=== PATIENT | female | born 1945 | race Caucasian/White ===

== ENCOUNTER 2022-10-03 23:40 | Inpatient (IN) ==
[2022-10-04 00:19] LABS: iSTAT Creatinine 0.8 mg/dl (0.6-1.3); iSTAT Hemoglobin 15.6 g/dl (12.0-16.0); iSTAT Ionized Calcium 1.17 mmol/l (1.12-1.32); iSTAT Potassium 2.8 mmol/L (3.3-5.0)
[2022-10-04 00:22] LABS: iSTAT Arterial Blood Gas HCO3 26 meg/L (19-24); iSTAT Arterial Blood Gas pCO2 37 mmHg (35-46); iSTAT Arterial Blood Gas pH 7.46 (7.35-7.45); iSTAT Arterial Blood Gas pO2 52 mmHg (80-95); iSTAT Carbon Dioxide 28 mmol/L (24-31)
[2022-10-04 00:25] LABS: Basophils # (auto) 0.04 K/uL (0-0.2); Basophils % (auto) 0.3 %; Eosinophils # (auto) 0.01 K/uL (0-0.50); Eosinophils % (auto) 0.1 %; Hematocrit (blood only) 44.7 % (37.0-47.0); Hemoglobin 15.2 g/dl (12.0-16.0); Immature Granulocytes # (auto) 0.05 K/uL (0.01-0.20); Immature Granulocytes % (auto) 0.4 %; Lymphocytes % (auto) 9.2 %; Mean Corpuscular Hemoglobin 30.1 pg (25.0-34.0); Mean Corpuscular Volume 88.5 fL (80.0-100.0); Mean Platelet Volume 10.7 fL (9.4-12.4); Monocytes # (auto) 0.99 K/uL (0.11-0.59); Monocytes % (auto) 8.3 %; Neutrophils % (auto) 81.7 %; Platelet Count 222 K/uL (130-400); RDW Coefficient of Variation 13.6 % (11.5-14.5); RDW Standard Deviation 43.8 fL (36.4-46.3); Red Blood Count 5.05 M/uL (4.20-5.40); White Blood Count 11.99 K/ul (4.8-10.8)
[2022-10-04 00:40] LABS: Albumin Globulin Ratio 1.3 (0.9-2); Albumin Level 3.9 gm/dl (3.4-5.0); BUN Creatinine Ratio 18.9 (10-20); Bilirubin,Total 1.4 mg/dl (0.2-1.0); Calcium 9.2 mg/dl (8.5-10.1); Creatinine Clr Calc Pharmacy 73.1 ml/min; Est GFR (African American) 89.9 ml/min; Est GFR (Non-African American) 77.6 ml/min; Total Protein 6.9 gm/dl (6.0-8.3)
[2022-10-04 00:55] LABS: Influenza A virus by PCR Negative (Neg); Influenza B virus by PCR Negative (Neg); RSV by PCR Negative (Neg)
[2022-10-04 00:59] LABS: SARS CoV2 RNA(COVID-19) Ceph POSITIVE (Negative)
[2022-10-04] MEDS ORDERED: SODIUM CHLORIDE 0.9% 500 ML IV ONE (01:07)
[2022-10-04] MEDS ORDERED: POTASSIUM CHLORIDE PWD 20 MEQ PACK PO STA (01:28)
[2022-10-04 01:43] LABS: Partial Thromboplastin Ratio 0.9; Partial Thromboplastin Time 25.2 Seconds (21.0-31.0)
[2022-10-04 01:47] LABS: Magnesium 1.9 mg/dl (1.7-2.4)
[2022-10-04] MEDS ORDERED: MAGNESIUM SULFATE / D5W 1 GM/100 ML BAG IV STA (01:49)
--- NOTE | 2022-10-04 02:15 | Emergency Department Note ---
Impression & Plan Syncope, COVID-19, Hypoxia Admit to the [facility] ED Provider Note NAME: RADHA GALICIA AGE: 77 SEX: F ARRIVES VIA: Ambulance INFORMANT: Patient and EMS ED PROVIDER(S): Glenis Gloria DO CHIEF COMPLAINT: Near syncope and shortness of breath PLAN: Disposition: Admit to the [facility] Condition: Guarded MEDICAL DECISION MAKING: This is a 77-year-old female patient who called EMS for dizziness and syncope. Patient admits that she has been feeling extremely weak and believes that is because she cannot eat or drink very much. She has had very little oral intake. Upon EMS arrival, they found her with an O2 saturation of 60% on room air. They administered a DuoNeb treatment and IV Solu-Medrol. Patient was noted to have significant ST segment depression on prehospital EKG. BSG was greater than 200. Patient was seen approximately 20 days ago at [place] emergency department for URI symptoms. She states that she was treated with antinausea medications at that time. She had a COVID test at that time which was negative. Laboratory studies here reveal a positive COVID test. She has a normal white blood cell count and stable H&H. Glucose was 143. Troponin was elevated at 503. Twelve-lead EKG shows evidence of ST segment depression inferiorly and l aterally. The patient is hypoxic without supplemental O2. She requires high flow nasal cannula to maintain O2 saturations in the 90s. Chest x-ray shows peribronchial opacities most likely infectious in etiology secondary to COVID. Patient's COVID test today is positive and chest x-ray shows multifocal opacities. EKG shows diffuse ST segment depression and she has an elevated troponin. Triage Nursing notes reviewed and agree with them. Vital Signs: reviewed and remarkable for hypoxia and tachycardia Differential diagnosis: Pneumonia, CHF, COVID-19, dehydration, bronchitis, renal failure ER treatment provided: Cardiac monitoring Twelve-lead EKG High flow nasal cannula to maintain O2 saturations at 90% IV normal saline bolus Diagnostics independently interpreted by me: ECG: Sinus tachycardia at [address] segment depression in the inferior and lateral leads. This is concerning for ischemia. There is no ectopy. This was compared to an EKG from April 2018. Cardiac Monitoring: Sinus tachycardia at 113 ABG: pH of 7.46 PCO2 of 37.1 PO2 of 52 bicarb of 26.4 O2 saturation at 88% Laboratory studies: See below Imaging studies: As independently interpreted by me Portable chest x-ray: peribronchial opacities consistent with COVID HPI: 77/F arrives for evaluation of syncope and shortness of breath. Patient describes having persistent shortness of breath, dizziness and decreased oral intake over the past 20 days. She was seen at [place] emergency department 20 days ago for URI symptoms. At that time she was complaining of nausea and was treated with antiemetics. The patient has had increasing shortness of breath. She had an episode of dizziness today and syncope. EMS found the patient to be hypoxic and wheezing. They placed her on supplemental oxygen and administered DuoNeb treatment and IV Solu-Medrol. PAST MEDICAL HISTORY:See Below PAST SURGICAL HISTORY:See Below FAMILY HISTORY:See Below SOCIAL HISTORY:See Below HOME MEDICATIONS:See list ALLERGIES:See list VITALS:See Below PHYSICAL EXAMINATION: HEENT: Head - normocephalic and atraumatic. Pupils are equal, round, and reactive to light. Extraocular eye muscles are intact, and sclera are anicteric. Nose -dry nasal mucosa without discharge. Mouth -extremely dry buccal mucosa. Oropharynx is nonerythematous and there is no tonsillar exudate or edema noted. Neck: Supple; no cervical lymphadenopathy Heart: Tachycardic rate and regular rhythm. There is a normal S1 and S2 with no murmurs, clicks, or gallops appreciated. Lungs: Diminished breath sounds in all lung heath with rhonchi at the bases Abdomen: Soft, completely nontender, nondistended, with good bowel sounds. There are no palpable pulsatile masses or hepatosplenomegaly. There is no guarding, rigidity, or rebound noted. Extremities: No evidence of cyanosis, clubbing, or edema. There are easily palpable peripheral pulses. Skin: Extremely dry with poor turgor and no rashes. ED COURSE: Times/Reassessments: 2350: Patient was evaluated in room A-9 Patient remained hypoxic and was immediately placed on high flow nasal cannula. An IV lock was initiated. An order was placed for continuous cardiac monitoring. The patient was in a sinus tachycardia at 113. A twelve-lead EKG was obtained as described above. A portable chest x-ray was performed. A septic protocol was performed. An ABG was obtained. The patient remained hemodynamically stable. I reviewed the results of the x- rays and labs with the patient and her daughter who arrived at the bedside. I discussed the case with the [facility] and they will evaluate for further management. I have personally spent greater than 50 minutes of critical care time in the direct management of this patient. This includes bedside care, interpretation of diagnostic studies, and testing, discussion with consultants, patient, and family members, and other required patient management activities. This 50 minutes is in excess of all separately billable procedures. Glenis Gloria DO Past Med/Surg History Medical History (Updated 10/05/22 @ 04:40 by Glenis Gloria DO) Arthritis of shoulder region, right Asthma Degenerative arthritis of right shoulder region Female urinary stress incontinence (Unknown) Hypertension Pulmonary embolism associated with COVID-19 Received intravenous tissue plasminogen activator (t-PA) within last 24 hours Right shoulder pain Right shoulder pain Family History (Updated 05/07/18 @ 01:14 by Deshawn Molina) Other No significant family history Social History (Updated 05/07/18 @ 01:14 by Deshawn Molina) Smoking Status: Never smoker Second Hand Exposure: No; Do You Dip or Chew Tobacco: No; Tobacco Cessation Education Requested by Patient: No Hx Alcohol Use: No Hx Substance Use: No Preferred Language: Turkmen Communication Ability: Effective Wedding Consultant Required: No Beliefs That Will Affect Care: None marital status: Current Living Situation: Spouse How many Children do You have: 2 Other Information That Helps Us Care for You: No Feels Safe at Home: Yes Safety Concerns: Feels Safe At This Time Assistive Devices: Walker Allergies Allergies Allergy/AdvReac Type Severity Reaction Status Date / Time buspirone Allergy Unknown suical Verified 05/07/18 03:52 thoughts fluoxetine Allergy Unknown unk Verified 05/07/18 03:52 prednisone Allergy Unknown agitation Verified 05/07/18 03:52 Sulfa (Sulfonamide Allergy Unknown unk Verified 05/07/18 03:52 Antibiotics) Home Meds Home Medications Medication Instructions Recorded Confirmed citalopram 40 mg tablet 40 mg PO HS 05/07/18 05/07/18 imipramine HCl 50 mg tablet 25 mg PO BID 05/07/18 05/07/18 omeprazole 20 mg tablet,delayed 20 mg PO QAM 10/12/18 10/12/18 release metoprolol tartrate 25 mg tablet 25 mg PO BID 10/04/22 10/04/22 Results & Data (ED) Vital Signs Vital Signs - 24 hr 10/03/22 23:47 10/04/22 00:05 10/04/22 00:32 Temperature 36.7 C Temperature Source Oral Pulse Rate 115 H 112 H Pulse Rate [Finger] 114 H Pulse Rate from SpO2 Sensor Pulse Rhythm Regular Pulse Strength Normal Respiratory Rate 24 18 Respiratory Effort / Characteristics Non-Labored Spontaneous Non-Labored Spontaneous Respiratory Depth Normal Respiratory Pattern Tachypnea Blood Pressure 114/59 L Blood Pressure Mean 77 Blood Pressure Position Sitting Pulse Oximetry 87 L 92 Oxygen Delivery Method Non-rebreather High Flow Nasal Cannula Oxygen Flow Rate 15 40 Fraction of Inspired Oxygen 100 Sepsis Recent Fever Within 48 Hours No Sepsis New/Unexplained Change in Mental Status N/A Sepsis Action Taken by Nursing Physician Notified 10/03/22 23:59 10/04/22 00:00 10/04/22 00:30 Temperature Temperature Source Pulse Rate 113 H 113 H 116 H Pulse Rate [Finger] Pulse Rate from SpO2 Sensor 114 H 114 H 116 H Pulse Rhythm Pulse Strength Respiratory Rate 20 20 22 Respiratory Effort / Characteristics Respiratory Depth Respiratory Pattern Blood Pressure 114/59 L 136/59 L 132/67 Blood Pressure Mean 77 84 88 Blood Pressure Position Pulse Oximetry 92 89 L 90 Oxygen Delivery Method High Flow Nasal Cannula High Flow Nasal Cannula High Flow Nasal Cannula Oxygen Flow Rate 40 40 40 Fraction of Inspired Oxygen 100 100 100 Sepsis Recent Fever Within 48 Hours Sepsis New/Unexplained Change in Mental Status Sepsis Action Taken by Nursing 10/04/22 01:00 10/04/22 01:30 Temperature Temperature Source Pulse Rate 110 H 113 H Pulse Rate [Finger] Pulse Rate from SpO2 Sensor 111 H 114 H Pulse Rhythm Pulse Strength Respiratory Rate 18 17 Respiratory Effort / Characteristics Respiratory Depth Respiratory Pattern Blood Pressure 141/77 H 135/75 Blood Pressure Mean 98 95 Blood Pressure Position Pulse Oximetry 90 90 Oxygen Delivery Method High Flow Nasal Cannula High Flow Nasal Cannula Oxygen Flow Rate 40 40 Fraction of Inspired Oxygen 100 100 Sepsis Recent Fever Within 48 Hours Sepsis New/Unexplained Change in Mental Status Sepsis Action Taken by Nursing Laboratory Data 10/04/22 00:00 10/04/22 00:00 Lab Results 10/04/22 10/04/22 10/04/22 Range/Units 00:00 00:00 00:00 WBC 11.99 H (4.8-10.8) K/ul RBC 5.05 (4.20-5.40) M/uL Hgb 15.2 (12.0-16.0) g/dl POC Hgb (12.0-16.0) g/dl Hct 44.7 (37.0-47.0) % POC Hct (37-47) % MCV 88.5 (80.0-100.0) fL MCH 30.1 (25.0-34.0) pg MCHC 34.0 (32.0-36.0) g/dL RDW Std Deviation 43.8 (36.4-46.3) fL RDW Coeff of Jose Enrique 13.6 (11.5-14.5) % Plt Count 222 (130-400) K/uL MPV 10.7 (9.4-12.4) fL Immature Gran % (Auto) 0.4 % Neut % (Auto) 81.7 % Lymph % (Auto) 9.2 % Blair % (Auto) 8.3 % Eos % (Auto) 0.1 % Baso % (Auto) 0.3 % Neut # (Auto) 9.80 H (1.40-6.50) K/uL Lymph # (Auto) 1.10 L (1.2-3.4) K/uL Blair # (Auto) 0.99 H (0.11-0.59) K/uL Eos # (Auto) 0.01 (0-0.50) K/uL Baso # (Auto) 0.04 (0-0.2) K/uL Immature Gran # (Auto) 0.05 (0.01-0.20) K/uL APTT (21.0-31.0) Seconds PTT Ratio POC pH (7.35-7.45) POC pCO2 (35-46) mmHg POC pO2 (80-95) mmHg POC HCO3 (19-24) paula/L POC Base Excess (-9-1.8) paula/L POC ABG O2 Sat (90-95) % POC Sodium (135-144) mmol/L Sodium 138 (136-145) mmol/L POC Potassium (3.3-5.0) mmol/L Potassium 3.0 L (3.5-5.1) mmol/L POC Chloride (101-112) mmol/L Chloride 98 (98-107) mmol/L Carbon Dioxide 30 (21-32) mmol/L POC Total CO2 (24-31) mmol/L Anion Gap 10 (3-11) POC Anion Gap (16-25) mmol/L POC BUN (7-18) mg/dl BUN 14 (6-23) mg/dl Creatinine 0.74 (0.6-1.2) mg/dl POC Creatinine (0.6-1.3) mg/dl Est Cr Clr Drug Dosing 73.1 ml/min Est GFR ( Amer) 89.9 ml/min Est GFR (Non-Af Amer) 77.6 ml/min BUN/Creatinine Ratio 18.9 (10-20) Glucose 133 H (70-99(Fasting)) mg/dl POC Glucose (other) (70-99) mg/dl Estimat Average Glucose mg/dl Hemoglobin A1c (4.5-5.6) % Lactate (0.4-2.0) mmol/L Calcium 9.2 (8.5-10.1) mg/dl POC Ioniz Calcium Jacque (1.12-1.32) mmol/l Magnesium 1.9 (1.7-2.4) mg/dl Total Bilirubin 1.4 H (0.2-1.0) mg/dl AST 21 (13-39) U/L ALT 21 (7-52) U/L Alkaline Phosphatase 65 (34-104) U/L Troponin I High Sens 224.0 H* (0-14) pg/ml B-Natriuretic Peptide (0-100) pg/ml Total Protein 6.9 (6.0-8.3) gm/dl Albumin 3.9 (3.4-5.0) gm/dl Globulin 3.0 (2.5-4.0) gm/dl Albumin/Globulin Ratio 1.3 (0.9-2) Procalcitonin < 0.05 (0-0.5) ng/ml SARS-CoV-2 (PCR) (Negative) Influenza Type A (PCR) (Neg) Influenza Type B (PCR) (Neg) RSV (RT-PCR) (Neg) 10/04/22 10/04/22 10/04/22 Range/Units 00:00 00:06 00:08 WBC (4.8-10.8) K/ul RBC (4.20-5.40) M/uL Hgb (12.0-16.0) g/dl POC Hgb 15.6 (12.0-16.0) g/dl Hct (37.0-47.0) % POC Hct 46 (37-47) % MCV (80.0-100.0) fL MCH (25.0-34.0) pg MCHC (32.0-36.0) g/dL RDW Std Deviation (36.4-46.3) fL RDW Coeff of Jose Enrique (11.5-14.5) % Plt Count (130-400) K/uL MPV (9.4-12.4) fL Immature Gran % (Auto) % Neut % (Auto) % Lymph % (Auto) % Blair % (Auto) % Eos % (Auto) % Baso % (Auto) % Neut # (Auto) (1.40-6.50) K/uL Lymph # (Auto) (1.2-3.4) K/uL Blair # (Auto) (0.11-0.59) K/uL Eos # (Auto) (0-0.50) K/uL Baso # (Auto) (0-0.2) K/uL Immature Gran # (Auto) (0.01-0.20) K/uL APTT 25.2 (21.0-31.0) Seconds PTT Ratio 0.9 POC pH 7.46 H (7.35-7.45) POC pCO2 37 (35-46) mmHg POC pO2 52 L (80-95) mmHg POC HCO3 26 H (19-24) paula/L POC Base Excess 3.0 H (-9-1.8) paula/L POC ABG O2 Sat 88.0 L (90-95) % POC Sodium 138 (135-144) mmol/L Sodium (136-145) mmol/L POC Potassium 2.8 L (3.3-5.0) mmol/L Potassium (3.5-5.1) mmol/L POC Chloride 95 L (101-112) mmol/L Chloride (98-107) mmol/L Carbon Dioxide (21-32) mmol/L POC Total CO2 27 28 (24-31) mmol/L Anion Gap (3-11) POC Anion Gap 19.0 (16-25) mmol/L POC BUN 13 (7-18) mg/dl BUN (6-23) mg/dl Creatinine (0.6-1.2) mg/dl POC Creatinine 0.8 (0.6-1.3) mg/dl Est Cr Clr Drug Dosing ml/min Est GFR ( Amer) ml/min Est GFR (Non-Af Amer) ml/min BUN/Creatinine Ratio (10-20) Glucose (70-99(Fasting)) mg/dl POC Glucose (other) 131 H (70-99) mg/dl Estimat Average Glucose mg/dl Hemoglobin A1c (4.5-5.6) % Lactate (0.4-2.0) mmol/L Calcium (8.5-10.1) mg/dl POC Ioniz Calcium Jacque 1.17 (1.12-1.32) mmol/l Magnesium (1.7-2.4) mg/dl Total Bilirubin (0.2-1.0) mg/dl AST (13-39) U/L ALT (7-52) U/L Alkaline Phosphatase (34-104) U/L Troponin I High Sens (0-14) pg/ml B-Natriuretic Peptide (0-100) pg/ml Total Protein (6.0-8.3) gm/dl Albumin (3.4-5.0) gm/dl Globulin (2.5-4.0) gm/dl Albumin/Globulin Ratio (0.9-2) Procalcitonin (0-0.5) ng/ml SARS-CoV-2 (PCR) (Negative) Influenza Type A (PCR) (Neg) Influenza Type B (PCR) (Neg) RSV (RT-PCR) (Neg) 10/04/22 10/04/22 10/04/22 Range/Units 00:12 00:27 02:08 WBC (4.8-10.8) K/ul RBC (4.20-5.40) M/uL Hgb (12.0-16.0) g/dl POC Hgb (12.0-16.0) g/dl Hct (37.0-47.0) % POC Hct (37-47) % MCV (80.0-100.0) fL MCH (25.0-34.0) pg MCHC (32.0-36.0) g/dL RDW Std Deviation (36.4-46.3) fL RDW Coeff of Jose Enrique (11.5-14.5) % Plt Count (130-400) K/uL MPV (9.4-12.4) fL Immature Gran % (Auto) % Neut % (Auto) % Lymph % (Auto) % Blair % (Auto) % Eos % (Auto) % Baso % (Auto) % Neut # (Auto) (1.40-6.50) K/uL Lymph # (Auto) (1.2-3.4) K/uL Blair # (Auto) (0.11-0.59) K/uL Eos # (Auto) (0-0.50) K/uL Baso # (Auto) (0-0.2) K/uL Immature Gran # (Auto) (0.01-0.20) K/uL APTT (21.0-31.0) Seconds PTT Ratio POC pH (7.35-7.45) POC pCO2 (35-46) mmHg POC pO2 (80-95) mmHg POC HCO3 (19-24) paula/L POC Base Excess (-9-1.8) paula/L POC ABG O2 Sat (90-95) % POC Sodium (135-144) mmol/L Sodium (136-145) mmol/L POC Potassium (3.3-5.0) mmol/L Potassium (3.5-5.1) mmol/L POC Chloride (101-112) mmol/L Chloride (98-107) mmol/L Carbon Dioxide (21-32) mmol/L POC Total CO2 (24-31) mmol/L Anion Gap (3-11) POC Anion Gap (16-25) mmol/L POC BUN (7-18) mg/dl BUN (6-23) mg/dl Creatinine (0.6-1.2) mg/dl POC Creatinine (0.6-1.3) mg/dl Est Cr Clr Drug Dosing ml/min Est GFR ( Amer) ml/min Est GFR (Non-Af Amer) ml/min BUN/Creatinine Ratio (10-20) Glucose (70-99(Fasting)) mg/dl POC Glucose (other) (70-99) mg/dl Estimat Average Glucose mg/dl Hemoglobin A1c (4.5-5.6) % Lactate 2.5 H* (0.4-2.0) mmol/L Calcium (8.5-10.1) mg/dl POC Ioniz Calcium Jacque (1.12-1.32) mmol/l Magnesium (1.7-2.4) mg/dl Total Bilirubin (0.2-1.0) mg/dl AST (13-39) U/L ALT (7-52) U/L Alkaline Phosphatase (34-104) U/L Troponin I High Sens (0-14) pg/ml B-Natriuretic Peptide 274 H (0-100) pg/ml Total Protein (6.0-8.3) gm/dl Albumin (3.4-5.0) gm/dl Globulin (2.5-4.0) gm/dl Albumin/Globulin Ratio (0.9-2) Procalcitonin (0-0.5) ng/ml SARS-CoV-2 (PCR) POSITIVE A* (Negative) Influenza Type A (PCR) Negative (Neg) Influenza Type B (PCR) Negative (Neg) RSV (RT-PCR) Negative (Neg) 10/04/22 10/04/22 10/04/22 Range/Units 02:08 02:08 02:08 WBC (4.8-10.8) K/ul RBC (4.20-5.40) M/uL Hgb (12.0-16.0) g/dl POC Hgb (12.0-16.0) g/dl Hct (37.0-47.0) % POC Hct (37-47) % MCV (80.0-100.0) fL MCH (25.0-34.0) pg MCHC (32.0-36.0) g/dL RDW Std Deviation (36.4-46.3) fL RDW Coeff of Jose Enrique (11.5-14.5) % Plt Count (130-400) K/uL MPV (9.4-12.4) fL Immature Gran % (Auto) % Neut % (Auto) % Lymph % (Auto) % Blair % (Auto) % Eos % (Auto) % Baso % (Auto) % Neut # (Auto) (1.40-6.50) K/uL Lymph # (Auto) (1.2-3.4) K/uL Blair # (Auto) (0.11-0.59) K/uL Eos # (Auto) (0-0.50) K/uL Baso # (Auto) (0-0.2) K/uL Immature Gran # (Auto) (0.01-0.20) K/uL APTT (21.0-31.0) Seconds PTT Ratio POC pH (7.35-7.45) POC pCO2 (35-46) mmHg POC pO2 (80-95) mmHg POC HCO3 (19-24) paula/L POC Base Excess (-9-1.8) paula/L POC ABG O2 Sat (90-95) % POC Sodium (135-144) mmol/L Sodium (136-145) mmol/L POC Potassium (3.3-5.0) mmol/L Potassium (3.5-5.1) mmol/L POC Chloride (101-112) mmol/L Chloride (98-107) mmol/L Carbon Dioxide (21-32) mmol/L POC Total CO2 (24-31) mmol/L Anion Gap (3-11) POC Anion Gap (16-25) mmol/L POC BUN (7-18) mg/dl BUN (6-23) mg/dl Creatinine (0.6-1.2) mg/dl POC Creatinine (0.6-1.3) mg/dl Est Cr Clr Drug Dosing ml/min Est GFR ( Amer) ml/min Est GFR (Non-Af Amer) ml/min BUN/Creatinine Ratio (10-20) Glucose (70-99(Fasting)) mg/dl POC Glucose (other) (70-99) mg/dl Estimat Average Glucose 105 mg/dl Hemoglobin A1c 5.3 (4.5-5.6) % Lactate 1.9 (0.4-2.0) mmol/L Calcium (8.5-10.1) mg/dl POC Ioniz Calcium Jacque (1.12-1.32) mmol/l Magnesium (1.7-2.4) mg/dl Total Bilirubin (0.2-1.0) mg/dl AST (13-39) U/L ALT (7-52) U/L Alkaline Phosphatase (34-104) U/L Troponin I High Sens 347.0 H* D (0-14) pg/ml B-Natriuretic Peptide (0-100) pg/ml Total Protein (6.0-8.3) gm/dl Albumin (3.4-5.0) gm/dl Globulin (2.5-4.0) gm/dl Albumin/Globulin Ratio (0.9-2) Procalcitonin (0-0.5) ng/ml SARS-CoV-2 (PCR) (Negative) Influenza Type A (PCR) (Neg) Influenza Type B (PCR) (Neg) RSV (RT-PCR) (Neg) Administered Medications Heparin Sodium/Dextrose (Heparin Sodium/Dextrose) 25,000 units in 500 mls @ 26 mls/hr IV .[id number] [facility]; Protocol Stop: 11/03/22 13:14 Last Admin: 10/04/22 16:13 Dose: 1,300 units/hr, 26 mls/hr Documented By: ULISES Co-signed By: JORGITO Imipramine HCl (Imipramine Hcl 25 Mg Tab) 25 mg PO BID [facility] Stop: 11/03/22 08:59 Last Admin: 10/04/22 21:05 Dose: 25 mg Documented By: Admin: 10/04/22 11:20 Dose: 25 mg Documented By: ULISES Miscellaneous (Icu Protocol For Hyperglycemia) 1 each N/A ACHS [facility] Stop: 10/06/22 07:29 Last Admin: 10/04/22 21:01 Dose: Not Given Documented By: Admin: 10/04/22 18:13 Dose: 1 each Documented By: Admin: 10/04/22 13:26 Dose: Not Given Documented By: Admin: 10/04/22 08:02 Dose: Not Given Documented By: ULISES Pantoprazole Sodium (Pantoprazole 40 Mg Tab) 40 mg PO QAM [facility] Stop: 11/03/22 08:59 Last Admin: 10/04/22 10:12 Dose: 40 mg Documented By: ULISES Discontinued Medications Citalopram Hydrobromide (Citalopram 40 Mg Tab) 40 mg PO NOW STA Stop: 10/04/22 02:25 Last Admin: 10/04/22 03:04 Dose: 40 mg Documented By: BERT Heparin Sodium/Dextrose (Heparin Iv Adult Wt-Based Standard *No* Bolus Protocol) 1 each IV ONE ONE; Protocol Stop: 10/04/22 12:49 Last Admin: 10/04/22 13:25 Dose: 1 each Documented By: ULISES Heparin Sodium/Dextrose (Heparin 45886 Unit/500 Ml D5w) Confirm Administered Dose 25,000 units IV .STK-MED ONE Stop: 10/04/22 13:34 Last Admin: 10/04/22 16:13 Dose: Not Given Documented By: ULISES Sodium Chloride (Nss) 500 mls @ 999 mls/hr IV .Q31M ONE Stop: 10/04/22 01:37 Last Infusion: 10/04/22 10:07 Dose: 0 mls/hr Documented By: Admin: 10/04/22 01:54 Dose: 999 mls/hr Documented By: BERT Magnesium Sulfate/Dextrose (Magnesium Sulfate / D5w) 1 gm in 100 mls @ 50 mls/hr IV ONE STA Stop: 10/04/22 03:48 Last Infusion: 10/04/22 05:06 Dose: 0 mls/hr Documented By: Admin: 10/04/22 01:55 Dose: 50 mls/hr Documented By: BERT Dexamethasone 6 mg/ Syringe 1.5 mls @ 1 mls/min IV DAILY JOSE Stop: 11/03/22 05:49 Last Admin: 10/04/22 07:21 Dose: 1 mls/min Documented By: ULISES Potassium Chloride/Sodium Chloride (Normal Saline W/20 Meq Kcl) 20 meq in 1,000 mls @ 50 mls/hr IV .Q20H ONE; Protocol Stop: 10/05/22 03:44 Last Infusion: 10/04/22 13:29 Dose: 0 mls/hr Documented By: Infusion: 10/04/22 08:00 Dose: 0 mls/hr Documented By: Admin: 10/04/22 07:16 Dose: 50 mls/hr Documented By: ULISES Alteplase, Recombinant 10 mg/ (Syringe) 10 mls @ 5 mls/min IV NOW ONE Stop: 10/04/22 07:31 Last Admin: 10/04/22 07:33 Dose: 5 mls/min Documented By: ULISES Alteplase, Recombinant 40 mg/ (EMPTY BAG) 40 mls @ 20 mls/hr IV NOW ONE; Protocol Stop: 10/04/22 09:29 Last Infusion: 10/04/22 09:40 Dose: 0 mls/hr Documented By: Admin: 10/04/22 07:33 Dose: 20 mls/hr Documented By: ULISES N/A (Primary [place], Pe Lined Tubing ([id number])) 0 mls @ 0.0033 mls/hr IV ONE ONE Stop: 10/04/22 07:31 Last Infusion: 10/04/22 18:14 Dose: 0 mls/hr Documented By: Admin: 10/04/22 07:34 Dose: 20 mls/hr Documented By: ULISES Sodium Chloride (Nss) 50 mls @ 50 mls/hr IV TODAY@0730 ONE; Protocol Stop: 10/04/22 08:29 Last Infusion: 10/04/22 10:08 Dose: 0 mls/hr Documented By: Admin: 10/04/22 07:35 Dose: 50 mls/hr Documented By: ULISES Imipramine HCl (Imipramine Hcl 25 Mg Tab) 25 mg PO ONE STA Stop: 10/04/22 02:35 Last Admin: 10/04/22 03:05 Dose: 25 mg Documented By: BERT Ioversol (Optiray 320 500ml) 112 ml IV ONCE ONE Stop: 10/04/22 03:31 Last Admin: 10/04/22 03:30 Dose: 112 ml Documented By: JACOB Levalbuterol HCl (Levalbuterol Tartrate 15 Gm Hfa.Aer.Ad) 2 puffs INH QIDR JOSE Stop: 11/03/22 06:59 Last Admin: 10/04/22 05:35 Dose: 2 puffs Documented By: RAMON Metoprolol Tartrate (Metoprolol Tartrate 25 Mg Tab) 25 mg PO NOW STA Stop: 10/04/22 02:25 Last Admin: 10/04/22 05:05 Dose: 25 mg Documented By: BRANDAN Miscellaneous Information (Dc All Anticoagulants ) 1 each N/A NOW STA Stop: 10/04/22 07:09 Last Admin: 10/04/22 07:34 Dose: 1 each Documented By: ULISES Morphine Sulfate (Morphine Sulfate 2 Mg/Ml Carp) Confirm Administered Dose 2 mg .ROUTE .STK-MED ONE Stop: 10/04/22 07:16 Last Admin: 10/04/22 07:23 Dose: 2 mg Documented By: ULISES Morphine Sulfate (Morphine Sulfate 2 Mg/Ml Carp) 2 mg IV NOW STA Stop: 10/04/22 07:25 Last Admin: 10/04/22 08:02 Dose: Not Given Documented By: ULISES Potassium Chloride (Potassium Chloride Pwd 20 Meq Pack) 40 meq PO NOW STA Stop: 10/04/22 01:29 Last Admin: 10/04/22 01:53 Dose: 40 meq Documented By: BERT Potassium Chloride (Potassium Chloride Pwd 20 Meq Pack) 40 meq PO ONE ONE Stop: 10/04/22 04:01 Last Admin: 10/04/22 05:04 Dose: 40 meq Documented By: BRANDAN Potassium Chloride (Potassium Chloride Pwd 20 Meq Pack) 40 meq PO ONE ONE Stop: 10/04/22 06:01 Last Admin: 10/04/22 05:11 Dose: 40 meq Documented By: BRANDAN Sodium Chloride (Sodium Chloride 0.9% 50 Ml Bag) 50 ml IV NOW STA Stop: 10/04/22 07:09 Last Admin: 10/04/22 09:27 Dose: 50 ml Documented By: ULISES Discharge Plan Visit Data Chief Complaint: Syncope Stated Complaint: Hypoxia, Dizziness, Fall ED Provider: Glenis Gloria Discharge Problem: Syncope, COVID-19, Hypoxia Patient Disposition: Admitted As Inpatient Discharge Instructions Interventions: ED Discharge Assessment Last Done: 10/04/22 03:47
--- NOTE | 2022-10-04 02:23 | History & Physical Report ---
Date of Service October 04, 2022 Assessment & Plan (1) Acute hypoxemic respiratory failure: Plan: Secondary to severe COVID-19 pneumonia Rule out pulmonary embolism Syncope secondary to illness Rule out orthostasis, PE, cardiac dysfunction HTN, BP stable hyperlipidemia not on statin Rx hx PVD as per records endometrial cancer status post surgery history chronic stress/urge incontinence Steroid-induced hyperglycemia rule out DM anxiety/mood disorder, patient notably anxious on exam Hypokalemia secondary to poor p.o. intake from viral illness PCU Supplemental O2 Decadron for severe COVID-19 pneumonia No benefit in Remdesivir at this point given likely second week of illness. Pulmonary consult if without improvement Orthostatic vitals, TTE, CT chest PE study for syncope work-up Replace potassium Check hemoglobin A1c DVT prophylaxis. Lovenox subcu Full code Patient's daughter requesting for updates from providers. Ms. Anastasia Plunkett, contact #[phone]. Text document was generated using [employer] voice recognition software. It may contain grammatical or spelling errors. Kindly contact undersigned for clarification of any documentation item in question. ADDENDUM : Made aware by RN of CT chest result : Large volume central PE bilaterally with RV dilatation consistent with right heart strain. Case discussed with Dr. Fernández (ruling machine feeder on-call) ICU transfer recommended for thrombolytic therapy for submassive PE Patient and daughter updated of developments and recommended plan of care. Agreeable to tPA with attendant benefit for medical condition and potential life-threatening bleeding complications from receiving therapy. History of Present Illness Chief Complaint: Syncope, shortness of breath Primary Care Provider: Kem Phillips MD History obtained from patient, family, and records. Medical history significant for HTN, hyperlipidemia, PVD as per records, endometrial cancer status post surgery, history chronic stress/urge incontinence, anxiety/mood disorder. Last confinement 2018 encephalopathy secondary to UTI. 2 weeks ago, patient noted cough symptoms productive of clear sputum associated with nausea, dry heaving symptoms. No chest pain, no SOB. Patient has not received COVID-19 vaccination. 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 Patient admitted overnight at [facility] for nausea symptoms. COVID-19 test was negative. Poor appetite at home. Increasing weakness with shortness of breath mostly on exertion. Patient still with cough symptoms productive of clear sputum. No chest pain, no headache symptoms. Patient admits to lightheadedness. Witnessed syncopal event at home today. No witnessed seizures or incontinence. Patient noted to be cyanotic with O2 sat 60s on room air upon EMS arrival. Solu-Medrol and neb treatment administered en route to ER. 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 Allergies Allergy/AdvReac Type Severity Reaction Status Date / Time buspirone Allergy Unknown suical Verified 05/07/18 03:52 thoughts fluoxetine Allergy Unknown unk Verified 05/07/18 03:52 prednisone Allergy Unknown agitation Verified 05/07/18 03:52 Sulfa (Sulfonamide Allergy Unknown unk Verified 05/07/18 03:52 Antibiotics) Home Medications Medication Instructions Recorded Confirmed Type citalopram 40 mg tablet 40 mg PO HS 05/07/18 05/07/18 History imipramine HCl 50 mg tablet 25 mg PO BID 05/07/18 05/07/18 History omeprazole 20 mg tablet,delayed 20 mg PO QAM 05/07/18 05/07/18 History release metoprolol tartrate 25 mg tablet 25 mg PO BID 10/04/22 10/04/22 History Past Med/Surg History Medical History (Updated 10/04/22 @ 08:29 by Jair Fernández MD) Arthritis of shoulder region, right Asthma Degenerative arthritis of right shoulder region Female urinary stress incontinence (Unknown) Hypertension Pulmonary embolism associated with COVID-19 Received intravenous tissue plasminogen activator (t-PA) within last 24 hours Right shoulder pain Right shoulder pain Family History (Updated 05/07/18 @ 01:14 by Deshawn Molina) Other No significant family history Social History (Updated 05/07/18 @ 01:14 by Deshawn Molina) Smoking Status: Never smoker Second Hand Exposure: No; Do You Dip or Chew Tobacco: No; Tobacco Cessation Education Requested by Patient: No Hx Alcohol Use: No Hx Substance Use: No Preferred Language: Welsh Communication Ability: Effective [employer] Required: No Beliefs That Will Affect Care: None marital status: Current Living Situation: Spouse How many Children do You have: 2 Other Information That Helps Us Care for You: No Feels Safe at Home: Yes Safety Concerns: Feels Safe At This Time Assistive Devices: Walker Review of Systems Review of Systems: As per HPI, all other systems reviewed and negative Physical Exam Physical Exam: GENERAL: Obese, slightly anxious, pleasant, no respiratory distress SKIN: Normal color, warm HEENT: pink palpebral conjunctivae, no ptosis, dry buccal mucosa, nasal cannula in place NECK : Supple, short, no tenderness CHEST : Decreased breath sounds, no tenderness HEART : Tachycardic, no obvious murmurs ABDOMEN: distention, nontender EXTREMITIES : Minimal LE swelling, no LE tenderness , no other conspicuous deformities noted NEUROLOGIC : Coherent, no facial asymmetry, slightly hard of hearing, no other gross focality Results & Data Results & Data ([facility]) Vital Signs (Past 12 Hours) Vital Signs Temp Pulse Pulse Resp BP Pulse Ox O2 Del Method 10/04/22 01:30 113 H 17 135/75 90 High Flow Nasal Cannula 10/04/22 01:00 110 H 18 141/77 H 90 High Flow Nasal Cannula 10/04/22 00:30 116 H 22 132/67 90 High Flow Nasal Cannula 10/04/22 00:00 113 H 20 136/59 L 89 L High Flow Nasal Cannula 10/03/22 23:59 113 H 20 114/59 L 92 High Flow Nasal Cannula 10/04/22 00:32 114 H 18 92 High Flow Nasal Cannula 10/04/22 00:05 112 H 10/03/22 23:47 36.7 C 115 H 24 114/59 L 87 L Non-rebreather O2 Flow Rate FiO2 10/04/22 01:30 40 100 10/04/22 01:00 40 100 10/04/22 00:30 40 100 10/04/22 00:00 40 100 10/03/22 23:59 40 100 10/04/22 00:32 40 100 10/04/22 00:05 10/03/22 23:47 15 Laboratory Results Laboratory Results WBC 11.99 K/ul (4.8-10.8) H 10/04/22 00:00 RBC 5.05 M/uL (4.20-5.40) 10/04/22 00:00 Hgb 15.2 g/dl (12.0-16.0) 10/04/22 00:00 POC Hgb 15.6 g/dl (12.0-16.0) 10/04/22 00:06 Hct 44.7 % (37.0-47.0) 10/04/22 00:00 POC Hct 46 % (37-47) 10/04/22 00:06 MCV 88.5 fL (80.0-100.0) 10/04/22 00:00 MCH 30.1 pg (25.0-34.0) 10/04/22 00:00 MCHC 34.0 g/dL (32.0-36.0) 10/04/22 00:00 RDW Std Deviation 43.8 fL (36.4-46.3) 10/04/22 00:00 RDW Coeff of Jose Enrique 13.6 % (11.5-14.5) 10/04/22 00:00 Plt Count 222 K/uL (130-400) 10/04/22 00:00 MPV 10.7 fL (9.4-12.4) 10/04/22 00:00 Immature Gran % (Auto) 0.4 % 10/04/22 00:00 Neut % (Auto) 81.7 % 10/04/22 00:00 Lymph % (Auto) 9.2 % 10/04/22 00:00 Rooks % (Auto) 8.3 % 10/04/22 00:00 Eos % (Auto) 0.1 % 10/04/22 00:00 Baso % (Auto) 0.3 % 10/04/22 00:00 Neut # (Auto) 9.80 K/uL (1.40-6.50) H 10/04/22 00:00 Lymph # (Auto) 1.10 K/uL (1.2-3.4) L 10/04/22 00:00 Rooks # (Auto) 0.99 K/uL (0.11-0.59) H 10/04/22 00:00 Eos # (Auto) 0.01 K/uL (0-0.50) 10/04/22 00:00 Baso # (Auto) 0.04 K/uL (0-0.2) 10/04/22 00:00 Immature Gran # (Auto) 0.05 K/uL (0.01-0.20) 10/04/22 00:00 APTT 25.2 Seconds (21.0-31.0) 10/04/22 00:00 PTT Ratio 0.9 10/04/22 00:00 POC pH 7.46 (7.35-7.45) H 10/04/22 00:08 POC pCO2 37 mmHg (35-46) 10/04/22 00:08 POC pO2 52 mmHg (80-95) L 10/04/22 00:08 POC HCO3 26 paula/L (19-24) H 10/04/22 00:08 POC Total CO2 28 mmol/L (24-31) 10/04/22 00:08 POC Base Excess 3.0 paula/L (-9-1.8) H 10/04/22 00:08 POC ABG O2 Sat 88.0 % (90-95) L 10/04/22 00:08 POC Sodium 138 mmol/L (135-144) 10/04/22 00:06 Sodium 138 mmol/L (136-145) 10/04/22 00:00 POC Potassium 2.8 mmol/L (3.3-5.0) L 10/04/22 00:06 Potassium 3.0 mmol/L (3.5-5.1) L 10/04/22 00:00 POC Chloride 95 mmol/L (101-112) L 10/04/22 00:06 Chloride 98 mmol/L (98-107) 10/04/22 00:00 Carbon Dioxide 30 mmol/L (21-32) 10/04/22 00:00 POC Total CO2 27 mmol/L (24-31) 10/04/22 00:06 Anion Gap 10 (3-11) 10/04/22 00:00 POC Anion Gap 19.0 mmol/L (16-25) 10/04/22 00:06 POC BUN 13 mg/dl (7-18) 10/04/22 00:06 BUN 14 mg/dl (6-23) 10/04/22 00:00 Creatinine 0.74 mg/dl (0.6-1.2) 10/04/22 00:00 POC Creatinine 0.8 mg/dl (0.6-1.3) 10/04/22 00:06 Est Cr Clr Drug Dosing 73.1 ml/min 10/04/22 00:00 Est GFR ( Amer) 89.9 ml/min 10/04/22 00:00 Est GFR (Non-Af Amer) 77.6 ml/min 10/04/22 00:00 BUN/Creatinine Ratio 18.9 (10-20) 10/04/22 00:00 Glucose 133 mg/dl (70-99(Fasting)) H 10/04/22 00:00 POC Glucose (other) 131 mg/dl (70-99) H 10/04/22 00:06 Lactate 1.9 mmol/L (0.4-2.0) 10/04/22 02:08 Calcium 9.2 mg/dl (8.5-10.1) 10/04/22 00:00 POC Ioniz Calcium Jacque 1.17 mmol/l (1.12-1.32) 10/04/22 00:06 Magnesium 1.9 mg/dl (1.7-2.4) 10/04/22 00:00 Total Bilirubin 1.4 mg/dl (0.2-1.0) H 10/04/22 00:00 AST 21 U/L (13-39) 10/04/22 00:00 ALT 21 U/L (7-52) 10/04/22 00:00 Alkaline Phosphatase 65 U/L (34-104) 10/04/22 00:00 Troponin I High Sens 224.0 pg/ml (0-14) H* 10/04/22 00:00 Total Protein 6.9 gm/dl (6.0-8.3) 10/04/22 00:00 Albumin 3.9 gm/dl (3.4-5.0) 10/04/22 00:00 Globulin 3.0 gm/dl (2.5-4.0) 10/04/22 00:00 Albumin/Globulin Ratio 1.3 (0.9-2) 10/04/22 00:00 Procalcitonin < 0.05 ng/ml (0-0.5) 10/04/22 00:00 SARS-CoV-2 (PCR) POSITIVE (Negative) A* 10/04/22 00:12 Influenza Type A (PCR) Negative (Neg) 10/04/22 00:12 Influenza Type B (PCR) Negative (Neg) 10/04/22 00:12 RSV (RT-PCR) Negative (Neg) 10/04/22 00:12 Diagnostic Findings Chest x-ray as per my interpretation: Cardiomegaly, interstitial infiltrates EKG as per my interpretation : Rate 110, normal axis, ST depression lateral leads
[2022-10-04] MEDS ORDERED: CITALOPRAM 40 MG TAB PO STA (02:24)
[2022-10-04] MEDS ORDERED: IMIPRAMINE HCL 25 MG TAB PO STA (02:34)
[2022-10-04] MEDS: METOPROLOL TARTRATE 25 MG TAB PO STA ×2 (03:04→05:05)
[2022-10-04] MEDS ORDERED: OPTIRAY 320 500ml IV ONE (03:30)
[2022-10-04] MEDS ORDERED: POTASSIUM CHLORIDE PWD 20 MEQ PACK PO ONE ×2 (04:00→06:00)
--- NOTE | 2022-10-04 05:33 | CT Scan Report ---
Exam(s): CTA CHEST IV Amt: 112 ML EXAM: CT Angiography Chest With Intravenous Contrast CLINICAL HISTORY: Reason for exam: sob. TECHNIQUE: Axial computed tomographic angiography images of the chest with intravenous contrast. Automated exposure control was utilized for the study. A dose lowering technique was utilized adhering to the principles of ALARA. MIP reconstructed images were created and reviewed. COMPARISON: No relevant prior studies available. FINDINGS: Pulmonary arteries: Large volume central PE bilaterally with RV dilatation consistent with right heart strain. Aorta: No acute findings.. Normal caliber. No dissection. Lungs: Unremarkable. Pleural space: Unremarkable. Heart: Unremarkable. Bones/joints: No acute fracture. Soft tissues: Unremarkable. Lymph nodes: Unremarkable. IMPRESSION: Large volume central PE bilaterally with RV dilatation consistent with right heart strain. Communications: Call Doctor Pulmonary Embolism Electronically signed by: Zia Henao MD 10/04/22 05:32 AM
[2022-10-04] MEDS ORDERED: Heparin IV Adult Wt-Based Standard WITH Bolus Protocol IV STA (05:43)
[2022-10-04] MEDS ORDERED: dexAMETHasone 6 MG in SYRINGE 0 ML IV SCH ×2 (05:50→09:00)
[2022-10-04] MEDS ORDERED: HEPARIN SOD (PORCINE) 1000 UNIT/ML IV ONE (05:58)
[2022-10-04] MEDS ORDERED: HEPARIN SODIUM/DEXTROSE 25,000 UNITS/500 ML BAG IV SCH (06:00)
[2022-10-04] MEDS ORDERED: NSS + 20MEQ KCL 20 MEQ/1,000 ML BAG IV ONE (06:45)
[2022-10-04 06:49] LABS: Hematocrit (blood only) 46.2 % (37.0-47.0); Hemoglobin 15.8 g/dl (12.0-16.0); Mean Corpuscular Hemoglobin 29.8 pg (25.0-34.0); Mean Corpuscular Hgb Conc 34.2 g/dL (32.0-36.0); Mean Platelet Volume 10.6 fL (9.4-12.4); Platelet Count 236 K/uL (130-400); RDW Coefficient of Variation 13.5 % (11.5-14.5); RDW Standard Deviation 42.1 fL (36.4-46.3); Red Blood Count 5.31 M/uL (4.20-5.40); White Blood Count 10.53 K/ul (4.8-10.8)
[2022-10-04] MEDS ORDERED: IPRATROPIUM BROMIDE NEB SOLN 0.02% 2.5 ML VIAL INH SCH (07:00)
[2022-10-04] MEDS ORDERED: LEVALBUTEROL TARTRATE 15 GM HFA.AER.AD INH SCH (07:00)
[2022-10-04] MEDS ORDERED: LEVALBUTEROL 1.25MG/0.5ML NEB INH SCH (07:00)
[2022-10-04 07:07] LABS: BUN Creatinine Ratio 17.5 (10-20); Calcium 9.3 mg/dl (8.5-10.1); Creatinine Clr Calc Pharmacy 85.3 ml/min; Est GFR (African American) 99.6 ml/min; Est GFR (Non-African American) 85.9 ml/min; Potassium 4.3 mmol/L (3.5-5.1)
[2022-10-04] MEDS ORDERED: DC ALL ANTICOAGULANTS STA (07:08)
[2022-10-04] MEDS ORDERED: SODIUM CHLORIDE 0.9% 50 ML BAG IV STA (07:08)
[2022-10-04] MEDS ORDERED: PRIMARY PLUMSET, PE LINED TUBING, 113 IN, NON-DEHP (2260-0500) IV ONE (07:15)
[2022-10-04] MEDS ORDERED: MoRPHine SULFATE 2 MG/ML CARP ONE (07:15)
[2022-10-04] MEDS ORDERED: MoRPHine SULFATE 2 MG/ML CARP IV STA (07:24)
[2022-10-04 07:25] LABS: Basophils # (auto) 0.01 K/uL (0-0.2); Basophils % (auto) 0.1 %; Immature Granulocytes # (auto) 0.05 K/uL (0.01-0.20); Immature Granulocytes % (auto) 0.5 %; Lymphocytes # (auto) 0.78 K/uL (1.2-3.4); Lymphocytes % (auto) 7.4 %; Monocytes # (auto) 0.15 K/uL (0.11-0.59); Monocytes % (auto) 1.4 %; Neutrophils # (auto) 9.54 K/uL (1.40-6.50); Neutrophils % (auto) 90.6 %
[2022-10-04] MEDS ORDERED: NSS 50 ML--Send if TPA given as SVP IV ONE (07:30)
[2022-10-04] MEDS ORDERED: PRIMARY PLUMSET--Send if TPA given as SVP IV ONE (07:30)
[2022-10-04] MEDS ORDERED: ALTEPLASE, RECOMBINANT 50 MG in EMPTY BAG 0 ML IV SCH (07:30)
[2022-10-04] MEDS ORDERED: ALTEPLASE RECOMBINANT IV ONE ×2 (07:30)
[2022-10-04 07:34] LABS: Troponin I High Sensitivity 503.5 pg/ml (0-14)
[2022-10-04 07:51] LABS: Estimated Average Glucose 105 mg/dl; Hemoglobin A1C 5.3 % (4.5-5.6)
[2022-10-04] MEDS: ICU Protocol for HYPERglycemia SCH ×4 (08:02→21:01)
--- NOTE | 2022-10-04 08:26 | Critical Care Consultation ---
Date of Consultation October 04, 2022 Assessment & Plan (1) Acute hypoxemic respiratory failure: (2) Pulmonary embolism associated with COVID-19: (3) Received intravenous tissue plasminogen activator (t-PA) within last 24 hours: Plan 77-year-old female who presented to the hospital with a syncopal event and found to be profoundly hypoxemic. CT scan revealed large bilateral pulmonary emboli with RV strain. Troponin and BNP elevated. Patient required escalating oxygen and is currently on BiPAP. She is receiving 50 mg of IV tPA and her oxygen saturations are currently improving. Neurologic: No issues. Given the syncopal event. We will send for an urgent CT of her head without contrast. Hold antidepressants. Pulmonary: Avoid positive pressure ventilation in the setting of acute pulmonary embolism and RV failure. Status post tPA therapy. We will transition to heparin IV. Obtain lower extremity compression Doppler. Cardiovascular: Obtain echocardiogram to further elaborate on RV failure. Trend troponins. Hold beta blocking agents. Gastrointestinal: Protonix 40 p.o. No issues otherwise. Renal: Monitor urine output. Replace electrolytes as indicated. Infectious disease: COVID-positive on admission. No signs of COVID viral pneumonia. Discontinue dexamethasone. Hematologic: Check for hyper fibrinolysis status post tPA. If no indications of hyper fibrinolysis, transition to heparin. Endocrine: Maintain glucose under 180 Lines and tubes: Peripheral IVs in place. VTE prophylaxis: tPA and heparin CODE STATUS: Full code Family at bedside: Not at bedside Disposition: Remain in ICU today. Discussed plan of care with patient and RT/bedside nurse. All in agreement. I have personally spent 48 minutes of critical care time in the direct management of this patient. This is a life/limb threatening event. This includes time spent evaluating patient, direct bedside care, chart review, placing orders, interpretation of diagnostic studies, discussion with consultants, patient, and family members, as well as other required patient management activities. This time is exclusive of all separately billable procedures, and teaching time and separate from and in addition to any other critical care service time. Thank you for allowing us to participate in the care of this patient. History of Present Illness Reason for Consultation: High risk submassive PE Attending Physician: Shanika rBaga MD History of Present Illness Medical history obtained from review of chart, discussion with bedside nurse, discussion with overnight NICHOL and discussion with patient. 2 weeks ago the patient noted cough and nausea. He had a witnessed syncopal event yesterday evening. She also noticed increased shortness of breath. She was noted to be cyanotic and had O2 sats in the 60s on room air. She was given IV Solu-Medrol and brought to the ER. She was found to have a submassive pulmonary embolism with elevated troponin and BNP in the ER. The hospitalist service called me and requested ICU transfer. The patient had no obvious contraindications to thrombolytics and I recommended the initiation of half dose tPA given the significant clot burden seen and are worsening oxygenation. Upon my evaluation the patient was on BiPAP and anxious. Her oxygen saturations are rapidly improving. She denies any chest pain or fevers at this time. Denies dizziness. She tested positive for COVID-19 on admission. She was initiated on dexamethasone. Allergies Allergy/AdvReac Type Severity Reaction Status Date / Time buspirone Allergy Unknown suical Verified 05/07/18 03:52 thoughts fluoxetine Allergy Unknown unk Verified 05/07/18 03:52 prednisone Allergy Unknown agitation Verified 05/07/18 03:52 Sulfa (Sulfonamide Allergy Unknown unk Verified 05/07/18 03:52 Antibiotics) Home Medications Medication Instructions Recorded Confirmed Type citalopram 40 mg tablet 40 mg PO HS 05/07/18 05/07/18 History imipramine HCl 50 mg tablet 25 mg PO BID 05/07/18 05/07/18 History omeprazole 20 mg tablet,delayed 20 mg PO QAM 05/07/18 05/07/18 History release metoprolol tartrate 25 mg tablet 25 mg PO BID 10/04/22 10/04/22 History Patient History Medical History (Updated 10/04/22 @ 08:29 by Jair Fernández MD) Arthritis of shoulder region, right Asthma Degenerative arthritis of right shoulder region Female urinary stress incontinence (Unknown) Hypertension Pulmonary embolism associated with COVID-19 Received intravenous tissue plasminogen activator (t-PA) within last 24 hours Right shoulder pain Right shoulder pain Family History (Updated 05/07/18 @ 01:14 by Deshawn Molina) Other No significant family history Social History (Updated 05/07/18 @ 01:14 by Deshawn Molina) Smoking Status: Never smoker Second Hand Exposure: No; Do You Dip or Chew Tobacco: No; Tobacco Cessation Education Requested by Patient: No Hx Alcohol Use: No Hx Substance Use: No Preferred Language: Scottish Communication Ability: Effective Chairman & Ceo Required: No Beliefs That Will Affect Care: None marital status: Current Living Situation: Spouse How many Children do You have: 2 Other Information That Helps Us Care for You: No Feels Safe at Home: Yes Safety Concerns: Feels Safe At This Time Assistive Devices: Walker Review of Systems Review of Systems: All systems reviewed & are unremarkable except as noted in HPI & below Physical Exam Physical Exam: Constitutional: Elderly and obese appearing female in mild distress. Eyes: Pupils are equal round and reactive to light. Conjunctivae are normal. Anicteric sclera. Ears nose, mouth and throat: BiPAP mask in place. Neck: Trachea is midline. Visual inspection is normal. Respiratory: Clear to auscultation bilaterally. No use of accessory muscles. No significant clubbing noted. Cardiovascular: Regular rate and rhythm. Circumferential chronic venous stasis noted in the right lower extremity. Gastrointestinal: Normal bowel sounds, soft, nontender and nondistended. No hepatosplenomegaly noted. Musculoskeletal: No cyanosis. Patient is able to move all extremities. Strength is 5 out of 5 in the upper and lower extremities. Skin: No rashes, warm dry and intact. Neurologic: No obvious focal neurological deficits seen. Psychiatric: Alert and oriented x3 with a euthymic affect. Results & Data Results & Data ([facility]) Vital Signs (Past 12 Hours) Vital Signs Temp Pulse Pulse Resp BP BP Pulse Ox 10/04/22 08:10 89 17 92 10/04/22 08:10 141/93 H 10/04/22 08:00 90 14 92 10/04/22 07:55 91 H 13 90 10/04/22 07:55 140/79 10/04/22 07:45 90 17 89 L 10/04/22 07:38 90 13 86 L 10/04/22 07:05 94 H 10/04/22 07:10 88 15 88 L 10/04/22 05:54 95 H 20 89 L 10/04/22 05:17 20 81 L 10/04/22 04:40 112 H 20 90 10/04/22 04:10 10/04/22 04:09 36.8 C 107 H 20 137/92 91 10/04/22 02:30 108 H 18 139/84 92 10/04/22 02:00 113 H 19 138/75 91 10/04/22 01:30 113 H 17 135/75 90 10/04/22 01:00 110 H 18 141/77 H 90 10/04/22 00:30 116 H 22 132/67 90 10/04/22 00:00 113 H 20 136/59 L 89 L 10/03/22 23:59 113 H 20 114/59 L 92 10/04/22 00:32 114 H 18 92 10/04/22 00:05 112 H 10/03/22 23:47 36.7 C 115 H 24 114/59 L 87 L O2 Del Method O2 Flow Rate FiO2 10/04/22 08:10 BiPAP 10/04/22 08:10 10/04/22 08:00 BiPAP 10/04/22 07:55 BiPAP 10/04/22 07:55 10/04/22 07:45 BiPAP 10/04/22 07:38 BiPAP 10/04/22 07:05 10/04/22 07:10 100 10/04/22 05:54 High Flow Nasal Cannula 40 100 10/04/22 05:17 High Flow Nasal Cannula 40 100 10/04/22 04:40 High Flow Nasal Cannula 40 100 10/04/22 04:10 High Flow Nasal Cannula 40 100 10/04/22 04:09 High Flow Nasal Cannula 40 100 10/04/22 02:30 High Flow Nasal Cannula 40 100 10/04/22 02:00 High Flow Nasal Cannula 40 100 10/04/22 01:30 High Flow Nasal Cannula 40 100 10/04/22 01:00 High Flow Nasal Cannula 40 100 10/04/22 00:30 High Flow Nasal Cannula 40 100 10/04/22 00:00 High Flow Nasal Cannula 40 100 10/03/22 23:59 High Flow Nasal Cannula 40 100 10/04/22 00:32 High Flow Nasal Cannula 40 100 10/04/22 00:05 10/03/22 23:47 Non-rebreather 15 Coding Level of Care Code 47997 Prolonged Care (int'l) Diagnoses Acute hypoxemic respiratory failure J96.01 Pulmonary embolism associated with COVID-19 U07.1; I26.99 Received intravenous tissue plasminogen activator (t-PA) within last 24 hours Time Spent (min) 48
[2022-10-04] MEDS ORDERED: METOPROLOL TARTRATE 25 MG TAB PO SCH (09:00)
[2022-10-04] MEDS ORDERED: ENOXAPARIN INJ 40 MG/0.4 ML SYR SQ SCH (09:00)
[2022-10-04] MEDS ORDERED: XOPENEX/ATROVENT 1.25mg/0.5MG NEB COMBO NEB SCH (09:00)
--- NOTE | 2022-10-04 10:05 | XRay Report ---
XR chest 1V portable CLINICAL HISTORY: Dyspnea TECHNIQUE: Single frontal radiograph of the chest was obtained. Comparison: Comparison is made to chest radiograph 05/07/2018 FINDINGS: Exam is limited by underpenetration. Cardiomegaly is noted. Peribronchial thickening is seen. No evid ence of pleural effusion or pneumothorax. IMPRESSION: Peribronchial thickening is seen compatible with infectious/inflammatory airways disease or viral pne umonia. No orestes consolidation is seen. ACT 112: Negative or not required by law. Electronically signed by: Derrick Fuentes M.D. 10/04/2022 10:03 AM
[2022-10-04] MEDS: PANTOprazole 40 MG TAB PO SCH (10:12)
--- NOTE | 2022-10-04 10:49 | Ultrasound Report ---
US venous doppler LE BI CLINICAL HISTORY: r/t DVT TECHNIQUE: Bilateral lower extremity real-time compression venous ultrasound with Color Doppler imagi ng. Utilizing real-time ultrasonic imaging multiple real time high-resolution ultrasonic images with compression and noncompression maneuvers of the deep venous system in addition to color doppler imagi ng were performed from the common femoral vein through the proximal calf veins. COMPARISON: None available at the time of this dictation. FINDINGS/IMPRESSION: A deep venous thrombosis seen in the left lower extremity extending from the mid to distal popliteal vein and likely extending to the posterior tibial and peroneal veins. No superficial venous thrombosi s is identified. ACT 112: Negative or not required by law. Electronically signed by: Derrick Fuentes M.D. 10/04/2022 10:46 AM
[2022-10-04] MEDS: IMIPRAMINE HCL 25 MG TAB PO SCH ×2 (11:20→21:05)
--- NOTE | 2022-10-04 12:29 | CT Scan Report ---
CT head/brain wo con CLINICAL HISTORY: s/p tpa and fall Technique: Contiguous axial CT images of the head were acquired from the base of the skull to the cristina theo without intravenous contrast administration. Images were viewed in brain, [facility]. Automated dose lowering techniques and/or adjustment according to patient size were utilized for this exam. Comparison: Comparison is made to CT head 05/07/2018 Findings: Areas of decreased attenuation are present in the periventricular and subcortical white matter bilate rally consistent with small vessel ischemic disease. Generalized cerebral atrophy with commensurate e nlargement of the ventricles, sulci, and cisterns is also present. There is no acute intracranial hem orrhage or evidence of acute territorial infarction. No shift of the midline structures, mass effect, or extra-axial abnormalities are shown. Atherosclerotic calcifications are present in the intracran ial segments of the internal carotid arteries. Opacification of left frontal sinuses. The orbits appear normal. There are no acute fractures of the calvaria or scalp swelling. Impression: Age-related changes without hematoma. ACT 112: Negative or not required by law. Electronically signed by: Derrick Fuentes M.D. 10/04/2022 12:26 PM
[2022-10-04] MEDS ORDERED: Heparin IV Adult Wt-Based Standard *NO* Bolus Protocol IV ONE (12:48)
[2022-10-04 13:20] LABS: INR 1.4 (0.9-1.1); Partial Thromboplastin Ratio 1.2; Partial Thromboplastin Time 32.5 Seconds (21.0-31.0); Prothrombin Time 14.7 Seconds (9.0-12.0)
[2022-10-04] MEDS ORDERED: HEPARIN 25000 UNIT/500 ML D5W IV ONE (13:33)
--- NOTE | 2022-10-04 14:00 | Hospitalist Progress Note ---
Date of Service October 04, 2022 Assessment & Plan (1) Pulmonary embolism associated with COVID-19: (2) Acute hypoxemic respiratory failure: Plan 77-year-old lady with PMH of HTN, HLD, PVD, endometrial cancer status post surgery, chronic stress/urge incontinence, anxiety/mood disorder presented to the ED 10/04 with complaint of poor appetite/increasing weakness with shortness of breath on exertion and witnessed syncopal event at home on the day of arrival [no witnessed seizures or incontinence]. Of note, patient had cough symptoms productive of clear sputum associated with nausea and dry heaving for about 2 weeks [employer] but no associated chest pain or headache symptoms. She is being managed for the following: Acute hypoxemic respiratory failure: On high flow oxygen up to 40 L/min at presentation. Pulmonary embolism likely due to COVID-19 infection: Patient is not vaccinated against COVID. COVID-19 infection Right ventricular failure: per echo, elevated trops and BNP. Syncope likely secondary to PE/acute illness Patient presents with increasing weakness and CRESPO. Had respiratory symptoms since 2 weeks [employer]. At admission: WBC WNL, PaO2 52, troponin 224, BNP 274, Pro-Donavon negative, MRSA negative, COVID-positive. 10/03 CXR: Peribronchial thickening suggestive of viral pneumonia, no orestes consolidation. 10/04 CTA chest: Large volume central PE bilaterally with RV dilatation consistent with right heart strain. Lung parenchyma unremarkable. 10/04 BLE Doppler: DVT positive in the LLE. 10/04 CT head: No acute findings. 10/04 echo: RV systolic function is severely reduced, RV is moderately dilated. Diffuse right ventricular akinesis with sparing of apex. Mild tricuspid regurgitation. EF 60 to 65%. LV systolic function normal. Moderate concentric LVH. 10/04 blood culture: Pending, follow-up. Patient is a status post tPA on 10/04. Patient reports no chest pain, has significant decreasing oxygen requirement, currently on 2 L oxygen. Patient being managed per ICU. No signs of covid pneumonia, dexa discontinued per intesivist. Other chronic medical conditions: HTN, HLD, PVD, endometrial cancer status post surgery, chronic distress/hours incontinence, anxiety/mood disorder ----resume home meds as able. DVT prophylaxis: s/p tpa, plan to transition to heparin drip Full code Patient's daughter Ms. Anastasia Plunkett, contact #[phone] Admission and Anticipated Discharge Date Admission Date: October 04, 2022 Subjective Patient seen and examined at bedside as a follow-up of acute hypoxemic respiratory failure secondary to pulmonary embolism associated with COVID-19 infection. Patient was lying in bed, on 2 L nasal cannula oxygen, NAD, reports no chest pain or headache or dizziness. Per RN patient has significantly improved overnight. Patient is a status post tPA and is being managed in the ICU. Physical Exam Physical Exam: GENERAL: Alert and oriented x3. NAD, on 2L NC O2. HEENT: No pallor, no icterus. Pupils equal, round and reactive to light. Oral mucosa moist. NECK: No JVD, no neck masses. HEART: S1 and S2 heard. Regular rate and rhythm. No murmur, no gallop. RESPIRATORY SYSTEM: Normal AP diameter. No accessory muscle use. No wheezing, no crackles. ABDOMEN: Soft, bowel sounds present, nontender, no distention. CENTRAL NERVOUS SYSTEM: No facial droop. Speech is clear. Obeys simple commands. Moves extremities. EXTREMITIES: No edema, dry BLE/poor hygiene/chronic skin changes. RLE w/ minimal erythema. Results & Data Results & Data ([facility]) Vital Signs (Past 12 Hours) Vital Signs Temp Pulse Pulse Resp BP BP Pulse Ox 10/04/22 12:02 86 22 95 10/04/22 12:02 131/102 H 10/04/22 12:00 87 23 94 10/04/22 11:30 85 20 94 10/04/22 11:00 86 21 95 10/04/22 10:30 87 19 94 10/04/22 10:10 142/104 H 10/04/22 10:00 87 17 94 10/04/22 09:40 84 17 95 10/04/22 09:40 149/89 H 10/04/22 09:30 86 20 94 10/04/22 09:00 87 19 93 10/04/22 08:55 88 18 93 10/04/22 08:55 145/91 H 10/04/22 08:40 123/73 10/04/22 08:40 89 17 91 10/04/22 08:30 92 H 21 90 10/04/22 08:25 147/89 H 10/04/22 08:25 89 16 95 10/04/22 08:30 10/04/22 08:10 89 17 92 10/04/22 08:10 141/93 H 10/04/22 08:00 90 14 92 10/04/22 07:55 91 H 13 90 10/04/22 07:55 140/79 10/04/22 07:45 90 17 89 L 10/04/22 07:38 90 13 86 L 10/04/22 07:05 94 H 10/04/22 07:10 88 15 88 L 10/04/22 05:54 95 H 20 89 L 10/04/22 05:17 20 81 L 10/04/22 04:40 112 H 20 90 10/04/22 04:10 10/04/22 04:09 36.8 C 107 H 20 137/92 91 10/04/22 02:30 108 H 18 139/84 92 10/04/22 02:00 113 H 19 138/75 91 O2 Del Method O2 Flow Rate FiO2 10/04/22 12:02 Room Air 10/04/22 12:02 10/04/22 12:00 Room Air 10/04/22 11:30 Nasal Cannula 10/04/22 11:00 Nasal Cannula 10/04/22 10:30 Nasal Cannula 2 10/04/22 10:10 10/04/22 10:00 Oxymask 4 10/04/22 09:40 Oxymask 4 10/04/22 09:40 10/04/22 09:30 Oxymask 4 10/04/22 09:00 Oxymask 7 10/04/22 08:55 Oxymask 10/04/22 08:55 10/04/22 08:40 10/04/22 08:40 Oxymask 10/04/22 08:30 Oxymask 10/04/22 08:25 10/04/22 08:25 Oxymask 10/04/22 08:30 Oxymask 10/04/22 08:10 BiPAP 10/04/22 08:10 10/04/22 08:00 BiPAP 10/04/22 07:55 BiPAP 10/04/22 07:55 10/04/22 07:45 BiPAP 10/04/22 07:38 BiPAP 10/04/22 07:05 10/04/22 07:10 100 10/04/22 05:54 High Flow Nasal Cannula 40 100 10/04/22 05:17 High Flow Nasal Cannula 40 100 10/04/22 04:40 High Flow Nasal Cannula 40 100 10/04/22 04:10 High Flow Nasal Cannula 40 100 10/04/22 04:09 High Flow Nasal Cannula 40 100 10/04/22 02:30 High Flow Nasal Cannula 40 100 10/04/22 02:00 High Flow Nasal Cannula 40 100
[2022-10-04 14:16] LABS: Fibrinogen 84 mg/dl (184-400)
--- NOTE | 2022-10-04 14:26 | Electrocardiogram Report ---
Test Reason : Blood Pressure : / mmHG Vent. Rate : 112 BPM Atrial Rate : 112 BPM P-R Int : 134 ms QRS Dur : 098 ms QT Int : 394 ms P-R-T Axes : - 058 degrees QTc Int : 537 ms Poor data quality, interpretation may be adversely affected Sinus tachycardia Voltage criteria for left ventricular hypertrophy Abnormal ECG When compared with ECG of 07-MAY-2018 01:24, ST now depressed in Lateral leads T wave inversion now evident in Anterolateral leads Confirmed by Korey Mederos ([id number]) on 10/04/2022 2:26:10 PM Referred By: REFERRED SELF Confirmed By:Korey Mederos
[2022-10-04] MEDS: HEPARIN SODIUM/DEXTROSE 25,000 UNITS/500 ML BAG IV SCH (16:13)
[2022-10-04] MEDS ORDERED: CITALOPRAM 40 MG TAB PO SCH (21:00)
[2022-10-04 23:52] LABS: Partial Thromboplastin Ratio 2.1
[2022-10-05 00:20] LABS: Partial Thromboplastin Time 57.1 Seconds (21.0-31.0)
[2022-10-05 05:43] LABS: Basophils # (auto) 0.01 K/uL (0-0.2); Basophils % (auto) 0.1 %; Hemoglobin 13.5 g/dl (12.0-16.0); Immature Granulocytes % (auto) 0.6 %; Lymphocytes # (auto) 1.89 K/uL (1.2-3.4); Lymphocytes % (auto) 11.8 %; Mean Corpuscular Hemoglobin 30.8 pg (25.0-34.0); Mean Corpuscular Hgb Conc 34.6 g/dL (32.0-36.0); Mean Platelet Volume 10.6 fL (9.4-12.4); Monocytes # (auto) 1.52 K/uL (0.11-0.59); Monocytes % (auto) 9.5 %; Neutrophils # (auto) 12.48 K/uL (1.40-6.50); Platelet Count 208 K/uL (130-400); Red Blood Count 4.38 M/uL (4.20-5.40)
[2022-10-05 05:56] LABS: BUN Creatinine Ratio 22.9 (10-20); Calcium 8.7 mg/dl (8.5-10.1); Creatinine Clr Calc Pharmacy 76.7 ml/min; Est GFR (African American) 96.2 ml/min; Magnesium 2.3 mg/dl (1.7-2.4); Phosphorus 2.9 mg/dl (2.5-4.9); Potassium 3.1 mmol/L (3.5-5.1)
[2022-10-05 06:21] LABS: Partial Thromboplastin Ratio 2.6
[2022-10-05 06:39] LABS: Partial Thromboplastin Time 71.2 Seconds (21.0-31.0)
[2022-10-05] MEDS ORDERED: POTASSIUM CHLORIDE 20 MEQ/15 ML UDC PO STA (06:43)
[2022-10-05] MEDS: POTASSIUM CHLORIDE / WTR 10 MEQ/100 ML PLCT IV SCH ×4 (07:26→12:13)
[2022-10-05] MEDS: PANTOprazole 40 MG TAB PO SCH (07:28)
[2022-10-05] MEDS: IMIPRAMINE HCL 25 MG TAB PO SCH ×2 (07:28→21:07)
[2022-10-05] MEDS: ICU Protocol for HYPERglycemia SCH ×4 (07:30→22:08)
[2022-10-05] MEDS ORDERED: POTASSIUM CHLORIDE CRTAB 20 MEQ TABCR PO STA (08:19)
[2022-10-05] MEDS ORDERED: METOPROLOL TARTRATE 25 MG TAB PO ONE (11:53)
--- NOTE | 2022-10-05 12:00 | Critical Care Progress Note ---
Date of Service October 05, 2022 Assessment & Plan (1) Acute hypoxemic respiratory failure: (2) Pulmonary embolism associated with COVID-19: (3) Received intravenous tissue plasminogen activator (t-PA) within last 24 hours: (4) Depression: Plan 77-year-old female who presented to the hospital with a syncopal event and found to be profoundly hypoxemic. CT scan revealed large bilateral pulmonary emboli with RV strain. Neurologic: Patient with labile mood. She has a history of depression and anxiety. Restart citalopram. CT head 10/04/2022 with age-related changes. No acute findings. Pulmonary: Patient with large high risk pulmonary embolism status post 50 mg IV tPA given 10/04/2022. Continue heparin. Lower extremity Doppler also with evidence of DVT in the left lower extremity extending from the mid to distal popliteal vein and likely extending to the posterior tibial and peroneal veins. Cardiovascular: Echo with evidence of RV strain. Will need follow-up echo in 2 to 3 months. Restart metoprolol. Give 12.5 mg dose now. Gastrointestinal: Protonix 40 p.o. advance to heart healthy diet. Renal: Monitor urine output. Replace electrolytes as indicated. Infectious disease: COVID-positive on admission. No signs of COVID viral pneumonia. Discontinue dexamethasone. Hematologic: Received a dose of cryoprecipitate 10/04/2022 due to low fibrinogen after tPA. Currently on heparin drip without signs of bleeding. Will likely need lifelong anticoagulation. Can likely transition to DOAC tomorrow. Will need hypercoagulable work-up as an outpatient. Endocrine: Maintain glucose under 180 Lines and tubes: Peripheral IVs in place. VTE prophylaxis: tPA and heparin CODE STATUS: Full code Family at bedside: Not at bedside Disposition: PCU. Discussed with bedside nursing and hospitalist service. Admission and Anticipated Discharge Date Admission Date: October 04, 2022 Subjective Patient tearful today and notes that she is anxious about going home as she does not feel that she will be taking care of because her has advanced age and possible dementia. She denies any chest pain. She does endorse some lower extremity swelling. No fevers, chills or night sweats. Review of Systems Review of Systems: All systems reviewed & are unremarkable except as noted in HPI & below Physical Exam Physical Exam: Constitutional: Elderly and obese appearing female in mild distress. Eyes: Pupils are equal round and reactive to light. Conjunctivae are normal. Anicteric sclera. Ears nose, mouth and throat: BiPAP mask in place. Neck: Trachea is midline. Visual inspection is normal. Respiratory: Clear to auscultation bilaterally. No use of accessory muscles. No significant clubbing noted. Cardiovascular: Regular rate and rhythm. Circumferential chronic venous stasis noted in the right lower extremity. Gastrointestinal: Normal bowel sounds, soft, nontender and nondistended. No hepatosplenomegaly noted. Musculoskeletal: No cyanosis. Patient is able to move all extremities. Strength is 5 out of 5 in the upper and lower extremities. Skin: No rashes, warm dry and intact. Neurologic: No obvious focal neurological deficits seen. Psychiatric: Labile mood. Results & Data Results & Data ([facility]) Vital Signs (Past 12 Hours) Vital Signs Pulse Resp BP Pulse Ox O2 Del Method 10/05/22 09:36 Room Air 10/05/22 09:12 102 H 17 95 Room Air 10/05/22 09:12 160/86 H 10/05/22 09:10 107 H 18 10/05/22 08:14 100 H 16 10/05/22 08:14 136/88 10/05/22 08:00 99 H 17 97 Room Air 10/05/22 07:31 152/81 H 10/05/22 07:30 87 20 90 Room Air 10/05/22 07:00 87 17 90 Room Air 10/05/22 07:07 87 10/05/22 06:00 89 25 H 91 10/05/22 05:31 166/74 H 10/05/22 05:30 88 26 H 90 10/05/22 05:03 87 23 91 10/05/22 04:31 156/77 H 10/05/22 04:30 91 H 25 H 90 10/05/22 04:02 86 23 88 L 10/05/22 01:31 89 27 H 87 L 10/05/22 01:31 150/77 H 10/05/22 00:31 87 21 90 10/05/22 00:31 141/78 H 10/04/22 23:31 149/65 H 10/04/22 23:31 90 19 90 10/04/22 23:00 87 Coding Level of Care Code 60985 SUB INP/OBS CARE 2/35MIN Diagnoses Acute hypoxemic respiratory failure J96.01 Pulmonary embolism associated with COVID-19 U07.1; I26.99 Received intravenous tissue plasminogen activator (t-PA) within last 24 hours Depression F32.A
[2022-10-05] MEDS: HEPARIN SODIUM/DEXTROSE 25,000 UNITS/500 ML BAG IV SCH (12:11)
[2022-10-05 13:48] LABS: Partial Thromboplastin Ratio 2.3
[2022-10-05 13:50] LABS: Partial Thromboplastin Time 63.8 Seconds (21.0-31.0)
--- NOTE | 2022-10-05 15:32 | Hospitalist Progress Note ---
Date of Service October 05, 2022 Assessment & Plan (1) Pulmonary embolism associated with COVID-19: (2) Acute hypoxemic respiratory failure: Plan 77-year-old lady with PMH of HTN, HLD, PVD, endometrial cancer status post surgery, chronic stress/urge incontinence, anxiety/mood disorder presented to the ED 10/04 with complaint of poor appetite/increasing weakness with shortness of breath on exertion and witnessed syncopal event at home on the day of arrival [no witnessed seizures or incontinence]. Of note, patient had cough symptoms productive of clear sputum associated with nausea and dry heaving for about 2 weeks [employer] but no associated chest pain or headache symptoms. She is being managed for the following: Acute hypoxemic respiratory failure: On high flow oxygen up to 40 L/min at presentation. Pulmonary embolism likely due to COVID-19 infection: Patient is not vaccinated against COVID. COVID-19 infection Right ventricular failure: per echo, elevated trops and BNP. Syncope likely secondary to PE/acute illness Patient presents with increasing weakness and CRESPO. Had respiratory symptoms since 2 weeks [employer]. At admission: WBC WNL, PaO2 52, troponin 224, BNP 274, Pro-Donavon negative, MRSA negative, COVID-positive. 10/03 CXR: Peribronchial thickening suggestive of viral pneumonia, no orestes consolidation. 10/04 CTA chest: Large volume central PE bilaterally with RV dilatation consistent with right heart strain. Lung parenchyma unremarkable. 10/04 BLE Doppler: DVT positive in the LLE. 10/04 CT head: No acute findings. 10/04 echo: RV systolic function is severely reduced, RV is moderately dilated. Diffuse right ventricular akinesis with sparing of apex. Mild tricuspid regurgitation. EF 60 to 65%. LV systolic function normal. Moderate concentric LVH. 10/04 blood culture: Pending, follow-up. Patient is a status post tPA and a dose of cryoprecipitate on 10/04. Patient reports no chest pain, on RA. d/w music supervisor - No signs of covid pneumonia, dexa discontinued. Hematology f/u as OP for hypercoagulability work up. Repeat ECHO in 4-6 weeks upon DC. Lifelong anticoagulation, pt interested in eliquis, will figure out cost prior to starting her on one. Other chronic medical conditions: HTN, HLD, PVD, endometrial cancer status post surgery, chronic distress/hours incontinence, anxiety/mood disorder ----resume home meds as able. DVT prophylaxis: heparin drip Full code Patient's daughter Ms. Anastasia Plunkett, contact #[phone] Admission and Anticipated Discharge Date Admission Date: October 04, 2022 Subjective Patient seen and examined at bedside as a follow-up of acute hypoxemic respiratory failure secondary to pulmonary embolism associated with COVID-19 infection. Patient was sitting up in chair, on RA, NAD, reports no chest pain or headache or dizziness. Pt reports eating ok, had BM today - no blood or black.Denies fever, chills, sore throat or other ROS. Physical Exam Physical Exam: GENERAL: Alert and oriented x3. NAD, on RA. HEENT: No pallor, no icterus. Pupils equal, round and reactive to light. Oral mucosa moist. NECK: No JVD, no neck masses. HEART: S1 and S2 heard. Regular rate and rhythm. No murmur, no gallop. RESPIRATORY SYSTEM: Normal AP diameter. No accessory muscle use. No wheezing, no crackles. ABDOMEN: Soft, bowel sounds present, nontender, no distention. CENTRAL NERVOUS SYSTEM: No facial droop. Speech is clear. Obeys simple commands. Moves extremities. EXTREMITIES: No edema, dry BLE/poor hygiene/chronic skin changes. RLE w/ minimal erythema. Results & Data Results & Data ([facility]) Vital Signs (Past 12 Hours) Vital Signs Pulse Resp BP Pulse Ox O2 Del Method 10/05/22 14:02 86 23 92 Room Air 10/05/22 13:02 91 H 23 95 Room Air 10/05/22 12:31 142/69 H 10/05/22 12:29 102 H 24 95 Room Air 10/05/22 12:02 103 H 27 H 97 Room Air 10/05/22 11:32 96 H 24 10/05/22 11:32 172/89 H 10/05/22 11:02 95 H 23 100 Room Air 10/05/22 10:31 159/116 H 10/05/22 10:31 100 H 14 10/05/22 10:01 94 H 21 92 Room Air 10/05/22 09:31 133/70 10/05/22 09:31 101 H 20 91 Room Air 10/05/22 09:36 Room Air 10/05/22 09:12 102 H 17 95 Room Air 10/05/22 09:12 160/86 H 10/05/22 09:10 107 H 18 10/05/22 08:14 100 H 16 10/05/22 08:14 136/88 10/05/22 08:00 99 H 17 97 Room Air 10/05/22 07:31 152/81 H 10/05/22 07:30 87 20 90 Room Air 10/05/22 07:00 87 17 90 Room Air 10/05/22 07:07 87 10/05/22 06:00 89 25 H 91 10/05/22 05:31 166/74 H 10/05/22 05:30 88 26 H 90 10/05/22 05:03 87 23 91 10/05/22 04:31 156/77 H 10/05/22 04:30 91 H 25 H 90 10/05/22 04:02 86 23 88 L
[2022-10-05] MEDS: CITALOPRAM 40 MG TAB PO SCH (21:07)
[2022-10-05] MEDS: METOPROLOL TARTRATE 25 MG TAB PO SCH (21:07)
[2022-10-06 06:58] LABS: Appearance Urine Turbid (Clear); Bacteria Urine Automated 4+ (Negative); Bilirubin Urine Negative (Negative); Blood Urine Negative (Negative); Color Urine Dark Yellow; Epithelial Cell Urine Auto >30 /lpf (0-5); Glucose Urine UA Negative (Negative); Ketones Urine Trace (Negative); Leukocyte Esterase Urine 2+ (Negative); Nitrite Urine Positive (Negative); Protein Urine 1+ (Negative); Specific Gravity Urine 1.022 (1.000-1.030); Urobilinogen Urine Negative (Negative); WBC Urine Automated >30 /hpf (0-5)
[2022-10-06 07:19] LABS: RBC Urine Automated 0-4 /hpf (0-4)
[2022-10-06] MEDS: PANTOprazole 40 MG TAB PO SCH (08:15)
[2022-10-06] MEDS: METOPROLOL TARTRATE 25 MG TAB PO SCH ×2 (08:15→21:30)
[2022-10-06] MEDS: IMIPRAMINE HCL 25 MG TAB PO SCH ×2 (08:16→21:29)
[2022-10-06 08:30] LABS: Basophils # (auto) 0.03 K/uL (0-0.2); Basophils % (auto) 0.3 %; Eosinophils # (auto) 0.04 K/uL (0-0.50); Eosinophils % (auto) 0.4 %; Hematocrit (blood only) 37.4 % (37.0-47.0); Hemoglobin 12.5 g/dl (12.0-16.0); Immature Granulocytes # (auto) 0.06 K/uL (0.01-0.20); Immature Granulocytes % (auto) 0.7 %; Lymphocytes # (auto) 1.93 K/uL (1.2-3.4); Lymphocytes % (auto) 21.6 %; Mean Corpuscular Hemoglobin 29.9 pg (25.0-34.0); Mean Corpuscular Hgb Conc 33.4 g/dL (32.0-36.0); Mean Corpuscular Volume 89.5 fL (80.0-100.0); Mean Platelet Volume 11.2 fL (9.4-12.4); Monocytes # (auto) 0.98 K/uL (0.11-0.59); Neutrophils # (auto) 5.88 K/uL (1.40-6.50); Platelet Count 219 K/uL (130-400); RDW Coefficient of Variation 14.6 % (11.5-14.5); RDW Standard Deviation 46.1 fL (36.4-46.3); Red Blood Count 4.18 M/uL (4.20-5.40); White Blood Count 8.92 K/ul (4.8-10.8)
[2022-10-06 08:39] LABS: BUN Creatinine Ratio 21.9 (10-20); Calcium 8.1 mg/dl (8.5-10.1); Creatinine Clr Calc Pharmacy 74.2 ml/min; Est GFR (African American) 91.4 ml/min; Est GFR (Non-African American) 78.9 ml/min; Magnesium 2.1 mg/dl (1.7-2.4); Phosphorus 2.4 mg/dl (2.5-4.9); Potassium 3.9 mmol/L (3.5-5.1)
[2022-10-06 09:02] LABS: Partial Thromboplastin Ratio 2.2
[2022-10-06 09:03] LABS: Partial Thromboplastin Time 61.8 Seconds (21.0-31.0)
[2022-10-06] MEDS: HEPARIN SODIUM/DEXTROSE 25,000 UNITS/500 ML BAG IV SCH (09:36)
[2022-10-06] MEDS: cefTRIAXone SODIUM 2,000 MG in DEXTROSE 5% 50 ML IV SCH (09:59)
--- NOTE | 2022-10-06 15:58 | Hospitalist Progress Note ---
Date of Service October 06, 2022 Assessment & Plan (1) Pulmonary embolism associated with COVID-19: (2) Acute hypoxemic respiratory failure: Plan 77-year-old lady with PMH of HTN, HLD, PVD, endometrial cancer status post surgery, chronic stress/urge incontinence, anxiety/mood disorder presented to the ED 10/04 with complaint of poor appetite/increasing weakness with shortness of breath on exertion and witnessed syncopal event at home on the day of arrival [no witnessed seizures or incontinence]. Of note, patient had cough symptoms productive of clear sputum associated with nausea and dry heaving for about 2 weeks [employer] but no associated chest pain or headache symptoms. She is being managed for the following: Acute hypoxemic respiratory failure: On high flow oxygen up to 40 L/min at presentation. Pulmonary embolism likely due to COVID-19 infection: Patient is not vaccinated against COVID. COVID-19 infection Right ventricular failure: per echo, elevated trops and BNP. Syncope likely secondary to PE/acute illness Patient presents with increasing weakness and CRESPO. Had respiratory symptoms since 2 weeks [employer]. At admission: WBC WNL, PaO2 52, troponin 224, BNP 274, Pro-Donavon negative, MRSA negative, COVID-positive. 10/03 CXR: Peribronchial thickening suggestive of viral pneumonia, no orestes consolidation. 10/04 CTA chest: Large volume central PE bilaterally with RV dilatation consistent with right heart strain. Lung parenchyma unremarkable. 10/04 BLE Doppler: DVT positive in the LLE. 10/04 CT head: No acute findings. 10/04 echo: RV systolic function is severely reduced, RV is moderately dilated. Diffuse right ventricular akinesis with sparing of apex. Mild tricuspid regurgitation. EF 60 to 65%. LV systolic function normal. Moderate concentric LVH. 10/04 blood culture: Pending, follow-up. Patient is a status post tPA and a dose of cryoprecipitate on 10/04. Patient reports no chest pain, on RA. 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 Hematology f/u as OP for hypercoagulability work up. Repeat ECHO in 4-6 weeks upon DC. Lifelong anticoagulation, pt interested in eliquis - made aware its 30 dollars/month, pt agreeable. Heparin to stop today, eliquis to start today evening. Acute UTI: rocehpin 10/06, f/u culture. Other chronic medical conditions: HTN, HLD, PVD, endometrial cancer status post surgery, chronic distress/hours incontinence, anxiety/mood disorder ----resume home meds as able. DVT prophylaxis: heparin drip Full code Patient's daughter Ms. Anastasia Plunkett, contact #[phone] Admission and Anticipated Discharge Date Admission Date: October 04, 2022 Subjective Patient seen and examined at bedside as a follow-up of acute hypoxemic respiratory failure secondary to pulmonary embolism associated with COVID-19 infection. Patient was sitting up in chair, on RA, NAD, reports no chest pain or headache or dizziness. Pt reports not sleeping much overnight but wouldn't like to try melatonin; ate li'l today.Denies fever, chills, sore throat or other ROS. Physical Exam Physical Exam: GENERAL: Alert and oriented x3. NAD, on RA. HEENT: No pallor, no icterus. Pupils equal, round and reactive to light. Oral mucosa moist. NECK: No JVD, no neck masses. HEART: S1 and S2 heard. Regular rate and rhythm. No murmur, no gallop. RESPIRATORY SYSTEM: Normal AP diameter. No accessory muscle use. No wheezing, no crackles. ABDOMEN: Soft, bowel sounds present, nontender, no distention. CENTRAL NERVOUS SYSTEM: No facial droop. Speech is clear. Obeys simple commands. Moves extremities. EXTREMITIES: No edema, dry BLE/poor hygiene/chronic skin changes. RLE w/ minimal erythema (pt reports it is chronic). Results & Data Results & Data ([facility]) Vital Signs (Past 12 Hours) Vital Signs Temp Pulse Pulse Resp BP Pulse Ox O2 Del Method 10/06/22 15:22 36.7 C 85 16 149/65 H 94 Room Air 10/06/22 15:00 93 H 10/06/22 11:06 36.8 C 84 16 123/74 95 Room Air 10/06/22 08:55 Room Air 10/06/22 07:49 36.8 C 96 H 19 142/77 H 95 Room Air 10/06/22 07:15 93 H
[2022-10-06] MEDS: APIXABAN 5 MG TABLET PO SCH (21:14)
[2022-10-06] MEDS: CITALOPRAM 40 MG TAB PO SCH (21:29)
[2022-10-07] MEDS: PANTOprazole 40 MG TAB PO SCH (08:17)
[2022-10-07] MEDS: METOPROLOL TARTRATE 25 MG TAB PO SCH ×2 (08:17→21:15)
[2022-10-07] MEDS: APIXABAN 5 MG TABLET PO SCH ×2 (08:18→21:14)
[2022-10-07] MEDS: cefTRIAXone SODIUM 2,000 MG in DEXTROSE 5% 50 ML IV SCH (08:19)
[2022-10-07] MEDS: IMIPRAMINE HCL 25 MG TAB PO SCH ×2 (08:19→21:14)
[2022-10-07 08:40] LABS: Basophils # (auto) 0.03 K/uL (0-0.2); Basophils % (auto) 0.4 %; Eosinophils % (auto) 1.3 %; Hemoglobin 11.9 g/dl (12.0-16.0); Immature Granulocytes # (auto) 0.05 K/uL (0.01-0.20); Immature Granulocytes % (auto) 0.7 %; Lymphocytes # (auto) 1.36 K/uL (1.2-3.4); Lymphocytes % (auto) 18.4 %; Mean Corpuscular Hemoglobin 30.1 pg (25.0-34.0); Mean Corpuscular Hgb Conc 33.1 g/dL (32.0-36.0); Mean Corpuscular Volume 90.9 fL (80.0-100.0); Mean Platelet Volume 10.6 fL (9.4-12.4); Monocytes # (auto) 0.96 K/uL (0.11-0.59); Neutrophils # (auto) 4.91 K/uL (1.40-6.50); Neutrophils % (auto) 66.2 %; Platelet Count 187 K/uL (130-400); RDW Coefficient of Variation 14.4 % (11.5-14.5); RDW Standard Deviation 47.2 fL (36.4-46.3); Red Blood Count 3.96 M/uL (4.20-5.40); White Blood Count 7.41 K/ul (4.8-10.8)
[2022-10-07 09:06] LABS: BUN Creatinine Ratio 18.4 (10-20); Calcium 8.1 mg/dl (8.5-10.1); Creatinine Clr Calc Pharmacy 71.2 ml/min; Est GFR (African American) 87.1 ml/min; Est GFR (Non-African American) 75.1 ml/min; Magnesium 2.1 mg/dl (1.7-2.4); Phosphorus 3.4 mg/dl (2.5-4.9); Potassium 3.8 mmol/L (3.5-5.1)
[2022-10-07] MEDS ORDERED: ONDANSETRON INJ 2 MG/ML 2 ML VIAL ONE (09:45)
--- NOTE | 2022-10-07 17:09 | Hospitalist Progress Note ---
Date of Service October 07, 2022 Assessment & Plan (1) Pulmonary embolism associated with COVID-19: (2) Acute hypoxemic respiratory failure: Plan 77-year-old lady with PMH of HTN, HLD, PVD, endometrial cancer status post surgery, chronic stress/urge incontinence, anxiety/mood disorder presented to the ED 10/04 with complaint of poor appetite/increasing weakness with shortness of breath on exertion and witnessed syncopal event at home on the day of arrival [no witnessed seizures or incontinence]. Of note, patient had cough symptoms productive of clear sputum associated with nausea and dry heaving for about 2 weeks [employer] but no associated chest pain or headache symptoms. She is being managed for the following: Acute hypoxemic respiratory failure: On high flow oxygen up to 40 L/min at presentation. Pulmonary embolism likely due to COVID-19 infection: Patient is not vaccinated against COVID. COVID-19 infection Right ventricular failure: per echo, elevated trops and BNP. Syncope likely secondary to PE/acute illness Patient presents with increasing weakness and CRESPO. Had respiratory symptoms since 2 weeks [employer]. At admission: WBC WNL, PaO2 52, troponin 224, BNP 274, Pro-Donavon negative, MRSA negative, COVID-positive. 10/03 CXR: Peribronchial thickening suggestive of viral pneumonia, no orestes consolidation. 10/04 CTA chest: Large volume central PE bilaterally with RV dilatation consistent with right heart strain. Lung parenchyma unremarkable. 10/04 BLE Doppler: DVT positive in the LLE. 10/04 CT head: No acute findings. 10/04 echo: RV systolic function is severely reduced, RV is moderately dilated. Diffuse right ventricular akinesis with sparing of apex. Mild tricuspid regurgitation. EF 60 to 65%. LV systolic function normal. Moderate concentric LVH. 10/04 blood culture: Pending, follow-up. Patient is a status post tPA and a dose of cryoprecipitate on 10/04. Patient reports no chest pain, on RA. Hematology f/u as OP for hypercoagulability work up. Repeat ECHO in 4-6 weeks upon DC. Lifelong anticoagulation, pt interested in eliquis - made aware its 30 dollars/month, pt agreeable. Continue with Eliquis 10 mg twice a day for 7 days followed by 5 mg twice a day. Acute UTI: rocehpin 10/06, f/u culture. Other chronic medical conditions: HTN, HLD, PVD, endometrial cancer status post surgery, chronic distress/hours incontinence, anxiety/mood disorder ----resume home meds as able. DVT prophylaxis: Sujit Full code Patient's daughter Ms. Anastasia Plunkett, contact #[phone] Admission and Anticipated Discharge Date Admission Date: October 04, 2022 Subjective Patient seen and examined at bedside as a follow-up of acute hypoxemic respiratory failure secondary to pulmonary embolism associated with COVID-19 infection. Patient was sitting up in bed, on RA, NAD, reports no chest pain or headache or dizziness. Pt reports sleeping ok overnight, had good appetite yesterday evening but had some nausea in am hence didn't eat much.Denies fever, chills, sore throat or other ROS. Physical Exam Physical Exam: GENERAL: Alert and oriented x3. NAD, on RA. HEENT: No pallor, no icterus. Pupils equal, round and reactive to light. Oral mucosa moist. NECK: No JVD, no neck masses. HEART: S1 and S2 heard. Regular rate and rhythm. No murmur, no gallop. RESPIRATORY SYSTEM: Normal AP diameter. No accessory muscle use. No wheezing, no crackles. ABDOMEN: Soft, bowel sounds present, nontender, no distention. CENTRAL NERVOUS SYSTEM: No facial droop. Speech is clear. Obeys simple commands. Moves extremities. EXTREMITIES: No edema, dry BLE/poor hygiene/chronic skin changes. RLE w/ minimal erythema (pt reports it is chronic). Results & Data Results & Data ([facility]) Vital Signs (Past 12 Hours) Vital Signs Temp Pulse Resp BP Pulse Ox O2 Del Method 10/07/22 16:52 36.7 C 88 18 128/73 94 Room Air 10/07/22 11:44 36.9 C 83 18 116/73 93 Room Air 10/07/22 08:00 Room Air 10/07/22 07:40 37.3 C 94 H 18 124/75 94 Room Air
[2022-10-07] MEDS: CITALOPRAM 40 MG TAB PO SCH (21:14)
[2022-10-08] MEDS: cefTRIAXone SODIUM 2,000 MG in DEXTROSE 5% 50 ML IV SCH (08:02)
[2022-10-08] MEDS: ACETAMINOPHEN 325 MG TAB PO PRN (08:02)
[2022-10-08] MEDS: IMIPRAMINE HCL 25 MG TAB PO SCH ×2 (08:03→20:13)
[2022-10-08] MEDS: APIXABAN 5 MG TABLET PO SCH ×2 (08:03→20:14)
[2022-10-08] MEDS: PANTOprazole 40 MG TAB PO SCH (08:03)
[2022-10-08] MEDS: METOPROLOL TARTRATE 25 MG TAB PO SCH ×2 (08:03→20:14)
[2022-10-08 08:31] LABS: Basophils # (auto) 0.05 K/uL (0-0.2); Basophils % (auto) 0.7 %; Eosinophils # (auto) 0.17 K/uL (0-0.50); Eosinophils % (auto) 2.3 %; Hematocrit (blood only) 37.7 % (37.0-47.0); Hemoglobin 12.1 g/dl (12.0-16.0); Immature Granulocytes # (auto) 0.07 K/uL (0.01-0.20); Lymphocytes # (auto) 1.36 K/uL (1.2-3.4); Lymphocytes % (auto) 18.5 %; Mean Corpuscular Hemoglobin 30.2 pg (25.0-34.0); Mean Corpuscular Hgb Conc 32.1 g/dL (32.0-36.0); Mean Platelet Volume 10.8 fL (9.4-12.4); Monocytes # (auto) 0.84 K/uL (0.11-0.59); Monocytes % (auto) 11.4 %; Neutrophils # (auto) 4.85 K/uL (1.40-6.50); Neutrophils % (auto) 66.1 %; Platelet Count 205 K/uL (130-400); RDW Coefficient of Variation 14.7 % (11.5-14.5); RDW Standard Deviation 50.1 fL (36.4-46.3); Red Blood Count 4.01 M/uL (4.20-5.40); White Blood Count 7.34 K/ul (4.8-10.8)
[2022-10-08 08:48] LABS: Calcium 8.4 mg/dl (8.5-10.1); Creatinine Clr Calc Pharmacy 83.2 ml/min; Est GFR (African American) 98.6 ml/min; Magnesium 2.2 mg/dl (1.7-2.4); Phosphorus 3.4 mg/dl (2.5-4.9); Potassium 4.7 mmol/L (3.5-5.1)
--- NOTE | 2022-10-08 11:43 | Hospitalist Progress Note ---
Date of Service October 08, 2022 Assessment & Plan (1) Pulmonary embolism associated with COVID-19: (2) Acute hypoxemic respiratory failure: Plan 77 yo F with HTN, HLD, PVD, endometrial cancer s/p surgery, chronic stress/urge incontinence, anxiety/mood disorder presented to the ED 10/04 with complaint of poor appetite/increasing weakness with shortness of breath on exertion and witnessed syncopal event at home on the day of arrival [no witnessed seizures or incontinence]. 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 She is being managed for the following: Acute hypoxemic respiratory failure: On high flow oxygen up to 40 L/min at presentation. Now on RA. Pulmonary embolism likely due to COVID-19 infection: Patient is not vaccinated against COVID. COVID-19 infection Right ventricular failure: per echo, elevated trops and BNP. Syncope likely secondary to PE/acute illness Patient presents with increasing weakness and CRESPO. 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 At admission: WBC WNL, PaO2 52, troponin 224, BNP 274, Pro-Donavon negative, MRSA negative, COVID-positive. 10/03 CXR: Peribronchial thickening suggestive of viral pneumonia, no orestes consolidation. 10/04 CTA chest: Large volume central PE bilaterally with RV dilatation consi stent with right heart strain. Lung parenchyma unremarkable. 10/04 BLE Doppler: DVT positive in the LLE. 10/04 CT head: No acute findings. 10/04 echo: RV systolic function is severely reduced, RV is moderately dilated. Diffuse right ventricular akinesis with sparing of apex. Mild tricuspid regurgitation. EF 60 to 65%. LV systolic function normal. Moderate concentric LVH. 10/04 blood culture: negat, in 48 hrs, final results Pending, follow-up. Patient is a status post tPA and a dose of cryoprecipitate on 10/04. Patient reports no chest pain, on RA. Hematology f/u as OP for hypercoagulability work up. Repeat ECHO in 4-6 weeks upon DC. Lifelong anticoagulation, pt interested in eliquis - made aware its 30 dollars/month, pt agreeable. Continue with Eliquis 10 mg twice a day for 7 days followed by 5 mg twice a day. Acute UTI: u cultx + for E. coli - pansensitive Rocehpin started 10/06, continue Other chronic medical conditions: HTN, HLD, PVD, endometrial cancer status post surgery, chronic distress/hours incontinence, anxiety/mood disorder ----resume home meds as able. DVT prophylaxis: Sujit Full code Patient's daughter Ms. Anastasia Plunkett, contact #[phone] Admission and Anticipated Discharge Date Admission Date: October 04, 2022 Subjective Patient seen in follow up of acute hypoxemic respiratory failure secondary to pulmonary embolism associated with COVID-19 infection. Patient is sitting up in bed, on RA, NAD, reports no chest pain or headache or dizziness.Worked w/ PT today, but says she is hesitant to do much. says she has not been feeling well prior to admission and not ready to go home after discharge. Discussed w/ daughter and CM, interested in snf. Denies fever, chills, shortness of breath. Review of Systems Review of Systems: All systems reviewed & are unremarkable except as noted in Subjective Physical Exam Physical Exam: GENERAL: Alert and oriented x3. NAD, on RA. HEENT: NC/AT. EOMI. Pupils equal, round and reactive to light. Oral mucosa moist. NECK: No JVD, no neck masses. HEART: S1 and S2 heard. Regular rate and rhythm. No murmur, no gallop. RESPIRATORY: Normal AP diameter. No accessory muscle use. No wheezing, no crackles. ABDOMEN: Soft, bowel sounds present, nontender, no distention. NEURO: awake, alert, oriented. answering appropriately. No facial droop. Speech is clear. Obeys simple commands. Moves extremities. EXTREMITIES: No edema, dry skin. RLE w/ minimal erythema (pt reports it is chronic). Results & Data Results & Data Vital Signs (Past 12 Hours) Vital Signs Temp Pulse Resp BP Pulse Ox O2 Del Method 10/08/22 08:00 Room Air 10/08/22 07:40 36.6 C 96 H 22 117/67 95 Room Air 10/08/22 02:45 36.9 C 87 18 101/60 93 Room Air Laboratory Results 10/08/22 10/08/22 Range/Units 07:08 07:08 WBC 7.34 (4.8-10.8) K/ul RBC 4.01 L (4.20-5.40) M/uL Hgb 12.1 (12.0-16.0) g/dl Hct 37.7 (37.0-47.0) % MCV 94.0 (80.0-100.0) fL MCH 30.2 (25.0-34.0) pg MCHC 32.1 (32.0-36.0) g/dL RDW Std Deviation 50.1 H (36.4-46.3) fL RDW Coeff of Jose Enrique 14.7 H (11.5-14.5) % Plt Count 205 (130-400) K/uL MPV 10.8 (9.4-12.4) fL Immature Gran % (Auto) 1.0 % Neut % (Auto) 66.1 % Lymph % (Auto) 18.5 % Tripp % (Auto) 11.4 % Eos % (Auto) 2.3 % Baso % (Auto) 0.7 % Neut # (Auto) 4.85 (1.40-6.50) K/uL Lymph # (Auto) 1.36 (1.2-3.4) K/uL Tripp # (Auto) 0.84 H (0.11-0.59) K/uL Eos # (Auto) 0.17 (0-0.50) K/uL Baso # (Auto) 0.05 (0-0.2) K/uL Immature Gran # (Auto) 0.07 (0.01-0.20) K/uL Sodium 141 (136-145) mmol/L Potassium 4.7 D (3.5-5.1) mmol/L Chloride 105 (98-107) mmol/L Carbon Dioxide 32 (21-32) mmol/L Anion Gap 4 (3-11) BUN 13 (6-23) mg/dl Creatinine 0.65 (0.6-1.2) mg/dl Est Cr Clr Drug Dosing 83.2 ml/min Est GFR ( Amer) 98.6 ml/min Est GFR (Non-Af Amer) 85.0 ml/min BUN/Creatinine Ratio 20.0 (10-20) Glucose 104 H (70-99(Fasting)) mg/dl Calcium 8.4 L (8.5-10.1) mg/dl Phosphorus 3.4 (2.5-4.9) mg/dl Magnesium 2.2 (1.7-2.4) mg/dl Medications Administered Current Inpatient Medications Acetaminophen (Acetaminophen 325 Mg Tab) 650 mg PO Q4H PRN PRN Reason: Pain or Fever Stop: 11/03/22 04:09 Last Admin: 10/08/22 08:02 Dose: 650 mg Apixaban (Apixaban 5 Mg Tablet) 10 mg PO BID [facility] Stop: 10/13/22 09:01 Last Admin: 10/08/22 08:03 Dose: 10 mg Citalopram Hydrobromide (Citalopram 40 Mg Tab) 40 mg PO QPM [facility] Stop: 11/04/22 20:59 Last Admin: 10/07/22 21:14 Dose: 40 mg Ceftriaxone Sodium 2,000 mg/ (Dextrose) 70 mls @ 100 mls/hr IV Q24H [facility]; Protocol Stop: 10/16/22 08:44 Last Infusion: 10/08/22 09:33 Dose: Infused Imipramine HCl (Imipramine Hcl 25 Mg Tab) 25 mg PO BID [facility] Stop: 11/03/22 08:59 Last Admin: 10/08/22 08:03 Dose: 25 mg Metoprolol Tartrate (Metoprolol Tartrate 25 Mg Tab) 25 mg PO BID [facility] Stop: 11/04/22 20:59 Last Admin: 10/08/22 08:03 Dose: 25 mg Pantoprazole Sodium (Pantoprazole 40 Mg Tab) 40 mg PO QAM [facility] Stop: 11/03/22 08:59 Last Admin: 10/08/22 08:03 Dose: 40 mg
[2022-10-08] MEDS: CITALOPRAM 40 MG TAB PO SCH (20:14)
[2022-10-09 08:13] LABS: Hematocrit (blood only) 36.3 % (37.0-47.0); Hemoglobin 11.7 g/dl (12.0-16.0); Mean Corpuscular Hemoglobin 30.2 pg (25.0-34.0); Mean Corpuscular Hgb Conc 32.2 g/dL (32.0-36.0); Mean Corpuscular Volume 93.8 fL (80.0-100.0); Mean Platelet Volume 10.7 fL (9.4-12.4); Platelet Count 211 K/uL (130-400); RDW Coefficient of Variation 14.7 % (11.5-14.5); RDW Standard Deviation 48.8 fL (36.4-46.3); Red Blood Count 3.87 M/uL (4.20-5.40); White Blood Count 7.26 K/ul (4.8-10.8)
[2022-10-09] MEDS: cefTRIAXone SODIUM 2,000 MG in DEXTROSE 5% 50 ML IV SCH (08:28)
[2022-10-09] MEDS: PANTOprazole 40 MG TAB PO SCH (08:29)
[2022-10-09] MEDS: ACETAMINOPHEN 325 MG TAB PO PRN (08:29)
[2022-10-09] MEDS: APIXABAN 5 MG TABLET PO SCH ×2 (08:29→20:39)
[2022-10-09] MEDS: METOPROLOL TARTRATE 25 MG TAB PO SCH ×2 (08:29→20:40)
[2022-10-09] MEDS: IMIPRAMINE HCL 25 MG TAB PO SCH ×2 (08:29→21:26)
[2022-10-09 08:33] LABS: BUN Creatinine Ratio 24.2 (10-20); Calcium 8.4 mg/dl (8.5-10.1); Creatinine Clr Calc Pharmacy 87.2 ml/min; Est GFR (African American) 100.1 ml/min; Est GFR (Non-African American) 86.4 ml/min; Magnesium 2.1 mg/dl (1.7-2.4); Phosphorus 3.2 mg/dl (2.5-4.9); Potassium 4.3 mmol/L (3.5-5.1)
[2022-10-09] MEDS: DOCUSATE SODIUM 100 MG CAP PO SCH ×2 (08:54→20:40)
--- NOTE | 2022-10-09 16:03 | Hospitalist Progress Note ---
Date of Service October 09, 2022 Assessment & Plan (1) Pulmonary embolism associated with COVID-19: (2) Acute hypoxemic respiratory failure: Plan 77 yo F with HTN, HLD, PVD, endometrial cancer s/p surgery, chronic stress/urge incontinence, anxiety/mood disorder presented to the ED 10/04 with complaint of poor appetite/increasing weakness with shortness of breath on exertion and witnessed syncopal event at home on the day of arrival [no witnessed seizures or incontinence]. 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 She is being managed for the following: Acute hypoxemic respiratory failure: On high flow oxygen up to 40 L/min at presentation. Now on RA. Pulmonary embolism likely due to COVID-19 infection: Patient is not vaccinated against COVID. COVID-19 infection Right ventricular failure: per echo, elevated trops and BNP. Syncope likely secondary to PE/acute illness Patient presents with increasing weakness and CRESPO. 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 At admission: WBC WNL, PaO2 52, troponin 224, BNP 274, Pro-Donavon negative, MRSA negative, COVID-positive. 10/03 CXR: Peribronchial thickening suggestive of viral pneumonia, no orestes consolidation. 10/04 CTA chest: Large volume central PE bilaterally with RV dilatation consi stent with right heart strain. Lung parenchyma unremarkable. 10/04 BLE Doppler: DVT positive in the LLE. 10/04 CT head: No acute findings. 10/04 echo: RV systolic function is severely reduced, RV is moderately dilated. Diffuse right ventricular akinesis with sparing of apex. Mild tricuspid regurgitation. EF 60 to 65%. LV systolic function normal. Moderate concentric LVH. 10/04 blood culture: NEGATIVE Patient is a status post tPA and a dose of cryoprecipitate on 10/04. Patient reports no chest pain, on RA. Hematology f/u as OP for hypercoagulability work up. Repeat ECHO in 4-6 weeks upon DC. Lifelong anticoagulation, pt interested in eliquis - made aware its 30 dollars/month, pt agreeable. Continue with Eliquis 10 mg twice a day for 7 days followed by 5 mg twice a day. Acute UTI: u cultx + for E. coli - pansensitive Rocehpin started 10/06, continue Other chronic medical conditions: HTN, HLD, PVD, endometrial cancer status post surgery, chronic distress/hours incontinence, anxiety/mood disorder ----resume home meds as able. DVT prophylaxis: Sujit Full code Patient's daughter Ms. Anastasia Plunkett, contact #[phone] Admission and Anticipated Discharge Date Admission Date: October 04, 2022 Subjective Patient seen in follow up of acute hypoxemic respiratory failure secondary to pulmonary embolism associated with COVID-19 infection. Patient is sitting up in bed, on RA, NAD, reports no chest pain or headache or dizziness. says she has not been feeling well prior to admission and not ready to go home after discharge. Feels too weak to ambulate. Discussed w/ daughter and CM, interested in snf. Denies fever, chills, shortness of breath. Review of Systems Review of Systems: All systems reviewed & are unremarkable except as noted in Subjective Physical Exam Physical Exam: GENERAL: Alert and oriented x3. NAD, on RA. HEENT: NC/AT. EOMI. Pupils equal, round and reactive to light. Oral mucosa moist. NECK: No JVD, no neck masses. HEART: S1 and S2 heard. Regular rate and rhythm. No murmur, no gallop. RESPIRATORY: Normal AP diameter. No accessory muscle use. No wheezing, no crackles. ABDOMEN: Soft, bowel sounds present, nontender, no distention. NEURO: awake, alert, oriented. answering appropriately. No facial droop. Speech is clear. Obeys simple commands. Moves extremities. EXTREMITIES: No edema, dry skin. RLE w/ minimal erythema (pt reports it is chronic). Results & Data Results & Data Vital Signs (Past 12 Hours) Vital Signs Temp Pulse Pulse Resp BP Pulse Ox O2 Del Method 10/09/22 15:50 36.6 C 82 20 134/76 97 Room Air 10/09/22 15:47 Room Air 10/09/22 15:29 79 10/09/22 12:05 36.6 C 79 18 152/80 H 95 Room Air 10/09/22 07:49 36.8 C 87 19 151/69 H 97 Room Air 10/09/22 04:30 36.5 C 90 16 127/58 L 95 Room Air Laboratory Results 10/09/22 10/09/22 Range/Units 07:21 07:21 WBC 7.26 (4.8-10.8) K/ul RBC 3.87 L (4.20-5.40) M/uL Hgb 11.7 L (12.0-16.0) g/dl Hct 36.3 L (37.0-47.0) % MCV 93.8 (80.0-100.0) fL MCH 30.2 (25.0-34.0) pg MCHC 32.2 (32.0-36.0) g/dL RDW Std Deviation 48.8 H (36.4-46.3) fL RDW Coeff of Jose Enrique 14.7 H (11.5-14.5) % Plt Count 211 (130-400) K/uL MPV 10.7 (9.4-12.4) fL Sodium 140 (136-145) mmol/L Potassium 4.3 (3.5-5.1) mmol/L Chloride 105 (98-107) mmol/L Carbon Dioxide 31 (21-32) mmol/L Anion Gap 4 (3-11) BUN 15 (6-23) mg/dl Creatinine 0.62 (0.6-1.2) mg/dl Est Cr Clr Drug Dosing 87.2 ml/min Est GFR ( Amer) 100.1 ml/min Est GFR (Non-Af Amer) 86.4 ml/min BUN/Creatinine Ratio 24.2 H (10-20) Glucose 102 H (70-99(Fasting)) mg/dl Calcium 8.4 L (8.5-10.1) mg/dl Phosphorus 3.2 (2.5-4.9) mg/dl Magnesium 2.1 (1.7-2.4) mg/dl Medications Administered Current Inpatient Medications Acetaminophen (Acetaminophen 325 Mg Tab) 650 mg PO Q4H PRN PRN Reason: Pain or Fever Stop: 11/03/22 04:09 Last Admin: 10/09/22 08:29 Dose: 650 mg Apixaban (Apixaban 5 Mg Tablet) 10 mg PO BID [facility] Stop: 10/13/22 09:01 Last Admin: 10/09/22 08:29 Dose: 10 mg Citalopram Hydrobromide (Citalopram 40 Mg Tab) 40 mg PO QPM [facility] Stop: 11/04/22 20:59 Last Admin: 10/08/22 20:14 Dose: 40 mg Docusate Sodium (Docusate Sodium 100 Mg Cap) 100 mg PO BID [facility] Stop: 11/08/22 08:59 Last Admin: 10/09/22 08:54 Dose: Not Given Ceftriaxone Sodium 2,000 mg/ (Dextrose) 70 mls @ 100 mls/hr IV Q24H [facility]; Protocol Stop: 10/16/22 08:44 Last Infusion: 10/09/22 09:28 Dose: Infused Imipramine HCl (Imipramine Hcl 25 Mg Tab) 25 mg PO BID [facility] Stop: 11/03/22 08:59 Last Admin: 10/09/22 08:29 Dose: 25 mg Metoprolol Tartrate (Metoprolol Tartrate 25 Mg Tab) 25 mg PO BID [facility] Stop: 11/04/22 20:59 Last Admin: 10/09/22 08:29 Dose: 25 mg Pantoprazole Sodium (Pantoprazole 40 Mg Tab) 40 mg PO QAM [facility] Stop: 11/03/22 08:59 Last Admin: 10/09/22 08:29 Dose: 40 mg
[2022-10-09] MEDS: CITALOPRAM 40 MG TAB PO SCH (20:40)
[2022-10-10 07:29] LABS: Basophils # (auto) 0.03 K/uL (0-0.2); Basophils % (auto) 0.4 %; Eosinophils # (auto) 0.21 K/uL (0-0.50); Eosinophils % (auto) 2.5 %; Hematocrit (blood only) 36.4 % (37.0-47.0); Hemoglobin 11.9 g/dl (12.0-16.0); Immature Granulocytes % (auto) 1.2 %; Lymphocytes # (auto) 1.13 K/uL (1.2-3.4); Lymphocytes % (auto) 13.7 %; Mean Corpuscular Hemoglobin 30.4 pg (25.0-34.0); Mean Corpuscular Hgb Conc 32.7 g/dL (32.0-36.0); Mean Corpuscular Volume 92.9 fL (80.0-100.0); Mean Platelet Volume 10.3 fL (9.4-12.4); Monocytes # (auto) 0.97 K/uL (0.11-0.59); Monocytes % (auto) 11.8 %; Neutrophils # (auto) 5.81 K/uL (1.40-6.50); Neutrophils % (auto) 70.4 %; Platelet Count 216 K/uL (130-400); RDW Coefficient of Variation 15.1 % (11.5-14.5); RDW Standard Deviation 49.2 fL (36.4-46.3); Red Blood Count 3.92 M/uL (4.20-5.40); White Blood Count 8.25 K/ul (4.8-10.8)
[2022-10-10 07:31] LABS: BUN Creatinine Ratio 22.5 (10-20); Calcium 8.3 mg/dl (8.5-10.1); Creatinine Clr Calc Pharmacy 76.1 ml/min; Est GFR (African American) 94.6 ml/min; Est GFR (Non-African American) 81.6 ml/min; Phosphorus 3.2 mg/dl (2.5-4.9); Potassium 4.1 mmol/L (3.5-5.1)
[2022-10-10] MEDS: cefTRIAXone SODIUM 2,000 MG in DEXTROSE 5% 50 ML IV SCH (08:40)
[2022-10-10] MEDS: ACETAMINOPHEN 325 MG TAB PO PRN ×2 (08:43→20:12)
[2022-10-10] MEDS: APIXABAN 5 MG TABLET PO SCH ×2 (08:44→20:12)
[2022-10-10] MEDS: IMIPRAMINE HCL 25 MG TAB PO SCH ×2 (08:45→20:11)
[2022-10-10] MEDS: DOCUSATE SODIUM 100 MG CAP PO SCH ×2 (08:45→20:14)
[2022-10-10] MEDS: METOPROLOL TARTRATE 25 MG TAB PO SCH ×2 (08:45→20:00)
[2022-10-10] MEDS: PANTOprazole 40 MG TAB PO SCH (08:46)
--- NOTE | 2022-10-10 15:06 | Hospitalist Progress Note ---
Date of Service October 10, 2022 Assessment & Plan (1) Pulmonary embolism associated with COVID-19: (2) Acute hypoxemic respiratory failure: Plan 77 yo F with HTN, HLD, PVD, endometrial cancer s/p surgery, chronic stress/urge incontinence, anxiety/mood disorder presented to the ED 10/04 with complaint of poor appetite/increasing weakness with shortness of breath on exertion and witnessed syncopal event at home on the day of arrival [no witnessed seizures or incontinence]. 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 She is being managed for the following: Acute hypoxemic respiratory failure: On high flow oxygen up to 40 L/min at presentation. Now on RA. Pulmonary embolism likely due to COVID-19 infection: Patient is not vaccinated against COVID. COVID-19 infection Right ventricular failure: per echo, elevated trops and BNP. Syncope likely secondary to PE/acute illness Patient presents with increasing weakness and CRESPO. 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 At admission: WBC WNL, PaO2 52, troponin 224, BNP 274, Pro-Donavon negative, MRSA negative, COVID-positive. 10/03 CXR: Peribronchial thickening suggestive of viral pneumonia, no orestes consolidation. 10/04 CTA chest: Large volume central PE bilaterally with RV dilatation consi stent with right heart strain. Lung parenchyma unremarkable. 10/04 BLE Doppler: DVT positive in the LLE. 10/04 CT head: No acute findings. 10/04 echo: RV systolic function is severely reduced, RV is moderately dilated. Diffuse right ventricular akinesis with sparing of apex. Mild tricuspid regurgitation. EF 60 to 65%. LV systolic function normal. Moderate concentric LVH. 10/04 blood culture: NEGATIVE Patient is a status post tPA and a dose of cryoprecipitate on 10/04. Patient reports no chest pain, on RA. Hematology f/u as OP for hypercoagulability work up. Repeat ECHO in 4-6 weeks upon DC. Lifelong anticoagulation, pt interested in eliquis - made aware its 30 dollars/month, pt agreeable. Continue with Eliquis 10 mg twice a day for 7 days followed by 5 mg twice a day. Acute UTI: u cultx + for E. coli - pansensitive Rocehpin started 10/06, continue Other chronic medical conditions: HTN, HLD, PVD, endometrial cancer status post surgery, chronic distress/hours incontinence, anxiety/mood disorder ----resume home meds as able. DVT prophylaxis: Sujit Full code Patient's daughter Ms. Anastasia Plunkett, contact #[phone] Admission and Anticipated Discharge Date Admission Date: October 04, 2022 Subjective Patient seen in follow up of acute hypoxemic respiratory failure secondary to pulmonary embolism associated with COVID-19 infection. Patient is sitting up in bed, on RA, NAD, reports no chest pain or headache or dizziness. says she has not been feeling well prior to admission and not ready to go home after discharge. Feels too weak to ambulate. Discussed w/ daughter and CM, interested in snf. Plan for [facility]. Denies fever, chills, shortness of breath. Review of Systems Review of Systems: All systems reviewed & are unremarkable except as noted in Subjective Physical Exam Physical Exam: GENERAL: Alert and oriented x3. NAD, on RA. HEENT: NC/AT. EOMI. Pupils equal, round and reactive to light. Oral mucosa moist. NECK: No JVD, no neck masses. HEART: S1 and S2 heard. Regular rate and rhythm. No murmur, no gallop. RESPIRATORY: Normal AP diameter. No accessory muscle use. No wheezing, no crackles. ABDOMEN: Soft, bowel sounds present, nontender, no distention. NEURO: awake, alert, oriented. answering appropriately. No facial droop. Speech is clear. Obeys simple commands. Moves extremities. EXTREMITIES: No edema, dry skin. RLE w/ minimal erythema (pt reports it is chronic). Results & Data Results & Data Vital Signs (Past 12 Hours) Vital Signs Temp Pulse Resp BP Pulse Ox O2 Del Method 10/10/22 11:41 36.5 C 78 18 107/63 95 Room Air 10/10/22 07:55 36.6 C 95 H 18 142/65 H 97 Room Air Laboratory Results 10/10/22 10/10/22 Range/Units 06:39 06:39 WBC 8.25 (4.8-10.8) K/ul RBC 3.92 L (4.20-5.40) M/uL Hgb 11.9 L (12.0-16.0) g/dl Hct 36.4 L (37.0-47.0) % MCV 92.9 (80.0-100.0) fL MCH 30.4 (25.0-34.0) pg MCHC 32.7 (32.0-36.0) g/dL RDW Std Deviation 49.2 H (36.4-46.3) fL RDW Coeff of Jose Enrique 15.1 H (11.5-14.5) % Plt Count 216 (130-400) K/uL MPV 10.3 (9.4-12.4) fL Immature Gran % (Auto) 1.2 % Neut % (Auto) 70.4 % Lymph % (Auto) 13.7 % Ward % (Auto) 11.8 % Eos % (Auto) 2.5 % Baso % (Auto) 0.4 % Neut # (Auto) 5.81 (1.40-6.50) K/uL Lymph # (Auto) 1.13 L (1.2-3.4) K/uL Ward # (Auto) 0.97 H (0.11-0.59) K/uL Eos # (Auto) 0.21 (0-0.50) K/uL Baso # (Auto) 0.03 (0-0.2) K/uL Immature Gran # (Auto) 0.10 (0.01-0.20) K/uL Sodium 139 (136-145) mmol/L Potassium 4.1 (3.5-5.1) mmol/L Chloride 106 (98-107) mmol/L Carbon Dioxide 29 (21-32) mmol/L Anion Gap 4 (3-11) BUN 16 (6-23) mg/dl Creatinine 0.71 (0.6-1.2) mg/dl Est Cr Clr Drug Dosing 76.1 ml/min Est GFR ( Amer) 94.6 ml/min Est GFR (Non-Af Amer) 81.6 ml/min BUN/Creatinine Ratio 22.5 H (10-20) Glucose 106 H (70-99(Fasting)) mg/dl Calcium 8.3 L (8.5-10.1) mg/dl Phosphorus 3.2 (2.5-4.9) mg/dl Magnesium 2.0 (1.7-2.4) mg/dl Medications Administered Current Inpatient Medications Acetaminophen (Acetaminophen 325 Mg Tab) 650 mg PO Q4H PRN PRN Reason: Pain or Fever Stop: 11/03/22 04:09 Last Admin: 10/10/22 08:43 Dose: 650 mg Apixaban (Apixaban 5 Mg Tablet) 10 mg PO BID [facility] Stop: 10/13/22 09:01 Last Admin: 10/10/22 08:44 Dose: 10 mg Citalopram Hydrobromide (Citalopram 40 Mg Tab) 40 mg PO QPM [facility] Stop: 11/04/22 20:59 Last Admin: 10/09/22 20:40 Dose: 40 mg Docusate Sodium (Docusate Sodium 100 Mg Cap) 100 mg PO BID [facility] Stop: 11/08/22 08:59 Last Admin: 10/10/22 08:45 Dose: 100 mg Ceftriaxone Sodium 2,000 mg/ (Dextrose) 70 mls @ 100 mls/hr IV Q24H [facility]; Protocol Stop: 10/16/22 08:44 Last Infusion: 10/10/22 09:27 Dose: Infused Imipramine HCl (Imipramine Hcl 25 Mg Tab) 25 mg PO BID [facility] Stop: 11/03/22 08:59 Last Admin: 10/10/22 08:45 Dose: 25 mg Metoprolol Tartrate (Metoprolol Tartrate 25 Mg Tab) 25 mg PO BID [facility] Stop: 11/04/22 20:59 Last Admin: 10/10/22 08:45 Dose: 25 mg Pantoprazole Sodium (Pantoprazole 40 Mg Tab) 40 mg PO QAM [facility] Stop: 11/03/22 08:59 Last Admin: 10/10/22 08:46 Dose: 40 mg
[2022-10-10] MEDS: ADVANCED PROBIOTIC 1250 MG CAPSULE PO SCH (18:17)
[2022-10-10] MEDS: CITALOPRAM 40 MG TAB PO SCH (20:12)
--- NOTE | 2022-10-11 07:38 | Hospitalist Progress Note ---
Date of Service October 11, 2022 Assessment & Plan (1) Pulmonary embolism associated with COVID-19: (2) Acute hypoxemic respiratory failure: Plan 77 yo F with HTN, HLD, PVD, endometrial cancer s/p surgery, chronic stress/urge incontinence, anxiety/mood disorder presented to the ED 10/04 with complaint of poor appetite/increasing weakness with shortness of breath on exertion and witnessed syncopal event at home on the day of arrival [no witnessed seizures or incontinence]. Of note, patient had cough symptoms productive of clear sputum associated with nausea and dry heaving for about 2 weeks [employer] but no associated chest pain or headache symptoms. She is being managed for the following: Acute hypoxemic respiratory failure: On high flow oxygen up to 40 L/min at presentation. Now on RA. Pulmonary embolism likely due to COVID-19 infection: Patient is not vaccinated against COVID. COVID-19 infection Right ventricular failure: per echo, elevated trops and BNP. Syncope likely secondary to PE/acute illness Patient presents with increasing weakness and CRESPO. Had respiratory symptoms since 2 weeks [employer]. At admission: WBC WNL, PaO2 52, troponin 224, BNP 274, Pro-Donavon negative, MRSA negative, COVID-positive. 10/03 CXR: Peribronchial thickening suggestive of viral pneumonia, no orestes consolidation. 10/04 CTA chest: Large volume central PE bilaterally with RV dilatation consi stent with right heart strain. Lung parenchyma unremarkable. 10/04 BLE Doppler: DVT positive in the LLE. 10/04 CT head: No acute findings. 10/04 echo: RV systolic function is severely reduced, RV is moderately dilated. Diffuse right ventricular akinesis with sparing of apex. Mild tricuspid regurgitation. EF 60 to 65%. LV systolic function normal. Moderate concentric LVH. 10/04 blood culture: NEGATIVE Patient is a status post tPA and a dose of cryoprecipitate on 10/04. Patient reports no chest pain, on RA. Hematology f/u as OP for hypercoagulability work up. Repeat ECHO in 4-6 weeks upon DC. Lifelong anticoagulation, pt interested in eliquis - made aware its 30 dollars/month, pt agreeable. Continue with Eliquis 10 mg twice a day for 7 days followed by 5 mg twice a day. Acute UTI: u cultx + for E. coli - pansensitive Rocehpin started 10/06, continue Other chronic medical conditions: HTN, HLD, PVD, endometrial cancer status post surgery, chronic distress/hours incontinence, anxiety/mood disorder ----resume home meds as able. DVT prophylaxis: Sujit Full code Patient's daughter Ms. Anastasia Plunkett, contact #[phone] Admission and Anticipated Discharge Date Admission Date: October 04, 2022 Subjective Patient seen in follow up of acute hypoxemic respiratory failure secondary to pulmonary embolism associated with COVID-19 infection. Patient is sitting up in bed, on RA, NAD, reports no chest pain or headache or dizziness. Denies fever, chills, shortness of breath. has been feeling weak. Plan for [employer]. Review of Systems Review of Systems: All systems reviewed & are unremarkable except as noted in Subjective Physical Exam Physical Exam: GENERAL: Alert and oriented x3. NAD, on RA. HEENT: NC/AT. EOMI. Pupils equal, round and reactive to light. Oral mucosa moist. NECK: No JVD, no neck masses. HEART: S1 and S2 heard. Regular rate and rhythm. No murmur, no gallop. RESPIRATORY: Normal AP diameter. No accessory muscle use. No wheezing, no crackles. ABDOMEN: Soft, bowel sounds present, nontender, no distention. NEURO: awake, alert, oriented. answering appropriately. No facial droop. Speech is clear. Obeys simple commands. Moves extremities. EXTREMITIES: No edema, dry skin. RLE w/ minimal erythema (pt reports it is chronic). Results & Data Results & Data Vital Signs (Past 12 Hours) Vital Signs Temp Pulse Pulse Resp BP Pulse Ox O2 Del Method 10/11/22 04:21 36.6 C 83 18 127/66 94 Room Air 10/10/22 22:01 90 10/10/22 22:52 36.8 C 87 19 149/72 H 97 Room Air Laboratory Results 10/12/22 10/12/22 Range/Units 05:45 05:45 WBC 6.11 (4.8-10.8) K/ul RBC 3.95 L (4.20-5.40) M/uL Hgb 11.9 L (12.0-16.0) g/dl Hct 36.8 L (37.0-47.0) % MCV 93.2 (80.0-100.0) fL MCH 30.1 (25.0-34.0) pg MCHC 32.3 (32.0-36.0) g/dL RDW Std Deviation 50.7 H (36.4-46.3) fL RDW Coeff of Jose Enrique 15.2 H (11.5-14.5) % Plt Count 238 (130-400) K/uL MPV 10.3 (9.4-12.4) fL Sodium 140 (136-145) mmol/L Potassium 4.2 (3.5-5.1) mmol/L Chloride 107 (98-107) mmol/L Carbon Dioxide 29 (21-32) mmol/L Anion Gap 4 (3-11) BUN 13 (6-23) mg/dl Creatinine 0.51 L (0.6-1.2) mg/dl Est Cr Clr Drug Dosing 108.6 ml/min Est GFR ( Amer) 106.7 ml/min Est GFR (Non-Af Amer) 92.1 ml/min BUN/Creatinine Ratio 25.5 H (10-20) Glucose 86 (70-99(Fasting)) mg/dl Calcium 8.7 (8.5-10.1) mg/dl Phosphorus 4.0 (2.5-4.9) mg/dl Magnesium 2.1 (1.7-2.4) mg/dl Medications Administered Current Inpatient Medications Acetaminophen (Acetaminophen 325 Mg Tab) 650 mg PO Q4H PRN PRN Reason: Pain or Fever Stop: 11/03/22 04:09 Last Admin: 10/10/22 20:12 Dose: 650 mg Apixaban (Apixaban 5 Mg Tablet) 10 mg PO BID [facility] Stop: 10/13/22 09:01 Last Admin: 10/10/22 20:12 Dose: 10 mg Citalopram Hydrobromide (Citalopram 40 Mg Tab) 40 mg PO QPM [facility] Stop: 11/04/22 20:59 Last Admin: 10/10/22 20:12 Dose: 40 mg Docusate Sodium (Docusate Sodium 100 Mg Cap) 100 mg PO BID [facility] Stop: 11/08/22 08:59 Last Admin: 10/10/22 20:14 Dose: Not Given Ceftriaxone Sodium 2,000 mg/ (Dextrose) 70 mls @ 100 mls/hr IV Q24H [facility]; Protocol Stop: 10/16/22 08:44 Last Infusion: 10/10/22 09:27 Dose: Infused Imipramine HCl (Imipramine Hcl 25 Mg Tab) 25 mg PO BID [facility] Stop: 11/03/22 08:59 Last Admin: 10/10/22 20:11 Dose: 25 mg Lactobacillus Acidophilus (Advanced Probiotic 1250 Mg Capsule) 2 cap PO DAILY [facility] Stop: 11/09/22 17:09 Last Admin: 10/10/22 18:17 Dose: 2 cap Metoprolol Tartrate (Metoprolol Tartrate 25 Mg Tab) 25 mg PO BID [facility] Stop: 11/04/22 20:59 Last Admin: 10/10/22 20:00 Dose: 25 mg Pantoprazole Sodium (Pantoprazole 40 Mg Tab) 40 mg PO QAM [facility] Stop: 11/03/22 08:59 Last Admin: 10/10/22 08:46 Dose: 40 mg
[2022-10-11 07:54] LABS: Hematocrit (blood only) 37.5 % (37.0-47.0); Hemoglobin 12.2 g/dl (12.0-16.0); Mean Corpuscular Hemoglobin 30.5 pg (25.0-34.0); Mean Corpuscular Hgb Conc 32.5 g/dL (32.0-36.0); Mean Corpuscular Volume 93.8 fL (80.0-100.0); Mean Platelet Volume 10.2 fL (9.4-12.4); Platelet Count 224 K/uL (130-400); RDW Coefficient of Variation 15.2 % (11.5-14.5); RDW Standard Deviation 50.4 fL (36.4-46.3); White Blood Count 6.66 K/ul (4.8-10.8)
[2022-10-11] MEDS: cefTRIAXone SODIUM 2,000 MG in DEXTROSE 5% 50 ML IV SCH (08:18)
[2022-10-11 08:19] LABS: BUN Creatinine Ratio 26.5 (10-20); Calcium 8.6 mg/dl (8.5-10.1); Creatinine Clr Calc Pharmacy 80.7 ml/min; Est GFR (African American) 97.1 ml/min; Est GFR (Non-African American) 83.8 ml/min; Magnesium 2.1 mg/dl (1.7-2.4); Phosphorus 3.8 mg/dl (2.5-4.9); Potassium 4.4 mmol/L (3.5-5.1)
[2022-10-11] MEDS: ADVANCED PROBIOTIC 1250 MG CAPSULE PO SCH (08:22)
[2022-10-11] MEDS: APIXABAN 5 MG TABLET PO SCH ×2 (08:22→20:22)
[2022-10-11] MEDS: DOCUSATE SODIUM 100 MG CAP PO SCH ×3 (08:22→20:33)
[2022-10-11] MEDS: IMIPRAMINE HCL 25 MG TAB PO SCH ×2 (08:22→20:23)
[2022-10-11] MEDS: METOPROLOL TARTRATE 25 MG TAB PO SCH ×2 (08:23→20:23)
[2022-10-11] MEDS: PANTOprazole 40 MG TAB PO SCH (08:23)
[2022-10-11] MEDS: CITALOPRAM 40 MG TAB PO SCH (20:22)
[2022-10-12 06:51] LABS: Hematocrit (blood only) 36.8 % (37.0-47.0); Hemoglobin 11.9 g/dl (12.0-16.0); Mean Corpuscular Hemoglobin 30.1 pg (25.0-34.0); Mean Corpuscular Hgb Conc 32.3 g/dL (32.0-36.0); Mean Corpuscular Volume 93.2 fL (80.0-100.0); Mean Platelet Volume 10.3 fL (9.4-12.4); Platelet Count 238 K/uL (130-400); RDW Coefficient of Variation 15.2 % (11.5-14.5); RDW Standard Deviation 50.7 fL (36.4-46.3); Red Blood Count 3.95 M/uL (4.20-5.40); White Blood Count 6.11 K/ul (4.8-10.8)
[2022-10-12 07:12] LABS: BUN Creatinine Ratio 25.5 (10-20); Calcium 8.7 mg/dl (8.5-10.1); Creatinine Clr Calc Pharmacy 108.6 ml/min; Est GFR (African American) 106.7 ml/min; Est GFR (Non-African American) 92.1 ml/min; Magnesium 2.1 mg/dl (1.7-2.4); Potassium 4.2 mmol/L (3.5-5.1)
[2022-10-12] MEDS: cefTRIAXone SODIUM 2,000 MG in DEXTROSE 5% 50 ML IV SCH (08:33)
[2022-10-12] MEDS: ADVANCED PROBIOTIC 1250 MG CAPSULE PO SCH (08:33)
[2022-10-12] MEDS: PANTOprazole 40 MG TAB PO SCH (08:34)
[2022-10-12] MEDS: APIXABAN 5 MG TABLET PO SCH ×2 (08:34→21:05)
[2022-10-12] MEDS: IMIPRAMINE HCL 25 MG TAB PO SCH ×2 (08:34→21:05)
[2022-10-12] MEDS: METOPROLOL TARTRATE 25 MG TAB PO SCH ×2 (08:34→21:04)
[2022-10-12] MEDS: ACETAMINOPHEN 325 MG TAB PO PRN ×2 (08:37→21:03)
[2022-10-12] MEDS: DOCUSATE SODIUM 100 MG CAP PO SCH ×3 (08:37→21:07)
[2022-10-12] MEDS: CITALOPRAM 40 MG TAB PO SCH (21:04)
[2022-10-13 07:06] LABS: Hematocrit (blood only) 36.6 % (37.0-47.0); Hemoglobin 11.7 g/dl (12.0-16.0); Mean Corpuscular Hemoglobin 30.4 pg (25.0-34.0); Mean Corpuscular Volume 95.1 fL (80.0-100.0); Mean Platelet Volume 10.1 fL (9.4-12.4); Platelet Count 230 K/uL (130-400); RDW Coefficient of Variation 15.6 % (11.5-14.5); RDW Standard Deviation 52.4 fL (36.4-46.3); Red Blood Count 3.85 M/uL (4.20-5.40); White Blood Count 5.38 K/ul (4.8-10.8)
[2022-10-13 07:32] LABS: Calcium 8.8 mg/dl (8.5-10.1); Est GFR (African American) 101.2 ml/min; Est GFR (Non-African American) 87.3 ml/min; Magnesium 2.2 mg/dl (1.7-2.4); Phosphorus 4.1 mg/dl (2.5-4.9); Potassium 4.7 mmol/L (3.5-5.1)
[2022-10-13] MEDS: PANTOprazole 40 MG TAB PO SCH (07:44)
[2022-10-13] MEDS: DOCUSATE SODIUM 100 MG CAP PO SCH ×2 (07:44→20:22)
[2022-10-13] MEDS: IMIPRAMINE HCL 25 MG TAB PO SCH ×2 (07:44→20:08)
[2022-10-13] MEDS: METOPROLOL TARTRATE 25 MG TAB PO SCH ×2 (07:44→20:07)
[2022-10-13] MEDS: APIXABAN 5 MG TABLET PO SCH ×2 (07:44→20:08)
[2022-10-13] MEDS: ADVANCED PROBIOTIC 1250 MG CAPSULE PO SCH (07:45)
[2022-10-13] MEDS: cefTRIAXone SODIUM 2,000 MG in DEXTROSE 5% 50 ML IV SCH (08:50)
--- NOTE | 2022-10-13 09:24 | Hospitalist Progress Note ---
Date of Service October 13, 2022 Assessment & Plan (1) Pulmonary embolism associated with COVID-19: (2) Acute hypoxemic respiratory failure: Plan 77 yo F with HTN, HLD, PVD, endometrial cancer s/p surgery, chronic stress/urge incontinence, anxiety/mood disorder presented to the ED 10/04 with complaint of poor appetite/increasing weakness with shortness of breath on exertion and witnessed syncopal event at home on the day of arrival [no witnessed seizures or incontinence]. Of note, patient had cough symptoms productive of clear sputum associated with nausea and dry heaving for about 2 weeks [employer] but no associated chest pain or headache symptoms. She is being managed for the following: Acute hypoxemic respiratory failure: On high flow oxygen up to 40 L/min at presentation. Now on RA. Pulmonary embolism likely due to COVID-19 infection: Patient is not vaccinated against COVID. COVID-19 infection Right ventricular failure: per echo, elevated trops and BNP. Syncope likely secondary to PE/acute illness Patient presents with increasing weakness and CRESPO. Had respiratory symptoms since 2 weeks [employer]. At admission: WBC WNL, PaO2 52, troponin 224, BNP 274, Pro-Donavon negative, MRSA negative, COVID-positive. 10/03 CXR: Peribronchial thickening suggestive of viral pneumonia, no orestes consolidation. 10/04 CTA chest: Large volume central PE bilaterally with RV dilatation consi stent with right heart strain. Lung parenchyma unremarkable. 10/04 BLE Doppler: DVT positive in the LLE. 10/04 CT head: No acute findings. 10/04 echo: RV systolic function is severely reduced, RV is moderately dilated. Diffuse right ventricular akinesis with sparing of apex. Mild tricuspid regurgitation. EF 60 to 65%. LV systolic function normal. Moderate concentric LVH. 10/04 blood culture: NEGATIVE Patient is a status post tPA and a dose of cryoprecipitate on 10/04. Patient reports no chest pain, on RA. Hematology f/u as OP for hypercoagulability work up. Repeat ECHO in 4-6 weeks upon DC. Lifelong anticoagulation, pt interested in eliquis - made aware its 30 dollars/month, pt agreeable. Continue with Eliquis 10 mg twice a day for 7 days followed by 5 mg twice a day. Finished a week of 10 mg bid. Will start 5 mg bid this evening (10/13/2022) Acute UTI: U cultx + for E. coli - pansensitive Treated w/ Rocehpin - finished treatment Other chronic medical conditions: HTN, HLD, PVD, endometrial cancer status post surgery, chronic distress/hours incontinence, anxiety/mood disorder ----resume home meds as able. DVT prophylaxis: Sujit Full code Patient's daughter Ms. Anastasia Plunkett, contact #[phone] Admission and Anticipated Discharge Date Admission Date: October 04, 2022 Subjective Patient seen in follow up of acute hypoxemic respiratory failure secondary to pulmonary embolism associated with COVID-19 infection. Patient is sitting up in chair on RA, NAD, reports no chest pain or headache or dizziness. Denies fever, chills, shortness of breath. has been feeling weak. Seen to transfer from bathroom to chair w/ walker - few feet distance by herself. Plan for [employer]. Review of Systems Review of Systems: All systems reviewed & are unremarkable except as noted in Subjective Physical Exam Physical Exam: GENERAL: Alert and oriented x3. NAD, on RA. HEENT: NC/AT. EOMI. Pupils equal, round and reactive to light. Oral mucosa moist. NECK: No JVD, no neck masses. HEART: S1 and S2 heard. Regular rate and rhythm. No murmur, no gallop. RESPIRATORY: Normal AP diameter. No accessory muscle use. No wheezing, no crackles. ABDOMEN: Soft, bowel sounds present, nontender, no distention. NEURO: awake, alert, oriented. answering appropriately. No facial droop. Speech is clear. Obeys simple commands. Moves extremities. EXTREMITIES: No edema, dry skin. RLE w/ minimal erythema (pt reports it is chronic). Results & Data Results & Data Vital Signs (Past 12 Hours) Vital Signs Temp Pulse Pulse Resp BP Pulse Ox O2 Del Method 10/13/22 03:00 36.5 C 77 24 145/62 H 94 Room Air 10/12/22 23:34 36.8 C 75 23 136/91 96 Room Air 10/12/22 22:02 86 Laboratory Results 10/13/22 10/13/22 Range/Units 06:03 06:03 WBC 5.38 (4.8-10.8) K/ul RBC 3.85 L (4.20-5.40) M/uL Hgb 11.7 L (12.0-16.0) g/dl Hct 36.6 L (37.0-47.0) % MCV 95.1 (80.0-100.0) fL MCH 30.4 (25.0-34.0) pg MCHC 32.0 (32.0-36.0) g/dL RDW Std Deviation 52.4 H (36.4-46.3) fL RDW Coeff of Jose Enrique 15.6 H (11.5-14.5) % Plt Count 230 (130-400) K/uL MPV 10.1 (9.4-12.4) fL Sodium 141 (136-145) mmol/L Potassium 4.7 (3.5-5.1) mmol/L Chloride 108 H (98-107) mmol/L Carbon Dioxide 29 (21-32) mmol/L Anion Gap 4 (3-11) BUN 15 (6-23) mg/dl Creatinine 0.60 (0.6-1.2) mg/dl Est Cr Clr Drug Dosing 93.0 ml/min Est GFR ( Amer) 101.2 ml/min Est GFR (Non-Af Amer) 87.3 ml/min BUN/Creatinine Ratio 25.0 H (10-20) Glucose 95 (70-99(Fasting)) mg/dl Calcium 8.8 (8.5-10.1) mg/dl Phosphorus 4.1 (2.5-4.9) mg/dl Magnesium 2.2 (1.7-2.4) mg/dl Medications Administered Current Inpatient Medications Acetaminophen (Acetaminophen 325 Mg Tab) 650 mg PO Q4H PRN PRN Reason: Pain or Fever Stop: 11/03/22 04:09 Last Admin: 10/12/22 21:03 Dose: 650 mg Citalopram Hydrobromide (Citalopram 40 Mg Tab) 40 mg PO QPM [facility] Stop: 11/04/22 20:59 Last Admin: 10/12/22 21:04 Dose: 40 mg Docusate Sodium (Docusate Sodium 100 Mg Cap) 100 mg PO BID [facility] Stop: 11/08/22 08:59 Last Admin: 10/13/22 07:44 Dose: 100 mg Ceftriaxone Sodium 2,000 mg/ (Dextrose) 70 mls @ 100 mls/hr IV Q24H [facility]; Protocol Stop: 10/16/22 08:44 Last Admin: 10/13/22 08:50 Dose: 100 mls/hr Imipramine HCl (Imipramine Hcl 25 Mg Tab) 25 mg PO BID [facility] Stop: 11/03/22 08:59 Last Admin: 10/13/22 07:44 Dose: 25 mg Lactobacillus Acidophilus (Advanced Probiotic 1250 Mg Capsule) 2 cap PO DAILY [facility] Stop: 11/09/22 17:09 Last Admin: 10/13/22 07:45 Dose: 2 cap Metoprolol Tartrate (Metoprolol Tartrate 25 Mg Tab) 25 mg PO BID [facility] Stop: 11/04/22 20:59 Last Admin: 10/13/22 07:44 Dose: 25 mg Pantoprazole Sodium (Pantoprazole 40 Mg Tab) [facility]: 11/03/22 08:59 Last Admin: 10/13/22 07:44 Dose: 40 mg
[2022-10-13] MEDS: ACETAMINOPHEN 325 MG TAB PO PRN (20:07)
[2022-10-13] MEDS: CITALOPRAM 40 MG TAB PO SCH (20:08)
[2022-10-14] MEDS: ADVANCED PROBIOTIC 1250 MG CAPSULE PO SCH (09:00)
[2022-10-14] MEDS: APIXABAN 5 MG TABLET PO SCH (09:00)
[2022-10-14] MEDS: PANTOprazole 40 MG TAB PO SCH (09:01)
[2022-10-14] MEDS: DOCUSATE SODIUM 100 MG CAP PO SCH (09:01)
[2022-10-14] MEDS: METOPROLOL TARTRATE 25 MG TAB PO SCH (09:01)
[2022-10-14] MEDS: IMIPRAMINE HCL 25 MG TAB PO SCH (09:01)
--- NOTE | 2022-10-14 11:41 | Discharge Summary ---
Date of Service October 14, 2022 Admission HPI Per Admitting Provider History obtained from patient, family, and records. Medical history significant for HTN, hyperlipidemia, PVD as per records, endometrial cancer status post surgery, history chronic stress/urge incontinence, anxiety/mood disorder. Last confinement 2018 encephalopathy secondary to UTI. 2 weeks ago, patient noted cough symptoms productive of clear sputum associated with nausea, dry heaving symptoms. No chest pain, no SOB. Patient has not received COVID-19 vaccination. 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 Patient admitted overnight at [facility] for nausea symptoms. COVID-19 test was negative. Poor appetite at home. Increasing weakness with shortness of breath mostly on exertion. Patient still with cough symptoms productive of clear sputum. No chest pain, no headache symptoms. Patient admits to lightheadedness. Witnessed syncopal event at home today. No witnessed seizures or incontinence. Patient noted to be cyanotic with O2 sat 60s on room air upon EMS arrival. Solu-Medrol and neb treatment administered en route to ER. 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 Admission Exam Per Admitting Provider GENERAL: Obese, slightly anxious, pleasant, no respiratory distress SKIN: Normal color, warm HEENT: pink palpebral conjunctivae, no ptosis, dry buccal mucosa, nasal cannula in place NECK : Supple, short, no tenderness CHEST : Decreased breath sounds, no tenderness HEART : Tachycardic, no obvious murmurs ABDOMEN: distention, nontender EXTREMITIES : Minimal LE swelling, no LE tenderness , no other conspicuous deformities noted NEUROLOGIC : Coherent, no facial asymmetry, slightly hard of hearing, no other gross focality Principal Diagnosis Acute respiratory failure w/ hypoxia Syncope Acute pulmonary embolism, DVT + COVID 19 virus UTI Discharge Exam GENERAL: Alert and oriented x3. NAD, on RA. HEENT: NC/AT. EOMI. Pupils equal, round and reactive to light. Oral mucosa moist. NECK: No JVD, no neck masses. HEART: S1 and S2 heard. Regular rate and rhythm. No murmur, no gallop. RESPIRATORY: Normal AP diameter. No accessory muscle use. No wheezing, no crackles. ABDOMEN: Soft, bowel sounds present, nontender, no distention. NEURO: awake, alert, oriented. answering appropriately. No facial droop. Speech is clear. Obeys simple commands. Moves extremities. EXTREMITIES: No edema, dry skin. RLE w/ minimal erythema (pt reports it is chronic). Discharge Data Allergies Allergy/AdvReac Type Severity Reaction Status Date / Time buspirone Allergy Unknown suical Verified 05/07/18 03:52 thoughts fluoxetine Allergy Unknown unk Verified 05/07/18 03:52 prednisone Allergy Unknown agitation Verified 05/07/18 03:52 Sulfa (Sulfonamide Allergy Unknown unk Verified 05/07/18 03:52 Antibiotics) Consultations 10/04/22 01:08 ED Decision to Admit Stat 10/04/22 07:08 Consult Acid Regenerator Routine Ordered Studies 10/04/22 02:23 CT angio chest PE protocol Stat ADDENDUM ADDENDUM: 10/04/22 05:49 Call Doctor Regarding Pulmonary Embolism, called ER notifed DR Elena Michel PA-C on 10/04 05:49 (-05:00) Electronically signed by: Zia Henao MD Electronically signed by: Zia Henao MD 10/04/22 05:32 AM ADDENDUM END Exam(s): CTA CHEST IV Amt: 112 ML EXAM: CT Angiography Chest With Intravenous Contrast CLINICAL HISTORY: Reason for exam: sob. TECHNIQUE: Axial computed tomographic angiography images of the chest with intravenous contrast. Automated exposure control was utilized for the study. A dose lowering technique was utilized adhering to the principles of ALARA. MIP reconstructed images were created and reviewed. COMPARISON: No relevant prior studies available. FINDINGS: Pulmonary arteries: Large volume central PE bilaterally with RV dilatation consistent with right heart strain. Aorta: No acute findings.. Normal caliber. No dissection. Lungs: Unremarkable. Pleural space: Unremarkable. Heart: Unremarkable. Bones/joints: No acute fracture. Soft tissues: Unremarkable. Lymph nodes: Unremarkable. IMPRESSION: Large volume central PE bilaterally with RV dilatation consistent with right heart strain. 10/04/22 07:54 US venous doppler LE BI Stat FINDINGS/IMPRESSION: A deep venous thrombosis seen in the left lower extremity extending from the mid to distal popliteal vein and likely extending to the posterior tibial and peroneal veins. No superficial venous thrombosis is identified. 10/04/22 08:25 CT head/brain wo con Urgent Findings: Areas of decreased attenuation are present in the periventricular and subcortical white matter bilaterally consistent with small vessel ischemic disease. Generalized cerebral atrophy with commensurate enlargement of the ventricles, sulci, and cisterns is also present. There is no acute intracranial hemorrhage or evidence of acute territorial infarction. No shift of the midline structures, mass effect, or extra-axial abnormalities are shown. Atherosclerotic calcifications are present in the intracranial segments of the internal carotid arteries. Opacification of left frontal sinuses. The orbits appear normal. There are no acute fractures of the calvaria or scalp swelling. Impression: Age-related changes without hematoma. Hospital Course (1) Pulmonary embolism associated with COVID-19: (2) Acute hypoxemic respiratory failure: Plan 77 yo F with HTN, HLD, PVD, endometrial cancer s/p surgery, chronic stress/urge incontinence, anxiety/mood disorder presented to the ED 10/04 with complaint of poor appetite/increasing weakness with shortness of breath on exertion and witnessed syncopal event at home on the day of arrival [no witnessed seizures or incontinence]. Of note, patient had cough symptoms productive of clear sputum associated with nausea and dry heaving for about 2 weeks INTERN RETAIL but no associated chest pain or headache symptoms. She is being managed for the following: Acute hypoxemic respiratory failure: On high flow oxygen up to 40 L/min at presentation. Now on RA. Pulmonary embolism likely due to COVID-19 infection: Patient is not vaccinated against COVID. COVID-19 infection - diagnosed on 10/04, now on RA, considered recovered/ no need for isolation. Right ventricular failure: per echo, elevated trops and BNP. Syncope likely secondary to PE/acute illness Patient presents with increasing weakness and CRESPO. Had respiratory symptoms since 2 weeks INTERN RETAIL. At admission: WBC WNL, PaO2 52, troponin 224, BNP 274, Pro-Donavon negative, MRSA negative, COVID-positive. 10/03 CXR: Peribronchial thickening suggestive of viral pneumonia, no orestes consolidation. 10/04 CTA chest: Large volume central PE bilaterally with RV dilatation consistent with right heart strain. Lung parenchyma unremarkable. 10/04 BLE Doppler: DVT positive in the LLE. 10/04 CT head: No acute findings. 10/04 echo: RV systolic function is severely reduced, RV is moderately dilated. Diffuse right ventricular akinesis with sparing of apex. Mild tricuspid regurgitation. EF 60 to 65%. LV systolic function normal. Moderate concentric LVH. 10/04 blood culture: NEGATIVE Patient is a status post tPA and a dose of cryoprecipitate on 10/04. Patient reports no chest pain, on RA. Hematology f/u as OP for hypercoagulability work up. Repeat ECHO in 4-6 weeks upon DC. Lifelong anticoagulation, pt interested in eliquis - made aware its 30 dollars/month, pt agreeable. Continue with Eliquis 10 mg twice a day for 7 days followed by 5 mg twice a day. Finished a week of 10 mg bid. Started on 5 mg bid the evening of (10/13/2022) Acute UTI: U cultx + for E. coli - pansensitive Treated w/ Rocehpin - finished treatment Other chronic medical conditions: HTN, HLD, PVD, endometrial cancer status post surgery, chronic distress/hours incontinence, anxiety/mood disorder ----resume home meds as able. Total Time Total Time Spent Total Time Spent (In Minutes): 40 Discharge Plan Discharge Items Patient Disposition: Transfer Intermediate Fac Reason For Visit: RESP FAILURE, COVID Discharge Diagnosis: Acute respiratory failure w/ hypoxia Syncope Acute pulmonary embolism, DVT + COVID 19 virus UTI Activity: Per Instructions section Non-emergency contact: Primary Care Provider and Specialist Call non-emergency contact if: you have any medication questions and your symptoms worsen Follow-up/Referrals: Kem Phillips MD [Primary Care Provider] - Diet: Heart Healthy Addtl Attending Provider Instructions: Follow-up with primary care provider within 1 week. Continue taking Eliquis 5 mg twice a day. Recommend hematology follow up as outpatient for hypercoagulability work up. You will need to have a repeat Echocardiogram done in 4-6 weeks after discharge from the hospital. Addtl Labor Law Professor Provider Instructions: Coronavirus disease 2019 (COVID-19) is a virus that causes a respiratory illness. It is caused by a coronavirus called 2019 novel coronavirus (2019- nCoV). There are many types of coronavirus. Coronaviruses are a very common cause of bronchitis. They may sometimes cause lung infection(pneumonia). Symptoms can range from mild to severe respiratory illness. These viruses are also foundin some animals. COVID-19 was first found in people in [facility], in late 2019. In 2020, several cases of COVID-19 have been confirmed in the [place] Public health officials are working to find the source. How the virus spreads is not yet fully known. It may be spread through droplets of fluid that a person coughs or sneezes into the air. It may be spread if you touch a surface with virus on it, such as a handle or object, and then touch your mouth. What are the symptoms of COVID-19? Some people have no symptoms or mild symptoms. Symptoms may appear 2 to 14 days after contact with the virus. Symptoms can include: Fever Coughing Trouble breathing What are possible complications from COVID-19? In many cases, this virus can cause infection (pneumonia) in both lungs. In some cases, this can cause . How is COVID-19 diagnosed? Your healthcare provider will ask about your symptoms. He or she will also ask about your recent travel and contact with sick people. Testing for the virus is only done through the CDC. If yourhealthcare provider thinks you may have COVID- 19, he or she will work with your local health department and the CDC on testing. Follow all instructions from your healthcare provider. COVID-19 is diagnosed by: Nasal and throat swab. A cotton-tipped swab is wiped inside your nose or throat. This is done to check for viruses in your nasal mucus. Sputum culture. A small sample of mucus coughed from your lungs (sputum) is collected if you have a cough. It is checked for the virus. How is COVID-19 treated? There is currently no medicine to treat the virus. Treatment is done to help your body while it fights the virus. This is known as supportive care. Supportive care may include: Pain medicine. These include acetaminophen and ibuprofen. They are used to help ease pain and reduce fever. Bed rest. This helps your body fight the illness. For severe illness, you may need to stay in the hospital. Care during severe illness may include: IV (intravenous) fluids.These are given through a vein to help keep your body hydrated. Oxygen. Supplemental oxygen or ventilation with a breathing machine (ventilator) may be given. This is done to keep enough oxygen in your body. Are you at risk for COVID-19? If youve been to a place where people have been sick with this virus, you are at risk for infection. You are at risk if you: Recently traveled to an affected area Had contact with a sick person who recently traveled to this area Had contact with a person who was diagnosed with COVID-19 How can COVID-19 be prevented? There is no vaccine yet. The best prevention is to not have contact with the virus. The CDC advises that people should not travel to areas where there are COVID-19 outbreaks right now for any reason that is not urgent. To help prevent spreading the infection, wash your hands often, or use an alcohol-basedhand dye colorist formulator. If you are in an area with COVID-19: Wash your hands often. Or use an alcohol-based hand dye colorist formulator often. Only touch your eyes, nose, or mouth with clean hands. Dont have contact with people who are sick. Follow local instructions about being in public. For example, you may be told to not use public transport for a period of time. Stay away from markets that have live or animals. Wash your hands after touching any animals. Don't touch animals that may be sick. Dont share eating or drinking tools with sick people. Dont kiss someone who is sick. Clean surfaces often with disinfectant. If you were in an area with COVID-19 in the last 14 days: Call your healthcare provider. He or she can talk with local health staff to see what action may be needed. Follow all instructions from your provider. Take your temperature every morning and evening for at least 14 days. This is to check for fever. Keep a record of the readings. Keep watch for symptoms of the virus. Tell your provider right away if you have symptoms. If you were in an area with COVID-19 and have a fever or other symptoms: Dont panic. Keep in mind that other illnesses can cause similar symptoms. Stay away from work, school, and public places. Limit physical contact with family members. Don't kiss anyone or share eating or drinking utensils. Clean surfaces you touch with disinfectant. This is to help prevent the virus from spreading. Call your healthcare provider. Explain that you have been exposed to COVID-19 and have symptoms. Do this before going to any hospital. Wait for instructions. Keep in mind that healthcare staff may wear protective equipment such as masks, gowns, gloves, and eye protection. You may be put in a separate room. This is to prevent the possible virus from spreading. Tell the healthcare staff about recent travel. This includes local travel on public transport. Staff may need to find other people you have been in contact with. Follow all instructions the healthcare staff give you. If you have been diagnosed with COVID-19 Follow all instructions from your healthcare provider. Dont leave your home, except to get medical care. Call your healthcare providers office before going. They can prepare and give you instructions. This will help prevent the virus from spreading. Dont go to work, school, or public areas. Dont use public transport or taxis. Stay away from other people in your home. Have them wear face masks around you. Dont share household items or food. Wear a face mask if you can. This includes at home or in a medical facility. Cover your face with a tissue when you cough or sneeze. Throw the tissue away. Wash your hands. Wash your hands often. Caregivers should: Follow all instructions from healthcare staff. Wear a face mask and protective clothing as advised. Wash hands often. Keep track of the sick persons symptoms. Clean surfaces, fabrics, and laundry thoroughly. Keep other people away from the sick person. When to call your healthcare provider Call your healthcare provider: If youve recently traveled and have symptoms If you have been diagnosed with COVID-19 and your symptoms are worse To learn more To find out more about COVID-19, visit the CDC website at www.cdc.gov/coronavirus/2019-ncov/index.html. 2369-5244 [employer].. [address] [place] [address]. All rights reserved. This information is not intended as a substitute for professional medical care. Always follow your healthcare professional's instructions. This information has been adapted from [employer] Home Isolation COVID-19 Instructions The following information about Home Isolation is from the CDC Website: https://www.cdc.gov/coronavirus/2019-ncov/hcp/tjzzaghl-oisqvbq-pewgyw.html Stay home except to get medical care People who are mildly ill with COVID-19 are able to isolate at home during their illness. You should restrict activities outside your home, except for getting medical care. Do not go to work, school, or public areas. Avoid using public transportation, ride-sharing, or taxis. Separate yourself from other people and animals in your home People: As much as possible, you should stay in a specific room and away from other people in your home. Also, you should use a separate bathroom, if available. Animals: You should restrict contact with pets and other animals while you are sick with COVID-19, just like you would around other people. Although there have not been reports of pets or other animals becoming sick with COVID-19, it is still recommended that people sick with COVID-19 limit contact with animals until more information is known about the virus. When possible, have another member of your household care for your animals while you are sick. If you are sick with COVID-19, avoid contact with your pet, including petting, snuggling, being kissed or licked, and sharing food. If you must care for your pet or be around animals while you are sick, wash your hands before and after you interact with pets and wear a face mask. Call ahead before visiting your doctor If you have a medical appointment, call the healthcare provider and tell them that you have or may have COVID-19. This will help the healthcare providers office take steps to keep other people from getting infected or exposed. Wear a face mask You should wear a face mask when you are around other people (e.g., sharing a room or vehicle) or pets and before you enter a healthcare providers office. If you are not able to wear a face mask (for example, because it causes trouble breathing), then people who live with you should not stay in the same room with you, or they should wear a face mask if they enter your room. Cover your coughs and sneezes Cover your mouth and nose with a tissue when you cough or sneeze. Throw used tissues in a lined trash can. Immediately wash your hands with soap and water for at least 20 seconds or, if soap and water are not available, clean your hands with an alcohol-based hand dye colorist formulator that contains at least 60% alcohol. Clean your hands often Wash your hands often with soap and water for at least 20 seconds, especially after blowing your nose, coughing, or sneezing; going to the bathroom; and before eating or preparing food. If soap and water are not readily available, use an alcohol-based hand dye colorist formulator with at least 60% alcohol, covering all surfaces of your hands and rubbing them together until they feel dry. Soap and water are the best option if hands are visibly dirty. Avoid touching your eyes, nose, and mouth with unwashed hands. Avoid sharing personal household items You should not share dishes, drinking glasses, cups, eating utensils, towels, or bedding with other people or pets in your home. After using these items, they should be washed thoroughly with soap and water. Clean all high-touch surfaces everyday High touch surfaces include counters, tabletops, doorknobs, bathroom fixtures, toilets, phones, keyboards, tablets, and bedside tables. Also, clean any surfaces that may have blood, stool, or body fluids on them. Use a household cleaning spray or wipe, according to the label instructions. Labels contain instructions for safe and effective use of the cleaning product including precautions you should take when applying the product, such as wearing gloves and making sure you have good ventilation during use of the product. Monitor your symptoms Seek prompt medical attention if your illness is worsening (e.g., difficulty breathing).Beforeseeking care, call your healthcare provider and tell them that you have, or are being evaluated for, COVID-19. Put on a face mask before you enter the facility. These steps will help the healthcare providers office to keep other people in the office or waiting room from getting infected or exposed. Ask your healthcare provider to call the local or state health department. Persons who are placed under active monitoring or facilitated self- monitoring should follow instructions provided by their local health department or occupational health professionals, as appropriate. When working with your local health department check their available hours. If you have a medical emergency and need to call 911, notify the dispatch personnel that you have, or are being evaluated for COVID-19. If possible, put on a face mask before emergency medical services arrive. Discontinuing home isolation Patients with confirmed COVID-19 should remain under home isolation precautions until the risk of secondary transmission to others is thought to be low. The decision to discontinue home isolation precautions should be made on a [id number] basis, in consultation with healthcare providers and state and local health departments. Pending Studies at Discharge: No Stand-Alone Forms: [facility] Skilled Items Patient informed of condition?: Yes DNR: No Discharge Level of Care: Skilled Communicable Disease: No Discharge Prognosis: Stable Lines: None Urinary Catheter: No Medications and DC Order Prescriptions: New Eliquis 5 mg tablet 5 mg PO BID Qty: 74 0RF Rx Instructions: take 10 mg twice a day for 7 days and then 5 mg twice a day thereafter. Eliquis 5 mg Tablet 5 mg PO BID 30 Days Qty: 60 0RF Advanced Probiotic 625 mg (10 billion cell) Capsule 2 cap PO DAILY 5 Days Qty: 10 0RF Continued imipramine HCl 50 mg tablet 25 mg PO BID Rx Instructions: 2 tablet dose citalopram 40 mg Tablet 40 mg PO HS omeprazole 20 mg Tablet,Delayed Release (Dr/Ec) 20 mg PO QAM metoprolol tartrate 25 mg tablet 25 mg PO BID Discharge Orders: Discharge Order (Routine); Ordered 10/14/22 Ordered By: Daryl Galarza Admission Data Admit Date/Time: 10/04/22 02:26 Attending Provider: Daryl Galarza Admit Provider: Eleazar Nicholas Primary Care Provider: Kem Phillips Other Providers: Shanika Braga ; [facility] ; Eleazar Nicholas ; Jair Fernández
== END 2022-10-14 14:40 | DRG 177 ==
LOC: ED 23:40 → 2S 10-04 02:26 → SUATTDRO 10-04 02:26 → 2S 10-04 03:47 → 1E 10-04 06:57 → 2S 10-05 19:01 → 2W 10-11 09:10 → 2E 10-11 18:06

== ENCOUNTER 2023-09-06 11:10 | Inpatient (IN) ==
--- OUTSIDE RECORDS SUMMARY | 2023-09-06 11:17 | External Medical Summary | Summary of Care ---
Author Name Unknown Organization [facility] Address [address] [place] [address] Phone [phone] Care Team Providers Care Engraver Steel Plate Name Role Phone Kem Phillips MD Primary Care Provider [phone] Reason for Visit * Reason Onset Date Comments Health Maintenance 06/22/2023 Encounter Details Date Type Department Care Team (Late st Contact Info) Description 06/22/2023 Telephone Family Medicine [address] [phone] Kem Phillips MD [address] [place] [place] [address] [place] [address] Health Maintenance Allergies Active Allergy Reactions Criticality Noted Date Comments Sulfa Antibiotics 08/07/2010 documented as of this encounter (statuses as of 06/22/2023) Medications Medication Sig Dispensed Refills Start Date End Date Status Acetaminophen 325 MG Oral Tablet Take 2 Tablets by mouth every 4 hours as needed for Fever >38C(100.5F), Pain, Mild, Pain, Moderate or Pain, Severe. 100 Tablet 1 10/14/2022 Active Advanced Probiotic Oral Capsule Take 2 Capsules by mouth in the morning. 60 Capsule 0 10/17/2022 Active MEDICAL INSTRUCTIONS Use as directed. NURSING, PT/OT DX: PULMONARY EMBOLISM DUE TO COVID, RV FAILURE, HTN, DEPRESSION 1 Each 1 10/17/2022 Active Apixaban 5 MG Oral Tablet (Eliquis) Take 1 Tablet by mouth in the morning and 1 Tablet before bedtime. 180 Tablet 1 01/19/2023 Active Imipramine HCl 25 MG Oral Tablet (Tofranil)Indication s:Anxiety,Mild episode of recurrent major depressive disorder (HCC),Generalized anxiety disorder Take 1 Tablet by mouth in the morning and 1 Tablet before bedtime. 180 Tablet 1 06/09/2023 Active Citalopram Hydrobromide 40 MG Oral Tablet (CeleXA)Indications: Anxiety,Mild episode of recurrent major depressive disorder (HCC),Generalized anxiety disorder Take 1 Tablet by mouth in the morning. In the morning.. 90 Tablet 1 06/09/2023 Active Metoprolol Tartrate 25 MG Oral Tablet (Lopressor)Indicatio ns:Mitral valve disorder,Essential hypertension with goal blood pressure less than 140/90 Take 1 Tablet by mouth in the morning and 1 Tablet before bedtime. 180 Tablet 1 06/09/2023 Active Omeprazole 20 MG Oral Capsule Delayed Release (PriLOSEC)Indication s:Diaphragmatic hernia without obstruction and without gangrene Take 1 Capsule by mouth in the morning. 1 hour before the first meal of the day. 90 Capsule 1 06/09/2023 Active documented as of this encounter (statuses as of 06/22/2023) Active Problems Problem Noted Date Diagnosed Date History of 2019 novel coronavirus disease (COVID -19) 10/14/2022 Pulmonary embolism associated with COVID-19 09/25 Right ventricular dilation, secondary 10/14/2022 Leg DVT (deep venous thromboembolism), acute, le ft 10/14/2022 Acute right ventricular heart failure 10/14/2022 PVD (peripheral vascular disease) 10/14/2022 History of endometrial cancer 10/14/2022 Morbid obesity with BMI of 40.0-44.9, adult 09/2021 Primary hypertension 11/19/2015 Carotid stenosis, non-symptomatic 05/01/2011 ADVANCE DIRECTIVE INFORMATION 02/01/2007 Overview: No, Advance Directive brochure given to patient at prior appointment. Fibromyalgia Recurrent major depressive disorder, in partial remission GENERALIZED ANXIETY DIS Mitral valve disorder Gastroesophageal reflux dise ase with esophagitis without hemorrhage Diaphragmatic hernia Dyslipidemia, goal LDL below 130 documented as of this encounter (statuses as of 06/22/2023) Resolved Problems Problem Noted Date Diagnosed Date Resolved Date Morbid obesity with BMI of 40.0-44.9, adult 05/29/2022 05/29/2022 Obesity, Class II, BMI 35-39 .9, isolated (see actual BMI) 01/07/2010 05/09/2015 Overview: Per Obesity Protocol, #19 Dyslipidemia, goal to be determined 07/03/2009 05/09/2015 Overview: Per Lipid Taxonomy. Carotid Stenosis, non-symptomatic 04/24/2008 04/24/2008 Malignant neoplasm of corpus uteri 12/09/2006 11/28/2016 Sebaceous Hyperplasia 03/12/20022019 Mixed dyslipidemia 9 Overview: Per Lipid Taxonomy. Menopause 05/09/2015 Uterine leiomyoma 05/09/2015 BMI 40.0-44.9, adult 023 HTN, goal below 140/90 11/18 documented as of this encounter (statuses as of 06/22/2023) Immunizations Name Administration Dates Next Due Pneumococcal Polysaccharide PPV23 (Pneumovax) documented as of this encounter Social History Tobacco Use Types Packs/Day Years Used Date Smoking Tobacco: Never Smokeless Tobacco: Never Alcohol Use Standard Drinks/Week Comments No 0 (1 standard drink = 0.6 oz pur e alcohol) PHQ-2 Answer Date Recorded PHQ-2 Score -1 06/04/2020 Sex and Gender Information Value Date Recorded Sex Assigned at Not on file Gender Identity Not on file Sexual Orientation Not on file Job Start Date Occupation Industry Not on file Not on file Not on file documented as of this encounter Miscellaneous Notes * Telephone Encounter - Vicenta Schwartz LPN - 06/22/2023 10:37 AM EST Care Gaps Comprehensive Care Outreach Last Office/Telemedicine Visit: 06/09/2023 (in office), Visit date not found (telemedicine) Next Office Visit: 09/11/2023 Hemoglobin AIC Results: No results found for: "HEMOGLOBIN A1C" Reviewed Health Maintenance below: Health Maintenance Topic Date Due COVID-19 Vaccine (1) Never done Albumin/Creatinine Ratio Never done Zoster Vaccines (1 of 2) Never done DTaP,Tdap,and Td Vaccines (1 - Tdap) 09/28/1999 Pneumococcal Vaccine: 65+ Years (2 - PCV) 04/13/2013 DXA Scan 08/25/2013 COLONOSCOPY-EVERY 5 YRS AGES 18-100 11/21/2013 Depression Screening 06/04/2021 Influenza Vaccine (FLU shot) (1) Never done GFR 10/16/2023 Labs/urine Dexa colon Care Gap Outreach Action Taken: Left message documented in this encounter Plan of Treatment Upcoming Encounters Date Type Department Care Team (Late st Contact Info) Description 09/11/2023 2:00 PM EST Office Visit [address] [phone] Aletha Pacheco PA-C [address] [place] [address] [place] [phone] 05/27/2024 4:00 PM EDT Office Visit [address] [phone] Yandel Tovar MD [address] [place] [address] [place] [phone] Health Maintenance Due Date Last Done Comments COVID-19 Vaccine (#1) 03/02/1945 Albumin/Creatinine Ratio 1962 Zoster Vaccines (1 of 2) 1994 DTaP,Tdap,and Td Vaccines (1 - Tdap) 09/28/1999 09/27/1999 Pneumococcal Vaccine: 65+ Years (2 - PCV) 04/13/2013 04/13/2012 DXA Scan 08/25/2013 08/25/2006, 07/19/2003 COLONOSCOPY-EVERY 5 YRS AGES 18-100 11/21/2013 11/21/2008 (Done elsewhere) Depression Screening 06/04/2021 06/04/2020 Influenza Vaccine (FLU shot) (#1) 2023 GFR 10/16/2023 10/15/2022, 08/28, 05/29/2022, Additional history exists GARDASIL-HPV IMMUNIZATION SERIES Aged Out No longer eligible based on patient's age to complete this topic Hepatitis B Aged Out No longer eligi ble based on patient's age to complete this topic MENINGOCOCCAL (MENACTRA/MENVEO) Aged Out No longer eligible based on patient's age to complete this topic documented as of this encounter Medical Devices Not on filedocumented as of this encounter Care Teams Engraver Steel Plate Relationship Specialty Start Date End Date Kem Phillips MD [address] [place] [address] [place] [phone] PCP - General Family Medicine 08/23/15 documented as of this encounter
--- OUTSIDE RECORDS SUMMARY | 2023-09-06 11:17 | External Medical Summary | Summary of Care ---
Author Name Unknown Organization [facility] Address [address] [place] [address] Phone [phone] Care Team Providers Care Pea Viner Mechanic Name Role Phone Kem Phillips MD Primary Care Provider [phone] Reason for Visit * Reason Onset Date Comments Order Request 04/09/2023 Encounter Details Date Type Department Care Team Description 04/09/[address] [phone] Kem Phillips MD [address] [place], [place] [address] [id number] Order Request Allergies Active Allergy Reactions Severity Noted Date Comments Sulfa Antibiotics 08/07/2010 documented as of this encounter (statuses as of 04/14/2023) Medications Medication Sig Dispensed Refills Start Date [...] before bedtime. 180 Tablet 1 01/19/2023 Active Citalopram Hydrobromide 40 MG Oral Tablet (CeleXA)Indications: Anxiety,Mild episode of recurrent major depressive disorder (HCC) Take 1 Tablet by mouth in the morning. In the morning.. 90 Tablet 1 01/19/2023 Active Imipramine HCl 25 MG Oral Tablet (Tofranil) Take 1 Tablet by mouth in the morning and 1 Tablet before bedtime. 90 Tablet 1 01/19/2023 Active Metoprolol Tartrate 25 MG Oral Tablet (Lopressor)Indicatio ns:Mitral valve disorder,Essential hypertension with goal blood pressure less than 140/90 Take 1 Tablet by mouth in the morning and 1 Tablet before bedtime. 180 Tablet 1 01/19/2023 Active Omeprazole 20 MG Oral Capsule Delayed Release (PriLOSEC)Indication s:Diaphragmatic hernia without obstruction and without gangrene Take 1 Capsule by mouth in the morning. 1 hour before the first meal of the day. 90 Capsule 1 01/19/2023 Active documented as of this encounter (statuses as of 04/14/2023) Active Problems Problem Noted Date History of 2019 novel coronavirus diseas e (COVID-19) 10/14/2022 Pulmonary embolism associated with COVID -19 10/14/2022 Right ventricular dilation, secondary Leg DVT (deep venous thromboembolism), a cute, left 10/14/2022 Acute right ventricular heart failure PVD (peripheral vascular disease) 2022 History of endometrial cancer 10/14/2022 Morbid obesity with BMI of 40.0-44.9, ad ult 05/29/2022 Primary hypertension 11/19/2015 Carotid stenosis, non-symptomatic 2010 ADVANCE DIRECTIVE INFORMATION 02/01/2007 Overview: No, Advance Directive brochure given to patient at prior appointment. Fibromyalgia Recurrent major depressive disorder, in partial remission GENERALIZED ANXIETY DIS Mitral valve disorder Gastroesophageal reflux disease with eso phagitis without hemorrhage Diaphragmatic hernia Dyslipidemia, goal LDL below 130 documented as of this encounter (statuses as of 04/14/2023) Resolved Problems Problem Noted Date Resolved Date Morbid obesity with BMI of 40.0-44.9, adult 09/202105/29/2022 Obesity, Class II, BMI 35-39.9, isolated (see ac tual BMI) 01/07/2010 05/09/2015 Overview: Per Obesity Protocol, #19 Dyslipidemia, goal to be determined 07/03/2009 05/09/2015 Overview: Per Lipid Taxonomy. Carotid Stenosis, non-symptomatic 04/24/2008 04/24/2008 Malignant neoplasm of corpus uteri 12/09/2006 11/28/2016 Sebaceous Hyperplasia 03/12/2002 11/30/2019 Mixed dyslipidemia 07/03/2009 Overview: Per Lipid Taxonomy. Menopause 05/09/2015 Uterine leiomyoma 05/09/2015 BMI 40.0-44.9, adult 10/15/2022 HTN, goal below 140/90 6 documented as of this encounter (statuses as of 04/14/2023) Immunizations Name Administration Dates Next Due Pneumococcal Polysaccharide PPV23 (Pneumovax) documented as of this encounter Social History Tobacco Use Types Packs/Day Years Used Date Smoking Tobacco: Never Smokeless Tobacco: Never Alcohol Use Standard Drinks/Week Comments No 0 (1 standard drink = 0.6 oz pur e alcohol) Sex Assigned at Date Recorded Not on file Job Start Date Occupation Industry Not on file Not on file Not on file documented as of this encounter Miscellaneous Notes * Telephone Encounter - Cassidy German LPN - 04/14/2023 8:20 AM EDT Order and demographics sheet faxed to [facility]. * Telephone Encounter - Valentnia Winkler RN - 04/13/2023 3:47 PM EDT Provider to address: sign order Reason for Call: Advice Contact: Telephone Call Contact Type: Orders Outcome: Pt would like to have a walker( no seat) prefers a narrow one, order pended. The meds she is requesting still have refills, advised to call the pharmacy for them Send to [facility] Total Time including non face to face (minutes): 15 * Telephone Encounter - KATIE Kerr - 04/09/2023 11:44 AM EDT Pt. Would like provider or nurse to contact her that she has some questions and concerns she has and requesting medications listed below to be filled pt. Does have an appointment scheduled for 06/09/2023 at 4:[address] Phillips. Please notify p. When scripts are sent to pharmacy. Apixaban 5 MG Oral Tablet (Eliquis) 180 Tablet 1 01/19/2023 Sig - Route: Take 1 Tablet by mouth in the morning and 1 Tablet before bedtime. - Oral Sent to pharmacy as: Apixaban 5 MG Oral Tablet (Eliquis) Citalopram Hydrobromide 40 MG Oral Tablet (CeleXA) 90 Tablet 1 01/19/2023 Sig - Route: Take 1 Tablet by mouth in the morning. In the morning.. - Oral Sent to pharmacy as: Citalopram Hydrobromide 40 MG Oral Tablet (CeleXA ) Citalopram Hydrobromide 40 MG Oral Tablet (CeleXA) 90 Tablet 1 01/19/2023 Sig - Route: Take 1 Tablet by mouth in the morning. In the morning.. - Oral Sent to pharmacy as: Citalopram Hydrobromide 40 MG Oral Tablet (CeleXA Metoprolol Tartrate 25 MG Oral Tablet (Lopressor) 180 Tablet 1 01/19/2023 Sig - Route: Take 1 Tablet by mouth in the morning and 1 Tablet before bedtime. - Oral Sent to pharmacy as: Metoprolol Tartrate 25 MG Oral Tablet (Lopressor) Disp Refills Start End Omeprazole 20 MG Oral Capsule Delayed Release (PriLOSEC) 90 Capsule 1 01/19/2023 Sig - Route: Take 1 Capsule by mouth in the morning. 1 hour before the first meal of the day. - Oral Sent to pharmacy as: Omeprazole 20 MG Oral Capsule Delayed Release (PriLOSEC) documented in this encounter Plan of Treatment Upcoming Encounters Date Type Specialty Care Team Description 06/09/2023 Office Visit Family Medicine Kem Phillips MD [address] [place] [address] [place] [phone] Health Maintenance Due Date Last Done Comments [...] Not on filedocumented as of this encounter Visit Diagnoses Diagnosis Acute hypoxemic respiratory failure (HCC)- Primary Leg DVT (deep venous thromboembolism), acute, left (HCC) Unsteady gait Abnormality of gait documented in this encounter Care Teams Pea Viner Mechanic Relationship Specialty Start Date End Date Kem Phillips MD [address] [place] [address] [place] [phone] PCP - General Family Medicine 08/23/15 documented as of this encounter
--- OUTSIDE RECORDS SUMMARY | 2023-09-06 11:17 | External Medical Summary | Summary of Care ---
Author Name Unknown Organization [facility] Address [address] [place] [address] Phone [phone] Care Team Providers Care Clicker Operator Name Role Phone Kem Phillips MD Primary Care Provider [phone] Reason for Visit * Reason Comments Anxiety Encounter Details Date Type Department Care Team (Late st Contact Info) Description 06/09/2023 4:40 PM EST Office Visit Family [address] [phone] Kem Phillips MD [address] [place], [place] [address] [id number] Primary hypertension*; Anxiety; Mild episode of recurrent major depressive disorder (HCC); Mitral valve disorder; Essential hypertension with goal blood pressure less than 140/90; Diaphragmatic hernia without obstruction and without gangrene; Morbid obesity with BMI of 40.0-44.9, adult (HCC); Dyslipidemia, goal LDL below 130; History of 2019 novel coronavirus disease (COVID-19); GENERALIZED ANXIETY DIS Allergies Active Allergy Reactions Criticality Noted Date Comments Sulfa Antibiotics 08/07/2010 documented as of this encounter (statuses as of 06/09/2023) Medications Medication Sig Dispensed Refills Start Date [...] Active Imipramine HCl 25 MG Oral Tablet (Tofranil)Indicati ons:Anxiety,Mild episode of recurrent major depressive disorder (HCC),Generalized anxiety disorder Take 1 Tablet by mouth in the morning and 1 Tablet before bedtime. 180 Tablet 1 06/09/2023 Active Citalopram Hydrobromide 40 MG Oral Tablet (CeleXA)Indication s:Anxiety,Mild episode of recurrent major depressive disorder (HCC),Generalized anxiety disorder Take 1 Tablet by mouth in the morning. In the morning.. 90 Tablet 1 06/09/2023 Active Metoprolol Tartrate 25 MG Oral Tablet (Lopressor)Indicat ions:Mitral valve disorder,Essential hypertension with goal blood pressure less than 140/90 Take 1 Tablet by mouth in the morning and 1 Tablet before bedtime. 180 Tablet 1 06/09/2023 Active Omeprazole 20 MG Oral Capsule Delayed Release (PriLOSEC)Indicati ons:Diaphragmatic hernia without obstruction and without gangrene Take 1 Capsule by mouth in the morning. 1 hour before the first meal of the day. 90 Capsule 1 06/09/2023 Active Citalopram Hydrobromide 40 MG Oral Tablet (CeleXA)Indication s:Anxiety,Mild episode of recurrent major depressive disorder (HCC) Take 1 Tablet by mouth in the morning. In the morning.. 90 Tablet 1 01/19/2023 3 Discontinue d(Refill) Imipramine HCl 25 MG Oral Tablet (Tofranil) Take 1 Tablet by mouth in the morning and 1 Tablet before bedtime. 90 Tablet 1 01/19/2023 3 Discontinue d(Refill) Metoprolol Tartrate 25 MG Oral Tablet (Lopressor)Indicat ions:Mitral valve disorder,Essential hypertension with goal blood pressure less than 140/90 Take 1 Tablet by mouth in the morning and 1 Tablet before bedtime. 180 Tablet 1 01/19/2023 3 Discontinue d(Refill) Omeprazole 20 MG Oral Capsule Delayed Release (PriLOSEC)Indicati ons:Diaphragmatic hernia without obstruction and without gangrene Take 1 Capsule by mouth in the morning. 1 hour before the first meal of the day. 90 Capsule 1 01/19/2023 Discontinue d(Refill) documented as of this encounter (statuses as of 06/09/2023) Active Problems Problem Noted Date Diagnosed Date [...] as of this encounter (statuses as of 06/09/2023) Resolved Problems Problem Noted Date Diagnosed Date [...] as of this encounter (statuses as of 06/09/2023) Immunizations Name Administration Dates Next Due Pneumococcal [...] on file documented as of this encounter Last Filed Vital Signs Vital Sign Reading Time Taken Comments Blood Pressure 126/72 06/09/2023 4:16 PM EST Pulse 86 06/09/2023 4:16 PM EST Temperature 36.2 C (97.1 F) 06/09/2023 4:16 PM ES T Respiratory Rate 16 06/09/2023 4:16 PM EST Oxygen Saturation - - Inhaled Oxygen Concentration - - Weight - - Height - - Body Mass Index - - documented in this encounter Progress Notes * Kem Phillips MD - 06/09/2023 4:20 PM EST Tori continues on Apixiban for the PE she got after Covid. She is supposed to see cardiology but canceled. The bruises have resolved. She is doing ok with her meds but is shedding tears over how sick she got and her didn't believe her. She is eating ok. She is in a wheelchair, but does not need O2. Health Maintenance addressed. Refuses Past Medical History: Diagnosis Date BMI 40.0-44.9, adult (HCC) Depressive disorder, not elsewhere classified Diaphragmatic hernia Generalized anxiety disorder HTN, goal below 140/90 Hyperlipidemia LDL goal < 130 Malignant neoplasm of corpus uteri (HCC) 2006 Total Abd Hysterectomy Menopause Mitral valve disorder MVP Morbid obesity with BMI of 40.0-44.9, adult (HCC) Myalgia and myositis Need for hepatitis C screening test 11/19/15 negative Reflux esophagitis mild Sebaceous hyperplasia Uterine leiomyoma Past Surgical History: Procedure Laterality Date DILATION AND CURETTAGE (D&C) EEG 05/07/2018 normal IOF VASC CAROTID DUPLEX, BILATERAL 10/03/10 Right carotid artery duplex examination indicates evidence of 50-69% stenosis of the internal carotid artery. Left carotid artery duplex examination indicates evidence of less than 50% stenosis of the internal carotid artery. Compared to a prior study of 04/27/2008 the current study shows an increase in stenosis in the right internal carotid artery and no change in the left internal carotid artery. MAMMOGRAM SCREENING BILATERAL 08/09/2010 cat. 1, repeat in [facility] MAMMOGRAM SCREENING BILATERAL Bilateral 06/07/2016 almost entirely fat, right breast calcifications, category 2 benign MRI BRAIN W WO CONTRAST 01/22/2013 no acute abnormality; chronic small vessel changes MRI C SPINE W WO CONTRAST 01/26/2013 ?demyelinating process; DDD MRI L SPINE W WO CONTRAST 01/22/2013 disc bulges; multilevel spondylosis MRI T SPINE WO CONTRAST 01/23/2013 disc protrusions at several levels REDUCTION OF BREAST TOTAL ABD HYSTERECTOMY W/WO REMOVAL OF TUBE(S) 01/19/07 dr glass/[facility] [place] endometrial cancer US EXTREMITY, NON-VASCULAR COMPLETE Bilateral 06/06/2016 no lipoma or other abnormality VASC ANKLE BRACHIAL INDEX Bilateral 06/09/2016 0.78 right 0.94 left with calcinosis on right making determination difficult VASC DUPLEX VENOUS LE BILAT Bilateral 05/09/16 no DVT Review of patient's allergies indicates: Allergen Reactions Sulfa Antibiotics Social History Socioeconomic History Marital status: Spouse name: Leopoldo Number of children: 2 Years of education: Not on file Highest education level: Not on file Occupational History 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 Tobacco Use Smoking status: Never Smokeless tobacco: Never Substance and Sexual Activity Alcohol use: No Drug use: No Sexual activity: Yes Partners: Male Other Topics Concern Not on file Social History Narrative Not on file Social Determinants of Health Financial Resource Strain: Not on file Food Insecurity: Not on file Transportation Needs: Not on file Physical Activity: Not on file Stress: Not on file Social Connections: Not on file Intimate Partner Violence: Not on file Housing Stability: Not on file Current Outpatient Medications Medication Sig Dispense Refill Acetaminophen 325 MG Oral Tablet Take 2 Tablets by mouth every 4 hours as needed for Fever >38C(100.5F), Pain, Mild, Pain, Moderate or Pain, Severe. 100 Tablet 1 Advanced Probiotic Oral Capsule Take 2 Capsules by mouth in the morning. 60 Capsule 0 MEDICAL INSTRUCTIONS Use as directed. NURSING, PT/OT DX: PULMONARY EMBOLISM DUE TO COVID, RV FAILURE, HTN, DEPRESSION 1 Each 1 Apixaban 5 MG Oral Tablet (Eliquis) Take 1 Tablet by mouth in the morning and 1 Tablet before bedtime. 180 Tablet 1 Citalopram Hydrobromide 40 MG Oral Tablet (CeleXA) Take 1 Tablet by mouth in the morning. In the morning.. 90 Tablet 1 Imipramine HCl 25 MG Oral Tablet (Tofranil) Take 1 Tablet by mouth in the morning and 1 Tablet before bedtime. 90 Tablet 1 Metoprolol Tartrate 25 MG Oral Tablet (Lopressor) Take 1 Tablet by mouth in the morning and 1 Tablet before bedtime. 180 Tablet 1 Omeprazole 20 MG Oral Capsule Delayed Release (PriLOSEC) Take 1 Capsule by mouth in the morning. 1 hour before the first meal of the day. 90 Capsule 1 No current facility-administered medications for this visit. Immunization History Administered Date(s) Administered Pneumococcal Polysaccharide PPV23 (Pneumovax) 04/13/2012 TD - Tetanus/Diptheria (ADULT) 09/27/1999 Results for orders placed or performed in visit on 10/15/22 BASIC METABOLIC PANEL Result Value Ref Range BUN 12 6 - 20 mg/dL Creatinine 0.6 0.5 - 1.0 mg/dL Estimated Glomerular Filtration Rate >90 >=60 mL/min Sodium 141 135 - 146 mmol/L Potassium 4.0 3.5 - 5.1 mmol/L Chloride 106 98 - 107 mmol/L CO2 27 22 - 32 mmol/L Anion Gap 8 7 - 15 mmol/L Glucose 95 70 - 120 mg/dL Calcium 8.9 8.4 - 10.2 mg/dL CBC Results: Results for orders placed or performed in visit on 10/15/22 CBC Result Value Ref Range WBC 5.37 4.00 - 10.80 K/uL RBC 4.01 3.85 - 5.15 M/uL HGB 12.0 12.0 - 15.3 g/dL HCT 38.2 36.0 - 45.2 % MCV 95.3 81.5 - 97.5 fL MCH 29.9 27.0 - 34.0 pg MCHC 31.4 32.0 - 36.0 g/dL RDW 15.8 11.5 - 15.5 % PLT 232 140 - 400 K/uL MPV 10.6 6.6 - 11.1 fL Results for orders placed or performed in visit on 05/29/22 LIPID PANEL WITH DIRECT LDL IF TG IS HIGH Result Value Ref Range Triglycerides 106 <=174 mg/dL Cholesterol 214 (H) <200 mg/dL HDL Cholesterol 59 >49 mg/dL Non-HDL Cholesterol 155 <=159 mg/dL LDL Cholesterol 134 (H) <=129 mg/dL O: Blood pressure 126/72, pulse 86, temperature 36.2 C (97.1 F), temperature source Tympanic, resp. rate 16, last menstrual period 06/26/1999. General appearance: well developed, well nourished and in no acute distress. Neck is supple without adenopathy or thyromegaly. Chest is symmetrical and moves normally. The lungs are clear without wheezes, rales, rhonchi or rubs, and the heart is regular without murmurs or gallops, or ectopy. PMI not displaced. No edema, no ecchymosis A: Past Surgical History: Procedure Laterality Date DILATION AND CURETTAGE (D&C) EEG 05/07/2018 normal IOF VASC CAROTID DUPLEX, BILATERAL 10/03/10 Right carotid artery duplex examination indicates evidence of 50-69% stenosis of the internal carotid artery. Left carotid artery duplex examination indicates evidence of less than 50% stenosis of the internal carotid artery. Compared to a prior study of 04/27/2008 the current study shows an increase in stenosis in the right internal carotid artery and no change in the left internal carotid artery. MAMMOGRAM SCREENING BILATERAL 08/09/2010 cat. 1, repeat in [facility] MAMMOGRAM SCREENING BILATERAL Bilateral 06/07/2016 almost entirely fat, right breast calcifications, category 2 benign MRI BRAIN W WO CONTRAST 01/22/2013 no acute abnormality; chronic small vessel changes MRI C SPINE W WO CONTRAST 01/26/2013 ?demyelinating process; DDD MRI L SPINE W WO CONTRAST 01/22/2013 disc bulges; multilevel spondylosis MRI T SPINE WO CONTRAST 01/23/2013 disc protrusions at several levels REDUCTION OF BREAST TOTAL ABD HYSTERECTOMY W/WO REMOVAL OF TUBE(S) 01/19/07 dr glass/[facility] [place] endometrial cancer US EXTREMITY, NON-VASCULAR COMPLETE Bilateral 06/06/2016 no lipoma or other abnormality VASC ANKLE BRACHIAL INDEX Bilateral 06/09/2016 0.78 right 0.94 left with calcinosis on right making determination difficult VASC DUPLEX VENOUS LE BILAT Bilateral 05/09/16 no DVT Primary hypertension (Primary) Anxiety - Citalopram Hydrobromide 40 MG Oral Tablet (CeleXA); Take 1 Tablet by mouth in the morning. In themorning.. Mild episode of recurrent major depressive disorder (HCC) - Citalopram Hydrobromide 40 MG Oral Tablet (CeleXA); Take 1 Tablet by mouth in the morning. In themorning.. Mitral valve disorder - Metoprolol Tartrate 25 MG Oral Tablet (Lopressor); Take 1 Tablet by mouth in the morning and 1 Tablet before bedtime. Essential hypertension with goal blood pressure less than 140/90 - Metoprolol Tartrate 25 MG Oral Tablet (Lopressor); Take 1 Tablet by mouth in the morning and 1 Tablet before bedtime. Diaphragmatic hernia without obstruction and without gangrene - Omeprazole 20 MG Oral Capsule Delayed Release (PriLOSEC); Take 1 Capsule by mouth in the morning.1 hour before the first meal of the day. Morbid obesity with BMI of 40.0-44.9, adult (HCC) Dyslipidemia, goal LDL below 130 History of 2019 novel coronavirus disease (COVID-19) GENERALIZED ANXIETY DIS Other orders - Imipramine HCl 25 MG Oral Tablet (Tofranil); Take 1 Tablet by mouth in the morning and 1 Tablet before bedtime. Continue other meds as before. Follow Up: Return in about 3 months (around 09/09/2023) for Clinic Visit. | For: Clinic Visit documented in this encounter Nursing Notes * Cassidy German LPN - 06/09/2023 4:11 PM EST Check up documented in this encounter Plan of Treatment Upcoming Encounters Date Type Department Care Team (Late st Contact Info) Description 09/11/2023 2:00 PM EST Office Visit [address] [phone] Aletha Pacheco PA-C [address] [place] [address] [place] [phone] 05/27/2024 4:00 PM EDT Office Visit Family Medicine [address] [place] [phone] Yandel Tovar MD [address] [place] [address] [place] [phone] Health Maintenance Due Date Last Done Comments [...] as of this encounter Visit Diagnoses Diagnosis Primary hypertension- Primary Unspecified essential hypertension Anxiety Anxiety state, unspecified Mild episode of recurrent major depressive disorder (HCC) Mitral valve disorder Mitral valve disorders Essential hypertension with goal blood pressure less than 140/90 Diaphragmatic hernia without obstruction and without gangrene Morbid obesity with BMI of 40.0-44.9, adult (HCC) Morbid obesity Dyslipidemia, goal LDL below 130 Other and unspecified hyperlipidemia History of 2019 novel coronavirus disease (COVID-19) GENERALIZED ANXIETY DIS Generalized anxiety disorder documented in this encounter Care Teams Clicker Operator Relationship Specialty Start Date End Date Kem Phillips MD [address] [place] [address] [place] [phone] PCP - General Family Medicine 08/23/15 documented as of this encounter"
--- OUTSIDE RECORDS SUMMARY | 2023-09-06 11:17 | External Medical Summary | Summary of Care ---
Author Name Unknown Organization [facility] Address [address] [place] [address] Phone [phone] Care Team Providers Care Glue Plant Operator Name Role Phone Kem Phillips MD Primary Care Provider [phone] Reason for Visit * Reason Onset Date Comments Encounter Created in Error 05/29/2023 Encounter Details Date Type Department Care Team (Late st Contact Info) Description 05/29/2023 Telephone Family [address] [phone] Kem Phillips MD [address] [place], [place] [address] [id number] Encounter Created in Error Allergies Active Allergy Reactions Criticality Noted Date Comments Sulfa Antibiotics 08/07/2010 documented as of this encounter (statuses as of 06/20/2023) Medications Medication Sig Dispensed Refills Start Date [...] before bedtime. 180 Tablet 1 01/19/2023 Active documented as of this encounter (statuses as of 06/20/2023) Active Problems Problem Noted Date Diagnosed Date History of 2019 novel coronavirus disease (COVID -19) 10/14/2022 Pulmonary embolism associated with COVID-19 09/25 Right ventricular dilation, secondary 10/14/2022 Leg DVT (deep venous thromboembolism), acute, le ft 10/14/2022 Acute right ventricular heart failure 10/14/2022 PVD (peripheral vascular disease) 10/14/2022 History of endometrial cancer 10/14/2022 Morbid obesity with BMI of 40.0-44.9, adult 11/0 09/2021 Primary hypertension 11/19/2015 Carotid stenosis, non-symptomatic 05/01/2011 ADVANCE DIRECTIVE INFORMATION 02/01/2007 Overview: No, Advance Directive brochure given to patient at prior appointment. Fibromyalgia Recurrent major depressive disorder, in partial remission GENERALIZED ANXIETY DIS Mitral valve disorder Gastroesophageal reflux dise ase with esophagitis without hemorrhage Diaphragmatic hernia Dyslipidemia, goal LDL below 130 documented as of this encounter (statuses as of 06/20/2023) Resolved Problems Problem Noted Date Diagnosed Date [...] as of this encounter (statuses as of 06/20/2023) Immunizations Name Administration Dates Next Due Pneumococcal [...] on file documented as of this encounter Plan of Treatment Upcoming Encounters Date Type Department Care Team (Late st Contact Info) Description 09/11/2023 2:00 PM EST Office Visit [address] [phone] Aletha Pacheco PA-C [address] [place] [address] [place] [phone] 05/27/2024 4:00 PM EDT Office Visit [address] [place] [phone] Yandel Tovar MD [address] [place] [address] [place] [phone] Health Maintenance Due Date Last Done Comments [...] filedocumented as of this encounter Care Teams Glue Plant Operator Relationship Specialty Start Date End Date Kem Phillips MD [address] [place] [address] [place] [phone] PCP - General Family Medicine 08/23/15 documented as of this encounter
--- NOTE | 2023-09-06 12:13 | Emergency Department Note ---
Impression & Plan Weakness, Hypertension, Nausea, Cellulitis ED Provider Note NAME: RADHA GALICIA AGE: 78 SEX: F : 1945 ARRIVES VIA: Ambulance INFORMANT: [Patient][EMS] ED PROVIDER(S): [Mike Joyce MD] CHIEF COMPLAINT: Nausea HISTORY OF PRESENT ILLNESS: The patient is a 78-year-old female presents to the ED not feeling well since yesterday. She has been nauseated and dizzy. She had a cough a week or so ago but this resolved. No current cough. She is not short of breath, no chest pain. No urinary complaints, no diarrhea. Patient was given Zofran on the way in which helped some with her nausea but now, the nausea has returned. The patient states that because of feeling unwell, she did not take her nighttime or morning meds. The patient states that she never finished her Eliquis that was prescribed at her last hospital discharge. PMHx/PSHx/Social Hx: See Below PHYSICAL EXAM: GENERAL: Patient is in no acute distress. HEENT: No acute trauma, normocephalic atraumatic, mucous membranes moist, no nasal congestion. NECK: No stridor, no adenopathy, no meningismus, trachea is midline. LUNGS: Clear to auscultation bilaterally, no wheeze, no rhonchi, breath sounds equal. HEART: 2/6 systolic murmur, mildly tachycardic, regular rhythm. ABDOMEN: Soft, nontender, no peritonitis. EXTREMITIES: No cyanosis. There is some bilateral pedal edema worse on the right. There is right leg erythema, warmth and discomfort consistent with cellulitis. This extends from the foot to the proximal lateral tib-fib. NEUROLOGIC: Oriented x 3, no acute motor or sensory deficits, no focal weakness. SKIN: No jaundice, no diaphoresis. DIFFERENTIAL DIAGNOSIS: Bacteremia or sepsis, medication noncompliance, ME, electrolyte imbalance, UTI, dysrhythmia, viral illness, among others. EMERGENCY DEPARTMENT PROCEDURES: MEDICAL DECISION MAKING: There is no leukocytosis or concerning anemia. There is a normal platelet count. No coagulopathy. No renal failure or significant electrolyte abnormality. Lactic acid level is not elevated making severe sepsis less likely. There is no concerning liver enzyme elevation. The patient appears to be in a euthyroid state. ECG shows a normal sinus rhythm, no obvious acute ischemia, no dysrhythmia. Cardiac enzyme testing x 1 is not consistent with acute cardiac injury. Urinalysis suggest some dehydration, no obvious infection. COVID, influenza and RSV test were negative. Chest x-ray does not show mediastinal widening, pneumonia or pneumothorax. On exam, the patient had an obvious right lower extremity cellulitis. Patient did receive IV labetalol for her higher blood pressure. Her blood pressure did improve with this medication administration. She was given IV saline, 1 L. She was given IV Zofran for nausea. She received IV cefepime as empiric antibiotic coverage. Patient is hypertensive, she is feeling poorly and has a right lower extremity cellulitis. I am concerned about the possibility of medication noncompliance. I do think given her findings that a hospital stay would be warranted. I have ordered for a bilateral lower extremity ultrasound as she has a history of previous DVT and by her own admission is not taking her prescribed Eliquis. The results of the ultrasound are pending. I spoke with the patient and her family, I spoke with case management, the on- call hospitalist was consulted. Prior/Outside records/notes reviewed: Today's EMS notes describing the patient's complaints and transport to this ED. ECG per my interpretation: Indication was nausea. The ECG shows a normal sinus rhythm with a rate of 100. There is some nonspecific ST changes diffusely. There is no concerning ST elevation, there are no PVCs. The QTc is 451. Continuous Cardiac Monitoring per my interpretation: An order was placed for continuous cardiac monitoring. The monitor shows a rate of 102 with sinus tachycardia. Imaging/x-ray results per my interpretation: Chest x-ray does not show mediastinal widening, pneumonia or pneumothorax. Chronic Medical/Social conditions affecting care: Advanced age, medication noncompliance. Care/Management discussed with: Case management, the on-call hospitalist. Level of care consideration(s): After review of the information above and other included data: --I believe the patient requires escalation of care to admission DISPOSITION: Admission Past Med/Surg History Medical History Depression Received intravenous tissue plasminogen activator (t-PA) within last 24 hours Pulmonary embolism associated with COVID-19 Asthma Hypertension Right shoulder pain Right shoulder pain Degenerative arthritis of right shoulder region Arthritis of shoulder region, right Female urinary stress incontinence (Unknown) Family History (Updated 05/07/18 @ 01:14 by Deshawn Molina) Other No significant family history Social History Smoking Status: Never smoker Second Hand Exposure: No; Do You Dip or Chew Tobacco: No; Hx Alcohol Use: No Hx Substance Use: No Preferred Language: [place]ian Communication Ability: Effective Paper Sheeter Required: No Beliefs That Will Affect Care: None marital status: Current Living Situation: Spouse How many Children do You have: 2 Feels Safe at Home: Yes Assistive Devices: Walker Allergies Allergies Allergy/AdvReac Type Severity Reaction Status Date / Time buspirone Allergy Unknown suical Verified 09/06/23 14:26 thoughts fluoxetine Allergy Unknown unk Verified 09/06/23 14:26 prednisone Allergy Unknown agitation Verified 09/06/23 14:26 Sulfa (Sulfonamide Allergy Unknown unk Verified 09/06/23 14:26 Antibiotics) Home Meds Home Medications Medication Instructions Recorded Confirmed citalopram 40 mg tablet 40 mg PO HS 05/07/18 09/06/23 omeprazole 20 mg tablet,delayed 20 mg PO QAM 05/07/18 09/06/23 release metoprolol tartrate 25 mg tablet 25 mg PO BID 10/04/22 09/06/23 apixaban 5 mg tablet (Eliquis) 0 mg PO BID 09/06/23 09/06/23 imipramine HCl 25 mg tablet 25 mg PO BID 09/06/23 09/06/23 Results & Data (ED) Vital Signs Vital Signs - 24 hr 09/06/23 11:22 09/06/23 11:24 09/06/23 11:24 Temperature 36.6 C 36.6 C Temperature Source Oral Oral Pulse Rate 98 H 97 H Pulse Rate [Apical] 97 H Pulse Rate from SpO2 Sensor 99 H Pulse Rhythm Regular Pulse Rhythm [Apical] Regular Respiratory Rate 18 19 19 Respiratory Effort / Characteristics Non-Labored Non-Labored Respiratory Depth Normal Normal Respiratory Pattern Regular Blood Pressure 199/108 H Blood Pressure [Right Arm] 199/108 H Blood Pressure Mean 138 Blood Pressure Mean [Right Arm] 138 Pulse Oximetry 93 93 93 Oxygen Delivery Method Room Air Room Air Oxygen Flow Rate Sepsis Recent Fever Within 48 Hours No Sepsis New/Unexplained Change in Mental Status No Sepsis Action Taken by Nursing No Action Required 09/06/23 11:30 09/06/23 11:31 09/06/23 12:00 Temperature Temperature Source Pulse Rate 102 H 98 H 99 H Pulse Rate [Apical] Pulse Rate from SpO2 Sensor 102 H 101 H Pulse Rhythm Pulse Rhythm [Apical] Respiratory Rate 14 18 Respiratory Effort / Characteristics Respiratory Depth Respiratory Pattern Blood Pressure Blood Pressure [Right Arm] Blood Pressure Mean Blood Pressure Mean [Right Arm] Pulse Oximetry 96 91 Oxygen Delivery Method Oxygen Flow Rate Sepsis Recent Fever Within 48 Hours Sepsis New/Unexplained Change in Mental Status Sepsis Action Taken by Nursing 09/06/23 12:00 09/06/23 12:16 09/06/23 12:16 Temperature Temperature Source Pulse Rate 101 H Pulse Rate [Apical] Pulse Rate from SpO2 Sensor 100 H Pulse Rhythm Pulse Rhythm [Apical] Respiratory Rate 20 Respiratory Effort / Characteristics Respiratory Depth Respiratory Pattern Blood Pressure 179/81 H 186/104 H Blood Pressure [Right Arm] Blood Pressure Mean 113 125 Blood Pressure Mean [Right Arm] Pulse Oximetry 90 Oxygen Delivery Method Oxygen Flow Rate Sepsis Recent Fever Within 48 Hours Sepsis New/Unexplained Change in Mental Status Sepsis Action Taken by Nursing 09/06/23 12:31 09/06/23 12:31 09/06/23 12:43 Temperature Temperature Source Pulse Rate 102 H Pulse Rate [Apical] Pulse Rate from SpO2 Sensor 106 H Pulse Rhythm Pulse Rhythm [Apical] Respiratory Rate 25 H Respiratory Effort / Characteristics Respiratory Depth Respiratory Pattern Blood Pressure 180/95 H Blood Pressure [Right Arm] Blood Pressure Mean 116 Blood Pressure Mean [Right Arm] Pulse Oximetry 98 93 Oxygen Delivery Method Room Air Oxygen Flow Rate Sepsis Recent Fever Within 48 Hours Sepsis New/Unexplained Change in Mental Status Sepsis Action Taken by Nursing 09/06/23 13:00 09/06/23 13:01 09/06/23 13:01 Temperature Temperature Source Pulse Rate 100 H 101 H Pulse Rate [Apical] Pulse Rate from SpO2 Sensor 100 H 102 H Pulse Rhythm Pulse Rhythm [Apical] Respiratory Rate 26 H 18 Respiratory Effort / Characteristics Respiratory Depth Respiratory Pattern Blood Pressure 160/113 H Blood Pressure [Right Arm] Blood Pressure Mean 140 Blood Pressure Mean [Right Arm] Pulse Oximetry 98 99 Oxygen Delivery Method Oxygen Flow Rate Sepsis Recent Fever Within 48 Hours Sepsis New/Unexplained Change in Mental Status Sepsis Action Taken by Nursing 09/06/23 13:31 09/06/23 13:31 09/06/23 14:00 Temperature Temperature Source Pulse Rate 99 H 101 H Pulse Rate [Apical] Pulse Rate from SpO2 Sensor 99 H 101 H Pulse Rhythm Pulse Rhythm [Apical] Respiratory Rate 23 32 H Respiratory Effort / Characteristics Respiratory Depth Respiratory Pattern Blood Pressure 151/125 H Blood Pressure [Right Arm] Blood Pressure Mean 138 Blood Pressure Mean [Right Arm] Pulse Oximetry 99 97 Oxygen Delivery Method Oxygen Flow Rate Sepsis Recent Fever Within 48 Hours Sepsis New/Unexplained Change in Mental Status Sepsis Action Taken by Nursing 09/06/23 14:33 09/06/23 14:33 09/06/23 14:33 Temperature Temperature Source Pulse Rate 111 H Pulse Rate [Apical] Pulse Rate from SpO2 Sensor 111 H Pulse Rhythm Pulse Rhythm [Apical] Respiratory Rate 21 Respiratory Effort / Characteristics Respiratory Depth Respiratory Pattern Blood Pressure 191/105 H 191/105 H Blood Pressure [Right Arm] Blood Pressure Mean 158 158 Blood Pressure Mean [Right Arm] Pulse Oximetry 97 Oxygen Delivery Method Oxygen Flow Rate Sepsis Recent Fever Within 48 Hours Sepsis New/Unexplained Change in Mental Status Sepsis Action Taken by Nursing 09/06/23 14:45 09/06/23 15:00 09/06/23 15:18 Temperature Temperature Source Pulse Rate 110 H 89 Pulse Rate [Apical] Pulse Rate from SpO2 Sensor 90 Pulse Rhythm Pulse Rhythm [Apical] Respiratory Rate 20 Respiratory Effort / Characteristics Respiratory Depth Respiratory Pattern Blood Pressure 191/105 H 183/82 H Blood Pressure [Right Arm] Blood Pressure Mean 115 Blood Pressure Mean [Right Arm] Pulse Oximetry 96 Oxygen Delivery Method Oxygen Flow Rate Sepsis Recent Fever Within 48 Hours Sepsis New/Unexplained Change in Mental Status Sepsis Action Taken by Nursing 09/06/23 15:18 09/06/23 15:24 09/06/23 15:30 Temperature Temperature Source Pulse Rate 90 92 H Pulse Rate [Apical] 88 Pulse Rate from SpO2 Sensor 90 91 H Pulse Rhythm Pulse Rhythm [Apical] Regular Respiratory Rate 21 17 22 Respiratory Effort / Characteristics Respiratory Depth Respiratory Pattern Blood Pressure Blood Pressure [Right Arm] 183/82 H Blood Pressure Mean Blood Pressure Mean [Right Arm] 115 Pulse Oximetry 99 95 96 Oxygen Delivery Method Nasal Cannula Oxygen Flow Rate 2 Sepsis Recent Fever Within 48 Hours Sepsis New/Unexplained Change in Mental Status Sepsis Action Taken by Nursing 09/06/23 15:39 Temperature Temperature Source Pulse Rate 88 Pulse Rate [Apical] Pulse Rate from SpO2 Sensor Pulse Rhythm Pulse Rhythm [Apical] Respiratory Rate Respiratory Effort / Characteristics Respiratory Depth Respiratory Pattern Blood Pressure Blood Pressure [Right Arm] Blood Pressure Mean Blood Pressure Mean [Right Arm] Pulse Oximetry Oxygen Delivery Method Oxygen Flow Rate Sepsis Recent Fever Within 48 Hours Sepsis New/Unexplained Change in Mental Status Sepsis Action Taken by [facility] Medications Current Medication List: was personally reviewed by me Laboratory Data Attestation: I reviewed the patient's lab results. 09/06/23 11:22 09/06/23 11:22 Lab Results 09/06/23 09/06/23 09/06/23 Range/Units 11:22 12:27 14:35 WBC 6.20 (4.8-10.8) K/ul RBC 5.09 (4.20-5.40) M/uL Hgb 14.7 (12.0-16.0) g/dl Hct 44.3 (37.0-47.0) % MCV 87.0 (80.0-100.0) fL MCH 28.9 (25.0-34.0) pg MCHC 33.2 (32.0-36.0) g/dL RDW Std Deviation 43.0 (36.4-46.3) fL RDW Coeff of Jose Enrique 13.4 (11.5-14.5) % Plt Count 220 (130-400) K/uL MPV 10.3 (9.4-12.4) fL Immature Gran % (Auto) 0.3 % Neut % (Auto) 76.3 % Lymph % (Auto) 13.7 % [place] % (Auto) 9.2 % Eos % (Auto) 0.2 % Baso % (Auto) 0.3 % Neut # (Auto) 4.73 (1.40-6.50) K/uL Lymph # (Auto) 0.85 L (1.20-3.40) K/uL [place] # (Auto) 0.57 (0.11-0.59) K/uL Eos # (Auto) 0.01 (0.00-0.50) K/uL Baso # (Auto) 0.02 (0.00-0.20) K/uL Immature Gran # (Auto) 0.02 (0.01-0.20) K/uL PT 10.9 (9.0-12.0) Seconds INR 1.0 (0.9-1.1) APTT 30 (21-31) Seconds PTT Ratio 1.1 Sodium 139 (136-145) mmol/L Potassium 3.5 (3.5-5.1) mmol/L Chloride 105 (98-107) mmol/L Carbon Dioxide 27 (21-32) mmol/L Anion Gap 7 (3-11) BUN 19 (6-23) mg/dl Creatinine 0.48 L (0.6-1.2) mg/dl Est Cr Clr Drug Dosing 116.5 ml/min Est GFR ( Amer) 108.1 ml/min Est GFR (Non-Af Amer) 93.3 ml/min BUN/Creatinine Ratio 39.6 H (10-20) Glucose 79 (70-99(Fasting)) mg/dl Lactate 0.9 (0.4-2.0) mmol/L Calcium 8.3 L (8.6-10.3) mg/dl Magnesium 1.8 (1.7-2.4) mg/dl Total Bilirubin 0.6 (0.2-1.0) mg/dl AST 23 (13-39) U/L ALT 18 (7-52) U/L Alkaline Phosphatase 52 (34-104) U/L Troponin I High Sens 11.0 (0-14) pg/ml Total Protein 6.7 (6.0-8.3) gm/dl Albumin 3.9 (3.4-5.0) gm/dl Globulin 2.8 (2.5-4.0) gm/dl Albumin/Globulin Ratio 1.4 (0.9-2) Procalcitonin 0.03 (0-0.5) ng/ml TSH 2.623 (0.300-4.500) uIu/ml Urine Color Dark Yellow Urine Appearance Turbid A (Clear) Urine pH 6.0 (4.5-7.5) Ur Specific [place] 1.020 (1.000-1.030) Urine Protein Negative (Negative) Urine Glucose (UA) Negative (Negative) Urine Ketones 3+ H (Negative) Urine Blood Negative (Negative) Urine Nitrite Negative (Negative) Urine Bilirubin Negative (Negative) Urine Urobilinogen Negative (Negative) Ur Leukocyte Esterase Trace H (Negative) Urine WBC (Auto) 1-5 (0-5) /hpf Urine RBC (Auto) 0-4 (0-4) /hpf U Hyaline Cast (Auto) 1-5 (0-5) /lpf U Epithel Cells (Auto) >30 H (0-5) /lpf Urine Bacteria (Auto) 2+ H (Negative) Urine Crystals Not Reportable Urine Yeast Not Reportable Administered Medications Discontinued Medications Sodium Chloride (Nss) 500 mls @ 999 mls/hr IV .Q31M JOSE Stop: 09/06/23 12:45 Last Infusion: 09/06/23 14:39 Dose: Infused Documented By: Admin: 09/06/23 12:36 Dose: 999 mls/hr Documented By: MARQUIS Cefepime HCl (Maxipime) 2,000 mg in 20 mls @ 5 mls/min IV NOW STA; Protocol Stop: 09/06/23 12:08 Last Admin: 09/06/23 12:36 Dose: 5 mls/min Documented By: MARQUIS Sodium Chloride (Nss) 500 mls @ 999 mls/hr IV .Q31M ONE Stop: 09/06/23 15:36 Last Infusion: 09/06/23 17:02 Dose: Infused Documented By: Admin: 09/06/23 15:20 Dose: 999 mls/hr Documented By: MARQUIS Labetalol HCl (Labetalol Hcl Iv 5 Mg/Ml 20ml) 10 mg IV NOW STA Stop: 09/06/23 14:47 Last Admin: 09/06/23 14:45 Dose: 10 mg Documented By: MARQUIS Co-signed By: BARRON Metoprolol Tartrate (Metoprolol Tartrate 25 Mg Tab) 25 mg PO NOW STA Stop: 09/06/23 16:03 Last Admin: 09/06/23 16:36 Dose: 25 mg Documented By: MARQUIS Ondansetron HCl (Ondansetron Inj 2 Mg/Ml 2 Ml Vial) 4 mg IV NOW STA Stop: 09/06/23 12:06 Last Admin: 09/06/23 12:36 Dose: 4 mg Documented By: MARQUIS Imaging Data Radiologist's Impression: Chest X-Ray 09/06/23 12:05 XR chest 1V portable CLINICAL HISTORY: weakness COMPARISON STUDY: Chest radiograph and chest CT October 04, 2022. FINDINGS: Lung volumes are normal. Lungs are clear. There is no pneumothorax or pleural effusion. Cardiomegaly is unchanged. Mediastinal contours are normal. There is no evidence for pulmonary edema. 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 ACT 112: Negative or not required by law. Electronically signed by: Yobani Curtis M.D. 09/06/2023 12:26 PM Discharge Plan Visit Data Chief Complaint: Nausea ED Provider: Mike Joyce Discharge Problem: Weakness, Hypertension, Nausea, Cellulitis Patient Disposition: Admitted As Inpatient Condition: Fair Discharge Problem: Hypertension Qualifiers: Hypertension type: unspecified Qualified Code(s): I10 - Essential (primary) hypertension Cellulitis Qualifiers: Site of cellulitis: extremity Site of cellulitis of extremity: lower extremity Laterality: right Qualified Code(s): L03.115 - Cellulitis of right lower limb
--- NOTE | 2023-09-06 12:27 | XRay Report ---
XR chest 1V portable CLINICAL HISTORY: weakness COMPARISON STUDY: Chest radiograph and chest CT October 04, 2022. FINDINGS: Lung volumes are normal. Lungs are clear. There is no pneumothorax or pleural effusion. Car diomegaly is unchanged. Mediastinal contours are normal. There is no evidence for pulmonary edema. Se melissa osteoarthritis of the bilateral glenohumeral joints is incidentally noted IMPRESSION: No acute cardiopulmonary findings. ACT 112: Negative or not required by law. Electronically signed by: Yobani Curtis M.D. 09/06/2023 12:26 PM
[2023-09-06 12:31] LABS: Basophils # (auto) 0.02 K/uL (0.00-0.20); Basophils % (auto) 0.3 %; Eosinophils # (auto) 0.01 K/uL (0.00-0.50); Eosinophils % (auto) 0.2 %; Hematocrit (blood only) 44.3 % (37.0-47.0); Hemoglobin 14.7 g/dl (12.0-16.0); Immature Granulocytes # (auto) 0.02 K/uL (0.01-0.20); Immature Granulocytes % (auto) 0.3 %; Lymphocytes # (auto) 0.85 K/uL (1.20-3.40); Lymphocytes % (auto) 13.7 %; Mean Corpuscular Hemoglobin 28.9 pg (25.0-34.0); Mean Corpuscular Hgb Conc 33.2 g/dL (32.0-36.0); Mean Platelet Volume 10.3 fL (9.4-12.4); Monocytes # (auto) 0.57 K/uL (0.11-0.59); Monocytes % (auto) 9.2 %; Neutrophils # (auto) 4.73 K/uL (1.40-6.50); Neutrophils % (auto) 76.3 %; Platelet Count 220 K/uL (130-400); RDW Coefficient of Variation 13.4 % (11.5-14.5); Red Blood Count 5.09 M/uL (4.20-5.40)
[2023-09-06] MEDS: SODIUM CHLORIDE 0.9% 500 ML IV SCH (12:36)
[2023-09-06] MEDS: CEFEPIME 2,000 MG/20 ML VIAL IV STA (12:36)
[2023-09-06] MEDS: ONDANSETRON INJ 2 MG/ML 2 ML VIAL IV STA (12:36)
[2023-09-06 12:47] LABS: Albumin Globulin Ratio 1.4 (0.9-2); Albumin Level 3.9 gm/dl (3.4-5.0); BUN Creatinine Ratio 39.6 (10-20); Bilirubin,Total 0.6 mg/dl (0.2-1.0); Calcium 8.3 mg/dl (8.6-10.3); Creatinine Clr Calc Pharmacy 116.5 ml/min; Est GFR (African American) 108.1 ml/min; Est GFR (Non-African American) 93.3 ml/min; Globulin 2.8 gm/dl (2.5-4.0); Magnesium 1.8 mg/dl (1.7-2.4); Potassium 3.5 mmol/L (3.5-5.1); Total Protein 6.7 gm/dl (6.0-8.3)
[2023-09-06 12:54] LABS: Prothrombin Time 10.9 Seconds (9.0-12.0)
[2023-09-06 13:10] LABS: Thyroid Stimulating Hormone 2.623 uIu/ml (0.300-4.500)
[2023-09-06 13:52] LABS: Influenza A virus by PCR Negative (Neg); Influenza B virus by PCR Negative (Neg); RSV by PCR Negative (Neg); SARS CoV2 RNA(COVID-19) Ceph NEGATIVE (Negative)
[2023-09-06] MEDS: LABETALOL HCL IV 5 MG/ML 20ML IV STA (14:45)
[2023-09-06 14:53] LABS: Appearance Urine Turbid (Clear); Bilirubin Urine Negative (Negative); Blood Urine Negative (Negative); Color Urine Dark Yellow; Epithelial Cell Urine Auto >30 /lpf (0-5); Glucose Urine UA Negative (Negative); Ketones Urine 3+ (Negative); Leukocyte Esterase Urine Trace (Negative); Nitrite Urine Negative (Negative); Protein Urine Negative (Negative); Urobilinogen Urine Negative (Negative)
[2023-09-06 15:13] LABS: RBC Urine Automated 0-4 /hpf (0-4)
[2023-09-06 15:14] LABS: Bacteria Urine Automated 2+ (Negative)
[2023-09-06] MEDS: SODIUM CHLORIDE 0.9% 500 ML IV ONE (15:20)
--- NOTE | 2023-09-06 15:36 | History & Physical Report ---
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 dose of metoprolol now as she missed morning meds, then continue on normal schedule - Loud murmur heard on exam, Check 2D echo - Negative troponin (4) Depression: Plan: - Chronic, stable, continue citalopram (5) Morbid obesity with BMI of 40.0-44.9, adult: Plan: - BMI of 42.2, diet and exercise to be encouraged throughout hospital stay (6) GERD (gastroesophageal reflux disease): Plan: - Chronic, cont PPI DVT ppx: teds, scds, subq heparin at this time - consider switch to DOAC if pt is agreeable Lines: 2 PIV FEN/GI: HH diet CODE: FULL Dispo: From home, likely to remain in the hospital x 1-2 days A total of 78 minutes were spent with greater than 50% of that time face to face with the patient, personally reviewing all current laboratories, imaging studies, past medication reconciliation, outpatient chart review, and discussion with specialists to collaborate care for the patient with attending. Please see attending documentation for corrections and/or additions. History of Present Illness Chief Complaint: R leg redness, nausea Primary Care Provider: Kem Phillips MD Thi sis a 78 yo F with PMHx of HTN, HLD, morbid obesity with BMI of 42, RAMON, hx of uterus cancer s/p hysterectomy, GERD, and hx of COVID in September 2022 with Pulmonary embolism, recommended on lifelong anticoagulation. Pt presents to the hospital with worsening nausea and flu like symptoms for the past 2 days. She stats that she had worsening nausea, lightheadedness and dizziness in the past 2 days. Pt states she has been taking her antihypertensive medications, but missed them in he past 2 days because of not feeling well. On admission BP was 190/105 on arrival to the ER, improved with dose of lebatolol IV to 179 over 80s checked at bedside. She notes Pt admits that she at baseline has some form of redness in the RLE at all times, and reports that she has peripheral neuropathy. She does not wear any shoes at baseline, and states that she is mostly sedentary, does not ambulate much and when she does uses a walker. Today ER noticed that her right lower extremity is bright red and warm, but patient denies any pain associated with this. There is swelling however is normally swollen. Patient states that she missed her medications the past 2 days because of not feeling well. Her main concern is that she did not drink her coffee today, and when this happens she knows she is really sick. Patient admits that she has never taken Eliquis since her hospitalization last September. She also did not follow-up with any cardiology. She states that Eliquis made her feel intermittently nauseous and she felt fatigued all the time and thought that it was due to this medication. Pt also admits to intermittently having a squeezing chest pressure sensation while at home, the last time it happened was about 3 weeks ago while she was seated watching television. She denies any chest pain currently. Denies any shortness of breath but has been placed on 2 L O2 in the ER, does not require this at baseline. Allergies Allergy/AdvReac Type Severity Reaction Status Date / Time buspirone Allergy Unknown suical Verified 09/06/23 14:26 thoughts fluoxetine Allergy Unknown unk Verified 09/06/23 14:26 prednisone Allergy Unknown agitation Verified 09/06/23 14:26 Sulfa (Sulfonamide Allergy Unknown unk Verified 09/06/23 14:26 Antibiotics) Home Medications Medication Instructions Recorded Confirmed Type citalopram 40 mg tablet 40 mg PO HS 05/07/18 09/06/23 History omeprazole 20 mg tablet,delayed 20 mg PO QAM 05/07/18 09/06/23 History release metoprolol tartrate 25 mg tablet 25 mg PO BID 10/04/22 09/06/23 History apixaban 5 mg tablet (Eliquis) 0 mg PO BID 09/06/23 09/06/23 History imipramine HCl 25 mg tablet 25 mg PO BID 09/06/23 09/06/23 History Past Med/Surg History Medical History Depression Received intravenous tissue plasminogen activator (t-PA) within last 24 hours Pulmonary embolism associated with COVID-19 Asthma Hypertension Right shoulder pain Right shoulder pain Degenerative arthritis of right shoulder region Arthritis of shoulder region, right Female urinary stress incontinence (Unknown) Family History (Updated 05/07/18 @ 01:14 by Deshawn Molina) Other No significant family history Social History Smoking Status: Never smoker Second Hand Exposure: No; Do You Dip or Chew Tobacco: No; Hx Alcohol Use: No Hx Substance Use: No Preferred Language: Luxembourger Communication Ability: Effective Case Managers Required: No Beliefs That Will Affect Care: None marital status: Current Living Situation: Spouse How many Children do You have: 2 Feels Safe at Home: Yes Safety Concerns: Feels Safe At This Time Assistive Devices: Walker Review of Systems Review of Systems: Constitutional: No fever, sweats or chills, + generalized fatigue, + nausea Eyes: No diplopia, no worsening or blurred vision ENT: normal hearing, no trouble swallowing Respiratory: No cough, sputum, dyspnea at rest or on exertion Cardiovascular: No chest pain, tightness or palpitations Abdomen: No pain, + nausea, no vomiting, diarrhea or constipation Musculoskeletal: No joint pain, calf pain, + chronic lower leg swelling Neurologic: No weakness, + chronic peripheral neuropathy, no new numbness/tingling, + mostly sedentary, uses a walker at baseline, denies balance problems Psychiatric: + History of depression Skin: No rash or itch, + now realizes that her right leg has redness Physical Exam Physical Exam: General: awake, alert, no apparent distress, morbidly obese, BMI 42.4, white female, wearing a silk shower cap to cover her hair Head: Normocephalic, atraumatic ENT: PERRL, EOMI, no pharyngeal exudate, mucous membranes appear dry Chest: Clear to auscultation, on 2L via NC, no baseline oxygen needs, no adventitious breath sounds Cardiac: Regular rate and rhythm, + loud holosystolic murmur, no JVD, normal peripheral pulses, good capillary refill Abdominal: NABS x 4 quadrants, soft, nondistended, nontender to palpation, no rebound or guarding Extremities: RLE with bright red erythema up to mid tibial region, wraps around her calf, edema, redness spares the foot, + onychomycosis, no obvious open wound, + calluses under her foot, LLE without any erythema, trace pitting edema, calfs on right tender to palpation Psych: Normal mood and affect Neuro: AAO x 3, strength intact bilaterally and rated 5/5, no motor deficits, speech is clear, no peripheral sensory deficits Results & Data Results & Data Vital Signs (Past 12 Hours) Vital Signs Temp Pulse Pulse Resp BP BP Pulse Ox 09/06/23 15:24 88 17 183/82 H 95 09/06/23 14:45 110 H 191/105 H 09/06/23 14:33 111 H 21 97 09/06/23 14:33 191/105 H 09/06/23 14:33 191/105 H 09/06/23 14:00 101 H 32 H 97 09/06/23 13:31 99 H 23 99 09/06/23 13:31 151/125 H 09/06/23 13:01 160/113 H 09/06/23 13:01 101 H 18 99 09/06/23 13:00 100 H 26 H 98 09/06/23 12:43 93 09/06/23 12:31 102 H 25 H 98 09/06/23 12:31 180/95 H 09/06/23 12:16 101 H 20 90 09/06/23 12:16 186/104 H 09/06/23 12:00 179/81 H 09/06/23 12:00 99 H 18 91 09/06/23 11:31 98 H 09/06/23 11:30 102 H 14 96 09/06/23 11:24 36.6 C 97 H 19 199/108 H 93 09/06/23 11:24 36.6 C 97 H 19 199/108 H 93 09/06/23 11:22 98 H 18 93 O2 Del Method O2 Flow Rate 09/06/23 15:24 Nasal Cannula 2 09/06/23 14:45 09/06/23 14:33 09/06/23 14:33 09/06/23 14:33 09/06/23 14:00 09/06/23 13:31 09/06/23 13:31 09/06/23 13:01 09/06/23 13:01 09/06/23 13:00 09/06/23 12:43 Room Air 09/06/23 12:31 09/06/23 12:31 09/06/23 12:16 09/06/23 12:16 09/06/23 12:00 09/06/23 12:00 09/06/23 11:31 09/06/23 11:30 09/06/23 11:24 Room Air 09/06/23 11:24 Room Air 09/06/23 11:22 Laboratory Results 09/06/23 14:35 Urine Culture - Pending Urine,Straight Cath 09/06/23 12:27 Aerobic Blood Culture - Pending Blood Anaerobic Blood Culture - Pending 09/06/23 12:27 Aerobic Blood Culture - Pending Blood Anaerobic Blood Culture - Pending 09/06/23 09/06/23 09/06/23 Unknown 14:35 12:27 WBC RBC Hgb Hct MCV MCH MCHC RDW Std Deviation RDW Coeff of Jose Enrique Plt Count MPV Immature Gran % (Auto) Neut % (Auto) Lymph % (Auto) [place]ckett % (Auto) Eos % (Auto) Baso % (Auto) Neut # (Auto) Lymph # (Auto) [place]ckett # (Auto) Eos # (Auto) Baso # (Auto) Immature Gran # (Auto) PT INR Sodium Potassium Chloride Carbon Dioxide Anion Gap BUN Creatinine Est Cr Clr Drug Dosing Est GFR ( Amer) Est GFR (Non-Af Amer) BUN/Creatinine Ratio Glucose Lactate 0.9 Calcium Magnesium Total Bilirubin AST ALT Alkaline Phosphatase Troponin I High Sens Total Protein Albumin Globulin Albumin/Globulin Ratio Procalcitonin TSH Urine Color Dark Yellow Urine Appearance Turbid A Urine pH 6.0 Ur Specific [place] 1.020 Urine Protein Negative Urine Glucose (UA) Negative Urine Ketones 3+ H Urine Blood Negative Urine Nitrite Negative Urine Bilirubin Negative Urine Urobilinogen Negative Ur Leukocyte Esterase Trace H Urine WBC (Auto) 1-5 Urine RBC (Auto) 0-4 U Hyaline Cast (Auto) 1-5 U Epithel Cells (Auto) >30 H Urine Bacteria (Auto) 2+ H Urine Crystals Not Reportable Urine Yeast Not Reportable SARS-CoV-2 (PCR) NEGATIVE Influenza Type A (PCR) Negative Influenza Type B (PCR) Negative RSV (RT-PCR) Negative 09/06/23 11:22 WBC 6.20 RBC 5.09 Hgb 14.7 Hct 44.3 MCV 87.0 MCH 28.9 MCHC 33.2 RDW Std Deviation 43.0 RDW Coeff of Jose Enrique 13.4 Plt Count 220 MPV 10.3 Immature Gran % (Auto) 0.3 Neut % (Auto) 76.3 Lymph % (Auto) 13.7 Crockett % (Auto) 9.2 Eos % (Auto) 0.2 Baso % (Auto) 0.3 Neut # (Auto) 4.73 Lymph # (Auto) 0.85 L [place]ckett # (Auto) 0.57 Eos # (Auto) 0.01 Baso # (Auto) 0.02 Immature Gran # (Auto) 0.02 PT 10.9 INR 1.0 Sodium 139 Potassium 3.5 Chloride 105 Carbon Dioxide 27 Anion Gap 7 BUN 19 Creatinine 0.48 L Est Cr Clr Drug Dosing 116.5 Est GFR ( Amer) 108.1 Est GFR (Non-Af Amer) 93.3 BUN/Creatinine Ratio 39.6 H Glucose 79 Lactate Calcium 8.3 L Magnesium 1.8 Total Bilirubin 0.6 AST 23 ALT 18 Alkaline Phosphatase 52 Troponin I High Sens 11.0 Total Protein 6.7 Albumin 3.9 Globulin 2.8 Albumin/Globulin Ratio 1.4 Procalcitonin 0.03 TSH 2.623 Urine Color Urine Appearance Urine pH Ur Specific [place] Urine Protein Urine Glucose (UA) Urine Ketones Urine Blood Urine Nitrite Urine Bilirubin Urine Urobilinogen Ur Leukocyte Esterase Urine WBC (Auto) Urine RBC (Auto) U Hyaline Cast (Auto) U Epithel Cells (Auto) Urine Bacteria (Auto) Urine Crystals Urine Yeast SARS-CoV-2 (PCR) Influenza Type A (PCR) Influenza Type B (PCR) RSV (RT-PCR) Diagnostic Findings Chest X-Ray 09/06/23 12:05 XR chest 1V portable CLINICAL HISTORY: weakness COMPARISON STUDY: Chest radiograph and chest CT October 04, 2022. FINDINGS: Lung volumes are normal. Lungs are clear. There is no pneumothorax or pleural effusion. Cardiomegaly is unchanged. Mediastinal contours are normal. There is no evidence for pulmonary edema. 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 ACT 112: Negative or not required by law. Electronically signed by: Yobani Curtis M.D. 09/06/2023 12:26 PM ECG Additional Comments: Reviewed personally, no ST wave changes or signs of ischemia Code Status & VTE Plan Code Status Full code Supervising Physician Co-Signing Physician Notes Attending addendum: The patient was seen and examined in the emergency room She has been complaining of dizziness and nausea for the last few days Dizziness is worse with ambulation and she denies any associated symptoms of chest pain, palpitation or shortness of breath. No numbness or tingling in the extremities and no weakness involving any side of the body She has nausea but no vomiting Denies any fever and or chills Has some leg pain but no increasing redness has but the patient On examination Lying in bed without any acute distress Blood pressure noted to be very high on presentation Chest-decreased breath sounds with minimal crackles at the bases Heart-S1-S2, regular Abdomen- benign Extremities 1-2+ edema bilaterally with chronic skin changes, redness and tenderness with increasing warmth Her admission labs, EKG and imaging studies reviewed Has been complaining of ongoing dizziness for some time without any associated symptoms except nausea Noted to have very high blood pressure with hypertensive urgency on presentation could be because of ongoing dizziness Will get an echo to evaluate cardiac function Doubt any ACS Has possible cellulitis involving the right leg mainly:US did not show any DVT Agree with assessment and plan as outlined above by Shameka Stern
[2023-09-06 16:13] LABS: Partial Thromboplastin Ratio 1.1; Partial Thromboplastin Time 30 Seconds (21-31)
[2023-09-06] MEDS: METOPROLOL TARTRATE 25 MG TAB PO STA (16:36)
--- NOTE | 2023-09-06 16:54 | Electrocardiogram Report ---
Test Reason : Blood Pressure : / mmHG Vent. Rate : 100 BPM Atrial Rate : 100 BPM P-R Int : 132 ms QRS Dur : 090 ms QT Int : 350 ms P-R-T Axes : 029 005 079 degrees QTc Int : 451 ms Normal sinus rhythm Possible Left atrial enlargement Nonspecific T wave abnormality Abnormal ECG When compared with ECG of 04-OCT-2022 00:06, Borderline criteria for Inferior infarct are no longer Present T wave inversion no longer evident in Anterior leads Confirmed by Khadar Manuel ([id number]) on 09/06/2023 4:53:39 PM Referred By: REFERRED SELF Confirmed By:Luis E Manuel
[2023-09-06] MEDS ORDERED: APIXABAN 5 MG TABLET PO SCH (21:00)
--- NOTE | 2023-09-06 21:12 | Ultrasound Report ---
Exam(s): US VENOUS BILATERAL LOWER EXTREMITIES EXAM: US Duplex Bilateral Lower Extremities Veins CLINICAL HISTORY: edema. TECHNIQUE: Real-time duplex ultrasound scan of the bilateral lower extremity veins integrating B-mode two-dimensional vascular structure, Doppler spectral analysis, color flow Doppler imaging and compression. COMPARISON: No relevant prior studies available. FINDINGS: Right deep veins: Unremarkable. No DVT in the right common femoral, femoral, proximal deep femoral or popliteal veins. The veins demonstrate normal color flow, are normally compressible, with normal phasic flow and/or augmentation response. The interrogated calf veins are patent. Right superficial veins: Unremarkable. No thrombus in the saphenofemoral junction. Left deep veins: Unremarkable. No DVT in the left common femoral, femoral, proximal deep femoral or popliteal veins. The veins demonstrate normal color flow, are normally compressible, with normal phasic flow and/or augmentation response. The interrogated calf veins are patent. Left superficial veins: Unremarkable. No thrombus in the saphenofemoral junction. Soft tissues: No acute findings. No popliteal cyst. IMPRESSION: No evidence for deep vein thrombosis involving the bilateral lower extremities. Electronically signed by: Christiano Peng MD 09/06/23 21:11 PM
[2023-09-06] MEDS: IMIPRAMINE HCL 25 MG TAB PO SCH (21:18)
[2023-09-06] MEDS: HEPARIN SOD 5,000 UNIT/0.5 ML VIAL SQ SCH (21:18)
[2023-09-06] MEDS: CEFEPIME 2,000 MG in SYRINGE 0 ML IV SCH (21:18)
[2023-09-06] MEDS: CITALOPRAM 40 MG TAB PO SCH (21:18)
[2023-09-06] MEDS: METOPROLOL TARTRATE 25 MG TAB PO SCH (22:36)
[2023-09-07 06:16] LABS: Hematocrit (blood only) 41.6 % (37.0-47.0); Hemoglobin 13.4 g/dl (12.0-16.0); Mean Corpuscular Hemoglobin 28.6 pg (25.0-34.0); Mean Corpuscular Hgb Conc 32.2 g/dL (32.0-36.0); Mean Corpuscular Volume 88.7 fL (80.0-100.0); Mean Platelet Volume 9.9 fL (9.4-12.4); Platelet Count 188 K/uL (130-400); RDW Coefficient of Variation 13.7 % (11.5-14.5); RDW Standard Deviation 44.3 fL (36.4-46.3); Red Blood Count 4.69 M/uL (4.20-5.40); White Blood Count 5.22 K/ul (4.8-10.8)
[2023-09-07 06:35] LABS: BUN Creatinine Ratio 29.1 (10-20); Calcium 8.2 mg/dl (8.6-10.3); Creatinine Clr Calc Pharmacy 101.6 ml/min; Est GFR (African American) 103.4 ml/min; Est GFR (Non-African American) 89.2 ml/min; Potassium 3.5 mmol/L (3.5-5.1)
[2023-09-07] MEDS ORDERED: hydrALAZINE HCL 20 MG/ML VIAL IV PRN (09:16)
[2023-09-07] MEDS: PANTOprazole 40 MG TAB PO SCH (11:52)
--- NOTE | 2023-09-07 17:36 | Hospitalist Progress Note ---
Date of Service September 07, 2023 Assessment & Plan (1) Cellulitis of leg, right: Plan: Per admitting service notes with addendum: - admit to med surg - Ceftriaxone IV started in Er, will continue - WBC of 6.2, afebrile here - Likely due to onycomycosis/callouses, no obvious wound on exam, + pt does not ever wear shoes - US lower extremity to r/o DVT as she has NOT been taking eliquis: No DVT 09/07 Continue ceftriaxone IV day #2 Continue heparin subcu every 12 for DVT prophylaxis Intermittent headaches Noted after having COVID last year No neurologic deficits Start with CT head without contrast Patient also has a history of migraine but patient reports headache is different from her usual migraine headaches (2) 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 dose of metoprolol now as she missed morning meds, then continue on normal schedule - Loud murmur heard on exam, Check 2D echo - Negative troponin 09/07 Echo: Left ventricle is normal in size Moderate concentric LVH Left ventricular wall motion is normal EF 65 to 70% Grade 1 diastolic dysfunction No hemodynamically significant valvular aortic stenosis Moderate to severe mitral annular calcification Amlodipine 5 mg p.o. daily added Continue metoprolol twice daily Monitor blood pressure closely (4) Depression: Plan: - Chronic, stable, continue citalopram (5) Morbid obesity with BMI of 40.0-44.9, adult: Plan: - BMI of 42.2, diet and exercise to be encouraged throughout hospital stay (6) GERD (gastroesophageal reflux disease): Plan: - Chronic, cont PPI DVT ppx: teds, scds, subq heparin at this time - consider switch to DOAC if pt is agreeable Lines: 2 PIV FEN/GI: diet CODE: FULL Dispo: From home, likely to remain in the hospital x 1-2 days Admission and Anticipated Discharge Date Admission Date: September 06, 2023 Subjective Follow-up for right lower extremity cellulitis, etc. Resting in bed, comfortable, not in distress Reports intermittent left-sided headaches since she had COVID a year ago No focal neurologic deficits reported Nausea has resolved Dizziness has resolved Denies pain in the lower extremities, no fevers or chills No other new symptoms Review of Systems Review of Systems: all noted and negative except for above Physical Exam Physical Exam: General- oriented x 3, not in distress, speaks in sentences with no effort or accessory muscle use Eyes- anicteric Neck- no JVD Lungs- clear breath sounds bilaterally, no crackles or wheeze Heart- normal rate, regular rhythm; no murmurs Abdomen- normal bowel sounds, nondistended, soft, nontender Extremities-right lower extremity: Grade 1 edema, with erythema extending up up to one thirds of the lower leg, with moderate warmth, mild tenderness Left lower extremity: Grade 1 edema, minimal erythema, mild warmth, no t enderness Neuro- alert, oriented x 3; no gross focal neurologic deficits Skin- warm & dry Results & Data Results & Data Vital Signs (Past 12 Hours) Vital Signs Temp Pulse Pulse Resp BP BP Pulse Ox 09/07/23 16:30 36.7 C 81 16 146/68 H 94 09/07/23 16:00 09/07/23 15:27 09/07/23 15:04 77 09/07/23 11:50 91 H 159/76 H 99 09/07/23 07:00 85 94 09/07/23 07:00 161/87 H Pulse Ox O2 Del Method O2 Del Method 09/07/23 16:30 Room Air 09/07/23 16:00 94 Room Air 09/07/23 15:27 Room Air 09/07/23 15:04 09/07/23 11:50 Room Air 09/07/23 07:00 09/07/23 07:00 all noted and reviewed including below
[2023-09-07] MEDS: amLODIPine BESYLATE 5 MG TAB PO SCH (17:58)
[2023-09-08] MEDS: IMIPRAMINE HCL 25 MG TAB PO STA (05:14)
--- NOTE | 2023-09-08 09:17 | CT Scan Report ---
CT SCAN OF THE BRAIN WITHOUT IV CONTRAST CLINICAL HISTORY: Headache. COMPARISON STUDY: CT of the brain dated 10/04/2022. TECHNIQUE: Unenhanced axial CT scan of the brain is performed from the vertex to the skull base. A do se lowering technique was utilized adhering to the principles of ALARA. CT DOSE: 625.8 mGy.cm FINDINGS: Brain parenchyma: There is age-related involutional change noting advanced confluent subcortical and periventricular microangiopathic disease. There is no hemorrhage, mass effect, or evidence of acute t erritorial ischemia by CT criteria. A chronic lacunar infarct is noted in the left basal ganglia. Gra y-white matter differentiation is preserved. No extra-axial fluid collection is seen. Ventricles, sulci, cisterns: Prominent secondary to involutional change. Intracranial vasculature: There is atherosclerotic calcification of the cavernous carotid and vertebr al arteries. Calvarium: Unremarkable. Sinuses and mastoids: The visualized paranasal sinuses are clear. The mastoid air cells are well pneu matized. Orbits: The bony orbits are grossly intact. IMPRESSION: There is no hemorrhage, mass effect, or evidence of acute territorial ischemia by CT ronald martinez. ACT 112: Negative or not required by law. Electronically signed by: Mike Rawls M.D. 09/08/2023 9:16 AM
--- NOTE | 2023-09-08 13:24 | Hospitalist Progress Note ---
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 There is no hemorrhage, mass effect, or evidence of acute territorial ischemia by CT criteria. A chronic lacunar infarct is noted in the left basal ganglia. Avitia-white matter differentiation is preserved. No extra-axial fluid collection is seen. Patient also has a history of migraine but patient reports headache is different from her usual migraine headaches -- Start aspirin 81 mg p.o. daily and Lipitor 20 mg p.o. 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 dose of metoprolol now as she missed morning meds, then continue on normal schedule - Loud murmur heard on exam, Check 2D echo - Negative troponin 09/07 Echo: Left ventricle is normal in size Moderate concentric LVH Left ventricular wall motion is normal EF 65 to 70% Grade 1 diastolic dysfunction No hemodynamically significant valvular aortic stenosis Moderate to severe mitral annular calcification Amlodipine 5 mg p.o. daily added Continue metoprolol twice daily -- Blood pressure improving (4) Depression: Plan: - Chronic, stable, continue citalopram (5) Morbid obesity with BMI of 40.0-44.9, adult: Plan: - BMI of 42.2, diet and exercise to be encouraged throughout hospital stay (6) GERD (gastroesophageal reflux disease): Plan: - Chronic, cont PPI DVT ppx: teds, scds, subq heparin at this time - consider switch to DOAC if pt is agreeable Lines: 2 PIV FEN/GI: HH diet CODE: FULL Dispo: Anticipate to return to home when medically stable Admission and Anticipated Discharge Date Admission Date: September 06, 2023 Subjective Follow-up for lower extremity cellulitis, etc. next Seen resting in bed, comfortable, not in distress States she feels improved today compared to yesterday Dizziness improving No nausea, abdominal pain No leg pain Was having headache overnight but better today No other new symptoms Review of Systems Review of Systems: all noted and negative except for above Physical Exam Physical Exam: General- oriented x 3, not in distress, speaks in sentences with no effort or accessory muscle use Eyes- anicteric Neck- no JVD Lungs- clear breath sounds bilaterally, no wheezing, no crackles Heart- normal rate, regular rhythm; no murmurs Abdomen- normal bowel sounds, nondistended, soft, no tenderness Extremities- no pretibial edema, no calf tenderness Neuro- alert, oriented x 3; no gross focal neurologic deficits Skin- warm & dry Results & Data Results & Data Vital Signs (Past 12 Hours) Vital Signs Temp Pulse Resp BP Pulse Ox O2 Del Method 09/08/23 12:44 36.4 C L 93 H 18 121/72 94 Room Air 09/08/23 08:49 36.7 C 85 18 149/54 H 94 Room Air 09/08/23 03:29 36.8 C 95 H 18 158/76 H 94 Room Air all noted and reviewed including below
[2023-09-08] MEDS: IMIPRAMINE HCL 25 MG TAB PO SCH (20:10)
[2023-09-08] MEDS: ACETAMINOPHEN 325 MG TAB PO PRN (23:06)
[2023-09-09] MEDS: ASPIRIN 81 MG ECTAB PO SCH (09:09)
[2023-09-09] MEDS: ATORVASTATIN 20 MG TAB PO SCH (09:09)
[2023-09-09] MEDS: DOXYCYCLINE HYCLATE 100 MG CAP PO SCH (09:40)
[2023-09-09] MEDS: cefTRIAXone SODIUM 2,000 MG in DEXTROSE 5 % MINI-B 50 ML IV SCH (13:25)
--- NOTE | 2023-09-09 15:13 | Hospitalist Progress Note ---
Date of Service September 09, 2023 Assessment & Plan (1) Cellulitis of leg, right: Plan: Cellulitis of the right lower leg Chronic leg edema Patient presented to the ED with worsening nausea and flulike symptoms for 2 days Found to have cellulitis of left leg Doppler ultrasound: No DVT Blood cultureno growth in 48 hours Continue on ceftriaxone and doxycycline for right lower extremity cellulitis; plan to treat for 7 days INTERMITTENT HEADACHES Patient reports intermittent headache for 1 year No neurologic deficits CT head: There is age-related involutional change noting advanced confluent subcortical and periventricular microangiopathic disease. There is no hemorrhage, mass effect, or evidence of acute territorial ischemia by CT criteria. A chronic lacunar infarct is noted in the left basal ganglia. Avitia-white matter differentiation is preserved. No extra-axial fluid collection is seen. Patient also has a history of migraine but patient reports headache is different from her usual migraine headaches -- Start aspirin 81 mg p.o. daily and Lipitor 20 mg p.o. 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 She verbalized and understood the risks of possible DVT/PE that could be life- threatening. Will need to be referred to outpatient hematology for further recommendations (3) Hypertensive urgency: Plan: Echo: Left ventricle is normal in size Moderate concentric LVH Left ventricular wall motion is normal EF 65 to 70% Grade 1 diastolic dysfunction No hemodynamically significant valvular aortic stenosis Moderate to severe mitral annular calcification Continue on amlodipine. Change metoprolol to Coreg 12.5 mg for better blood pressure control (4) Depression: Plan: - Chronic, stable, continue citalopram (5) Morbid obesity with BMI of 40.0-44.9, adult: Plan: - BMI of 42.2, diet and exercise to be encouraged throughout hospital stay (6) GERD (gastroesophageal reflux disease): Plan: - Chronic, cont PPI DVT ppx: Heparin Lines: 2 PIV FEN/GI: HH diet CODE: FULL Dispo: Patient might benefit from rehab. PT OT evaluation progress. Please note the above document was generated using voice recognition software. It may contain grammatical, syntax or spelling errors. Any formal questions or concerns about the content, text or information contained within the body of this dictation should be directly addressed to the provider for clarification Admission and Anticipated Discharge Date Admission Date: September 06, 2023 Subjective Patient seen and examined at bedside. Comfortable; not in distress. Denies fever, chills, chest pain, shortness of breath, abdominal pain or urinary symptoms. No significant overnight events Review of Systems Review of Systems: All systems reviewed & are unremarkable except as noted in Subjective Physical Exam Physical Exam: General- oriented x 3, not in distress, speaks in sentences with no effort or accessory muscle use Eyes- anicteric Neck- no JVD Lungs- clear breath sounds bilaterally, no wheezing, no crackles Heart- normal rate, regular rhythm; no murmurs Abdomen- normal bowel sounds, nondistended, soft, no tenderness Extremities- no pretibial edema, no calf tenderness. Redness present in bilateral lower extremity. Nontender to touch. Neuro- alert, oriented x 3; no gross focal neurologic deficits Skin- warm & dry Results & Data Results & Data Vital Signs (Past 12 Hours) Vital Signs Temp Pulse Pulse Pulse Resp BP Pulse Ox 09/09/23 14:39 82 09/09/23 11:58 36.4 C L 84 16 162/85 H 94 09/09/23 07:59 36.5 C 88 16 160/83 H 94 09/09/23 07:28 85 09/09/23 03:20 36.5 C 86 16 167/74 H 94 O2 Del Method 09/09/23 14:39 09/09/23 11:58 Room Air 09/09/23 07:59 Room Air 09/09/23 07:28 09/09/23 03:20 Room Air
[2023-09-09] MEDS: carvediloL 12.5 MG TAB PO SCH (17:31)
[2023-09-10 05:33] LABS: Basophils # (auto) 0.03 K/uL (0.00-0.20); Basophils % (auto) 0.5 %; Eosinophils # (auto) 0.14 K/uL (0.00-0.50); Eosinophils % (auto) 2.3 %; Hematocrit (blood only) 41.4 % (37.0-47.0); Hemoglobin 13.7 g/dl (12.0-16.0); Immature Granulocytes # (auto) 0.01 K/uL (0.01-0.20); Immature Granulocytes % (auto) 0.2 %; Lymphocytes # (auto) 1.29 K/uL (1.20-3.40); Lymphocytes % (auto) 21.5 %; Mean Corpuscular Hemoglobin 28.7 pg (25.0-34.0); Mean Corpuscular Hgb Conc 33.1 g/dL (32.0-36.0); Mean Corpuscular Volume 86.6 fL (80.0-100.0); Mean Platelet Volume 10.4 fL (9.4-12.4); Monocytes # (auto) 0.64 K/uL (0.11-0.59); Monocytes % (auto) 10.7 %; Neutrophils # (auto) 3.88 K/uL (1.40-6.50); Neutrophils % (auto) 64.8 %; Platelet Count 208 K/uL (130-400); RDW Coefficient of Variation 13.6 % (11.5-14.5); RDW Standard Deviation 42.4 fL (36.4-46.3); Red Blood Count 4.78 M/uL (4.20-5.40); White Blood Count 5.99 K/ul (4.8-10.8)
[2023-09-10 05:39] LABS: BUN Creatinine Ratio 40.8 (10-20); Calcium 8.8 mg/dl (8.6-10.3); Creatinine Clr Calc Pharmacy 114.1 ml/min; Est GFR (African American) 107.4 ml/min; Est GFR (Non-African American) 92.7 ml/min
[2023-09-10] MEDS: POTASSIUM CHLORIDE CRTAB 20 MEQ TABCR PO STA (07:46)
--- NOTE | 2023-09-10 12:55 | Hospitalist Progress Note ---
Date of Service September 10, 2023 Assessment & Plan (1) Cellulitis of leg, right: Plan: Cellulitis of the right lower leg Chronic leg edema Patient presented to the ED with worsening nausea and flulike symptoms for 2 days Found to have cellulitis of right leg Doppler ultrasound: No DVT Blood cultureno growth in 48 hours Continue on ceftriaxone and doxycycline for right lower extremity cellulitis; plan to treat for 7 days INTERMITTENT HEADACHES Patient reports intermittent headache for 1 year No neurologic deficits CT head: There is age-related involutional change noting advanced confluent subcortical and periventricular microangiopathic disease. There is no hemorrhage, mass effect, or evidence of acute territorial ischemia by CT criteria. A chronic lacunar infarct is noted in the left basal ganglia. Avitia-white matter differentiation is preserved. No extra-axial fluid collection is seen. Patient also has a history of migraine but patient reports headache is different from her usual migraine headaches -- Start aspirin 81 mg p.o. daily and Lipitor 20 mg p.o. 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 She verbalized and understood the risks of possible DVT/PE that could be life- threatening. Will need to be referred to outpatient hematology for further recommendations (3) Hypertensive urgency: Plan: Echo: Left ventricle is normal in size Moderate concentric LVH Left ventricular wall motion is normal EF 65 to 70% Grade 1 diastolic dysfunction No hemodynamically significant valvular aortic stenosis Moderate to severe mitral annular calcification Continue on amlodipine. Change metoprolol to Coreg 12.5 mg for better blood pressure control Continue to monitor blood pressure (4) Depression: Plan: - Chronic, stable, continue citalopram (5) Morbid obesity with BMI of 40.0-44.9, adult: Plan: - BMI of 42.2, diet and exercise to be encouraged throughout hospital stay (6) GERD (gastroesophageal reflux disease): Plan: - Chronic, cont PPI DVT ppx: Heparin Lines: 2 PIV FEN/GI: diet CODE: FULL Dispo: Patient might benefit from rehab. PT OT evaluation progress. Please note the above document was generated using voice recognition software. It may contain grammatical, syntax or spelling errors. Any formal questions or concerns about the content, text or information contained within the body of this dictation should be directly addressed to the provider for clarification Admission and Anticipated Discharge Date Admission Date: September 06, 2023 Subjective Patient seen and examined at bedside. Comfortable; not in distress. Denies fever, chills, chest pain, shortness of breath, abdominal pain or urinary symptoms. No significant overnight events Review of Systems Review of Systems: All systems reviewed & are unremarkable except as noted in Subjective Physical Exam 2 Physical Exam: General- oriented x 3, not in distress, speaks in sentences with no effort or accessory muscle use Lungs- clear breath sounds bilaterally, no wheezing, no crackles Heart- normal rate, regular rhythm; no murmurs Abdomen- normal bowel sounds, nondistended, soft, no tenderness Extremities- no pretibial edema, no calf tenderness. Redness present in right lower extremity. Nontender to touch. Neuro- alert, oriented x 3; no gross focal neurologic deficits Skin- warm & dry Results & Data Results & Data Vital Signs (Past 12 Hours) Vital Signs Temp Pulse Pulse Resp BP Pulse Ox O2 Del Method 09/10/23 11:05 36.6 C 82 18 136/73 94 Room Air 09/10/23 07:40 96 H 09/10/23 07:25 Room Air 09/10/23 07:25 36.2 C L 100 H 18 152/79 H 95 Room Air 09/10/23 04:00 36.6 C 104 H 18 160/77 H 96 Room Air
[2023-09-10] MEDS: POTASSIUM CHLORIDE PWD 20 MEQ PACK PO SCH (13:28)
[2023-09-11 06:14] LABS: Hematocrit (blood only) 39.7 % (37.0-47.0); Hemoglobin 12.7 g/dl (12.0-16.0); Mean Corpuscular Hemoglobin 28.1 pg (25.0-34.0); Mean Corpuscular Volume 87.8 fL (80.0-100.0); Mean Platelet Volume 10.7 fL (9.4-12.4); Platelet Count 198 K/uL (130-400); RDW Coefficient of Variation 13.9 % (11.5-14.5); RDW Standard Deviation 43.9 fL (36.4-46.3); Red Blood Count 4.52 M/uL (4.20-5.40); White Blood Count 5.83 K/ul (4.8-10.8)
[2023-09-11 06:39] LABS: BUN Creatinine Ratio 42.6 (10-20); Calcium 8.7 mg/dl (8.6-10.3); Est GFR (Non-African American) 89.8 ml/min; Potassium 3.6 mmol/L (3.5-5.1)
[2023-09-11 06:45] LABS: Basophils # (auto) 0.03 K/uL (0.00-0.20); Basophils % (auto) 0.5 %; Eosinophils # (auto) 0.16 K/uL (0.00-0.50); Eosinophils % (auto) 2.7 %; Immature Granulocytes # (auto) 0.02 K/uL (0.01-0.20); Immature Granulocytes % (auto) 0.3 %; Lymphocytes % (auto) 27.4 %; Monocytes # (auto) 0.57 K/uL (0.11-0.59); Monocytes % (auto) 9.8 %; Neutrophils # (auto) 3.45 K/uL (1.40-6.50); Neutrophils % (auto) 59.3 %
[2023-09-11] MEDS: ONDANSETRON INJ 2 MG/ML 2 ML VIAL IV PRN (09:03)
--- NOTE | 2023-09-11 13:15 | Hospitalist Progress Note ---
Date of Service September 11, 2023 Assessment & Plan (1) Cellulitis of leg, right: Plan: Cellulitis of the right lower leg Chronic leg edema Patient presented to the ED with worsening nausea and flulike symptoms for 2 days Found to have cellulitis of right leg Doppler ultrasound: No DVT Blood cultureno growth in 48 hours Continue on ceftriaxone and doxycycline for right lower extremity cellulitis; plan to treat for 7 days INTERMITTENT HEADACHES Patient reports intermittent headache for 1 year No neurologic deficits CT head: There is age-related involutional change noting advanced confluent subcortical and periventricular microangiopathic disease. There is no hemorrhage, mass effect, or evidence of acute territorial ischemia by CT criteria. A chronic lacunar infarct is noted in the left basal ganglia. Avitia-white matter differentiation is preserved. No extra-axial fluid collection is seen. Patient also has a history of migraine but patient reports headache is different from her usual migraine headaches -- Start aspirin 81 mg p.o. daily and Lipitor 20 mg p.o. 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 She verbalized and understood the risks of possible DVT/PE that could be life- threatening. Will need to be referred to outpatient hematology for further recommendations (3) Hypertensive urgency: Plan: Echo: Left ventricle is normal in size Moderate concentric LVH Left ventricular wall motion is normal EF 65 to 70% Grade 1 diastolic dysfunction No hemodynamically significant valvular aortic stenosis Moderate to severe mitral annular calcification Continue on amlodipine. Change metoprolol to Coreg 12.5 mg for better blood pressure control Continue to monitor blood pressure (4) Depression: Plan: - Chronic, stable, continue citalopram (5) Morbid obesity with BMI of 40.0-44.9, adult: Plan: - BMI of 42.2, diet and exercise to be encouraged throughout hospital stay (6) GERD (gastroesophageal reflux disease): Plan: - Chronic, cont PPI DVT ppx: Heparin Lines: 2 PIV FEN/GI: diet CODE: FULL Dispo: PT OT evaluation was done. Patient wants to go to rehab; referral to SNF to be sent. Discussed with patient's daughter over the phone as well as case management. Please note the above document was generated using voice recognition software. It may contain grammatical, syntax or spelling errors. Any formal questions or concerns about the content, text or information contained within the body of this dictation should be directly addressed to the provider for clarification Admission and Anticipated Discharge Date Admission Date: September 06, 2023 Subjective Patient seen and examined at bedside. She is comfortable lying in the bed; not in distress. No significant overnight events Review of Systems Review of Systems: All systems reviewed & are unremarkable except as noted in Subjective Physical Exam Physical Exam: General- oriented x 3, not in distress, speaks in sentences with no effort or accessory muscle use Lungs- clear breath sounds bilaterally, no wheezing, no crackles Heart- normal rate, regular rhythm; no murmurs Abdomen- normal bowel sounds, nondistended, soft, no tenderness Extremities- no pretibial edema, no calf tenderness. Redness present in right lower extremity. Nontender to touch. Neuro- alert, oriented x 3; no gross focal neurologic deficits Skin- warm & dry Results & Data Results & Data Vital Signs (Past 12 Hours) Vital Signs Temp Pulse Pulse Resp BP Pulse Ox O2 Del Method 09/11/23 08:01 36.5 C 85 16 147/61 H 94 Room Air 09/11/23 06:57 84 09/11/23 02:59 36.7 C 86 18 130/56 L 96 Room Air
--- NOTE | 2023-09-12 16:38 | Hospitalist Progress Note ---
Date of Service September 12, 2023 Assessment & Plan (1) Cellulitis of leg, right: Plan: Cellulitis of the right lower leg Chronic leg edema Patient presented to the ED with worsening nausea and flulike symptoms for 2 days Found to have cellulitis of right leg Doppler ultrasound: No DVT Blood cultureno growth in 48 hours Continue on ceftriaxone and doxycycline for right lower extremity cellulitis; plan to treat for 7 days INTERMITTENT HEADACHES Patient reports intermittent headache for 1 year No neurologic deficits CT head: There is age-related involutional change noting advanced confluent subcortical and periventricular microangiopathic disease. There is no hemorrhage, mass effect, or evidence of acute territorial ischemia by CT criteria. A chronic lacunar infarct is noted in the left basal ganglia. Avitia-white matter differentiation is preserved. No extra-axial fluid collection is seen. Patient also has a history of migraine but patient reports headache is different from her usual migraine headaches -- Start aspirin 81 mg p.o. daily and Lipitor 20 mg p.o. 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 She verbalized and understood the risks of possible DVT/PE that could be life- threatening. Will need to be referred to outpatient hematology for further recommendations (3) Hypertensive urgency: Plan: Echo: Left ventricle is normal in size Moderate concentric LVH Left ventricular wall motion is normal EF 65 to 70% Grade 1 diastolic dysfunction No hemodynamically significant valvular aortic stenosis Moderate to severe mitral annular calcification Continue on amlodipine. Change metoprolol to Coreg 12.5 mg for better blood pressure control Continue to monitor blood pressure (4) Depression: Plan: - Chronic, stable, continue citalopram (5) Morbid obesity with BMI of 40.0-44.9, adult: Plan: - BMI of 42.2, diet and exercise to be encouraged throughout hospital stay (6) GERD (gastroesophageal reflux disease): Plan: - Chronic, cont PPI DVT ppx: Heparin Lines: 2 PIV FEN/GI: diet CODE: FULL Dispo: PT OT evaluation was done. Patient wants to go to rehab; referral to SNF to be sent. Discussed with patient's daughter over the phone as well as case management. Patient is stable for transfer. Please note the above document was generated using voice recognition software. It may contain grammatical, syntax or spelling errors. Any formal questions or concerns about the content, text or information contained within the body of this dictation should be directly addressed to the provider for clarification Admission and Anticipated Discharge Date Admission Date: September 06, 2023 Subjective Patient seen and examined at bedside. Comfortable; not in distress. Denies fever, chills, chest pain, shortness of breath, abdominal pain or urinary symptoms. No significant overnight events Review of Systems Review of Systems: All systems reviewed & are unremarkable except as noted in Subjective Physical Exam Physical Exam: General- oriented x 3, not in distress, speaks in sentences with no effort or accessory muscle use Lungs- clear breath sounds bilaterally, no wheezing, no crackles Heart- normal rate, regular rhythm; no murmurs Abdomen- normal bowel sounds, nondistended, soft, no tenderness Extremities- no pretibial edema, no calf tenderness. Redness present in right lower extremity. Nontender to touch. Neuro- alert, oriented x 3; no gross focal neurologic deficits Skin- warm & dry Results & Data Results & Data Vital Signs (Past 12 Hours) Vital Signs Temp Pulse Pulse Resp BP Pulse Ox O2 Del Method 09/12/23 16:10 81 09/12/23 15:42 36.7 C 82 18 140/73 93 Room Air 09/12/23 11:15 36.7 C 78 18 103/64 93 Room Air 09/12/23 07:42 80 09/12/23 07:30 36.6 C 86 18 119/54 L 93 Room Air
--- NOTE | 2023-09-13 15:13 | Hospitalist Progress Note ---
Date of Service September 13, 2023 Assessment & Plan (1) Cellulitis of leg, right: Plan: Cellulitis of the right lower leg Chronic leg edema Patient presented to the ED with worsening nausea and flulike symptoms for 2 days Found to have cellulitis of right leg Doppler ultrasound: No DVT Blood cultureno growth in 48 hours Patient was treated with 7 days of antibiotics INTERMITTENT HEADACHES Patient reports intermittent headache for 1 year No neurologic deficits CT head: There is age-related involutional change noting advanced confluent subcortical and periventricular microangiopathic disease. There is no hemorrhage, mass effect, or evidence of acute territorial ischemia by CT criteria. A chronic lacunar infarct is noted in the left basal ganglia. Avitia-white matter differentiation is preserved. No extra-axial fluid collection is seen. Patient also has a history of migraine but patient reports headache is different from her usual migraine headaches -- Start aspirin 81 mg p.o. daily and Lipitor 20 mg p.o. 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 She verbalized and understood the risks of possible DVT/PE that could be life-threatening. Will need to be referred to outpatient hematology for further recommendations (3) Hypertensive urgency: Plan: Echo: Left ventricle is normal in size Moderate concentric LVH Left ventricular wall motion is normal EF 65 to 70% Grade 1 diastolic dysfunction No hemodynamically significant valvular aortic stenosis Moderate to severe mitral annular calcification Continue on amlodipine. Change metoprolol to Coreg 12.5 mg for better blood pressure control Continue to monitor blood pressure (4) Depression: Plan: - Chronic, stable, continue citalopram (5) Morbid obesity with BMI of 40.0-44.9, adult: Plan: - BMI of 42.2, diet and exercise to be encouraged throughout hospital stay (6) GERD (gastroesophageal reflux disease): Plan: - Chronic, cont PPI DVT ppx: Heparin Lines: 2 PIV FEN/GI: HH diet CODE: FULL Dispo: PT OT evaluation was done. Patient wants to go to rehab; referral to SNF to be sent. Discussed with patient's daughter over the phone as well as case management. Patient is stable for transfer. Please note the above document was generated using voice recognition software. It may contain grammatical, syntax or spelling errors. Any formal questions or concerns about the content, text or information contained within the body of this dictation should be directly addressed to the provider for clarification Admission and Anticipated Discharge Date Admission Date: September 06, 2023 Subjective Patient seen and examined at bedside. Comfortable; not in distress. Denies fever, chills, chest pain, shortness of breath, abdominal pain or urinary symptoms. No significant overnight events Patient reports multiple bouts of diarrhea in the morning Review of Systems Review of Systems: All systems reviewed & are unremarkable except as noted in Subjective Physical Exam Physical Exam: General- oriented x 3, not in distress, speaks in sentences with no effort or accessory muscle use Lungs- clear breath sounds bilaterally, no wheezing, no crackles Heart- normal rate, regular rhythm; no murmurs Abdomen- normal bowel sounds, nondistended, soft, no tenderness Extremities- no pretibial edema, no calf tenderness. Redness present in right lower extremity. Nontender to touch. Neuro- alert, oriented x 3; no gross focal neurologic deficits Skin- warm & dry Results & Data Results & Data Vital Signs (Past 12 Hours) Vital Signs Temp Pulse Pulse Resp BP BP Pulse Ox 09/13/23 14:40 83 09/13/23 11:25 36.9 C 84 18 130/81 95 09/13/23 07:29 36.6 C 85 18 171/84 H 96 09/13/23 07:06 81 09/13/23 03:15 36.3 C L 86 18 154/79 H 96 O2 Del Method 09/13/23 14:40 09/13/23 11:25 Room Air 09/13/23 07:29 Room Air 09/13/23 07:06 09/13/23 03:15 Room Air
[2023-09-14 07:57] LABS: Basophils # (auto) 0.03 K/uL (0.00-0.20); Basophils % (auto) 0.6 %; Eosinophils # (auto) 0.17 K/uL (0.00-0.50); Eosinophils % (auto) 3.3 %; Hematocrit (blood only) 40.9 % (37.0-47.0); Hemoglobin 13.3 g/dl (12.0-16.0); Immature Granulocytes # (auto) 0.02 K/uL (0.01-0.20); Immature Granulocytes % (auto) 0.4 %; Lymphocytes # (auto) 1.39 K/uL (1.20-3.40); Lymphocytes % (auto) 26.7 %; Mean Corpuscular Hemoglobin 28.7 pg (25.0-34.0); Mean Corpuscular Hgb Conc 32.5 g/dL (32.0-36.0); Mean Corpuscular Volume 88.1 fL (80.0-100.0); Mean Platelet Volume 10.8 fL (9.4-12.4); Monocytes # (auto) 0.52 K/uL (0.11-0.59); Neutrophils # (auto) 3.07 K/uL (1.40-6.50); Platelet Count 230 K/uL (130-400); RDW Coefficient of Variation 14.3 % (11.5-14.5); RDW Standard Deviation 45.7 fL (36.4-46.3); Red Blood Count 4.64 M/uL (4.20-5.40)
[2023-09-14 08:21] LABS: BUN Creatinine Ratio 31.8 (10-20); Calcium 9.3 mg/dl (8.6-10.3); Est GFR (African American) 111.3 ml/min; Potassium 4.1 mmol/L (3.5-5.1)
[2023-09-14] MEDS: LOPERAMIDE HCL 2 MG CAP PO PRN (11:37)
--- NOTE | 2023-09-14 13:21 | Hospitalist Progress Note ---
Date of Service September 14, 2023 Assessment & Plan (1) Cellulitis of leg, right: Plan: Cellulitis of the right lower leg Chronic leg edema Patient presented to the ED with worsening nausea and flulike symptoms for 2 days Found to have cellulitis of right leg Doppler ultrasound: No DVT Blood cultureno growth in 48 hours Patient was treated with 7 days of antibiotics INTERMITTENT HEADACHES Patient reports intermittent headache for 1 year No neurologic deficits CT head: There is age-related involutional change noting advanced confluent subcortical and periventricular microangiopathic disease. There is no hemorrhage, mass effect, or evidence of acute territorial ischemia by CT criteria. A chronic lacunar infarct is noted in the left basal ganglia. Avitia-white matter differentiation is preserved. No extra-axial fluid collection is seen. Patient also has a history of migraine but patient reports headache is different from her usual migraine headaches -- Start aspirin 81 mg p.o. daily and Lipitor 20 mg p.o. 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 She verbalized and understood the risks of possible DVT/PE that could be life-threatening. Will need to be referred to outpatient hematology for further recommendations (3) Hypertensive urgency: Plan: Echo: Left ventricle is normal in size Moderate concentric LVH Left ventricular wall motion is normal EF 65 to 70% Grade 1 diastolic dysfunction No hemodynamically significant valvular aortic stenosis Moderate to severe mitral annular calcification Continue on amlodipine. Change metoprolol to Coreg 12.5 mg for better blood pressure control Continue to monitor blood pressure (4) Depression: Plan: - Chronic, stable, continue citalopram (5) Morbid obesity with BMI of 40.0-44.9, adult: Plan: - BMI of 42.2, diet and exercise to be encouraged throughout hospital stay (6) GERD (gastroesophageal reflux disease): Plan: - Chronic, cont PPI DVT ppx: Heparin Lines: 2 PIV FEN/GI: HH diet CODE: FULL Dispo: PT OT evaluation was done. Patient wants to go to rehab; referral to SNF to be sent. Discussed with patient's daughter over the phone as well as case management. Patient is stable for transfer. Please note the above document was generated using voice recognition software. It may contain grammatical, syntax or spelling errors. Any formal questions or concerns about the content, text or information contained within the body of this dictation should be directly addressed to the provider for clarification Admission and Anticipated Discharge Date Admission Date: September 06, 2023 Subjective Patient seen and examined at bedside. Comfortable; not in distress. Denies fever, chills, chest pain, shortness of breath, abdominal pain or urinary symptoms. No significant overnight events Review of Systems Review of Systems: All systems reviewed & are unremarkable except as noted in Subjective Physical Exam Physical Exam: General- oriented x 3, not in distress, speaks in sentences with no effort or accessory muscle use Lungs- clear breath sounds bilaterally, no wheezing, no crackles Heart- normal rate, regular rhythm; no murmurs Abdomen- normal bowel sounds, nondistended, soft, no tenderness Extremities- no pretibial edema, no calf tenderness. Redness present in right lower extremity. Nontender to touch. Neuro- alert, oriented x 3; no gross focal neurologic deficits Skin- warm & dry Results & Data Results & Data Vital Signs (Past 12 Hours) Vital Signs Temp Pulse Pulse Pulse Resp BP BP 09/14/23 10:54 36.3 C L 81 16 163/78 H 09/14/23 07:34 36.5 C 94 H 14 145/78 H 09/14/23 07:00 87 09/14/23 03:01 36.4 C L 84 18 143/54 H Pulse Ox O2 Del Method 09/14/23 10:54 95 Room Air 09/14/23 07:34 95 Room Air 09/14/23 07:00 09/14/23 03:01 94 Room Air
--- NOTE | 2023-09-15 15:17 | Discharge Summary ---
Date of Service September 15, 2023 Admission HPI Per Admitting Provider Tamiko ledezma a 78 yo F with PMHx of HTN, HLD, morbid obesity with BMI of 42, RAMON, hx of uterus cancer s/p hysterectomy, GERD, and hx of COVID in September 2022 with Pulmonary embolism, recommended on lifelong anticoagulation. Pt presents to the hospital with worsening nausea and flu like symptoms for the past 2 days. She stats that she had worsening nausea, lightheadedness and dizziness in the past 2 days. Pt states she has been taking her antihypertensive medications, but missed them in he past 2 days because of not feeling well. On admission BP was 190/105 on arrival to the ER, improved with dose of lebatolol IV to 179 over 80s checked at bedside. She notes Pt admits that she at baseline has some form of redness in the RLE at all times, and reports that she has peripheral neuropathy. She does not wear any shoes at baseline, and states that she is mostly sedentary, does not ambulate much and when she does uses a walker. Today ER noticed that her right lower extremity is bright red and warm, but patient denies any pain associated with this. There is swelling however is normally swollen. Patient states that she missed her medications the past 2 days because of not feeling well. Her main concern is that she did not drink her coffee today, and when this happens she knows she is really sick. Patient admits that she has never taken Eliquis since her hospitalization last September. She also did not follow-up with any cardiology. She states that Eliquis made her feel intermittently nauseous and she felt fatigued all the time and thought that it was due to this medication. Pt also admits to intermittently having a squeezing chest pressure sensation while at home, the last time it happened was about 3 weeks ago while she was seated watching television. She denies any chest pain currently. Denies any shortness of breath but has been placed on 2 L O2 in the ER, does not require this at baseline. Admission Exam Per Admitting Provider General: awake, alert, no apparent distress, morbidly obese, BMI 42.4, white female, wearing a silk shower cap to cover her hair Head: Normocephalic, atraumatic ENT: PERRL, EOMI, no pharyngeal exudate, mucous membranes appear dry Chest: Clear to auscultation, on 2L via NC, no baseline oxygen needs, no adventitious breath sounds Cardiac: Regular rate and rhythm, + loud holosystolic murmur, no JVD, normal peripheral pulses, good capillary refill Abdominal: NABS x 4 quadrants, soft, nondistended, nontender to palpation, no rebound or guarding Extremities: RLE with bright red erythema up to mid tibial region, wraps around her calf, edema, redness spares the foot, + onychomycosis, no obvious open wound, + calluses under her foot, LLE without any erythema, trace pitting edema, calfs on right tender to palpation Psych: Normal mood and affect Neuro: AAO x 3, strength intact bilaterally and rated 5/5, no motor deficits, speech is clear, no peripheral sensory deficits Principal Diagnosis Cellulitis of right lower leg Chronic leg edema Discharge Exam General- oriented x 3, not in distress, speaks in sentences with no effort or accessory muscle use Lungs- clear breath sounds bilaterally, no wheezing, no crackles Heart- normal rate, regular rhythm; no murmurs Abdomen- normal bowel sounds, nondistended, soft, no tenderness Extremities- no pretibial edema, no calf tenderness. Redness present in right lower extremity. Nontender to touch. Neuro- alert, oriented x 3; no gross focal neurologic deficits Skin- warm & dry Discharge Data Allergies Allergy/AdvReac Type Severity Reaction Status Date / Time buspirone Allergy Unknown suical Verified 09/06/23 14:26 thoughts fluoxetine Allergy Unknown unk Verified 09/06/23 14:26 prednisone Allergy Unknown agitation Verified 09/06/23 14:26 Sulfa (Sulfonamide Allergy Unknown unk Verified 09/06/23 14:26 Antibiotics) Consultations 09/06/23 15:35 ED Decision to Admit Stat Ordered Studies 09/06/23 15:35 US venous doppler LE BI Stat 09/08/23 09:00 CT head/brain wo con Routine Hospital Course (1) Cellulitis of leg, right: Cellulitis of the right lower leg Chronic leg edema Patient presented to the ED with worsening nausea and flulike symptoms for 2 days Found to have cellulitis of right leg Doppler ultrasound: No DVT Blood cultureno growth in 48 hours Patient was treated with 7 days of antibiotics INTERMITTENT HEADACHES Patient reports intermittent headache for 1 year No neurologic deficits CT head: There is age-related involutional change noting advanced confluent subcortical and periventricular microangiopathic disease. There is no hemorrhage, mass effect, or evidence of acute territorial ischemia by CT criteria. A chronic lacunar infarct is noted in the left basal ganglia. Avitia-white matter differentiation is preserved. No extra-axial fluid collection is seen. Patient also has a history of migraine but patient reports headache is different from her usual migraine headaches -- Start aspirin 81 mg p.o. daily and Lipitor 20 mg p.o. 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 She verbalized and understood the risks of possible DVT/PE that could be life- threatening. Will need to be referred to outpatient hematology for further recommendations (3) Hypertensive urgency: Echo: Left ventricle is normal in size Moderate concentric LVH Left ventricular wall motion is normal EF 65 to 70% Grade 1 diastolic dysfunction No hemodynamically significant valvular aortic stenosis Moderate to severe mitral annular calcification Started on amlodipine and Coreg for better blood pressure control at discharge (4) Depression: - Chronic, stable, continue citalopram (5) Morbid obesity with BMI of 40.0-44.9, adult: - BMI of 42.2, diet and exercise to be encouraged throughout hospital stay (6) GERD (gastroesophageal reflux disease): Initially, plan was to discharge rehab. However, patient wanted to go home with home health Please note the above document was generated using voice recognition software. It may contain grammatical, syntax or spelling errors. Any formal questions or concerns about the content, text or information contained within the body of this dictation should be directly addressed to the provider for clarification Total Time Total Time Spent Total Time Spent (In Minutes): 45 Total Time Includes: Examination of the Patient, Discharge Planning, Medication Reconciliation, Communication With Other Providers and Other Discharge Plan Discharge Items Patient Disposition: Home - Self-Care Reason For Visit: CELLULITIS Discharge Diagnosis: Left lower extremity cellulitis Condition on Discharge: Fair Activity: Resume your previous activity Non-emergency contact: Primary Care Provider Call non-emergency contact if: you have any medication questions and your symptoms worsen Follow-up/Referrals: Kem Phillips MD [Primary Care Provider] - (Date & Time 09/22/2023 3:00 PM Provider Yandel Tovar MD Department Family Medicine [facility] ) Diet: Regular Addtl Attending Provider Instructions: You were admitted to the hospital due to cellulitis of the legs. You were treated with antibiotics during the hospitalization. Your blood pressure was found to be on higher side during the hospitalization. You are prescribed amlodipine 5 mg to be taken once daily and Coreg 12.5 mg to be taken twice daily. You are also prescribed aspirin 81 mg and Lipitor 20 mg once daily. Please follow-up with your primary care doctor for Zio patch Please follow-up with your primary care doctor to discuss about hematology referral due to the history of PE. You might need to be restarted on blood thinner Pending Studies at Discharge: No Stand-Alone Forms: [facility] urturn, Smoking Cessation Medications and DC Order Prescriptions: New atorvastatin 20 mg Tablet 20 mg PO QAM Qty: 30 0RF carvedilol 12.5 mg Tablet 12.5 mg PO BIDM Qty: 60 0RF amlodipine [Norvasc] 5 mg Tablet 5 mg PO QAM Qty: 30 0RF aspirin 81 mg Tablet,Delayed Release (Dr/Ec) 81 mg PO QAM Qty: 30 0RF Continued citalopram 40 mg Tablet 40 mg PO HS omeprazole 20 mg Tablet,Delayed Release (Dr/Ec) 20 mg PO QAM imipramine HCl 25 mg tablet 25 mg PO BID Discontinued metoprolol tartrate 25 mg tablet 25 mg PO BID Discharge Orders: Discharge Order (Routine); Ordered 09/15/23 Ordered By: Ankit Childs Admission Data Admit Date/Time: 09/06/23 15:52 Attending Provider: Ankit Childs Admit Provider: Janny Stern Primary Care Provider: Kem Phillips Other Providers: Janny Stern; [facility]; [facility]
--- NOTE | 2023-09-15 16:53 | Hospitalist Progress Note ---
Date of Service September 15, 2023 Assessment & Plan (1) Cellulitis of leg, right: Plan: Cellulitis of the right lower leg Chronic leg edema Patient presented to the ED with worsening nausea and flulike symptoms for 2 days Found to have cellulitis of right leg Doppler ultrasound: No DVT Blood cultureno growth in 48 hours Patient was treated with 7 days of antibiotics INTERMITTENT HEADACHES Patient reports intermittent headache for 1 year No neurologic deficits CT head: There is age-related involutional change noting advanced confluent subcortical and periventricular microangiopathic disease. There is no hemorrhage, mass effect, or evidence of acute territorial ischemia by CT criteria. A chronic lacunar infarct is noted in the left basal ganglia. Avitia-white matter differentiation is preserved. No extra-axial fluid collection is seen. Patient also has a history of migraine but patient reports headache is different from her usual migraine headaches -- Start aspirin 81 mg p.o. daily and Lipitor 20 mg p.o. 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 She verbalized and understood the risks of possible DVT/PE that could be life- threatening. Will need to be referred to outpatient hematology for further recommendations (3) Hypertensive urgency: Plan: Echo: Left ventricle is normal in size Moderate concentric LVH Left ventricular wall motion is normal EF 65 to 70% Grade 1 diastolic dysfunction No hemodynamically significant valvular aortic stenosis Moderate to severe mitral annular calcification Started on amlodipine and Coreg for better blood pressure control at discharge (4) Depression: Plan: - Chronic, stable, continue citalopram (5) Morbid obesity with BMI of 40.0-44.9, adult: Plan: - BMI of 42.2, diet and exercise to be encouraged throughout hospital stay (6) GERD (gastroesophageal reflux disease): Plan: Initially, plan was to discharge rehab. However, patient wanted to go home with home health. Transportation was unable to be arranged on September 15, 2023. Patient to be discharged tomorrow AM. Please note the above document was generated using voice recognition software. It may contain grammatical, syntax or spelling errors. Any formal questions or concerns about the content, text or information contained within the body of this dictation should be directly addressed to the provider for clarification Admission and Anticipated Discharge Date Admission Date: September 06, 2023 Subjective Patient seen and examined at bedside. Comfortable; not in distress. Denies fever, chills, chest pain, shortness of breath, abdominal pain or urinary symptoms. No significant overnight events Review of Systems Review of Systems: All systems reviewed & are unremarkable except as noted in Subjective Physical Exam Physical Exam: General- oriented x 3, not in distress, speaks in sentences with no effort or accessory muscle use Lungs- clear breath sounds bilaterally, no wheezing, no crackles Heart- normal rate, regular rhythm; no murmurs Abdomen- normal bowel sounds, nondistended, soft, no tenderness Extremities- no pretibial edema, no calf tenderness. Redness present in right lower extremity. Nontender to touch. Neuro- alert, oriented x 3; no gross focal neurologic deficits Skin- warm & dry Results & Data Results & Data Vital Signs (Past 12 Hours) Vital Signs Temp Pulse Pulse Pulse Pulse Resp BP 09/15/23 15:25 90 09/15/23 15:03 37.0 C 84 93 H 94 H 18 147/79 H 09/15/23 12:56 37.0 C 94 H 18 147/79 H 09/15/23 08:00 36.6 C 93 H 16 09/15/23 07:40 09/15/23 07:20 93 H BP Pulse Ox O2 Del Method 09/15/23 15:25 09/15/23 15:03 162/85 H 92 09/15/23 12:56 92 Room Air 09/15/23 08:00 162/85 H 93 Room Air 09/15/23 07:40 Room Air 09/15/23 07:20
--- NOTE | 2023-09-16 11:54 | Discharge Summary ---
Date of Service September 16, 2023 Admission HPI Per Admitting Provider Tamiko ledezma a 78 yo F with PMHx of HTN, HLD, morbid obesity with BMI of 42, RAMON, hx of uterus cancer s/p hysterectomy, GERD, and hx of COVID in September 2022 with Pulmonary embolism, recommended on lifelong anticoagulation. Pt presents to the hospital with worsening nausea and flu like symptoms for the past 2 days. She stats that she had worsening nausea, lightheadedness and dizziness in the past 2 days. Pt states she has been taking her antihypertensive medications, but missed them in he past 2 days because of not feeling well. On admission BP was 190/105 on arrival to the ER, improved with dose of lebatolol IV to 179 over 80s checked at bedside. She notes Pt admits that she at baseline has some form of redness in the RLE at all times, and reports that she has peripheral neuropathy. She does not wear any shoes at baseline, and states that she is mostly sedentary, does not ambulate much and when she does uses a walker. Today ER noticed that her right lower extremity is bright red and warm, but patient denies any pain associated with this. There is swelling however is normally swollen. Patient states that she missed her medications the past 2 days because of not feeling well. Her main concern is that she did not drink her coffee today, and when this happens she knows she is really sick. Patient admits that she has never taken Eliquis since her hospitalization last September. She also did not follow-up with any cardiology. She states that Eliquis made her feel intermittently nauseous and she felt fatigued all the time and thought that it was due to this medication. Pt also admits to intermittently having a squeezing chest pressure sensation while at home, the last time it happened was about 3 weeks ago while she was seated watching television. She denies any chest pain currently. Denies any shortness of breath but has been placed on 2 L O2 in the ER, does not require this at baseline. Admission Exam Per Admitting Provider General: awake, alert, no apparent distress, morbidly obese, BMI 42.4, white female, wearing a silk shower cap to cover her hair Head: Normocephalic, atraumatic ENT: PERRL, EOMI, no pharyngeal exudate, mucous membranes appear dry Chest: Clear to auscultation, on 2L via NC, no baseline oxygen needs, no adventitious breath sounds Cardiac: Regular rate and rhythm, + loud holosystolic murmur, no JVD, normal peripheral pulses, good capillary refill Abdominal: NABS x 4 quadrants, soft, nondistended, nontender to palpation, no rebound or guarding Extremities: RLE with bright red erythema up to mid tibial region, wraps around her calf, edema, redness spares the foot, + onychomycosis, no obvious open wound, + calluses under her foot, LLE without any erythema, trace pitting edema, calfs on right tender to palpation Psych: Normal mood and affect Neuro: AAO x 3, strength intact bilaterally and rated 5/5, no motor deficits, speech is clear, no peripheral sensory deficits Principal Diagnosis Cellulitis of right leg Hypertensive urgency Discharge Exam General- oriented x 3, not in distress, speaks in sentences with no effort or accessory muscle use Lungs- clear breath sounds bilaterally, no wheezing, no crackles Heart- normal rate, regular rhythm; no murmurs Abdomen- normal bowel sounds, nondistended, soft, no tenderness Extremities- no pretibial edema, no calf tenderness. Redness present in right lower extremity. Nontender to touch. Neuro- alert, oriented x 3; no gross focal neurologic deficits Skin- warm & dry Discharge Data Allergies Allergy/AdvReac Type Severity Reaction Status Date / Time buspirone Allergy Unknown suical Verified 09/06/23 14:26 thoughts fluoxetine Allergy Unknown unk Verified 09/06/23 14:26 prednisone Allergy Unknown agitation Verified 09/06/23 14:26 Sulfa (Sulfonamide Allergy Unknown unk Verified 09/06/23 14:26 Antibiotics) Consultations 09/06/23 15:35 ED Decision to Admit Stat Ordered Studies 09/06/23 15:35 US venous doppler LE BI Stat 09/08/23 09:00 CT head/brain wo con Routine Hospital Course (1) Cellulitis of leg, right: Cellulitis of the right lower leg Chronic leg edema Patient presented to the ED with worsening nausea and flulike symptoms for 2 days Found to have cellulitis of right leg Doppler ultrasound: No DVT Blood cultureno growth in 48 hours Patient was treated with 7 days of antibiotics INTERMITTENT HEADACHES Patient reports intermittent headache for 1 year No neurologic deficits CT head: There is age-related involutional change noting advanced confluent subcortical and periventricular microangiopathic disease. There is no hemorrhage, mass effect, or evidence of acute territorial ischemia by CT criteria. A chronic lacunar infarct is noted in the left basal ganglia. Avitia-white matter differentiation is preserved. No extra-axial fluid collection is seen. Patient also has a history of migraine but patient reports headache is different from her usual migraine headaches -- Start aspirin 81 mg p.o. daily and Lipitor 20 mg p.o. 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 She verbalized and understood the risks of possible DVT/PE that could be life- threatening. Will need to be referred to outpatient hematology for further recommendations (3) Hypertensive urgency: Echo: Left ventricle is normal in size Moderate concentric LVH Left ventricular wall motion is normal EF 65 to 70% Grade 1 diastolic dysfunction No hemodynamically significant valvular aortic stenosis Moderate to severe mitral annular calcification Started on amlodipine and Coreg for better blood pressure control at discharge (4) Depression: - Chronic, stable, continue citalopram (5) Morbid obesity with BMI of 40.0-44.9, adult: - BMI of 42.2, diet and exercise to be encouraged throughout hospital stay (6) GERD (gastroesophageal reflux disease): Initially, plan was to discharge rehab. However, patient wanted to go home with home health. Please note the above document was generated using voice recognition software. It may contain grammatical, syntax or spelling errors. Any formal questions or concerns about the content, text or information contained within the body of this dictation should be directly addressed to the provider for clarification Total Time Total Time Spent Total Time Spent (In Minutes): 45 Total Time Includes: Examination of the Patient, Discharge Planning, Medication Reconciliation, Communication With Other Providers and Other Discharge Plan Discharge Items Patient Disposition: Home - Self-Care Reason For Visit: CELLULITIS Discharge Diagnosis: Left lower extremity cellulitis Condition on Discharge: Fair Activity: Resume your previous activity Non-emergency contact: Primary Care Provider Call non-emergency contact if: you have any medication questions and your symptoms worsen Follow-up/Referrals: Kem Phillips MD [Primary Care Provider] - (Date & Time 09/22/2023 3:00 PM Provider Yandel Tovar MD Department Family Medicine [facility] ) Diet: Regular Addtl Attending Provider Instructions: You were admitted to the hospital due to cellulitis of the legs. You were treated with antibiotics during the hospitalization. Your blood pressure was found to be on higher side during the hospitalization. You are prescribed amlodipine 5 mg to be taken once daily and Coreg 12.5 mg to be taken twice daily. You are also prescribed aspirin 81 mg and Lipitor 20 mg once daily. Please follow-up with your primary care doctor for Zio patch Please follow-up with your primary care doctor to discuss about hematology referral due to the history of PE. You might need to be restarted on blood thinner Pending Studies at Discharge: No Stand-Alone Forms: [facility] [employer], Smoking Cessation Medications and DC Order Prescriptions: New atorvastatin 20 mg Tablet 20 mg PO QAM Qty: 30 0RF carvedilol 12.5 mg Tablet 12.5 mg PO BIDM Qty: 60 0RF amlodipine [Norvasc] 5 mg Tablet 5 mg PO QAM Qty: 30 0RF aspirin 81 mg Tablet,Delayed Release (Dr/Ec) 81 mg PO QAM Qty: 30 0RF Continued citalopram 40 mg Tablet 40 mg PO HS omeprazole 20 mg Tablet,Delayed Release (Dr/Ec) 20 mg PO QAM imipramine HCl 25 mg tablet 25 mg PO BID Discontinued metoprolol tartrate 25 mg tablet 25 mg PO BID Discharge Orders: Discharge Order (Routine); Ordered 09/16/23 Ordered By: Ankit Childs Admission Data Admit Date/Time: 09/06/23 15:52 Attending Provider: Ankit Childs Admit Provider: Janny Stern Primary Care Provider: Kem Phillips Other Providers: Janny Stern; [facility]; [facility] Other Interventions: Discharge Summary Assessment (RN) Last Done: 09/15/23 15:03
== END 2023-09-16 14:01 | disposition home health service (06) | DRG 603 ==
LOC: ED 11:10 → EDINP 15:52 → SUATTDRO 15:52 → 2W 09-07 13:33

== ENCOUNTER 2025-02-22 19:34 | Inpatient (IN) ==
[2025-02-22] MEDS: PLASMA-LYTE A 500 ML IV ONE (19:58)
[2025-02-22] MEDS: MECLIZINE HCL 25 MG TAB PO STA (19:58)
[2025-02-22] MEDS: ONDANSETRON INJ 2 MG/ML 2 ML VIAL IV STA (19:58)
[2025-02-22 20:07] LABS: Hematocrit (blood only) 45.0 % (37.0-47.0); Hemoglobin 14.8 g/dl (12.0-16.0); Immature Granulocytes # (auto) 0.02 K/uL (0.01-0.20); Immature Granulocytes % (auto) 0.2 %; Mean Corpuscular Hemoglobin 28.8 pg (25.0-34.0); Mean Corpuscular Volume 87.7 fL (80.0-100.0); Platelet Count 217 K/uL (130-400); RDW Standard Deviation 43.0 fL (36.4-46.3); Red Blood Count 5.13 M/uL (4.20-5.40); White Blood Count 8.12 K/ul (4.8-10.8)
--- NOTE | 2025-02-22 20:10 | Emergency Department Note ---
Impression & Plan Vertigo, Nausea & vomiting, Hypokalemia NAME: RADHA GALICIA AGE: 79 SEX: F : 1945 ARRIVES VIA: Ambulance INFORMANT: Patient, EMS ED PROVIDER(S): Buzz Comer DO CHIEF COMPLAINT: vertigo HPI: This is a 79-year-old female with the PMHx of HTN, HLD, depression/anxiety, GERD, obesity, prior PE during COVID infection 2022 and CVA/TIA with BG infarcts presenting to [facility] for further evaluation of vertiginous symptoms. Patient is accompanied by EMS who provide additional history. Patient states that she was watching TV with her daughter when a few hours prior to arrival she developed severe vertiginous symptoms. She describes the room spinning. Patient states that she feels abdominal cramping as well as significant nausea and vomiting. Patient states that she does not carry a history of vertigo. Patient states that she has had issues with hearing out of her left ear. Patient states that both ears seem to be involved today. They deny fever or chills. No cough or congestion. Denies chest pain or palpitations. No shortness of breath. No urinary complaints. No recent changes in bowel movements. Patient denies recent changes in medications or OTC supplements. Patient offers no other complaints, today. ADDITIONAL HISTORY OBTAINED: Per HPI Chronic Medical/Social Conditions Affecting Care: Per HPI PAST MEDICAL HISTORY: See Below PAST SURGICAL HISTORY: See Below FAMILY HISTORY: See Below SOCIAL HISTORY: See Below HOME MEDICATIONS: See Below ALLERGIES: See Below VITALS: See Below PHYSICAL EXAMINATION: GENERAL: Sitting up in bed, alert, well appearing, well nourished, no distress, non-toxic EYE EXAM: normal conjunctiva. PERRL and EOM's grossly intact. No nystagmus OROPHARYNX: no exudate, no erythema, lips, buccal mucosa, and tongue normal and mucous membranes are moist NECK: supple, no nuchal rigidity, no adenopathy, non-tender LUNGS: Clear to auscultation. Normal chest wall mechanics HEART: no murmurs, regular rate, regular rhythm ABDOMEN: abdomen soft, non-tender, normo-active bowel sounds, no masses, no rebound or guarding. BACK: Back is symmetrical on inspection and there is no deformity, no midline tenderness, no CVA tenderness. SKIN: no rashes and no bruising UPPER EXTREMITIES: upper extremities are grossly normal. LOWER EXTREMITIES: No pitting edema. NEURO EXAM: Normal sensorium, cranial nerves II-XII grossly intact, normal speech, no gross weakness of arms, no gross weakness of legs. No drift. Finger to nose intact. Gross sensation intact. MEDICAL DECISION MAKING: Differential diagnoses includes but not limited to peripheral vertigo, central vertigo, electrolyte derangements, dehydration, BPPV, CVA, intracranial hemorrhage, mass, hydrocephalus In summary, this is a 79 year old female who presented with vertigo. Differential as above. Nursing notes and pertinent past medical records reviewed. Vital signs reviewed and the patient is hypertensive but otherwise afebrile hemodynamically stable. History and presentation revealed the patient does have risk factors for stroke including hypertension, hyperlipidemia, prior stroke and obesity. The patient's symptoms are concerning for possible intracranial pathology given sudden onset. There was no evidence of peripheral vertigo on physical examination. Some of her symptoms are positional which makes peripheral vertigo possibly more likely but I am still concerned for central etiologies. Plan for labs and imaging for further workup. Will manage with IV hydration, antiemetics and meclizine. Diagnostics interpreted by me include EKG and cardiac monitoring as listed below: -Cardiac Monitoring: An order was placed for continuous cardiac monitoring. The monitor shows a rate of 70-90s with regular rhythm. -ECG: EKG independently interpreted by me reveals normal sinus rhythm at a ventricular rate of [address] segment changes to suggest STEMI. Intervals are within normal limits. Patient completed laboratory studies and imaging. Results independently interpreted by me are normal CBC without leukocytosis or anemia. The patient was managed with IV fluid resuscitation, meclizine and Zofran. Mild hypokalemia and this was replenished. Mild troponin leak but likely reactive to situation today. No angina and EKG is reassuring. Upon reevaluation, the patient is reporting improvement in her symptoms. Patient is less tachycardic. Patient still with intermittently requiring low-flow nasal cannula. Patient states that her symptoms are largely positional. Patient has no other evidence of peripheral vertigo. I do believe she is likely peripheral in nature but given her age and risk factors for stroke, I do feel it is necessary to investigate further for central etiologies of vertigo. CTH independently interpreted by me reveals no evidence of ICH. No significant hydrocephalus. No major skull fractures. CTH does not demonstrate findings to suggest an etiology of the patient's symptoms or presentation, today. CTA head and neck independently reviewed by me negative for stroke. Some vascular disease noted. Will obtain MRI and admit for central vertigo r/o. Ultimately, the decision was made to admit the patient for vertiginous symptoms. I discussed the case with the hospitalist service via [employer] and they are agreeable to admit the patient to their services. Based on the above, including the patient's age, coexisting illnesses, labs, imaging, and exam findings the decision to treat as an inpatient. I discussed the patient with the hospitalist team who recommended admission to their services. They received the medications, treatments, interventions indicated above and their condition remained stable. I discussed my findings with the patient and their family and they understand and agree with the treatment plan. All patient / family questions were answered to their satisfaction. Consults/Care Managements Discussions: Per [facility] ER treatment provided: See above Procedures:none Critical Care: None The chart was completed utilizing [employer] Speech voice recognition software. Grammatical errors, random word insertions, pronoun errors, and incomplete sentences are an occasional consequence of this system due to software limitations, ambient noise, and hardware issues. Any formal questions or concerns about the content, text, or information contained within the body of this dictation should be directly addressed to the physician for clarification. Past Med/Surg History Problem List (Updated 02/24/25 @ 17:45 by Buzz Comer DO) Hypokalemia (Acute) Nausea & vomiting (Acute) Vertigo (Acute) Stenosis of left internal carotid artery Stroke with cerebral ischemia Vertigo Nausea (Acute) Hypertension (Acute) Weakness (Acute) GERD (gastroesophageal reflux disease) Morbid obesity with BMI of 40.0-44.9, adult HLD (hyperlipidemia) Cellulitis of leg, right Depression Syncope (Acute) COVID-19 (Acute) Hypoxia (Acute) Received intravenous tissue plasminogen activator (t-PA) within last 24 hours Pulmonary embolism associated with COVID-19 Acute hypoxemic respiratory failure Encephalopathy Hypertensive urgency (Acute) Female urinary stress incontinence (Chronic Unknown) Arthritis of shoulder region, right (Acute) Degenerative arthritis of right shoulder region (Acute) Right shoulder pain (Acute) Right shoulder pain (Acute) Medical History Cellulitis Asthma Hypertension Family History Other No significant family history Social History Smoking Status: Never smoker Second Hand Exposure: No; Do You Dip or Chew Tobacco: No; Hx Alcohol Use: No Hx Substance Use: No Preferred Language: Moroccan Communication Ability: Effective 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 Required: No Beliefs That Will Affect Care: None marital status: Current Living Situation: Spouse Current Living Situation Comment: with [facility] [place] How many Children do You have: 2 Feels Safe at Home: Yes Assistive Devices: Walker Allergies Allergies Allergy/AdvReac Type Severity Reaction Status Date / Time fluoxetine Allergy Unknown unk Verified 02/22/25 20:48 Sulfa (Sulfonamide Allergy Unknown unk Verified 02/22/25 20:48 Antibiotics) buspirone AdvReac Severe suical Verified 02/22/25 20:48 thoughts prednisone AdvReac Intermediate agitation Verified 02/22/25 20:48 Home Meds Home Medications Medication Instructions Recorded Confirmed citalopram 40 mg tablet 40 mg PO QAM 05/07/18 02/22/25 omeprazole 20 mg tablet,delayed 20 mg PO DAILYBB 05/07/18 02/22/25 release imipramine HCl 25 mg tablet 25 mg PO TID 09/06/23 02/22/25 metoprolol tartrate 25 mg tablet 25 mg PO BID 02/22/25 02/22/25 multivitamin 1 tab PO DAILY 02/22/25 02/22/25 Results & Data (ED) Vital Signs Vital Signs - 24 hr 02/22/25 19:25 02/22/25 19:43 02/22/25 21:25 Temperature 36.4 C L Temperature Source Oral Pulse Rate 80 79 Pulse Rate [Right Finger] 93 H Pulse Rate from SpO2 Sensor Pulse Rhythm Regular Pulse Strength Normal Respiratory Rate 18 21 Respiratory Effort / Characteristics Non-Labored Spontaneous Non-Labored Spontaneous Respiratory Depth Normal Normal Respiratory Pattern Regular Blood Pressure 186/96 H Blood Pressure [Right Radial Artery] 189/94 H Blood Pressure Mean 126 Blood Pressure Mean [Right Radial Artery] 125 Blood Pressure Position Lying Pulse Oximetry 95 97 Oxygen Delivery Method Room Air Nasal Cannula Oxygen Flow Rate 4 Sepsis Recent Fever Within 48 Hours No Sepsis New/Unexplained Change in Mental Status N/A Sepsis Action Taken by Nursing No Action Required 02/22/25 23:03 02/22/25 23:33 02/22/25 23:59 Temperature Temperature Source Pulse Rate 87 90 89 Pulse Rate [Right Finger] Pulse Rate from SpO2 Sensor 88 90 Pulse Rhythm Pulse Strength Respiratory Rate 21 21 Respiratory Effort / Characteristics Respiratory Depth Respiratory Pattern Blood Pressure 177/95 H 183/100 H Blood Pressure [Right Radial Artery] Blood Pressure Mean 122 127 Blood Pressure Mean [Right Radial Artery] Blood Pressure Position Pulse Oximetry 99 98 Oxygen Delivery Method Nasal Cannula Room Air Oxygen Flow Rate 2 Sepsis Recent Fever Within 48 Hours Sepsis New/Unexplained Change in Mental Status Sepsis Action Taken by Nursing 02/23/25 00:51 02/23/25 01:00 02/23/25 01:36 Temperature Temperature Source Pulse Rate 90 94 H 92 H Pulse Rate [Right Finger] Pulse Rate from SpO2 Sensor 94 H 90 Pulse Rhythm Pulse Strength Respiratory Rate 22 22 19 Respiratory Effort / Characteristics Respiratory Depth Respiratory Pattern Blood Pressure 153/93 H 193/99 H Blood Pressure [Right Radial Artery] Blood Pressure Mean 113 130 Blood Pressure Mean [Right Radial Artery] Blood Pressure Position Pulse Oximetry 99 96 96 Oxygen Delivery Method Nasal Cannula Nasal Cannula Nasal Cannula Oxygen Flow Rate 2 2 2 Sepsis Recent Fever Within 48 Hours Sepsis New/Unexplained Change in Mental Status Sepsis Action Taken by Nursing 02/23/25 03:00 02/23/25 03:33 02/23/25 03:58 Temperature Temperature Source Pulse Rate 88 94 H 94 H Pulse Rate [Right Finger] Pulse Rate from SpO2 Sensor 89 94 H Pulse Rhythm Pulse Strength Respiratory Rate 20 18 Respiratory Effort / Characteristics Respiratory Depth Respiratory Pattern Blood Pressure 166/93 H 161/99 H Blood Pressure [Right Radial Artery] Blood Pressure Mean 105 119 Blood Pressure Mean [Right Radial Artery] Blood Pressure Position Pulse Oximetry 96 96 Oxygen Delivery Method Nasal Cannula Nasal Cannula Oxygen Flow Rate 2 2 Sepsis Recent Fever Within 48 Hours Sepsis New/Unexplained Change in Mental Status Sepsis Action Taken by Nursing 02/23/25 04:01 Temperature Temperature Source Pulse Rate 88 Pulse Rate [Right Finger] Pulse Rate from SpO2 Sensor 90 Pulse Rhythm Pulse Strength Respiratory Rate 18 Respiratory Effort / Characteristics Respiratory Depth Respiratory Pattern Blood Pressure 200/111 H Blood Pressure [Right Radial Artery] Blood Pressure Mean 140 Blood Pressure Mean [Right Radial Artery] Blood Pressure Position Pulse Oximetry 96 Oxygen Delivery Method Nasal Cannula Oxygen Flow Rate 2 Sepsis Recent Fever Within 48 Hours Sepsis New/Unexplained Change in Mental Status Sepsis Action Taken by Nursing Laboratory Data 02/24/25 04:18 02/24/25 04:18 Lab Results 02/22/25 02/22/25 Range/Units 19:51 19:56 WBC 8.12 (4.8-10.8) K/ul RBC 5.13 (4.20-5.40) M/uL Hgb 14.8 (12.0-16.0) g/dl POC Hgb 15.3 (12.0-16.0) g/dl Hct 45.0 (37.0-47.0) % POC Hct 45 (37-47) % MCV 87.7 (80.0-100.0) fL MCH 28.8 (25.0-34.0) pg MCHC 32.9 (32.0-36.0) g/dL RDW Std Deviation 43.0 (36.4-46.3) fL RDW Coeff of Jose Enrique 13.2 (11.5-14.5) % Plt Count 217 (130-400) K/uL MPV 10.0 (9.4-12.4) fL Immature Gran % (Auto) 0.2 % Neut % (Auto) 68.8 % Lymph % (Auto) 20.7 % Rowan % (Auto) 7.6 % Eos % (Auto) 2.2 % Baso % (Auto) 0.5 % Neut # (Auto) 5.58 (1.40-6.50) K/uL Lymph # (Auto) 1.68 (1.20-3.40) K/uL Rowan # (Auto) 0.62 H (0.11-0.59) K/uL Eos # (Auto) 0.18 (0.00-0.50) K/uL Baso # (Auto) 0.04 (0.00-0.20) K/uL Immature Gran # (Auto) 0.02 (0.01-0.20) K/uL PT 9.9 (9.0-12.0) Seconds INR 0.9 (0.9-1.1) APTT 22 (21-31) Seconds PTT Ratio 0.8 POC Sodium 141 (135-144) mmol/L Sodium 139 (136-145) mmol/L POC Potassium 3.2 L (3.3-5.0) mmol/L Potassium 3.3 L (3.5-5.1) mmol/L POC Chloride 103 (101-112) mmol/L Chloride 104 (98-107) mmol/L Carbon Dioxide 26 (21-32) mmol/L POC Total CO2 24 (24-31) mmol/L Anion Gap 9 (3-11) POC Anion Gap 18.0 (16-25) mmol/L POC BUN 19 H (7-18) mg/dl BUN 18 (6-23) mg/dl Creatinine 0.61 (0.6-1.2) mg/dl POC Creatinine 0.6 (0.6-1.3) mg/dl Est Cr Clr Drug Dosing 92.6 ml/min eGFR 90.32 BUN/Creatinine Ratio 29.5 H (10-20) Glucose 119 H (70-99(Fasting)) mg/dl POC Glucose (other) 115 H (70-99) mg/dl Lactate 1.6 (0.4-2.0) mmol/L Calcium 9.3 (8.6-10.3) mg/dl POC Ioniz Calcium Jacque 1.18 (1.12-1.32) mmol/l Total Bilirubin 0.5 (0.2-1.0) mg/dl AST 21 (13-39) U/L ALT 13 (7-52) U/L Alkaline Phosphatase 61 (34-104) U/L Troponin I High Sens 16.0 H (0-14) pg/ml Total Protein 7.4 (6.0-8.3) gm/dl Albumin 4.1 (3.4-5.0) gm/dl Globulin 3.3 (2.5-4.0) gm/dl Albumin/Globulin Ratio 1.2 (0.9-2) Administered Medications Aspirin (Aspirin 81 Mg Ectab) 81 mg PO [facility] Stop: 03/26/25 08:59 Last Admin: 02/24/25 07:29 Dose: 81 mg Documented By: RACHEL Atorvastatin Calcium (Atorvastatin 20 Mg Tab) 20 mg PO [facility] Stop: 03/26/25 08:59 Last Admin: 02/24/25 08:20 Dose: 20 mg Documented By: RACHEL Citalopram Hydrobromide (Citalopram 40 Mg Tab) 40 mg PO [facility] Stop: 03/25/25 08:59 Last Admin: 02/24/25 07:30 Dose: 40 mg Documented By: Admin: 02/23/25 08:49 Dose: 40 mg Documented By: Ceftriaxone Sodium (Rocephin) 2,000 mg in 50 mls @ 100 mls/hr IV Q24H JOSE Stop: 03/02/25 05:59 Last Infusion: 02/24/25 07:24 Dose: Infused Documented By: Admin: 02/24/25 06:57 Dose: 100 mls/hr Documented By: Infusion: 02/23/25 06:03 Dose: Infused Documented By: Admin: 02/23/25 05:26 Dose: 100 mls/hr Documented By: BERT Imipramine HCl (Imipramine Hcl 50 Mg Tab) 25 mg PO TID JOSE Stop: 03/25/25 08:59 Last Admin: 02/24/25 13:35 Dose: 25 mg Documented By: Admin: 02/24/25 07:29 Dose: 25 mg Documented By: Admin: 02/23/25 21:25 Dose: 25 mg Documented By: Admin: 02/23/25 13:13 Dose: 25 mg Documented By: Admin: 02/23/25 08:49 Dose: 25 mg Documented By: Metoprolol Tartrate (Metoprolol Tartrate 25 Mg Tab) 25 mg PO BID JOSE Stop: 03/25/25 08:59 Last Admin: 02/24/25 07:30 Dose: 25 mg Documented By: Admin: 02/23/25 21:25 Dose: 25 mg Documented By: Admin: 02/23/25 08:50 Dose: 25 mg Documented By: Multivitamins (Multivitamin Tab) 1 tab PO DAILY JOSE Stop: 03/25/25 08:59 Last Admin: 02/24/25 07:30 Dose: 1 tab Documented By: Admin: 02/23/25 08:50 Dose: 1 tab Documented By: Pantoprazole Sodium (Pantoprazole 40 Mg Tab) 40 mg PO DAILYBB JOSE Stop: 03/25/25 06:29 Last Admin: 02/24/25 06:58 Dose: 40 mg Documented By: Admin: 02/23/25 07:35 Dose: 40 mg Documented By: Rivaroxaban (Rivaroxaban 20 Mg Tab) 20 mg PO HS JOSE Stop: 03/25/25 20:59 Last Admin: 02/23/25 21:25 Dose: 20 mg Documented By: BECKA Discontinued Medications Aspirin (Aspirin 81 Mg Chew) 324 mg PO NOW STA Stop: 02/23/25 07:19 Last Admin: 02/23/25 07:35 Dose: 324 mg Documented By: Gadobutrol (Gadobutrol 65ml Vial) 10 ml IV ONCE ONE Stop: 02/23/25 00:39 Last Admin: 02/23/25 00:38 Dose: 10 ml Documented By: ANTHONY Parenteral Electrolytes (Plasma-Lyte A Ph 7.4) 500 mls @ 999 mls/hr IV .Q31M ONE Stop: 02/22/25 20:16 Last Infusion: 02/22/25 22:01 Dose: Infused Documented By: Admin: 02/22/25 19:58 Dose: 999 mls/hr Documented By: ROSY Potassium Chloride (K Flip / Wtr) 10 meq in 100 mls @ 100 mls/hr IV Q1H JOSE Stop: 02/23/25 01:44 Last Infusion: 02/23/25 03:15 Dose: Infused Documented By: Admin: 02/23/25 01:55 Dose: 100 mls/hr Documented By: Infusion: 02/23/25 01:54 Dose: Infused Documented By: Admin: 02/23/25 00:54 Dose: 100 mls/hr Documented By: Infusion: 02/22/25 23:43 Dose: Infused Documented By: Admin: 02/22/25 22:43 Dose: 100 mls/hr Documented By: ROSY Sodium Chloride (Nss) 1,000 mls @ 80 mls/hr IV .[id number] JOSE Stop: 02/23/25 17:31 Last Infusion: 02/23/25 19:04 Dose: Infused Documented By: Admin: 02/23/25 05:26 Dose: 80 mls/hr Documented By: BERT Ioversol (Optiray 320 125ml) 115 ml IV ONCE ONE Stop: 02/22/25 20:17 Last Admin: 02/22/25 20:17 Dose: 115 ml Documented By: PARDEEP Labetalol HCl (Labetalol Hcl Iv 5 Mg/Ml 20ml) 10 mg IV NOW STA Stop: 02/23/25 04:04 Last Admin: 02/23/25 04:39 Dose: Not Given Documented By: BERT Labetalol HCl (Labetalol Hcl Iv 5 Mg/Ml 20ml) Confirm Administered Dose 5 mg IV .STK-MED ONE Stop: 02/23/25 04:13 Last Admin: 02/23/25 04:40 Dose: Not Given Documented By: BERT Lorazepam (Lorazepam 2 Mg/1 Ml Vial) 1 mg IV NOW STA Stop: 02/23/25 00:11 Last Admin: 02/23/25 00:20 Dose: 1 mg Documented By: BERT Meclizine HCl (Meclizine Hcl 25 Mg Tab) 25 mg PO NOW STA Stop: 02/22/25 19:47 Last Admin: 02/22/25 19:58 Dose: 25 mg Documented By: ROSY Ondansetron HCl (Ondansetron Inj 2 Mg/Ml 2 Ml Vial) 4 mg IV NOW STA Stop: 02/22/25 19:47 Last Admin: 02/22/25 19:58 Dose: 4 mg Documented By: ROSY Potassium Chloride (Potassium Chloride Crtab 20 Meq Tabcr) 40 meq PO NOW STA Stop: 02/22/25 21:48 Last Admin: 02/22/25 22:23 Dose: Not Given Documented By: ROSY Potassium Chloride (Potassium Chloride 20 Meq/15 Ml Udc) 40 meq PO NOW STA Stop: 02/22/25 22:08 Last Admin: 02/22/25 22:23 Dose: 40 meq Documented By: CTK Imaging Data Radiologist's Impression: Brain MRI 02/23/25 00:06 EXAM: MR brain wo/w con CLINICAL HISTORY: eval for posterior circ stroke TECHNIQUE: Multisequential and multiplanar images of the brain were submitted for review with and without contrast. COMPARISON: None FINDINGS: Tiny foci of restricted diffusion is noted involving left thalamus and right frontal lobe cortex in precentral gyrus which appears hypointense on ADC map. No blooming on gradient echo images. - suggestive of acute non-haemorrhagic ischemic infarct. Another tiny Hyperintense focus on DWI, ADC map and T2Wt images in left centrum semiovale - suggest possibility of subacute infarct. Generalized parenchymal atrophy is appreciated. Scattered foci of increased T2/FLAIR signal abnormality are identified within the bilateral periventricular and subcortical white matter, and are most commonly associated with chronic small vessel ischemic disease. No focal parenchymal lesions are seen. No intracranial hemorrhage, mass effect, midline shift, extra-axial collection, or hydrocephalus is identified. Ventricles, sulci, and basal cisterns are symmetric and prominent in size and normal in configuration. Midline structures including the pituitary gland, corpus callosum, pineal region, and brainstem are unremarkable. The craniovertebral junction is within normal limits. No calvarial abnormalities are identified. The paranasal sinuses and mastoid air cells are clear. Orbital structures are unremarkable. Appropriate flow voids are present in the visualized intracranial vessels. Suboptimal evaluation of post contrast sequences due to artifacts,however no obvious areas of abnormal enhancement noted IMPRESSION: 1. Tiny foci of restricted diffusion is noted involving left thalamus and right precentral gyrus which appears hypointense on ADC map. No blooming on gradient echo images. - suggestive of acute non-haemorrhagic ischemic infarcts. Possibility of embolic phenomenon needs to be considered in view of multiple arterial territorial involvement. 2. Another tiny Hyperintense focus on DWI, ADC map and T2Wt images in left centrum semiovale - suggest possibility of subacute infarct. 3. Chronic small vessel ischemic disease. 4. Diffuse cerebral atrophy. 5. No areas of abnormal enhancement in neuroparenchyma Electronically signed by Kem Craig 02-23-2025 07:08 AM Discharge Plan Visit Data Chief Complaint: Dizziness Stated Complaint: Dizziness, Nausea, Abdominal Pain ED Provider: Buzz Comer Discharge Problem: Vertigo, Nausea & vomiting, Hypokalemia Patient Disposition: Admitted As Inpatient Condition: Fair Discharge Instructions Interventions: ED Discharge Assessment Last Done: 02/23/25 05:03
[2025-02-22] MEDS: OPTIRAY 320 125ml IV ONE (20:17)
[2025-02-22 20:26] LABS: Alanine Aminotransferase 13.0 U/L (7-52); Albumin Globulin Ratio 1.2 (0.9-2); Alkaline Phosphatase 61.0 U/L (34-104); Anion Gap 9.0 (3-11); Bilirubin,Total 0.5 mg/dl (0.2-1.0); Blood Urea Nitrogen 18.0 mg/dl (6-23); Calcium 9.3 mg/dl (8.6-10.3); Carbon Dioxide 26.0 mmol/L (21-32); Chloride 104.0 mmol/L (98-107); Creatinine Clr Calc Pharmacy 92.6 ml/min; Globulin 3.3 gm/dl (2.5-4.0); Glucose 119.0 mg/dl (70-99(Fasting)); Potassium 3.3 mmol/L (3.5-5.1); Sodium 139.0 mmol/L (136-145); Total Protein 7.4 gm/dl (6.0-8.3)
[2025-02-22 20:36] LABS: INR 0.9 (0.9-1.1); Partial Thromboplastin Time 22 Seconds (21-31); Prothrombin Time 9.9 Seconds (9.0-12.0)
--- NOTE | 2025-02-22 21:05 | CT Scan Report ---
Exam(s): CT HEAD Without Contrast EXAM: CT Head Without Intravenous Contrast CLINICAL HISTORY: Reason for exam: Vertigo. TECHNIQUE: Axial computed tomography images of the head/brain without intravenous contrast. CTDI is 22.84 mGy and DLP is 456 mGy-cm. Automated exposure control was utilized for the study. A dose lowering technique was utilized adhering to the principles of ALARA. COMPARISON: No relevant prior studies available. FINDINGS: Brain: No intracranial hemorrhage, mass-effect, or cerebral edema. Atrophy and chronic microvascular ischemic changes. Ventricles: Unremarkable. Bones/joints: Unremarkable. No fracture. Soft tissues: Unremarkable. Sinuses: No acute sinusitis. Mastoid air cells: Unremarkable as visualized. IMPRESSION: 1. No acute intracranial findings. 2. Atrophy and chronic microvascular ischemic changes. Electronically signed by: Zia Henao MD 02/22/25 21:04 PM
--- NOTE | 2025-02-22 21:07 | CT Scan Report ---
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 TECHNIQUE: Axial computed tomographic angiography images of the head with intravenous contrast. CTDI is 35.65 mGy and DLP is 624.41 mGy-cm. Automated exposure control was utilized for the study. A dose lowering technique was utilized adhering to the principles of ALARA. MIP reconstructed images were created and reviewed. CONTRAST: Patient received 115cc opit 320 of IV contrast COMPARISON: No relevant prior studies available. FINDINGS: Right internal carotid artery: Intracranial segment is patent with no significant stenosis. No aneurysm. Right anterior cerebral artery: No occlusion or significant stenosis. No aneurysm. Right middle cerebral artery: No occlusion or significant stenosis. No aneurysm. Right posterior cerebral artery: No occlusion or significant stenosis. No aneurysm. Right vertebral artery: Unremarkable as visualized. Left internal carotid artery: Intracranial segment is patent with no significant stenosis. No aneurysm. Left anterior cerebral artery: No occlusion or significant stenosis. No aneurysm. Left middle cerebral artery: No occlusion or significant stenosis. No aneurysm. Left posterior cerebral artery: No occlusion or significant stenosis. No aneurysm. Left vertebral artery: Unremarkable as visualized. Basilar artery: No occlusion or significant stenosis. No aneurysm. IMPRESSION: No arterial occlusion or flow-limiting stenosis. Electronically signed by: Zia Henao MD 02/22/25 21:07 PM
--- NOTE | 2025-02-22 21:17 | CT Scan Report ---
Exam(s): CTA NECK With Contrast IV Amt: 115 cc opti 320 EXAM: CT Angiography Neck With Intravenous Contrast CLINICAL HISTORY: Reason for exam: eval for onion topper stroke. TECHNIQUE: Routine carotid CT angiography protocol was performed with intravenous contrast. NASCET criteria using the distal ICAs for comparison were used for evaluation of stenoses. CTDI is 12 mGy and DLP is 456 mGy-cm. Automated exposure control was utilized for the study. A dose lowering technique was utilized adhering to the principles of ALARA. MIP reconstructed images were created and reviewed. CONTRAST: Patient received 115 cc opti 320 of IV contrast COMPARISON: None. FINDINGS: VASCULATURE: Right common carotid artery: No occlusion or significant stenosis. No dissection. Right internal carotid artery: Atherosclerotic calcifications at the right carotid bulb causing less than 50% stenosis. Right vertebral artery: No occlusion or significant stenosis. No dissection. Left common carotid artery: No occlusion or significant stenosis. No dissection. Left internal carotid artery: Atherosclerotic calcifications in the proximal left ICA causing up to 70 % stenosis. Left vertebral artery: No occlusion or significant stenosis. No dissection. NECK: Bones/joints: Atherosclerotic calcifications of the left vertebral ostia causing 50% stenosis. At least 75% stenosis at the right vertebral ostia. No acute fracture. Soft tissues: Unremarkable. Lung apices: Clear. CAROTID STENOSIS REFERENCE USING NASCET CRITERIA: % ICA stenosis = (1 - narrowest ICA diameter/diameter of distal cervical ICA) x 100. Mild - <50% stenosis. Moderate - 50-69% stenosis. Severe - 70-94% stenosis. Near occlusion - 95-99% stenosis. Occluded - 100% stenosis. IMPRESSION: 1. Atherosclerotic calcifications in the proximal left ICA causing up to 70 % stenosis. 2. Atherosclerotic calcifications of the left vertebral ostia causing 50% stenosis. 3. At least 75% stenosis at the right vertebral ostia. Electronically signed by: Zia Henao MD 02/22/25 21:15 PM
[2025-02-22] MEDS: POTASSIUM CHLORIDE 20 MEQ/15 ML UDC PO STA (22:23)
[2025-02-22] MEDS: POTASSIUM CHLORIDE CRTAB 20 MEQ TABCR PO STA (22:23)
[2025-02-22] MEDS: POTASSIUM CHLORIDE / WTR 10 MEQ/100 ML PLCT IV SCH (22:43)
--- NOTE | 2025-02-22 23:24 | XRay Report ---
Exam(s): XR CXR 1 VIEW EXAM: XR Chest, 1 View CLINICAL HISTORY: lightheadedness, nausea vomiting. TECHNIQUE: Frontal view of the chest. COMPARISON: Portable chest single view 09/06/2023 FINDINGS: Lungs: The pulmonary vasculature appears minimally equalize. No radiographic evidence for florid CHF. Pleural space: Unremarkable. No pneumothorax. No large pleural effusion. Heart: The cardiac silhouette is prominent in size. There is more prominent bowing of the right heart border. Mediastinum: No significant abnormality identified. The trachea is midline. Bones/joints: Severe degenerative changes involving both shoulders, stable. No acute fracture. IMPRESSION: 1. The cardiac silhouette is prominent in size. There is more prominent bowing of the right heart border. Please correlate with corollary cardiovascular studies. 2. No focal airspace consolidation. Mild pulmonary vascular congestion suspected. Electronically signed by: Christiano Peng MD 02/22/25 23:22 PM
[2025-02-23] MEDS: GADOBUTROL 65ML VIAL IV ONE (00:38)
--- NOTE | 2025-02-23 04:18 | History & Physical Report ---
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 Patient states she was watching TV with her daughter around 4 PM yesterday when she noticed room spinning. It was very severe. Associated with nausea and vomiting. In the ambulance she was vomiting. She says the symptoms lasted for several hours. Currently they are resolved. She has a mild dizziness currently. No spinning of the room. Denies any headache. No fevers. No runny nose or sore throat. Decreased hearing going on for some time. Appetite is okay. No difficulty swallowing. Denies any chest pain. Denies shortness of breath. Having abdominal cramps going on for several days. They come and go. Patient alterna raj constipation and diarrhea. Denies blood in stools. Micturating okay. Chronic edema of the lower extremities. She says her right leg is numb for many years now. Ambulates with walker. Vertigo Associated with nausea and vomiting Currently improved Meclizine as needed CT head no acute findings CTA head no acute findings CTA neck proximal left ICA 70% stenosis. Left vertebral ostial 50% stenosis right vertebral ostial 70% stenosis Will follow MRI Will consult neurology Telemetry Consult vascular surgery for the left ICA stenosis History of DVT and PE History of massive pulmonary embolism in September 2022 with history of COVID Per PCP notes patient does not want to be on Eliquis History of hyperlipidemia Patient is declined statin as per PCP notes Hypertension On metoprolol tartrate Will monitor Depression On citalopram and imipramine GERD Omeprazole History of uterine cancer status post hysterectomy Lower extremity edema chronic Lymphedema Possible cellulitis of the right lower extremity Will also check Dopplers Empiric Rocephin Morbid obesity Noncompliance as per records DVT prophylaxis SCDs for now Disposition Telemetry Full code Addendum: MRI showing possible embolic cva.Ordered aspirin 324mg. Further recommendations per neurology. History of Present Illness Chief Complaint: Vertigo Primary Care Provider: Yandel Tovar MD 79-year-old female with past med history significant for dyslipidemia, diaphragmatic hernia, massive pulmonary embolism and DVTs with COVID-19, carotid stenosis, hypertension, right ventricle dilatation, morbid obesity, GERD, fibromyalgia, depression, GERD, fibromyalgia, history of endometrial carcinoma, lymphedema, noncompliance presents with vertigo. Patient states she was watching TV with her daughter around 4 PM yesterday when she noticed room spinning. It was very severe. Associated with nausea and vomiting. In the ambulance she was vomiting. She says the symptoms lasted for several hours. Currently they are resolved. She has a mild dizziness currently. No spinning of the room. Denies any headache. No fevers. No runny nose or sore throat. Decreased hearing going on for some time. Appetite is okay. No difficulty swallowing. Denies any chest pain. Denies shortness of breath. Having abdominal cramps going on for several days. They come and go. Patient alternates constipation and diarrhea. Denies blood in stools. Micturating ok ay. Chronic edema of the lower extremities. She says her right leg is numb for many years now. Ambulates with walker. Past medical history. As mentioned above Past surgical history. Dilatation curettage. Total abdominal hysterectomy with removal of tubes. Reduction of breast. Social history. . No smoking. No alcohol use. No drug use. Family history. Father had WA. Mother had WA. Sister has hypertension. Sister has torticollis. Allergies Allergy/AdvReac Type Severity Reaction Status Date / Time fluoxetine Allergy Unknown unk Verified 02/22/25 20:48 Sulfa (Sulfonamide Allergy Unknown unk Verified 02/22/25 20:48 Antibiotics) buspirone AdvReac Severe suical Verified 02/22/25 20:48 thoughts prednisone AdvReac Intermediate agitation Verified 02/22/25 20:48 Home Medications Medication Instructions Recorded Confirmed Type citalopram 40 mg tablet 40 mg PO QAM 05/07/18 02/22/25 History omeprazole 20 mg tablet,delayed 20 mg PO DAILYBB 05/07/18 02/22/25 History release imipramine HCl 25 mg tablet 25 mg PO TID 09/06/23 02/22/25 History metoprolol tartrate 25 mg tablet 25 mg PO BID 02/22/25 02/22/25 History multivitamin 1 tab PO DAILY 02/22/25 02/22/25 History Past Med/Surg History Problem List (Updated 02/23/25 @ 04:23 by Jaswinder Kern MD) Vertigo Nausea (Acute) Hypertension (Acute) Weakness (Acute) GERD (gastroesophageal reflux disease) Morbid obesity with BMI of 40.0-44.9, adult HLD (hyperlipidemia) Cellulitis of leg, right Depression Syncope (Acute) COVID-19 (Acute) Hypoxia (Acute) Received intravenous tissue plasminogen activator (t-PA) within last 24 hours Pulmonary embolism associated with COVID-19 Acute hypoxemic respiratory failure Encephalopathy Hypertensive urgency (Acute) Female urinary stress incontinence (Chronic Unknown) Arthritis of shoulder region, right (Acute) Degenerative arthritis of right shoulder region (Acute) Right shoulder pain (Acute) Right shoulder pain (Acute) Medical History Depression Received intravenous tissue plasminogen activator (t-PA) within last 24 hours Pulmonary embolism associated with COVID-19 Asthma Hypertension Right shoulder pain Right shoulder pain Degenerative arthritis of right shoulder region Arthritis of shoulder region, right Female urinary stress incontinence (Unknown) Family History (Updated 05/07/18 @ 01:14 by Deshawn Molina) Other No significant family history Social History Smoking Status: Never smoker Second Hand Exposure: No; Do You Dip or Chew Tobacco: No; Hx Alcohol Use: No Hx Substance Use: No Preferred Language: Mexican Communication Ability: Effective Vessel Captain Required: No Beliefs That Will Affect Care: None marital status: Current Living Situation: Spouse Current Living Situation Comment: with Leopoldo Contreras How many Children do You have: 2 Other Information That Helps Us Care for You: No Feels Safe at Home: Yes Safety Concerns: Feels Safe At This Time Assistive Devices: Walker Review of Systems Review of Systems: All systems reviewed & are unremarkable except as noted in HPI & below Physical Exam Physical Exam: General- Not in distress Head- atraumatic Eyes- PERRL, EOMI, no nystagmus seen ENT- oropharynx clear Neck- supple, no JVD, no carotid bruit Lungs- clear to auscultation, no wheezing or crackles Heart- regular rate and rhythm; no murmur, no gallop. Abdomen- normal bowel sounds, soft, nontender, no distension. Extremities- b/l lower extremity chronic edema and chronic skin changes seen. Right Leg is numb and erythematous. Neuro- alert, oriented PERRL, EOMI; no facial palsy; no dysarthria; power 5/5 upper extremties 2/5 right lower extremity 3/5 left lower extremity, no pronator drift; Results & Data Results & Data Vital Signs (Past 12 Hours) Vital Signs Temp Pulse Pulse Resp BP BP Pulse Ox 02/23/25 04:01 88 18 200/111 H 96 02/23/25 03:58 94 H 02/23/25 03:33 94 H 18 161/99 H 96 02/23/25 03:00 88 20 166/93 H 96 02/23/25 01:36 92 H 19 96 02/23/25 01:00 94 H 22 193/99 H 96 02/23/25 00:51 90 22 153/93 H 99 02/22/25 23:59 89 02/22/25 23:33 90 21 183/100 H 98 02/22/25 23:03 87 21 177/95 H 99 02/22/25 21:25 93 H 21 189/94 H 97 02/22/25 19:43 79 02/22/25 19:25 36.4 C L 80 18 186/96 H 95 O2 Del Method O2 Flow Rate 02/23/25 04:01 Nasal Cannula 2 02/23/25 03:58 02/23/25 03:33 Nasal Cannula 2 02/23/25 03:00 Nasal Cannula 2 02/23/25 01:36 Nasal Cannula 2 02/23/25 01:00 Nasal Cannula 2 02/23/25 00:51 Nasal Cannula 2 02/22/25 23:59 02/22/25 23:33 Room Air 02/22/25 23:03 Nasal Cannula 2 02/22/25 21:25 Nasal Cannula 4 02/22/25 19:43 02/22/25 19:25 Room Air Diagnostic Findings Laboratory Results WBC 8.12 K/ul (4.8-10.8) 02/22/25 19:51 RBC 5.13 M/uL (4.20-5.40) 02/22/25 19:51 Hgb 14.8 g/dl (12.0-16.0) 02/22/25 19:51 POC Hgb 15.3 g/dl (12.0-16.0) 02/22/25 19:56 Hct 45.0 % (37.0-47.0) 02/22/25 19:51 POC Hct 45 % (37-47) 02/22/25 19:56 MCV 87.7 fL (80.0-100.0) 02/22/25 19:51 MCH 28.8 pg (25.0-34.0) 02/22/25 19:51 MCHC 32.9 g/dL (32.0-36.0) 02/22/25 19:51 RDW Std Deviation 43.0 fL (36.4-46.3) 02/22/25 19:51 RDW Coeff of Jose Enrique 13.2 % (11.5-14.5) 02/22/25 19:51 Plt Count 217 K/uL (130-400) 02/22/25 19:51 MPV 10.0 fL (9.4-12.4) 02/22/25 19:51 Immature Gran % (Auto) 0.2 % 02/22/25 19:51 Neut % (Auto) 68.8 % 02/22/25 19:51 Lymph % (Auto) 20.7 % 02/22/25 19:51 [place] % (Auto) 7.6 % 02/22/25 19:51 Eos % (Auto) 2.2 % 02/22/25 19:51 Baso % (Auto) 0.5 % 02/22/25 19:51 Neut # (Auto) 5.58 K/uL (1.40-6.50) 02/22/25 19:51 Lymph # (Auto) 1.68 K/uL (1.20-3.40) 02/22/25 19:51 [place] # (Auto) 0.62 K/uL (0.11-0.59) H 02/22/25 19:51 Eos # (Auto) 0.18 K/uL (0.00-0.50) 02/22/25 19:51 Baso # (Auto) 0.04 K/uL (0.00-0.20) 02/22/25 19:51 Immature Gran # (Auto) 0.02 K/uL (0.01-0.20) 02/22/25 19:51 PT 9.9 Seconds (9.0-12.0) 02/22/25 19:51 INR 0.9 (0.9-1.1) 02/22/25 19:51 APTT 22 Seconds (21-31) 02/22/25 19:51 PTT Ratio 0.8 02/22/25 19:51 POC Sodium 141 mmol/L (135-144) 02/22/25 19:56 Sodium 139 mmol/L (136-145) 02/22/25 19:51 POC Potassium 3.2 mmol/L (3.3-5.0) L 02/22/25 19:56 Potassium 3.3 mmol/L (3.5-5.1) L 02/22/25 19:51 POC Chloride 103 mmol/L (101-112) 02/22/25 19:56 Chloride 104 mmol/L (98-107) 02/22/25 19:51 Carbon Dioxide 26 mmol/L (21-32) 02/22/25 19:51 POC Total CO2 24 mmol/L (24-31) 02/22/25 19:56 Anion Gap 9 (3-11) 02/22/25 19:51 POC Anion Gap 18.0 mmol/L (16-25) 02/22/25 19:56 POC BUN 19 mg/dl (7-18) H 02/22/25 19:56 BUN 18 mg/dl (6-23) 02/22/25 19:51 Creatinine 0.61 mg/dl (0.6-1.2) 02/22/25 19:51 POC Creatinine 0.6 mg/dl (0.6-1.3) 02/22/25 19:56 Est Cr Clr Drug Dosing 92.6 ml/min 02/22/25 19:51 eGFR 90.32 02/22/25 19:51 BUN/Creatinine Ratio 29.5 (10-20) H 02/22/25 19:51 Glucose 119 mg/dl (70-99(Fasting)) H 02/22/25 19:51 POC Glucose (other) 115 mg/dl (70-99) H 02/22/25 19:56 Lactate 1.6 mmol/L (0.4-2.0) 02/22/25 19:51 Calcium 9.3 mg/dl (8.6-10.3) 02/22/25 19:51 POC Ioniz Calcium Jacque 1.18 mmol/l (1.12-1.32) 02/22/25 19:56 Total Bilirubin 0.5 mg/dl (0.2-1.0) 02/22/25 19:51 AST 21 U/L (13-39) 02/22/25 19:51 ALT 13 U/L (7-52) 02/22/25 19:51 Alkaline Phosphatase 61 U/L (34-104) 02/22/25 19:51 Troponin I High Sens 16.0 pg/ml (0-14) H 02/22/25 19:51 Total Protein 7.4 gm/dl (6.0-8.3) 02/22/25 19:51 Albumin 4.1 gm/dl (3.4-5.0) 02/22/25 19:51 Globulin 3.3 gm/dl (2.5-4.0) 02/22/25 19:51 Albumin/Globulin Ratio 1.2 (0.9-2) 02/22/25 19:51 Impressions Chest X-Ray 02/22/25 19:46 Exam(s): XR CXR 1 VIEW EXAM: XR Chest, 1 View CLINICAL HISTORY: lightheadedness, nausea vomiting. TECHNIQUE: Frontal view of the chest. COMPARISON: Portable chest single view 09/06/2023 FINDINGS: Lungs: The pulmonary vasculature appears minimally equalize. No radiographic evidence for florid CHF. Pleural space: Unremarkable. No pneumothorax. No large pleural effusion. Heart: The cardiac silhouette is prominent in size. There is more prominent bowing of the right heart border. Mediastinum: No significant abnormality identified. The trachea is midline. Bones/joints: Severe degenerative changes involving both shoulders, stable. No acute fracture. IMPRESSION: 1. The cardiac silhouette is prominent in size. There is more prominent bowing of the right heart border. Please correlate with corollary cardiovascular studies. 2. No focal airspace consolidation. Mild pulmonary vascular congestion suspected. Electronically signed by: Christiano Peng MD 02/22/25 23:[address] 02/22/25 19:46 Exam(s): CT HEAD Without Contrast EXAM: CT Head Without Intravenous Contrast CLINICAL HISTORY: Reason for exam: Vertigo. TECHNIQUE: Axial computed tomography images of the head/brain without intravenous contrast. CTDI is 22.84 mGy and DLP is 456 mGy-cm. Automated exposure control was utilized for the study. A dose lowering technique was utilized adhering to the principles of ALARA. COMPARISON: No relevant prior studies available. FINDINGS: Brain: No intracranial hemorrhage, mass-effect, or cerebral edema. Atrophy and chronic microvascular ischemic changes. Ventricles: Unremarkable. Bones/joints: Unremarkable. No fracture. Soft tissues: Unremarkable. Sinuses: No acute sinusitis. Mastoid air cells: Unremarkable as visualized. IMPRESSION: 1. No acute intracranial findings. 2. Atrophy and chronic microvascular ischemic changes. Electronically signed by: Zia Henao MD 02/22/25 21:04 PM Head CTA 02/22/25 19:46 Exam(s): CTA HEAD With Contrast IV Amt: 115cc opit 320 EXAM: CT Angiography Head With Intravenous Contrast CLINICAL HISTORY: Reason for exam: eval for drawstring knotter stroke. TECHNIQUE: Axial computed tomographic angiography images of the head with intravenous contrast. CTDI is 35.65 mGy and DLP is 624.41 mGy-cm. Automated exposure control was utilized for the study. A dose lowering technique was utilized adhering to the principles of ALARA. MIP reconstructed images were created and reviewed. CONTRAST: Patient received 115cc opit 320 of IV contrast COMPARISON: No relevant prior studies available. FINDINGS: Right internal carotid artery: Intracranial segment is patent with no significant stenosis. No aneurysm. Right anterior cerebral artery: No occlusion or significant stenosis. No aneurysm. Right middle cerebral artery: No occlusion or significant stenosis. No aneurysm. Right posterior cerebral artery: No occlusion or significant stenosis. No aneurysm. Right vertebral artery: Unremarkable as visualized. Left internal carotid artery: Intracranial segment is patent with no significant stenosis. No aneurysm. Left anterior cerebral artery: No occlusion or significant stenosis. No aneurysm. Left middle cerebral artery: No occlusion or significant stenosis. No aneurysm. Left posterior cerebral artery: No occlusion or significant stenosis. No aneurysm. Left vertebral artery: Unremarkable as visualized. Basilar artery: No occlusion or significant stenosis. No aneurysm. IMPRESSION: No arterial occlusion or flow-limiting stenosis. Electronically signed by: Zia Henao MD 02/22/25 21:07 PM Neck CTA 02/22/25 19:46 Exam(s): CTA NECK With Contrast IV Amt: 115 cc opti 320 EXAM: CT Angiography Neck With Intravenous Contrast CLINICAL HISTORY: Reason for exam: eval for drawstring knotter stroke. TECHNIQUE: Routine carotid CT angiography protocol was performed with intravenous contrast. NASCET criteria using the distal ICAs for comparison were used for evaluation of stenoses. CTDI is 12 mGy and DLP is 456 mGy-cm. Automated exposure control was utilized for the study. A dose lowering technique was utilized adhering to the principles of ALARA. MIP reconstructed images were created and reviewed. CONTRAST: Patient received 115 cc opti 320 of IV contrast COMPARISON: None. FINDINGS: VASCULATURE: Right common carotid artery: No occlusion or significant stenosis. No dissection. Right internal carotid artery: Atherosclerotic calcifications at the right carotid bulb causing less than 50% stenosis. Right vertebral artery: No occlusion or significant stenosis. No dissection. Left common carotid artery: No occlusion or significant stenosis. No dissection. Left internal carotid artery: Atherosclerotic calcifications in the proximal left ICA causing up to 70 % stenosis. Left vertebral artery: No occlusion or significant stenosis. No dissection. NECK: Bones/joints: Atherosclerotic calcifications of the left vertebral ostia causing 50% stenosis. At least 75% stenosis at the right vertebral ostia. No acute fracture. Soft tissues: Unremarkable. Lung apices: Clear. CAROTID STENOSIS REFERENCE USING NASCET CRITERIA: % ICA stenosis = (1 - narrowest ICA diameter/diameter of distal cervical ICA) x 100. Mild - <50% stenosis. Moderate - 50-69% stenosis. Severe - 70-94% stenosis. Near occlusion - 95-99% stenosis. Occluded - 100% stenosis. IMPRESSION: 1. Atherosclerotic calcifications in the proximal left ICA causing up to 70 % stenosis. 2. Atherosclerotic calcifications of the left vertebral ostia causing 50% stenosis. 3. At least 75% stenosis at the right vertebral ostia. Electronically signed by: Zia Henao MD 02/22/25 21:15 PM ECG Additional Comments: ECG. Normal sinus rhythm rate of 88. Possible left atrial enlargement. QTc 464 Code Status & VTE Plan VTE Prophylaxis Plan VTE Prophylaxis will be ordered: Yes
[2025-02-23] MEDS: LABETALOL HCL IV 5 MG/ML 20ML IV STA (04:39)
[2025-02-23] MEDS: LABETALOL HCL IV 5 MG/ML 20ML IV ONE (04:40)
[2025-02-23] MEDS ORDERED: ONDANSETRON INJ 2 MG/ML 2 ML VIAL IV PRN (05:02)
[2025-02-23] MEDS ORDERED: NITROGLYCERIN SL 0.4 MG/TAB TAB SL PRN (05:02)
[2025-02-23] MEDS ORDERED: MECLIZINE HCL 25 MG TAB PO PRN (05:02)
[2025-02-23] MEDS ORDERED: ACETAMINOPHEN 325 MG TAB PO PRN (05:02)
[2025-02-23] MEDS: cefTRIAXone SODIUM 2,000 MG/50 ML BAG IV SCH (05:26)
[2025-02-23] MEDS: SODIUM CHLORIDE 0.9% 1,000 ML IV SCH (05:26)
--- NOTE | 2025-02-23 07:08 | Magnetic Resonance Report ---
EXAM: MR brain wo/w con CLINICAL HISTORY: eval for posterior circ stroke TECHNIQUE: Multisequential and multiplanar images of the brain were submitted for review with and without contrast. COMPARISON: None FINDINGS: Tiny foci of restricted diffusion is noted involving left thalamus and right frontal lobe cortex in precentral gyrus which appears hypointense on ADC map. No blooming on gradient echo images. - suggestive of acute non-haemorrhagic ischemic infarct. Another tiny Hyperintense focus on DWI, ADC map and T2Wt images in left centrum semiovale - suggest possibility of subacute infarct. Generalized parenchymal atrophy is appreciated. Scattered foci of increased T2/FLAIR signal abnormality are identified within the bilateral periventricular and subcortical white matter, and are most commonly associated with chronic small vessel ischemic disease. No focal parenchymal lesions are seen. No intracranial hemorrhage, mass effect, midline shift, extra-axial collection, or hydrocephalus is identified. Ventricles, sulci, and basal cisterns are symmetric and prominent in size and normal in configuration. Midline structures including the pituitary gland, corpus callosum, pineal region, and brainstem are unremarkable. The craniovertebral junction is within normal limits. No calvarial abnormalities are identified. The paranasal sinuses and mastoid air cells are clear. Orbital structures are unremarkable. Appropriate flow voids are present in the visualized intracranial vessels. Suboptimal evaluation of post contrast sequences due to artifacts,however no obvious areas of abnormal enhancement noted IMPRESSION: 1. Tiny foci of restricted diffusion is noted involving left thalamus and right precentral gyrus which appears hypointense on ADC map. No blooming on gradient echo images. - suggestive of acute non-haemorrhagic ischemic infarcts. Possibility of embolic phenomenon needs to be considered in view of multiple arterial territorial involvement. 2. Another tiny Hyperintense focus on DWI, ADC map and T2Wt images in left centrum semiovale - suggest possibility of subacute infarct. 3. Chronic small vessel ischemic disease. 4. Diffuse cerebral atrophy. 5. No areas of abnormal enhancement in neuroparenchyma Electronically signed by Kem Craig 02-23-2025 07:08 AM
[2025-02-23] MEDS: ASPIRIN 81 MG CHEW PO STA (07:35)
[2025-02-23 07:49] LABS: Hematocrit (blood only) 42.4 % (37.0-47.0); Hemoglobin 13.8 g/dl (12.0-16.0); Immature Granulocytes # (auto) 0.02 K/uL (0.01-0.20); Immature Granulocytes % (auto) 0.3 %; Mean Corpuscular Hemoglobin 28.9 pg (25.0-34.0); Mean Corpuscular Volume 88.9 fL (80.0-100.0); Platelet Count 224 K/uL (130-400); RDW Standard Deviation 43.3 fL (36.4-46.3); Red Blood Count 4.77 M/uL (4.20-5.40); White Blood Count 7.69 K/ul (4.8-10.8)
[2025-02-23 08:02] LABS: Anion Gap 6.0 (3-11); Blood Urea Nitrogen 11.0 mg/dl (6-23); Calcium 8.6 mg/dl (8.6-10.3); Carbon Dioxide 28.0 mmol/L (21-32); Chloride 106.0 mmol/L (98-107); Creatinine Clr Calc Pharmacy 128.4 ml/min; Glucose 113.0 mg/dl (70-99(Fasting)); Magnesium 2.0 mg/dl (1.7-2.4); Potassium 3.9 mmol/L (3.5-5.1); Sodium 140.0 mmol/L (136-145)
[2025-02-23] MEDS: CITALOPRAM 40 MG TAB PO SCH (08:49)
[2025-02-23] MEDS: IMIPRAMINE HCL 50 MG TAB PO SCH (08:49)
[2025-02-23] MEDS: METOPROLOL TARTRATE 25 MG TAB PO SCH (08:50)
[2025-02-23] MEDS: MULTIVITAMIN TAB PO SCH (08:50)
[2025-02-23] MEDS ORDERED: IMIPRAMINE HCL 25 MG TAB PO SCH (09:00)
--- NOTE | 2025-02-23 10:09 | Ultrasound Report ---
BILATERAL LOWER EXTREMITY VENOUS DOPPLER CLINICAL HISTORY: Bilateral lower extremity edema. dvt? COMPARISON STUDY: Bilateral lower extremity venous Doppler ultrasound September 06, 2023. TECHNIQUE: Sonography of the deep venous system of the bilateral lower extremities was performed. Co mpression and augmentation were evaluated. FINDINGS: The bilateral common femoral, superficial femoral and popliteal veins were compressible. A ugmentation was normal. Flow was shown within the deep calf vessels although calf vessels were partia lly obscured. IMPRESSION: Suboptimal evaluation of the calf vessels but no evidence of deep venous thrombus within the bilateral lower extremities. ACT 112: Negative or not required by law. Electronically signed by: Yobani Curtis M.D. 02/23/2025 10:07 AM
--- NOTE | 2025-02-23 13:57 | Neurology Consultation ---
Date of Consultation February 23, 2025 Assessment & Plan (1) Stroke with cerebral ischemia: Tori Contreras is an 79 F presenting with multifocal stroke, found to have 70% L ICA stenosis which does not explain her R hemispheric stroke. Suspect the bilateral strokes were what cause her vertigo yesterday. Given her history of PE and now this cardioembolic stroke pattern, I recommend she resume anticoagulation and try a different agent such as xarelto given her reported eliquis side effects. If she starts xarelto she should remain on a single antiplatelet given the large artery athero. Echo otherwise pending. -- Would consider xarelto+aspirin for secondary prevention -- Vascular surgery consult, not clear that L ICA is symptomatic -- Echo pending -- Neurology follow-up in 4-6 weeks Telehealth Consultation Telehealth Information Telehealth Information: I performed this visit using a real-time telehealth connection between my location and the patients location ([facility]). After con necting through interactive tele-video, patient was identified by name and date of and/or wristband check.Patient (or authorized healthcare sales representative metals) was informed that this was a telemedicine visit and it was being conducted confidentially over secure lines. My office door was closed and no one else was present in the room with me.Patient (or authorized healthcare sales representative metals) provided consent to proceed with the visit, expressed an understanding of privacy and security of the telemedicine visit, and gave permission to have a hospital sales representative metals in the room in order to assist with the visit and to conduct portions of the visit, as needed. I informed the patient (or authorized healthcare sales representative metals) that I reviewed their record and presented the opportunity for them to ask any questions regarding the visit today. The patient agreed to participate. History of Present Illness Reason for Consultation: Dizziness Requesting Physician: Dr. Childs Attending Physician: Ankit Childs MD History of Present Illness Tori Contreras is an 79 yo F presented yesterday with severe vertigo that began acutely. She denies any focal weakness or numbness but reports that her R leg has been numb since 2012 after a hysterectomy. She has a history of panic attacks and thought that might be what was happening yesterday. Today she feels much better with only slight dizziness. No new stroke symptoms today, no headache or pain otherwise. She was on eliquis in the past for a massive PE but stopped because she felt it was causing her to eat too much. She is willing to try a different anticoagulant. Allergies Allergy/AdvReac Type Severity Reaction Status Date / Time fluoxetine Allergy Unknown unk Verified 02/22/25 20:48 Sulfa (Sulfonamide Allergy Unknown unk Verified 02/22/25 20:48 Antibiotics) buspirone AdvReac Severe suical Verified 02/22/25 20:48 thoughts prednisone AdvReac Intermediate agitation Verified 02/22/25 20:48 Home Medications Medication Instructions Recorded Confirmed Type citalopram 40 mg tablet 40 mg PO QAM 05/07/18 02/22/25 History omeprazole 20 mg tablet,delayed 20 mg PO DAILYBB 05/07/18 02/22/25 History release imipramine HCl 25 mg tablet 25 mg PO TID 09/06/23 02/22/25 History metoprolol tartrate 25 mg tablet 25 mg PO BID 02/22/25 02/22/25 History multivitamin 1 tab PO DAILY 02/22/25 02/22/25 History Patient History Medical History Depression Received intravenous tissue plasminogen activator (t-PA) within last 24 hours Pulmonary embolism associated with COVID-19 Asthma Hypertension Right shoulder pain Right shoulder pain Degenerative arthritis of right shoulder region Arthritis of shoulder region, right Female urinary stress incontinence (Unknown) Family History (Updated 05/07/18 @ 01:14 by Deshawn Molina) Other No significant family history Social History Smoking Status: Never smoker Second Hand Exposure: No; Do You Dip or Chew Tobacco: No; Hx Alcohol Use: No Hx Substance Use: No Preferred Language: Tongan Communication Ability: Effective Skin Diving Teacher Required: No Beliefs That Will Affect Care: None marital status: Current Living Situation: Spouse Current Living Situation Comment: with Leopoldo Contreras How many Children do You have: 2 Other Information That Helps Us Care for You: No Feels Safe at Home: Yes Safety Concerns: Feels Safe At This Time Assistive Devices: Walker Review of Systems +dizziness Physical Exam Neurological Examination: Mental Status: Awake and alert. Oriented to person, place, and time. Fluent. Comprehension intact. Affect appropriate. Cranial Nerves: II: Reads NIHSS cards, pupils 3/3 to 2/2, heath grossly intact. III/IV/: Versions intact without nystagmus, no gaze preference. V: Facial sensation symmetric to light touch VII: Facial expression symmetric Motor: Strength was symmetric and antigravity throughout. Pronator drift was absent. There were no abnormal movements. Coordination: Finger to nose and heel to salas were intact. Reflexes: Unable to assess over telemedicine Results & Data Vital Signs (Past 12 Hours) Vital Signs Temp Pulse Resp BP Pulse Ox O2 Del Method O2 Flow Rate 02/23/25 10:51 72 20 97 Nasal Cannula 1 02/23/25 10:03 180/82 H 02/23/25 07:18 88 22 160/84 H 97 Nasal Cannula 2 02/23/25 06:55 103 H 02/23/25 06:18 90 20 185/86 H 98 Nasal Cannula 2 02/23/25 05:46 92 H 20 164/87 H 95 Nasal Cannula 2 02/23/25 05:45 93 H 22 164/87 H 97 Nasal Cannula 2 02/23/25 05:30 88 19 168/93 H 96 Nasal Cannula 2 02/23/25 05:15 86 18 95 Nasal Cannula 2 02/23/25 04:45 92 H 20 96 Nasal Cannula 2 02/23/25 04:39 92 H 157/92 H 02/23/25 04:39 Nasal Cannula 2 02/23/25 04:39 36.8 C 02/23/25 04:39 92 H 18 157/92 H 95 Nasal Cannula 2 02/23/25 04:37 88 18 146/79 H 96 Nasal Cannula 2 02/23/25 04:30 92 H 19 96 Nasal Cannula 2 02/23/25 04:01 88 18 200/111 H 96 Nasal Cannula 2 02/23/25 03:58 94 H 02/23/25 03:33 94 H 18 161/99 H 96 Nasal Cannula 2 02/23/25 03:00 88 20 166/93 H 96 Nasal Cannula 2 Laboratory Results Abnormal lab results 02/22/25 02/22/25 02/23/25 Range/Units 19:51 19:56 06:58 [place] # (Auto) 0.62 H 0.65 H (0.11-0.59) K/uL POC Potassium 3.2 L (3.3-5.0) mmol/L Potassium 3.3 L (3.5-5.1) mmol/L POC BUN 19 H (7-18) mg/dl Creatinine 0.44 L (0.6-1.2) mg/dl BUN/Creatinine Ratio 29.5 H 25.0 H (10-20) Glucose 119 H 113 H (70-99(Fasting)) mg/dl POC Glucose (other) 115 H (70-99) mg/dl Troponin I High Sens 16.0 H (0-14) pg/ml Diagnostic Findings Chest X-Ray 02/22/25 19:46 Exam(s): XR CXR 1 VIEW EXAM: XR Chest, 1 View CLINICAL HISTORY: lightheadedness, nausea vomiting. TECHNIQUE: Frontal view of the chest. COMPARISON: Portable chest single view 09/06/2023 FINDINGS: Lungs: The pulmonary vasculature appears minimally equalize. No radiographic evidence for florid CHF. Pleural space: Unremarkable. No pneumothorax. No large pleural effusion. Heart: The cardiac silhouette is prominent in size. There is more prominent bowing of the right heart border. Mediastinum: No significant abnormality identified. The trachea is midline. Bones/joints: Severe degenerative changes involving both shoulders, stable. No acute fracture. IMPRESSION: 1. The cardiac silhouette is prominent in size. There is more prominent bowing of the right heart border. Please correlate with corollary cardiovascular studies. 2. No focal airspace consolidation. Mild pulmonary vascular congestion suspected. Electronically signed by: Christiano Pegn MD 02/22/25 23:[address] 02/22/25 19:46 Exam(s): CT HEAD Without Contrast EXAM: CT Head Without Intravenous Contrast CLINICAL HISTORY: Reason for exam: Vertigo. TECHNIQUE: Axial computed tomography images of the head/brain without intravenous contrast. CTDI is 22.84 mGy and DLP is 456 mGy-cm. Automated exposure control was utilized for the study. A dose lowering technique was utilized adhering to the principles of ALARA. COMPARISON: No relevant prior studies available. FINDINGS: Brain: No intracranial hemorrhage, mass-effect, or cerebral edema. Atrophy and chronic microvascular ischemic changes. Ventricles: Unremarkable. Bones/joints: Unremarkable. No fracture. Soft tissues: Unremarkable. Sinuses: No acute sinusitis. Mastoid air cells: Unremarkable as visualized. IMPRESSION: 1. No acute intracranial findings. 2. Atrophy and chronic microvascular ischemic changes. 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 TECHNIQUE: Axial computed tomographic angiography images of the head with intravenous contrast. CTDI is 35.65 mGy and DLP is 624.41 mGy-cm. Automated exposure control was utilized for the study. A dose lowering technique was utilized adhering to the principles of ALARA. MIP reconstructed images were created and reviewed. CONTRAST: Patient received 115cc opit 320 of IV contrast COMPARISON: No relevant prior studies available. FINDINGS: Right internal carotid artery: Intracranial segment is patent with no significant stenosis. No aneurysm. Right anterior cerebral artery: No occlusion or significant stenosis. No aneurysm. Right middle cerebral artery: No occlusion or significant stenosis. No aneurysm. Right posterior cerebral artery: No occlusion or significant stenosis. No aneurysm. Right vertebral artery: Unremarkable as visualized. Left internal carotid artery: Intracranial segment is patent with no significant stenosis. No aneurysm. Left anterior cerebral artery: No occlusion or significant stenosis. No aneurysm. Left middle cerebral artery: No occlusion or significant stenosis. No aneurysm. Left posterior cerebral artery: No occlusion or significant stenosis. No aneurysm. Left vertebral artery: Unremarkable as visualized. Basilar artery: No occlusion or significant stenosis. No aneurysm. IMPRESSION: No arterial occlusion or flow-limiting stenosis. 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 TECHNIQUE: Routine carotid CT angiography protocol was performed with intravenous contrast. NASCET criteria using the distal ICAs for comparison were used for evaluation of stenoses. CTDI is 12 mGy and DLP is 456 mGy-cm. Automated exposure control was utilized for the study. A dose lowering technique was utilized adhering to the principles of ALARA. MIP reconstructed images were created and reviewed. CONTRAST: Patient received 115 cc opti 320 of IV contrast COMPARISON: None. FINDINGS: VASCULATURE: Right common carotid artery: No occlusion or significant stenosis. No dissection. Right internal carotid artery: Atherosclerotic calcifications at the right carotid bulb causing less than 50% stenosis. Right vertebral artery: No occlusion or significant stenosis. No dissection. Left common carotid artery: No occlusion or significant stenosis. No dissection. Left internal carotid artery: Atherosclerotic calcifications in the proximal left ICA causing up to 70 % stenosis. Left vertebral artery: No occlusion or significant stenosis. No dissection. NECK: Bones/joints: Atherosclerotic calcifications of the left vertebral ostia causing 50% stenosis. At least 75% stenosis at the right vertebral ostia. No acute fracture. Soft tissues: Unremarkable. Lung apices: Clear. CAROTID STENOSIS REFERENCE USING NASCET CRITERIA: % ICA stenosis = (1 - narrowest ICA diameter/diameter of distal cervical ICA) x 100. Mild - <50% stenosis. Moderate - 50-69% stenosis. Severe - 70-94% stenosis. Near occlusion - 95-99% stenosis. Occluded - 100% stenosis. IMPRESSION: 1. Atherosclerotic calcifications in the proximal left ICA causing up to 70 % stenosis. 2. Atherosclerotic calcifications of the left vertebral ostia causing 50% stenosis. 3. At least 75% stenosis at the right vertebral ostia. Electronically signed by: Zia Henao MD 02/22/25 21:15 PM Brain MRI 02/23/25 00:06 EXAM: MR brain wo/w con CLINICAL HISTORY: eval for posterior circ stroke TECHNIQUE: Multisequential and multiplanar images of the brain were submitted for review with and without contrast. COMPARISON: None FINDINGS: Tiny foci of restricted diffusion is noted involving left thalamus and right frontal lobe cortex in precentral gyrus which appears hypointense on ADC map. No blooming on gradient echo images. - suggestive of acute non-haemorrhagic ischemic infarct. Another tiny Hyperintense focus on DWI, ADC map and T2Wt images in left centrum semiovale - suggest possibility of subacute infarct. Generalized parenchymal atrophy is appreciated. Scattered foci of increased T2/FLAIR signal abnormality are identified within the bilateral periventricular and subcortical white matter, and are most commonly associated with chronic small vessel ischemic disease. No focal parenchymal lesions are seen. No intracranial hemorrhage, mass effect, midline shift, extra-axial collection, or hydrocephalus is identified. Ventricles, sulci, and basal cisterns are symmetric and prominent in size and normal in configuration. Midline structures including the pituitary gland, corpus callosum, pineal region, and brainstem are unremarkable. The craniovertebral junction is within normal limits. No calvarial abnormalities are identified. The paranasal sinuses and mastoid air cells are clear. Orbital structures are unremarkable. Appropriate flow voids are present in the visualized intracranial vessels. Suboptimal evaluation of post contrast sequences due to artifacts,however no obvious areas of abnormal enhancement noted IMPRESSION: 1. Tiny foci of restricted diffusion is noted involving left thalamus and right precentral gyrus which appears hypointense on ADC map. No blooming on gradient echo images. - suggestive of acute non-haemorrhagic ischemic infarcts. Possibility of embolic phenomenon needs to be considered in view of multiple arterial territorial involvement. 2. Another tiny Hyperintense focus on DWI, ADC map and T2Wt images in left centrum semiovale - suggest possibility of subacute infarct. 3. Chronic small vessel ischemic disease. 4. Diffuse cerebral atrophy. 5. No areas of abnormal enhancement in neuroparenchyma Electronically signed by Kem Craig 02-23-2025 07:08 AM Venous Doppler Study 02/23/25 05:02 BILATERAL LOWER EXTREMITY VENOUS DOPPLER CLINICAL HISTORY: Bilateral lower extremity edema. dvt? COMPARISON STUDY: Bilateral lower extremity venous Doppler ultrasound September 06, 2023. TECHNIQUE: Sonography of the deep venous system of the bilateral lower extremities was performed. Compression and augmentation were evaluated. FINDINGS: The bilateral common femoral, superficial femoral and popliteal veins were compressible. Augmentation was normal. Flow was shown within the deep calf vessels although calf vessels were partially obscured. IMPRESSION: Suboptimal evaluation of the calf vessels but no evidence of deep venous thrombus within the bilateral lower extremities. ACT 112: Negative or not required by law. Electronically signed by: Yobani Curtis M.D. 02/23/2025 10:07 AM
--- NOTE | 2025-02-23 15:27 | Hospitalist Progress Note ---
Date of Service February 23, 2025 Assessment & Plan (1) Vertigo: Plan: 79-year-old female with past med history significant for dyslipidemia, diaphragmatic hernia, massive pulmonary embolism and DVTs with COVID-19, carotid stenosis, hypertension, right ventricle dilatation, morbid obesity, GERD, fibromyalgia, depression, GERD, fibromyalgia, history of endometrial carcinoma, lymphedema, noncompliance presents with dizziness. 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 Left vertebral ostial 50% stenosis right vertebral ostial 70% stenosis MRI brain shows tiny foci of restricted diffusion involving left thalamus and right precentral gyrus and another tiny hyperintense focus on left centrum semiovale Evaluated by neurology; recommended to be started on Xarelto and aspirin. They also recommend vascular consult for left ICA stenosis PT OT evaluation ordered Echocardiogram ordered; will follow results History of DVT and PE History of massive pulmonary embolism in September 2022 with history of COVID -started on xarelto History of hyperlipidemia Patient is declined statin as per PCP notes; will obtain lipid panel in am Hypertension On metoprolol tartrate Will monitor Depression On citalopram and imipramine GERD Omeprazole History of uterine cancer status post hysterectomy Lower extremity edema chronic Lymphedema Possible cellulitis of the right lower extremity on ceftriaxone,continue Morbid obesity Noncompliance as per records DVT prophylaxis Xarelto Disposition Telemetry Full code Please note the above document was generated using voice recognition software. It may contain grammatical, syntax or spelling errors. Any formal questions or concerns about the content, text or information contained within the body of this dictation should be directly addressed to the provider for clarification Admission and Anticipated Discharge Date Admission Date: February 23, 2025 Subjective Patient seen and examined at bedside. She is lying in the bed comfortably; denies any pain or discomfort Reports that her dizziness has improved compared to yesterday. Review of Systems Review of Systems: All systems reviewed & are unremarkable except as noted in Subjective Physical Exam Physical Exam: General- Not in distress Head- atraumatic Eyes- PERRL, EOMI, no nystagmus seen ENT- oropharynx clear Neck- supple, no JVD, no carotid bruit Lungs- clear to auscultation, no wheezing or crackles Heart- regular rate and rhythm; no murmur, no gallop. Abdomen- normal bowel sounds, soft, nontender, no distension. Extremities- b/l lower extremity chronic edema and chronic skin changes seen. Right Leg erythematous. Neuro- alert, oriented PERRL, EOMI; no facial palsy; no dysarthria; power 5/5 upper extremties 2/5 right lower extremity 3/5 left lower extremity, no pronator drift; Results & Data Results & Data Vital Signs (Past 12 Hours) Vital Signs Temp Pulse Resp BP Pulse Ox O2 Del Method O2 Flow Rate 02/23/25 15:00 77 21 02/23/25 14:57 76 02/23/25 14:00 78 21 95 Nasal Cannula 1 02/23/25 13:18 77 20 02/23/25 13:09 139/73 02/23/25 12:45 80 23 02/23/25 12:03 81 20 02/23/25 11:06 74 22 97 Nasal Cannula 1 02/23/25 11:01 181/100 H 02/23/25 10:51 73 21 97 Nasal Cannula 1 02/23/25 10:51 72 20 97 Nasal Cannula 1 02/23/25 10:06 74 19 98 Nasal Cannula 1 02/23/25 10:03 180/82 H 02/23/25 07:18 88 22 160/84 H 97 Nasal Cannula 2 02/23/25 06:55 103 H 02/23/25 06:18 90 20 185/86 H 98 Nasal Cannula 2 02/23/25 05:46 92 H 20 164/87 H 95 Nasal Cannula 2 02/23/25 05:45 93 H 22 164/87 H 97 Nasal Cannula 2 02/23/25 05:30 88 19 168/93 H 96 Nasal Cannula 2 02/23/25 05:15 86 18 95 Nasal Cannula 2 02/23/25 04:45 92 H 20 96 Nasal Cannula 2 02/23/25 04:39 92 H 157/92 H 02/23/25 04:39 Nasal Cannula 2 02/23/25 04:39 36.8 C 02/23/25 04:39 92 H 18 157/92 H 95 Nasal Cannula 2 02/23/25 04:37 88 18 146/79 H 96 Nasal Cannula 2 02/23/25 04:30 92 H 19 96 Nasal Cannula 2 02/23/25 04:01 88 18 200/111 H 96 Nasal Cannula 2 02/23/25 03:58 94 H 02/23/25 03:33 94 H 18 161/99 H 96 Nasal Cannula 2
[2025-02-23 19:31] LABS: Appearance Urine Clear (Clear); Bacteria Urine Automated 1+ (None Seen); Cast Urine Automated 0-2 /lpf (0-2); Epithelial Cell Urine Auto 0-2 /hpf (0-2); Glucose Urine UA Negative (Negative); RBC Urine Automated 0-2 /hpf (0-2); WBC Urine Automated 21-50 /hpf (0-5)
[2025-02-23] MEDS: RIVAROXABAN 20 MG TAB PO SCH (21:25)
[2025-02-24 05:19] LABS: Hematocrit (blood only) 41.0 % (37.0-47.0); Hemoglobin 13.2 g/dl (12.0-16.0); Immature Granulocytes # (auto) 0.02 K/uL (0.01-0.20); Immature Granulocytes % (auto) 0.3 %; Mean Corpuscular Hemoglobin 29.0 pg (25.0-34.0); Mean Corpuscular Volume 90.1 fL (80.0-100.0); Platelet Count 218 K/uL (130-400); RDW Standard Deviation 44.8 fL (36.4-46.3); Red Blood Count 4.55 M/uL (4.20-5.40); White Blood Count 6.67 K/ul (4.8-10.8)
[2025-02-24 05:36] LABS: Anion Gap 5.0 (3-11); Blood Urea Nitrogen 12.0 mg/dl (6-23); Calcium 8.8 mg/dl (8.6-10.3); Carbon Dioxide 30.0 mmol/L (21-32); Chloride 106.0 mmol/L (98-107); Cholesterol 192.0 mg/dl (0-200); Creatinine Clr Calc Pharmacy 91.8 ml/min; Glucose 83.0 mg/dl (70-99(Fasting)); HDL Cholesterol 58.0 mg/dl; Potassium 3.9 mmol/L (3.5-5.1); Sodium 141.0 mmol/L (136-145); Triglycerides 88.0 mg/dl (0-150)
[2025-02-24] MEDS: ASPIRIN 81 MG ECTAB PO SCH (07:29)
[2025-02-24] MEDS: ATORVASTATIN 20 MG TAB PO SCH (08:20)
--- NOTE | 2025-02-24 12:45 | Consultation ---
Date of Consultation February 24, 2025 Assessment & Plan (1) Stenosis of left internal carotid artery: This patient has multiple lesions in both right and left sides. Her left carotid stenosis is not a cause for her dizziness. She appears to be asx from this narrowing. I would keep her on an antiplatelet in addition to her anticoagulation. Agree with echo with bubble study We will rescan her carotid artery in 6months for followup. Thank you very much for letting us participate in the care of this patient. History of Present Illness Reason for Consultation: Left internal carotid artery stenosis Attending Physician: Ankit Childs MD History of Present Illness This is an 79 year old pleasant female who states she was watching TV with her daughter around 4 PM prior to admission when she noticed room spinning. It was very severe. Associated with nausea and vomiting. In the ambulance she was vomiting. She says the symptoms lasted for several hours. Currently they are resolved. Never had this before. Has not had any dizziness since being admitted. Her workup showed bilateral defects in the brain and a 70% left internal carotid artery stenosis Allergies Allergy/AdvReac Type Severity Reaction Status Date / Time fluoxetine Allergy Unknown unk Verified 02/22/25 20:48 Sulfa (Sulfonamide Allergy Unknown unk Verified 02/22/25 20:48 Antibiotics) buspirone AdvReac Severe suical Verified 02/22/25 20:48 thoughts prednisone AdvReac Intermediate agitation Verified 02/22/25 20:48 Home Medications Medication Instructions Recorded Confirmed Type citalopram 40 mg tablet 40 mg PO QAM 05/07/18 02/22/25 History omeprazole 20 mg tablet,delayed 20 mg PO DAILYBB 05/07/18 02/22/25 History release imipramine HCl 25 mg tablet 25 mg PO TID 09/06/23 02/22/25 History metoprolol tartrate 25 mg tablet 25 mg PO BID 02/22/25 02/22/25 History multivitamin 1 tab PO DAILY 02/22/25 02/22/25 History Patient History Medical History Cellulitis Asthma Hypertension Family History Other No significant family history Social History Smoking Status: Never smoker Second Hand Exposure: No; Do You Dip or Chew Tobacco: No; Hx Alcohol Use: No Hx Substance Use: No Preferred Language: Citizen Of [place] Communication Ability: Effective Crib Pad Maker Required: No Beliefs That Will Affect Care: None marital status: Current Living Situation: Spouse Current Living Situation Comment: with Leopoldo Contreras How many Children do You have: 2 Feels Safe at Home: Yes Assistive Devices: Walker Review of Systems Review of Systems: All systems reviewed & are unremarkable except as noted in HPI & below Physical Exam Constitutional: WD/WN, vitals as above Respiratory: normal respiratory effort; no respiratory distress Cardiovascular: Rate/Rhythm: regular rate and regular rhythm Vessels: normal peripheral pulses Extremities: normal capillary refill Gastrointestinal (Abdomen): Inspection/Auscultation: abdomen normal to inspection Neurologic: CN's II-XI intact bilaterally and moves all extremities Psychiatric: A+Ox3, euthymic affect Results & Data Vital Signs (Past 12 Hours) Vital Signs Temp Pulse Pulse Resp BP Pulse Ox O2 Del Method 02/24/25 11:22 36.9 C 86 20 167/75 H 98 Room Air 02/24/25 07:59 36.4 C L 93 H 18 158/74 H 96 Room Air 02/24/25 07:22 98 H 02/24/25 03:17 36.7 C 82 18 159/82 H 95 Room Air
--- NOTE | 2025-02-24 13:24 | Hospitalist Progress Note ---
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 Left vertebral ostial 50% stenosis right vertebral ostial 70% stenosis MRI brain shows tiny foci of restricted diffusion involving left thalamus and right precentral gyrus and another tiny hyperintense focus on left centrum semiovale Evaluated by neurology; recommended to be started on Xarelto and aspirin. They also recommend vascular consult for left ICA stenosis; Recommended to continue anticoagulation/aspirin. Plan to rescan her carotid artery in 6-month for follow-up Continue PT/OT Echocardiogram ordered; will follow results History of DVT and PE History of massive pulmonary embolism in September 2022 with history of COVID -started on xarelto History of hyperlipidemia Patient is declined statin as per PCP notes; will obtain lipid panel in am Hypertension On metoprolol tartrate Will monitor Depression On citalopram and imipramine GERD Omeprazole History of uterine cancer status post hysterectomy Lower extremity edema chronic Lymphedema Possible cellulitis of the right lower extremity on ceftriaxone,continue Morbid obesity Noncompliance as per records DVT prophylaxis Xarelto Disposition Telemetry Full code Time spent evaluating patient, direct bedside care, chart review, placing orders, interpretation of diagnostic studies, discussion with consultants, patient, and family members, as well as other required patient management activities is 50 minutes Please note the above document was generated using voice recognition software. It may contain grammatical, syntax or spelling errors. Any formal questions or concerns about the content, text or information contained within the body of this dictation should be directly addressed to the provider for clarification Admission and Anticipated Discharge Date Admission Date: February 23, 2025 Subjective Patient seen and examined at bedside. Comfortable; not in distress. Denies fever, chills, chest pain, shortness of breath, abdominal pain or urinary symptoms. No significant overnight events Review of Systems Review of Systems: All systems reviewed & are unremarkable except as noted in Subjective Physical Exam Physical Exam: General- Not in distress Head- atraumatic Eyes- PERRL, EOMI, no nystagmus seen ENT- oropharynx clear Neck- supple, no JVD, no carotid bruit Lungs- clear to auscultation, no wheezing or crackles Heart- regular rate and rhythm; no murmur, no gallop. Abdomen- normal bowel sounds, soft, nontender, no distension. Extremities- b/l lower extremity chronic edema and chronic skin changes seen. Right Leg erythematous. Neuro- alert, oriented PERRL, EOMI; no facial palsy; no dysarthria; power 5/5 upper extremties 2/5 right lower extremity 3/5 left lower extremity, no pronator drift; Results & Data Results & Data Vital Signs (Past 12 Hours) Vital Signs Temp Pulse Pulse Resp BP Pulse Ox O2 Del Method 02/24/25 11:22 36.9 C 86 20 167/75 H 98 Room Air 02/24/25 07:59 36.4 C L 93 H 18 158/74 H 96 Room Air 02/24/25 07:22 98 H 02/24/25 03:17 36.7 C 82 18 159/82 H 95 Room Air
[2025-02-24] MEDS: LABETALOL HCL IV 5 MG/ML 20ML IV STA (21:58)
--- NOTE | 2025-02-25 06:27 | Electrocardiogram Report ---
Test Reason : Blood Pressure : */* mmHG Vent. Rate : 88 BPM Atrial Rate : 88 BPM P-R Int : 150 ms QRS Dur : 94 ms QT Int : 412 ms P-R-T Axes : 47 11 61 degrees QTcB Int : 499 ms Normal sinus rhythm Possible Left atrial enlargement Nonspecific ST abnormality Prolonged QT When compared with ECG of 06-Sep-2023 11:16, QT has lengthened Confirmed by Ever David ([id number]) on 02/25/2025 6:27:19 AM Referred By: REFERRED SELF Confirmed By: Ever David
--- NOTE | 2025-02-25 13:52 | Hospitalist Progress Note ---
Date of Service February 25, 2025 Assessment & Plan (1) Vertigo: Plan: 79-year-old female with past med history significant for dyslipidemia, diaphragmatic hernia, massive pulmonary embolism and DVTs with COVID-19, carotid stenosis, hypertension, right ventricle dilatation, morbid obesity, GERD, fibromyalgia, depression, GERD, fibromyalgia, history of endometrial carcinoma, lymphedema, noncompliance presents with dizziness. 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 Left vertebral ostial 50% stenosis right vertebral ostial 70% stenosis MRI brain shows tiny foci of restricted diffusion involving left thalamus and right precentral gyrus and another tiny hyperintense focus on left centrum semiovale Echocardiogram shows EF of 65 to 70% with grade 1 diastolic dysfunction; aortic valve left and mitral annular calcification present. Evaluated by neurology; recommended to be started on Xarelto and aspirin. They also recommend vascular consult for left ICA stenosis;vascular surgery recommended to continue anticoagulation/aspirin. Plan to rescan her carotid artery in 6-month for follow-up Continue PT/OT History of DVT and PE History of massive pulmonary embolism in September 2022 with history of COVID -started on xarelto History of hyperlipidemia Patient is declined statin as per PCP notes; started on Lipitor Hypertension- Stop metoprolol; start on amlodipine and Coreg Depression On citalopram and imipramine,continue GERD Omeprazole-continue History of uterine cancer status post hysterectomy Lower extremity edema chronic Lymphedema Possible cellulitis of the right lower extremity on ceftriaxone,continue Morbid obesity- follow up with PCP Noncompliance as per records DVT prophylaxis Xarelto Disposition Telemetry Full code Time spent evaluating patient, direct bedside care, chart review, placing orders, interpretation of diagnostic studies, discussion with consultants, patient, and family members, as well as other required patient management activities is 50 minutes Please note the above document was generated using voice recognition software. It may contain grammatical, syntax or spelling errors. Any formal questions or concerns about the content, text or information contained within the body of this dictation should be directly addressed to the provider for clarification Admission and Anticipated Discharge Date Admission Date: February 23, 2025 Subjective Patient seen and examined at bedside. She is comfortable; not in distress. Denies any new neurological symptoms. Blood pressure continues to be elevated Review of Systems Review of Systems: All systems reviewed & are unremarkable except as noted in Subjective Physical Exam 2 Physical Exam: General- Not in distress Head- atraumatic Eyes- PERRL, EOMI, no nystagmus seen ENT- oropharynx clear Neck- supple, no JVD, no carotid bruit Lungs- clear to auscultation, no wheezing or crackles Heart- regular rate and rhythm; no murmur, no gallop. Abdomen- normal bowel sounds, soft, nontender, no distension. Extremities- b/l lower extremity chronic edema and chronic skin changes seen. Right Leg erythematous. Neuro- alert, oriented PERRL, EOMI; no facial palsy; no dysarthria; power 5/5 upper extremties 2/5 right lower extremity 3/5 left lower extremity, no pronator drift; Results & Data Results & Data Vital Signs (Past 12 Hours) Vital Signs Temp Pulse Pulse Resp BP Pulse Ox O2 Del Method 02/25/25 11:24 36.7 C 83 18 167/91 H 96 Room Air 02/25/25 09:50 85 02/25/25 03:37 36.7 C 73 20 162/71 H 94 Room Air
[2025-02-26 06:26] LABS: Hematocrit (blood only) 43.0 % (37.0-47.0); Hemoglobin 14.1 g/dl (12.0-16.0); Immature Granulocytes # (auto) 0.04 K/uL (0.01-0.20); Immature Granulocytes % (auto) 0.5 %; Mean Corpuscular Hemoglobin 29.4 pg (25.0-34.0); Mean Corpuscular Volume 89.8 fL (80.0-100.0); Platelet Count 231 K/uL (130-400); RDW Standard Deviation 42.9 fL (36.4-46.3); Red Blood Count 4.79 M/uL (4.20-5.40); White Blood Count 8.57 K/ul (4.8-10.8)
[2025-02-26 06:59] LABS: Anion Gap 7.0 (3-11); Blood Urea Nitrogen 14.0 mg/dl (6-23); Calcium 8.8 mg/dl (8.6-10.3); Carbon Dioxide 30.0 mmol/L (21-32); Chloride 103.0 mmol/L (98-107); Creatinine Clr Calc Pharmacy 98.6 ml/min; Glucose 109.0 mg/dl (70-99(Fasting)); Magnesium 1.9 mg/dl (1.7-2.4); Potassium 3.5 mmol/L (3.5-5.1); Sodium 140.0 mmol/L (136-145)
--- NOTE | 2025-02-26 08:02 | Hospitalist Progress Note ---
Date of Service February 26, 2025 Assessment & Plan (1) Vertigo: Plan: 79-year-old female with past med history significant for dyslipidemia, diaphragmatic hernia, massive pulmonary embolism and DVTs with COVID-19, carotid stenosis, hypertension, right ventricle dilatation, morbid obesity, GERD, fibromyalgia, depression, GERD, fibromyalgia, history of endometrial carcinoma, lymphedema, noncompliance presents with dizziness. 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 Left vertebral ostial 50% stenosis right vertebral ostial 70% stenosis MRI brain shows tiny foci of restricted diffusion involving left thalamus and right precentral gyrus and another tiny hyperintense focus on left centrum semiovale Echocardiogram shows EF of 65 to 70% with grade 1 diastolic dysfunction; aortic valve left and mitral annular calcification present. Evaluated by neurology; recommended to be started on Xarelto and aspirin. They also recommend vascular consult for left ICA stenosis;vascular surgery recommended to continue anticoagulation/aspirin. Plan to rescan her carotid artery in 6-month for follow-up will obtain CT head wo contrast given patient complaints of intermittent word findings difficulty. Continue PT/OT; dc to rehab when placement aviable Paroxysmal atrial tachycardia Patient noted to have 15 beat of PAT in the morning of March 25, 2025 Coreg dose titrated; continue to monitor on telemetry History of DVT and PE History of massive pulmonary embolism in September 2022 with history of COVID -started on xarelto-continue on discharge. History of hyperlipidemia Patient is declined statin as per PCP notes; started on Lipitor Hypertensive urgency Patient was previously prescribed Coreg and amlodipine which she has stopped. Restarted on Coreg and amlodipine; hold metoprolol. Depression On citalopram and imipramine,continue GERD Omeprazole-continue History of uterine cancer status post hysterectomy Lower extremity edema chronic Lymphedema Possible cellulitis of the right lower extremity on ceftriaxone,continue Morbid obesity- follow up with PCP Noncompliance as per records DVT prophylaxis Xarelto Disposition Telemetry Full code Time spent evaluating patient, direct bedside care, chart review, placing orders, interpretation of diagnostic studies, discussion with consultants, patient, and family members, as well as other required patient management activities is 50 minutes Please note the above document was generated using voice recognition software. It may contain grammatical, syntax or spelling errors. Any formal questions or concerns about the content, text or information contained within the body of this dictation should be directly addressed to the provider for clarification Admission and Anticipated Discharge Date Admission Date: February 23, 2025 Subjective Patient seen and examined at bedside. Comfortable; not in distress. Reports some word finding difficulties; no other neurological signs Denies fever, chills, chest pain, shortness of breath, abdominal pain or urinary symptoms. No significant overnight events Review of Systems Review of Systems: All systems reviewed & are unremarkable except as noted in Subjective Physical Exam Physical Exam: General- Not in distress Head- atraumatic Eyes- PERRL, EOMI, no nystagmus seen ENT- oropharynx clear Neck- supple, no JVD, no carotid bruit Lungs- clear to auscultation, no wheezing or crackles Heart- regular rate and rhythm; no murmur, no gallop. Abdomen- normal bowel sounds, soft, nontender, no distension. Extremities- b/l lower extremity chronic edema and chronic skin changes seen. Right Leg erythematous. Neuro- alert, oriented PERRL, EOMI; no facial palsy; no dysarthria; power 5/5 upper extremties 2/5 right lower extremity 3/5 left lower extremity, no pronator drift; Results & Data Results & Data Vital Signs (Past 12 Hours) Vital Signs Temp Pulse Pulse Resp BP Pulse Ox O2 Del Method 02/26/25 07:22 95 H 02/26/25 03:09 36.8 C 89 18 168/88 H 95 Room Air 02/25/25 23:56 88 02/25/25 23:11 36.7 C 90 22 144/75 H 90 Room Air
--- NOTE | 2025-02-26 11:21 | CT Scan Report ---
CT SCAN OF THE BRAIN WITHOUT IV CONTRAST CLINICAL HISTORY: Change in mental status. Difficulty with word finding. Known left thalamic infarct. COMPARISON STUDY: CT of the brain dated 02/22/2025. MRI of the brain dated 02/23/2025. TECHNIQUE: Unenhanced axial CT scan of the brain is performed from the vertex to the skull base. A do se lowering technique was utilized adhering to the principles of ALARA. CT DOSE: 663.26 mGy.cm FINDINGS: Brain parenchyma: There is age-related involutional change noting advanced confluent subcortical and periventricular microangiopathic disease. There is no hemorrhage, mass effect, or evidence of acute t erritorial ischemia by CT criteria. A chronic lacunar infarct is noted in the left basal ganglia. Gra y-white matter differentiation is preserved. No extra-axial fluid collection is seen. Ventricles, sulci, cisterns: Prominent secondary to involutional change. Intracranial vasculature: There is atherosclerotic calcification of the cavernous carotid and vertebr al arteries. Calvarium: Unremarkable. Sinuses and mastoids: There is mild mucosal thickening within the sphenoid and ethmoid sinuses. The m astoid air cells are well pneumatized. Cerumen is noted in the external canals, left side greater tanvi n right. Orbits: The bony orbits are grossly intact. IMPRESSION: 1. There is no hemorrhage, mass effect, or evidence of acute territorial ischemia by CT criteria. 2. The tiny left thalamic infarct seen by MRI on 02/23/[address]. ACT 112: Negative or not required by law. Electronically signed by: Mike Rawls M.D. 02/26/2025 11:19 AM
--- NOTE | 2025-02-27 08:21 | Hospitalist Progress Note ---
Date of Service February 27, 2025 Assessment & Plan (1) Vertigo: Plan: 79-year-old female with past med history significant for dyslipidemia, diaphragmatic hernia, massive pulmonary embolism and DVTs with COVID-19, carotid stenosis, hypertension, right ventricle dilatation, morbid obesity, GERD, fibromyalgia, depression, GERD, fibromyalgia, history of endometrial carcinoma, lymphedema, noncompliance presents with dizziness. 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 Left vertebral ostial 50% stenosis right vertebral ostial 70% stenosis MRI brain shows tiny foci of restricted diffusion involving left thalamus and right precentral gyrus and another tiny hyperintense focus on left centrum semiovale Echocardiogram shows EF of 65 to 70% with grade 1 diastolic dysfunction; aortic valve left and mitral annular calcification present. Repeat CT done on 02/26 for concern of word finding difficultiesno acute findings seen Evaluated by neurology; recommended to be started on Xarelto and aspirin. They also recommend vascular consult for left ICA stenosis;vascular surgery recommended to continue anticoagulation/aspirin. Plan to rescan her carotid artery in 6-month for follow-up Continue PT/OT;Reports that she would like to go home on home health; discussed with case management. Home PT OT to be set up Paroxysmal atrial tachycardia Patient noted to have 15 beat of PAT in the morning of February 26, 2025 Coreg dose titrated; continue to monitor on telemetry History of DVT and PE History of massive pulmonary embolism in September 2022 with history of COVID -started on xarelto-continue on discharge. History of hyperlipidemia Patient is declined statin as per PCP notes; started on Lipitor Hypertensive urgency Patient was previously prescribed Coreg and amlodipine which she has stopped. Restarted on Coreg and amlodipine; hold metoprolol. Depression On citalopram and imipramine,continue GERD Omeprazole-continue History of uterine cancer status post hysterectomy Lower extremity edema chronic Lymphedema Possible cellulitis of the right lower extremity on ceftriaxone,continue Morbid obesity- follow up with PCP Noncompliance as per records DVT prophylaxis Xarelto Disposition Telemetry Full code Time spent evaluating patient, direct bedside care, chart review, placing order s, interpretation of diagnostic studies, discussion with consultants, patient, and family members, as well as other required patient management activities is 50 minutes Please note the above document was generated using voice recognition software. It may contain grammatical, syntax or spelling errors. Any formal questions or concerns about the content, text or information contained within the body of this dictation should be directly addressed to the provider for clarification Admission and Anticipated Discharge Date Admission Date: February 23, 2025 Subjective Patient seen and examined at bedside. She is comfortable; not in distress Blood pressure well-controlled on current medication No new neurological symptoms. Reports some dizziness on movement Review of Systems Review of Systems: All systems reviewed & are unremarkable except as noted in Subjective Physical Exam Physical Exam: General- Not in distress Head- atraumatic Eyes- PERRL, EOMI, no nystagmus seen ENT- oropharynx clear Neck- supple, no JVD, no carotid bruit Lungs- clear to auscultation, no wheezing or crackles Heart- regular rate and rhythm; no murmur, no gallop. Abdomen- normal bowel sounds, soft, nontender, no distension. Extremities- b/l lower extremity chronic edema and chronic skin changes seen. Right Leg erythematous- improved Neuro- alert, oriented PERRL, EOMI; no facial palsy; no dysarthria; power 5/5 upper extremties 2/5 right lower extremity 3/5 left lower extremity, no pronator drift; Results & Data Results & Data Vital Signs (Past 12 Hours) Vital Signs Temp Pulse Pulse Resp BP Pulse Ox O2 Del Method 02/27/25 07:53 36.5 C 86 18 133/71 95 Room Air 02/27/25 07:42 84 02/27/25 03:47 36.8 C 92 H 18 154/78 H 95 Room Air 02/26/25 23:44 36.4 C L 77 16 146/70 H 94 Room Air 02/26/25 23:36 76
--- NOTE | 2025-02-28 09:08 | Hospitalist Progress Note ---
Date of Service February 28, 2025 Assessment & Plan (1) Vertigo: Plan: 79-year-old female with past med history significant for dyslipidemia, diaphragmatic hernia, massive pulmonary embolism and DVTs with COVID-19, carotid stenosis, hypertension, right ventricle dilatation, morbid obesity, GERD, fibromyalgia, depression, GERD, fibromyalgia, history of endometrial carcinoma, lymphedema, noncompliance presents with dizziness. 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 Left vertebral ostial 50% stenosis right vertebral ostial 70% stenosis MRI brain shows tiny foci of restricted diffusion involving left thalamus and right precentral gyrus and another tiny hyperintense focus on left centrum semiovale Echocardiogram shows EF of 65 to 70% with grade 1 diastolic dysfunction; aortic valve left and mitral annular calcification present. Repeat CT done on 02/26 for concern of word finding difficultiesno acute findings seen Evaluated by neurology; recommended to be started on Xarelto and aspirin. They also recommend vascular consult for left ICA stenosis;vascular surgery recommended to continue anticoagulation/aspirin. Plan to rescan her carotid artery in 6-month for follow-up Continue PT/OT;Reports that she would like to go home on home health; discussed with case management. Home PT OT to be set up Reports dizziness intermittently; orthostatic vitals wnl. likely secondary to CVA. Paroxysmal atrial tachycardia Patient noted to have 15 beat of PAT in the morning of February 26, 2025 Coreg dose titrated; continue to monitor on telemetry History of DVT and PE History of massive pulmonary embolism in September 2022 with history of COVID -started on xarelto-continue on discharge. History of hyperlipidemia Patient is declined statin as per PCP notes; started on Lipitor Hypertensive urgency Patient was previously prescribed Coreg and amlodipine which she has stopped. Restarted on Coreg and amlodipine; hold metoprolol. Depression On citalopram and imipramine,continue GERD Omeprazole-continue History of uterine cancer status post hysterectomy Lower extremity edema chronic Lymphedema Possible cellulitis of the right lower extremity on ceftriaxone,treat for total of 7 days Morbid obesity- follow up with PCP Noncompliance as per records DVT prophylaxis Xarelto Disposition Telemetry Full code Time spent evaluating patient, direct bedside care, chart review, placing orders, interpretation of diagnostic studies, discussion with consultants, patient, and family members, as well as other required patient management activities is 50 minutes Please note the above document was generated using voice recognition software. It may contain grammatical, syntax or spelling errors. Any formal questions or concerns about the content, text or information contained within the body of this dictation should be directly addressed to the provider for clarification Admission and Anticipated Discharge Date Admission Date: February 23, 2025 Subjective Patient seen and examined at bedside. She is comfortable; not in distress. Reports intermittent periods of dizziness. No new neurological symptoms. Review of Systems Review of Systems: All systems reviewed & are unremarkable except as noted in Subjective Physical Exam Physical Exam: General- Not in distress Head- atraumatic Eyes- PERRL, EOMI, no nystagmus seen ENT- oropharynx clear Neck- supple, no JVD, no carotid bruit Lungs- clear to auscultation, no wheezing or crackles Heart- regular rate and rhythm; no murmur, no gallop. Abdomen- normal bowel sounds, soft, nontender, no distension. Extremities- b/l lower extremity chronic edema and chronic skin changes seen. Right leg bigger than the left at baseline. Right Leg erythematous- improved Neuro- alert, oriented PERRL, EOMI; no facial palsy; no dysarthria; power 5/5 upper extremties 2/5 right lower extremity 3/5 left lower extremity, no pronator drift; Results & Data Results & Data Vital Signs (Past 12 Hours) Vital Signs Temp Pulse Pulse Resp BP Pulse Ox O2 Del Method 02/28/25 08:36 36.5 C 84 20 170/83 H 96 Room Air 02/28/25 03:18 36.4 C L 77 18 124/59 L 93 Room Air 02/27/25 23:08 36.6 C 80 18 130/68 96 Room Air 02/27/25 22:48 81
[2025-02-28] MEDS: SODIUM CHLORIDE 0.9% 500 ML IV SCH (11:43)
[2025-03-01 05:07] LABS: Hematocrit (blood only) 38.6 % (37.0-47.0); Hemoglobin 13.0 g/dl (12.0-16.0); Immature Granulocytes # (auto) 0.02 K/uL (0.01-0.20); Immature Granulocytes % (auto) 0.3 %; Mean Corpuscular Hemoglobin 29.8 pg (25.0-34.0); Mean Corpuscular Volume 88.5 fL (80.0-100.0); Platelet Count 210 K/uL (130-400); RDW Standard Deviation 42.5 fL (36.4-46.3); Red Blood Count 4.36 M/uL (4.20-5.40); White Blood Count 6.27 K/ul (4.8-10.8)
[2025-03-01 05:30] LABS: Anion Gap 6.0 (3-11); Blood Urea Nitrogen 13.0 mg/dl (6-23); Calcium 8.6 mg/dl (8.6-10.3); Carbon Dioxide 27.0 mmol/L (21-32); Chloride 106.0 mmol/L (98-107); Creatinine Clr Calc Pharmacy 92.3 ml/min; Glucose 102.0 mg/dl (70-99(Fasting)); Potassium 3.4 mmol/L (3.5-5.1); Sodium 139.0 mmol/L (136-145)
[2025-03-01] MEDS: POTASSIUM CHLORIDE CRTAB 20 MEQ TABCR PO STA (08:28)
[2025-03-01] MEDS: POTASSIUM CHLORIDE 20 MEQ/15 ML UDC PO SCH (10:02)
[2025-03-01] MEDS: ADVANCED PROBIOTIC 625 MG CAPSULE PO SCH (10:52)
--- NOTE | 2025-03-01 15:51 | Hospitalist Progress Note ---
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 Left vertebral ostial 50% stenosis right vertebral ostial 70% stenosis MRI brain shows tiny foci of restricted diffusion involving left thalamus and right precentral gyrus and another tiny hyperintense focus on left centrum semiovale Echocardiogram shows EF of 65 to 70% with grade 1 diastolic dysfunction; aortic valve left and mitral annular calcification present. Repeat CT done on 02/26 for concern of word finding difficultiesno acute findings seen Evaluated by neurology; recommended to be started on Xarelto and aspirin. They also recommend vascular consult for left ICA stenosis;vascular surgery recommended to continue anticoagulation/aspirin. Plan to rescan her carotid artery in 6-month for follow-up Continue PT/OT;Reports that she would like to go home on home health; discussed with case management. Home PT OT to be set up Reports dizziness intermittently; orthostatic vitals wnl. likely secondary to CVA. Paroxysmal atrial tachycardia Patient noted to have 15 beat of PAT in the morning of February 26, 2025 Coreg dose titrated; continue to monitor on telemetry History of DVT and PE History of massive pulmonary embolism in September 2022 with history of COVID -started on xarelto-continue on discharge. History of hyperlipidemia: Patient is declined statin as per PCP notes; started on Lipitor Hypertensive urgency Patient was previously prescribed Coreg and amlodipine which she has stopped. Restarted on Coreg and amlodipine; hold metoprolol. Depression: On citalopram and imipramine,continue GERD: Omeprazole-continue History of uterine cancer status post hysterectomy Lower extremity edema chronic Lymphedema Possible cellulitis of the right lower extremity on ceftriaxone,treat for total of 7 days Morbid obesity- follow up with PCP Noncompliance as per records: counselled on importance of medical compliance. DVT prophylaxis: Xarelto Disposition: Telemetry Full code Admission and Anticipated Discharge Date Admission Date: February 23, 2025 Subjective Patient seen and examined at bedside. She is comfortable; not in distress. No dizziness today. No new neurological symptoms. Pt states her home is being fixed and would like to go home on thursday. Pt states she would like to go home w/ HH. Physical Exam Physical Exam: General- Not in distress Head- atraumatic Eyes- PERRL, EOMI, no nystagmus seen ENT- oropharynx clear Neck- supple, no JVD, no carotid bruit Lungs- clear to auscultation, no wheezing or crackles Heart- regular rate and rhythm; no murmur, no gallop. Abdomen- normal bowel sounds, soft, nontender, no distension. Extremities- b/l lower extremity chronic edema and chronic skin changes seen. Right leg bigger than the left at baseline. Right Leg erythematous- improved Neuro- alert, oriented PERRL, EOMI; no facial palsy; no dysarthria; power 5/5 upper extremties Results & Data Results & Data Vital Signs (Past 12 Hours) Vital Signs Temp Pulse Resp BP Pulse Ox O2 Del Method 03/01/25 14:48 36.6 C 80 19 161/73 H 96 Room Air 03/01/25 07:16 36.8 C 92 H 20 164/76 H 95 Room Air 03/01/25 03:59 36.6 C 62 18 117/75 98 Room Air
[2025-03-02] MEDS: POTASSIUM CHLORIDE 20 MEQ/15 ML UDC PO STA (02:46)
[2025-03-02] MEDS: MAGNESIUM SULFATE / D5W 1 GM/100 ML BAG IV ONE (02:47)
[2025-03-02] MEDS: METOPROLOL TARTRATE 25 MG TAB PO STA (03:06)
[2025-03-02 06:39] LABS: Magnesium 2.0 mg/dl (1.7-2.4)
[2025-03-02 08:55] LABS: Blood Urea Nitrogen 15.0 mg/dl (6-23); Calcium 8.6 mg/dl (8.6-10.3); Carbon Dioxide 28.0 mmol/L (21-32); Chloride 107.0 mmol/L (98-107); Creatinine Clr Calc Pharmacy 93.1 ml/min; Glucose 96.0 mg/dl (70-99(Fasting)); Potassium 4.5 mmol/L (3.5-5.1); Sodium 139.0 mmol/L (136-145)
[2025-03-02 09:49] LABS: Anion Gap 4.0 (3-11)
--- NOTE | 2025-03-02 14:32 | Hospitalist Progress Note ---
Date of Service March 02, 2025 Assessment & Plan (1) Vertigo: Plan: 79-year-old female with past med history significant for dyslipidemia, diaphragmatic hernia, massive pulmonary embolism and DVTs with COVID-19, carotid stenosis, hypertension, right ventricle dilatation, morbid obesity, GERD, fibromyalgia, depression, GERD, fibromyalgia, history of endometrial carcinoma, lymphedema, noncompliance presents with dizziness. 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 Left vertebral ostial 50% stenosis right vertebral ostial 70% stenosis MRI brain shows tiny foci of restricted diffusion involving left thalamus and right precentral gyrus and another tiny hyperintense focus on left centrum semiovale Echocardiogram shows EF of 65 to 70% with grade 1 diastolic dysfunction; aortic valve left and mitral annular calcification present. Repeat CT done on 02/26 for concern of word finding difficultiesno acute findings seen Evaluated by neurology; recommended to be started on Xarelto and aspirin. They also recommend vascular consult for left ICA stenosis;vascular surgery recommended to continue anticoagulation/aspirin. Plan to rescan her carotid artery in 6-month for follow-up Continue PT/OT;Reports that she would like to go home on home health; discussed with case management. Home PT OT to be set up Reports dizziness intermittently; orthostatic vitals wnl. likely secondary to CVA. Paroxysmal atrial tachycardia Patient noted to have 15 beat of PAT in the morning of February 26, 2025 Coreg dose titrated; continue to monitor on telemetry History of DVT and PE History of massive pulmonary embolism in September 2022 with history of COVID -started on xarelto-continue on discharge. History of hyperlipidemia: Patient is declined statin as per PCP notes; started on Lipitor Hypertensive urgency Patient was previously prescribed Coreg and amlodipine which she has stopped. Restarted on Coreg and amlodipine; hold metoprolol. Depression: On citalopram and imipramine,continue GERD: Omeprazole-continue History of uterine cancer status post hysterectomy Lower extremity edema chronic Lymphedema Possible cellulitis of the right lower extremity on ceftriaxone,treat for total of 7 days Morbid obesity- follow up with PCP Noncompliance as per records: counselled on importance of medical compliance. DVT prophylaxis: Xarelto Disposition: Telemetry Full code Admission and Anticipated Discharge Date Admission Date: February 23, 2025 Subjective Patient seen and examined at bedside. She is comfortable; not in distress. No dizziness today. No new neurological symptoms. Pt states her home is being fixed and would like to go home [place]. Pt states she would like to go home w/ HH. Physical Exam Physical Exam: General- Not in distress Head- atraumatic Eyes- PERRL, EOMI, no nystagmus seen ENT- oropharynx clear Neck- supple, no JVD, no carotid bruit Lungs- clear to auscultation, no wheezing or crackles Heart- regular rate and rhythm; no murmur, no gallop. Abdomen- normal bowel sounds, soft, nontender, no distension. Extremities- b/l lower extremity chronic edema and chronic skin changes seen. Right leg bigger than the left at baseline. Right Leg erythematous- improved Neuro- alert, oriented PERRL, EOMI; no facial palsy; no dysarthria; power 5/5 upper extremties Results & Data Results & Data Vital Signs (Past 12 Hours) Vital Signs Temp Pulse Pulse Resp BP Pulse Ox O2 Del Method 03/02/25 13:14 77 03/02/25 11:45 36.3 C L 72 18 178/70 H 96 Room Air 03/02/25 07:45 36.4 C L 77 20 134/62 95 Room Air 03/02/25 03:01 36.6 C 80 18 129/64 93 Room Air
[2025-03-02] MEDS: LOPERAMIDE HCL 2 MG CAP PO PRN (16:07)
[2025-03-03 03:26] VITALS: O2SAT 94
[2025-03-03 06:15] LABS: Anion Gap 6.0 (3-11); Blood Urea Nitrogen 16.0 mg/dl (6-23); Calcium 8.8 mg/dl (8.6-10.3); Carbon Dioxide 27.0 mmol/L (21-32); Chloride 107.0 mmol/L (98-107); Creatinine Clr Calc Pharmacy 84.5 ml/min; Glucose 103.0 mg/dl (70-99(Fasting)); Potassium 3.9 mmol/L (3.5-5.1); Sodium 140.0 mmol/L (136-145)
[2025-03-03] MEDS: POTASSIUM CHLORIDE 20 MEQ/15 ML UDC PO SCH (07:21)
[2025-03-03 07:52] VITALS: PULSE 76; RESP 20; TEMP 97.9
--- NOTE | 2025-03-03 11:24 | Discharge Summary ---
Date of Service March 03, 2025 Admission HPI Per Admitting Provider 79-year-old female with past med history significant for dyslipidemia, diaphragmatic hernia, massive pulmonary embolism and DVTs with COVID-19, carotid stenosis, hypertension, right ventricle dilatation, morbid obesity, GERD, fibromyalgia, depression, GERD, fibromyalgia, history of endometrial carcinoma, lymphedema, noncompliance presents with vertigo. Patient states she was watching TV with her daughter around 4 PM yesterday when she noticed room spinning. It was very severe. Associated with nausea and vomiting. In the ambulance she was vomiting. She says the symptoms lasted for several hours. Currently they are resolved. She has a mild dizziness currently. No spinning of the room. Denies any headache. No fevers. No runny nose or sore throat. Decreased hearing going on for some time. Appetite is okay. No difficulty swallowing. Denies any chest pain. Denies shortness of breath. Having abdominal cramps going on for several days. They come and go. Patient alternates constipation and diarrhea. Denies blood in stools. Micturating okay. Chronic edema of the lower extremities. She says her right leg is numb for many years now. Ambulates with walker. Past medical history. As mentioned above Past surgical history. Dilatation curettage. Total abdominal hysterectomy with removal of tubes. Reduction of breast. Social history. . No smoking. No alcohol use. No drug use. Family history. Father had GA. Mother had GA. Sister has hypertension. Sister has torticollis. Admission Exam Per Admitting Provider General- Not in distress Head- atraumatic Eyes- PERRL, EOMI, no nystagmus seen ENT- oropharynx clear Neck- supple, no JVD, no carotid bruit Lungs- clear to auscultation, no wheezing or crackles Heart- regular rate and rhythm; no murmur, no gallop. Abdomen- normal bowel sounds, soft, nontender, no distension. Extremities- b/l lower extremity chronic edema and chronic skin changes seen. Right Leg is numb and erythematous. 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 Abdomen- normal bowel sounds, soft, nontender, no distension. Extremities- b/l lower extremity chronic edema and chronic skin changes seen. Right leg bigger than the left at baseline. Right Leg erythematous- improved Neuro- alert, oriented PERRL, EOMI; no facial palsy; no dysarthria; power 5/5 upper extremties Discharge Data Allergies Allergy/AdvReac Type Severity Reaction Status Date / Time fluoxetine Allergy Unknown unk Verified 02/22/25 20:48 Sulfa (Sulfonamide Allergy Unknown unk Verified 02/22/25 20:48 Antibiotics) buspirone AdvReac Severe suical Verified 02/22/25 20:48 thoughts prednisone AdvReac Intermediate agitation Verified 02/22/25 20:48 Consultations 02/22/25 23:43 ED Decision to Admit Stat 02/23/25 08:00 Consult Neurology Routine 02/23/25 15:19 Consult Vascular Surgery Routine Ordered Studies 02/22/25 19:46 CT head/brain wo con Stat CTA head w con [CT angio head w con] Stat CTA neck with con [CT angio neck with con] Stat 02/23/25 00:06 MR brain wo/w con Stat 02/23/25 05:02 US venous doppler LE BI Routine 02/26/25 09:56 CT head/brain wo con Routine Hospital Course (1) Vertigo: 79-year-old female with past med history significant for dyslipidemia, diaphragmatic hernia, massive pulmonary embolism and DVTs with COVID-19, carotid stenosis, hypertension, right ventricle dilatation, morbid obesity, GERD, fibromyalgia, depression, GERD, fibromyalgia, history of endometrial carcinoma, lymphedema, noncompliance presents with dizziness. 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 Left vertebral ostial 50% stenosis right vertebral ostial 70% stenosis MRI brain shows tiny foci of restricted diffusion involving left thalamus and right precentral gyrus and another tiny hyperintense focus on left centrum semiovale Echocardiogram shows EF of 65 to 70% with grade 1 diastolic dysfunction; aortic valve left and mitral annular calcification present. Repeat CT done on 02/26 for concern of word finding difficultiesno acute findings seen Evaluated by neurology; recommended to be started on Xarelto and aspirin. They also recommend vascular consult for left ICA stenosis;vascular surgery recommended to continue anticoagulation/aspirin. Plan to rescan her carotid artery in 6-month for follow-up Continue PT/OT;Reports that she would like to go home on home health; discussed with case management. Home PT OT to be set up Reports dizziness intermittently; orthostatic vitals wnl. likely secondary to CVA. Utilize meclizine prn for dizziness, no dizziness in last few days per pt. Paroxysmal atrial tachycardia Patient noted to have 15 beat of PAT in the morning of February 26, 2025 Coreg dose titrated; continue to monitor on telemetry History of DVT and PE History of massive pulmonary embolism in September 2022 with history of COVID -started on xarelto-continue on discharge. History of hyperlipidemia: Patient is declined statin as per PCP notes; started on Lipitor Hypertensive urgency Patient was previously prescribed Coreg and amlodipine which she has stopped. Restarted on Coreg and amlodipine; DC metoprolol. Depression: On citalopram and imipramine,continue GERD: Omeprazole-continue History of uterine cancer status post hysterectomy Lower extremity edema chronic Lymphedema Possible cellulitis of the right lower extremity on ceftriaxone,treated for total of 7 days Morbid obesity- follow up with PCP Noncompliance as per records: counselled on importance of medical compliance. DVT prophylaxis: Xarelto Disposition: Telemetry Full code Patient is being discharged home with home health with following instructions at the point of discharge: Follow-up with your primary care physician within a week time and likely you will need labs CBC/CMP/magnesium/phosphorus. Follow-up with neurology in 2 to 4 weeks time upon discharge. Coordinate with your PCP office to set up the referral. Please maintain compliance with medications as prescribed. Follow-up with vascular surgery in 3 to 6 months time upon discharge, they plan to rescan your carotid artery in about 6 months for left ICA stenosis. Your metoprolol has been discontinued and you have been started on Coreg instead. Take your blood pressure twice a day and maintain a log to take to your primary care physician for ongoing monitoring/evaluation/management. Take your medications as prescribed. Please make sure that you are able to get your medications today by calling your pharmacy before you leave the hospital so that your treatment continuity is not broken. Home Health Attestation I certify that this patient is under my care and that I, or a physicians bilingual administrative assistant working with me, had a face to-face encounter that meets the [facility] [id number] encounter requirements with this patient. The encounter with the patient was in whole, or in part, for the following medical condition, which is the primary reason for home health care (list medical condition): I certify that, based on my findings, the following services are medically necessary home health services: My clinical findings support the need for the above services because: Oxygen Safety and Management PT Assessment for Endurance / Balance / Strength Skilled Nsg Assessment Further, I certify that my clinical findings support that this patient is homebound (i.e. absences from home require considerable and taxing effort and are for medical reasons or latter day services or infrequently or of short duration when for other reasons) because: Certification for Home Health Services: Based on the above findings, I certify that this patient is confined to the home and needs intermittent half-way care, physical therapy and/or speech therapy or continues to need occupational therapy. The patient is under my care, and I have initiated the establishment of the plan of care. This patient will be followed by a physician who will periodically review the plan of care. 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 Follow-up with neurology in 2 to 4 weeks time upon discharge. Coordinate with your PCP office to set up the referral. Please maintain compliance with medications as prescribed. Follow-up with vascular surgery in 3 to 6 months time upon discharge, they plan to rescan your carotid artery in about 6 months for left ICA stenosis. Your metoprolol has been discontinued and you have been started on Coreg inst ead. Take your blood pressure twice a day and maintain a log to take to your primary care physician for ongoing monitoring/evaluation/management. Take your medications as prescribed. Please make sure that you are able to get your medications today by calling your pharmacy before you leave the hospital so that your treatment continuity is not broken. Pending Studies at Discharge: No Stand-Alone Forms: [facility], Smoking Cessation Medications and DC Order Prescriptions: New Xarelto 20 mg Tablet 20 mg PO HS Qty: 30 0RF carvedilol 25 mg Tablet 25 mg PO BIDM Qty: 60 0RF atorvastatin 20 mg Tablet 20 mg PO QAM Qty: 30 0RF amlodipine 5 mg Tablet 5 mg PO QAM Qty: 30 0RF aspirin 81 mg Tablet,Delayed Release (Dr/Ec) 81 mg PO QAM Qty: 30 0RF meclizine 25 mg Tablet 25 mg PO BID PRN (Reason: dizziness) Qty: 30 0RF Advanced Probiotic 625 mg (10 billion cell) Capsule 1 cap PO DAILY 7 Days Qty: 7 0RF Continued citalopram 40 mg Tablet 40 mg PO QAM omeprazole 20 mg Tablet,Delayed Release (Dr/Ec) 20 mg PO DAILYBB imipramine HCl 25 mg tablet 25 mg PO TID multivitamin Tablet 1 tab PO DAILY Discontinued metoprolol tartrate 25 mg tablet 25 mg PO BID Discharge Orders: Discharge Order (Routine); Ordered 03/03/25 Ordered By: Shanika Braga Admission Data Admit Date/Time: 02/23/25 04:07 Attending Provider: Shanika Braga Admit Provider: Jaswinder Kern Primary Care Provider: Yandel Tovar Other Providers: Jaswinder Kern; Katerine Cuadra; Tam Cardoso; Katerine Landeros; Chandler Nolasco; Sridhar Erwin; Len Bass; Son Gipson; Mey Lopez; Chris Barnard; Geraldo Hu; Elaine Packer; Tim Melgar; Bisi Kramer; Mary Barros; Son Merino; Annika Polk; Lea Kendall; Jean-Pierre Frances; [facility]; [facility]
[2025-03-03 11:27] VITALS: BP 148/53
== END 2025-03-03 12:05 | disposition home health service (06) | DRG 65 ==
LOC: ED 19:34 → EDINP 02-23 04:07 → SUATTDRO 02-23 04:07 → 2S 02-23 05:03

== ENCOUNTER 2025-03-16 11:04 | Observation (INO) ==
--- NOTE | 2025-03-16 11:30 | Emergency Department Note ---
Impression & Plan Diarrhea, Weakness ED Provider Note Provider: Geovani Ansari MD CHIEF COMPLAINT: Diarrhea HISTORY OF PRESENT ILLNESS: Patient is a 79-year-old female past medical history significant for recent hospitalization for vertigo with findings of CVA, VTE on Xarelto, hypertension, obesity, GERD, lymphedema presenting here via ambulance from home. Patient treated for possible cellulitis and UTI with a course of ceftriaxone for a week while hospitalized from the end of January through March 03. Since day before discharge developed some loose stools. States this persisted at home. Has tried some yogurt without improvement. Not eating great as she does not want to have anything in her stomach that could have diarrhea. Had a large bowel movement this morning and thus came here for evaluation. Denies blood to her knowledge. Maybe a little nauseous because she was anxious earlier but denies significant nausea and denies any vomiting. No fevers reported. No other sick contacts. States she often gets loose stool/diarrhea with antibiotics. Not on antibiotics at home currently. Discharge was approximately 2 weeks ago and again diarrhea has persisted since then. States a little bit of a headache as she has not had her normal medications or food or much to drink yet today. No falls reported. Denies abdominal pain or significant cramping. Patient states she has been ambulatory at home with her walker. States her vertigo is doing okay. PAST MEDICAL HISTORY: As noted above MEDICATIONS: Reviewed home medications SOCIAL HISTORY: Lives at home with PHYSICAL EXAM: GENERAL: alert and oriented in no acute distress on stretcher Head: normocephalic and atraumatic EYES: No injection, discharge or icterus. NECK: Trachea midline. ENT: Mucous membranes pink and moist. LUNGS: Airway patent. No retractions. Breath sounds clear with good air entry bilaterally. HEART: Regular rate and rhythm. No chest wall tenderness ABDOMEN: Soft and non-tender, without guarding or rebound. No masses appreciable. SKIN: Acyanotic, warm, dry, without rashes EXTREMITIES: 1-2+ edema of the lower extremities with chronic lymphedema particularly noted to the right lower leg. Patient states this is stable. NEUROLOGICAL: No focal deficits moving all extremities. No aphasia. No facial droop or slurred speech. EK bpm sinus rhythm with sinus arrhythmia/PVC. No acute ST segment elevation or depression with a QTc of 472. CONTINUOUS CARDIAC MONITORING: was ordered and showed a heart rate of 80s to 90s bpm in sinus rhythms with occasional sinus rhythm/PVC Patient's laboratory studies and imaging reviewed. Differential includes Appendicitis, infections, diverticulitis, UTI, obstruction, mesenteric ischemia, aortic pathology, inflammatory bowel disease, renal colic, PUD, pancreatitis, biliary pathology, hernia, volvulus, constipation, as well as other pathologies. IMPRESSION/MEDICAL DECISION MAKING: Patient well-appearing in no distress. Ongoing diarrhea since hospitalization here with antibiotics. No fevers reported. No significant abdominal pain or cramping reported. Is on anticoagulation but no reported significant blood in the stool. Blood work is obtained here today. Electrolytes are checked. Stool studies ordered pending collection to exclude C. difficile or other infectious diarrhea. No other sick contacts or travel reported. Give a small mount of IV fluid but does not appear an extremis at this time. Morning dose of carvedilol and imipramine that she normally takes given that she did not have her morning medications. Blood work here without significant anemia or leukocytosis. Slight hypokalemia 3.3 but no significant electrolyte abnormalities otherwise. Normal renal function. No evidence of hepatitis or pancreatitis based on labs. Troponin stable at 17.5. Patient again with a benign abdomen. Discussed with her providing stool sample for particularly C. difficile testing. Patient attempting several times to provide stool sample. Still feels quite weak and and feels that she strong enough to go home. As such reach out to the hospitalist team. In discussion with case management due to insurance they recommend admission to [facility] [place] DIAGNOSIS: Diarrhea, weakness DISPOSITION: Hospitalist will evaluate Patient was agreeable with this plan. Past Med/Surg History Problem List (Updated 03/16/25 @ 15:42 by Geovani Ansari M.D.) Diarrhea (Acute) Hypokalemia (Acute) Nausea & vomiting (Acute) Vertigo (Acute) Stenosis of left internal carotid artery Stroke with cerebral ischemia Vertigo Nausea (Acute) Hypertension (Acute) Weakness (Acute) GERD (gastroesophageal reflux disease) Morbid obesity with BMI of 40.0-44.9, adult HLD (hyperlipidemia) Cellulitis of leg, right Depression Syncope (Acute) COVID-19 (Acute) Hypoxia (Acute) Received intravenous tissue plasminogen activator (t-PA) within last 24 hours Pulmonary embolism associated with COVID-19 Acute hypoxemic respiratory failure Encephalopathy Hypertensive urgency (Acute) Female urinary stress incontinence (Chronic Unknown) Arthritis of shoulder region, right (Acute) Degenerative arthritis of right shoulder region (Acute) Right shoulder pain (Acute) Right shoulder pain (Acute) Medical History Cellulitis Asthma Hypertension Family History Other No significant family history Social History Smoking Status: Never smoker Second Hand Exposure: No; Do You Dip or Chew Tobacco: No; Hx Alcohol Use: No Hx Substance Use: No Preferred Language: Turkmen Communication Ability: Effective Stick Feeder Required: No Beliefs That Will Affect Care: None marital status: Current Living Situation: Spouse Current Living Situation Comment: with Leopoldo Contreras How many Children do You have: 2 Feels Safe at Home: Yes Assistive Devices: Walker Allergies Allergies Allergy/AdvReac Type Severity Reaction Status Date / Time fluoxetine Allergy Unknown unk Verified 03/16/25 14:10 Sulfa (Sulfonamide Allergy Unknown unk Verified 03/16/25 14:10 Antibiotics) buspirone AdvReac Severe suical Verified 03/16/25 14:10 thoughts prednisone AdvReac Intermediate agitation Verified 03/16/25 14:10 Home Meds Home Medications Medication Instructions Recorded Confirmed citalopram 40 mg tablet 40 mg PO QAM 05/07/18 03/16/25 omeprazole 20 mg tablet,delayed 20 mg PO DAILYBB 05/07/18 03/16/25 release imipramine HCl 25 mg tablet 0 mg PO TID 09/06/23 03/16/25 multivitamin 1 tab PO DAILY 02/22/25 03/16/25 Previous Rx's Medication Instructions Recorded rivaroxaban 20 mg tablet (Xarelto) 20 mg PO HS #30 tabs 02/28/25 amlodipine 5 mg tablet 5 mg PO QAM #30 tabs 03/03/25 aspirin 81 mg tablet,delayed 81 mg PO QAM #30 tabs 03/03/25 release atorvastatin 20 mg tablet 20 mg PO QAM #30 tabs 03/03/25 carvedilol 25 mg tablet 25 mg PO BIDM #60 tabs 03/03/25 meclizine 25 mg tablet 25 mg PO BID PRN dizziness #30 tabs 03/03/25 Results & Data (ED) Vital Signs Vital Signs - 24 hr 03/16/25 11:13 03/16/25 11:36 03/16/25 11:53 Temperature 36.4 C L Temperature Source Oral Pulse Rate 93 H 93 H 87 Pulse Rate from SpO2 Sensor Pulse Rhythm Respiratory Rate 16 21 Blood Pressure 183/90 H 185/95 H Blood Pressure Mean 121 152 Pulse Oximetry 97 93 Oxygen Delivery Method Room Air Room Air Sepsis Recent Fever Within 48 Hours No Sepsis New/Unexplained Change in Mental Status No Sepsis Action Taken by Nursing No Action Required 03/16/25 12:35 03/16/25 12:35 03/16/25 12:50 Temperature Temperature Source Pulse Rate 94 H 85 91 H Pulse Rate from SpO2 Sensor Pulse Rhythm Regular Respiratory Rate 20 20 19 Blood Pressure 127/91 127/91 Blood Pressure Mean 103 103 Pulse Oximetry 96 92 92 Oxygen Delivery Method Room Air Room Air Room Air Sepsis Recent Fever Within 48 Hours Sepsis New/Unexplained Change in Mental Status Sepsis Action Taken by Nursing 03/16/25 13:30 03/16/25 15:03 Temperature Temperature Source Pulse Rate 85 Pulse Rate from SpO2 Sensor 88 Pulse Rhythm Respiratory Rate 21 21 Blood Pressure 171/89 H 182/90 H Blood Pressure Mean 106 101 Pulse Oximetry 92 91 Oxygen Delivery Method Room Air Room Air Sepsis Recent Fever Within 48 Hours Sepsis New/Unexplained Change in Mental Status Sepsis Action Taken by Nursing Laboratory Data 03/16/25 11:30 03/16/25 11:30 Lab Results 03/16/25 03/16/25 Range/Units 11:30 11:38 WBC 6.83 (4.8-10.8) K/ul RBC 4.73 (4.20-5.40) M/uL Hgb 13.8 (12.0-16.0) g/dl Hct 41.4 (37.0-47.0) % MCV 87.5 (80.0-100.0) fL MCH 29.2 (25.0-34.0) pg MCHC 33.3 (32.0-36.0) g/dL RDW Std Deviation 43.4 (36.4-46.3) fL RDW Coeff of Jose Enrique 13.6 (11.5-14.5) % Plt Count 232 (130-400) K/uL MPV 10.2 (9.4-12.4) fL Immature Gran % (Auto) 0.4 % Neut % (Auto) 76.6 % Lymph % (Auto) 14.3 % [place] % (Auto) 7.2 % Eos % (Auto) 0.9 % Baso % (Auto) 0.6 % Neut # (Auto) 5.23 (1.40-6.50) K/uL Lymph # (Auto) 0.98 L (1.20-3.40) K/uL [place] # (Auto) 0.49 (0.11-0.59) K/uL Eos # (Auto) 0.06 (0.00-0.50) K/uL Baso # (Auto) 0.04 (0.00-0.20) K/uL Immature Gran # (Auto) 0.03 (0.01-0.20) K/uL Sodium 142 (136-145) mmol/L Potassium 3.3 L (3.5-5.1) mmol/L Chloride 106 (98-107) mmol/L Carbon Dioxide 28 (21-32) mmol/L Anion Gap 8 (3-11) BUN 11 (6-23) mg/dl Creatinine 0.62 (0.6-1.2) mg/dl Est Cr Clr Drug Dosing 91.3 ml/min eGFR 89.97 BUN/Creatinine Ratio 17.7 (10-20) Glucose 87 (70-99(Fasting)) mg/dl POC Glucose 80 (70-99) mg/dl Calcium 9.0 (8.6-10.3) mg/dl Total Bilirubin 0.7 (0.2-1.0) mg/dl AST 20 (13-39) U/L ALT 15 (7-52) U/L Alkaline Phosphatase 58 (34-104) U/L Troponin I High Sens 17.5 H (0-14) pg/ml Total Protein 6.5 (6.0-8.3) gm/dl Albumin 3.9 (3.4-5.0) gm/dl Globulin 2.6 (2.5-4.0) gm/dl Albumin/Globulin Ratio 1.5 (0.9-2) Lipase 32 (11-82) U/L Administered Medications Discontinued Medications Carvedilol (Carvedilol 25 Mg Tab) 25 mg PO NOW ONE Stop: 03/16/25 11:28 Last Admin: 03/16/25 11:49 Dose: 25 mg Documented By: ROLAND Sodium Chloride (Nss) 500 mls @ 999 mls/hr IV .Q31M JOSE Stop: 03/16/25 12:00 Last Infusion: 03/16/25 12:48 Dose: Infused Documented By: Admin: 03/16/25 11:38 Dose: 999 mls/hr Documented By: ROSALBA Imipramine HCl (Imipramine Hcl 25 Mg Tab) 25 mg PO ONCE ONE Stop: 03/16/25 11:27 Last Admin: 03/16/25 11:49 Dose: 25 mg Documented By: ROLAND Discharge Plan Visit Data Chief Complaint: Diarrhea ED Provider: Geovani Ansari Discharge Problem: Diarrhea, Weakness Patient Disposition: Being Evaluated by Hospitalist Condition: Fair Forms Stand Alone Forms: [facility] Prescriptions Prescriptions: No Action citalopram 40 mg Tablet 40 mg PO QAM omeprazole 20 mg Tablet,Delayed Release (Dr/Ec) 20 mg PO DAILYBB imipramine HCl 25 mg tablet 0 mg PO TID Patient Comments: Last filled 02/06/25 x30 day supply. Original Directions: 25mg by mouth TID - 03/16/25 multivitamin Tablet 1 tab PO DAILY Xarelto 20 mg Tablet 20 mg PO HS Qty: 30 0RF carvedilol 25 mg Tablet 25 mg PO BIDM Qty: 60 0RF atorvastatin 20 mg Tablet 20 mg PO QAM Qty: 30 0RF amlodipine 5 mg Tablet 5 mg PO QAM Qty: 30 0RF aspirin 81 mg Tablet,Delayed Release (Dr/Ec) 81 mg PO QAM Qty: 30 0RF meclizine 25 mg Tablet 25 mg PO BID PRN (Reason: dizziness) Qty: 30 0RF Referrals Referrals: Yandel Tovar MD [Primary Care Provider] -
[2025-03-16] MEDS: SODIUM CHLORIDE 0.9% 500 ML IV SCH (11:38)
[2025-03-16] MEDS: IMIPRAMINE HCL 25 MG TAB PO ONE (11:49)
[2025-03-16 11:56] LABS: Hematocrit (blood only) 41.4 % (37.0-47.0); Hemoglobin 13.8 g/dl (12.0-16.0); Immature Granulocytes # (auto) 0.03 K/uL (0.01-0.20); Immature Granulocytes % (auto) 0.4 %; Mean Corpuscular Hemoglobin 29.2 pg (25.0-34.0); Mean Corpuscular Volume 87.5 fL (80.0-100.0); Platelet Count 232 K/uL (130-400); RDW Standard Deviation 43.4 fL (36.4-46.3); Red Blood Count 4.73 M/uL (4.20-5.40); White Blood Count 6.83 K/ul (4.8-10.8)
[2025-03-16 12:09] LABS: Alanine Aminotransferase 15.0 U/L (7-52); Albumin Globulin Ratio 1.5 (0.9-2); Alkaline Phosphatase 58.0 U/L (34-104); Anion Gap 8.0 (3-11); Bilirubin,Total 0.7 mg/dl (0.2-1.0); Blood Urea Nitrogen 11.0 mg/dl (6-23); Calcium 9.0 mg/dl (8.6-10.3); Carbon Dioxide 28.0 mmol/L (21-32); Chloride 106.0 mmol/L (98-107); Creatinine Clr Calc Pharmacy 91.3 ml/min; Globulin 2.6 gm/dl (2.5-4.0); Glucose 87.0 mg/dl (70-99(Fasting)); Lipase 32.0 U/L (11-82); Potassium 3.3 mmol/L (3.5-5.1); Sodium 142.0 mmol/L (136-145); Total Protein 6.5 gm/dl (6.0-8.3)
--- NOTE | 2025-03-16 15:58 | History & Physical Report ---
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 #Diarrhea | Weakness - x2 weeks with worsening and recent antibiotic course. 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 Poor appetite because she was worried about having diarrhea, also reports poor oral intake. Denies fevers or chills. No abdominal. Normally has diarrhea with antibiotics but it has always cleared on it own. Denies lightheadedness or dizziness. No recent travel wishes to be a DNR/DNI ED course: NSS 500mL Allergies Allergy/AdvReac Type Severity Reaction Status Date / Time fluoxetine Allergy Unknown unk Verified 03/16/25 14:10 Sulfa (Sulfonamide Allergy Unknown unk Verified 03/16/25 14:10 Antibiotics) buspirone AdvReac Severe suical Verified 03/16/25 14:10 thoughts prednisone AdvReac Intermediate agitation Verified 03/16/25 14:10 Home Medications Medication Instructions Recorded Confirmed Type citalopram 40 mg tablet 40 mg PO QAM 05/07/18 03/16/25 History omeprazole 20 mg tablet,delayed 20 mg PO DAILYBB 05/07/18 03/16/25 History release imipramine HCl 25 mg tablet 0 mg PO TID 09/06/23 03/16/25 History multivitamin 1 tab PO DAILY 02/22/25 03/16/25 History rivaroxaban 20 mg tablet (Xarelto) 20 mg PO HS #30 tabs 02/28/25 03/16/25 Rx amlodipine 5 mg tablet 5 mg PO QAM #30 tabs 03/03/25 03/16/25 Rx aspirin 81 mg tablet,delayed 81 mg PO QAM #30 tabs 03/03/25 03/16/25 Rx release atorvastatin 20 mg tablet 20 mg PO QAM #30 tabs 03/03/25 03/16/25 Rx carvedilol 25 mg tablet 25 mg PO BIDM #60 tabs 03/03/25 03/16/25 Rx meclizine 25 mg tablet 25 mg PO BID PRN dizziness #30 tabs 03/03/25 03/16/25 Rx Past Med/Surg History Problem List (Updated 03/16/25 @ 16:34 by Renata Navarrete PA-C) Diarrhea (Acute) Hypokalemia (Acute) Nausea & vomiting (Acute) Vertigo (Acute) Stroke with cerebral ischemia Vertigo Nausea (Acute) Hypertension (Acute) Weakness (Acute) GERD (gastroesophageal reflux disease) Morbid obesity with BMI of 40.0-44.9, adult HLD (hyperlipidemia) Cellulitis of leg, right Syncope (Acute) COVID-19 (Acute) Hypoxia (Acute) Received intravenous tissue plasminogen activator (t-PA) within last 24 hours Pulmonary embolism associated with COVID-19 Acute hypoxemic respiratory failure Encephalopathy Hypertensive urgency (Acute) Female urinary stress incontinence (Chronic Unknown) Arthritis of shoulder region, right (Acute) Degenerative arthritis of right shoulder region (Acute) Right shoulder pain (Acute) Right shoulder pain (Acute) Medical History (Updated 03/16/25 @ 16:34 by Renata Navarrete PA-C) Depression Stenosis of left internal carotid artery Cellulitis Asthma Hypertension Family History Other No significant family history Social History Smoking Status: Never smoker Second Hand Exposure: No; Do You Dip or Chew Tobacco: No; Hx Alcohol Use: No Hx Substance Use: No Preferred Language: [place] Citizen Communication Ability: Effective Transitional Kindergarten Teacher Required: No Beliefs That Will Affect Care: None marital status: Current Living Situation: Spouse Current Living Situation Comment: with Leopoldo Contreras How many Children do You have: 2 Feels Safe at Home: Yes Assistive Devices: Walker Review of Systems Review of Systems: All systems reviewed & are unremarkable except as noted in Subjective Physical Exam Physical Exam: General: NAD, VS as above HEENT: minimal right sided facial droop from recent stroke Resp: normal respiratory effort, lungs clear to auscultation CV: RRR, no murmur, Abd: normal bowel sounds, non tender, no hepatosplenomegaly Extremities: venous stasis/lymphedema changes to LE - redness over right leg especially put patient reprots this is her baseline Neuro: A&O x3, Results & Data Results & Data Vital Signs (Past 12 Hours) Vital Signs Temp Pulse Resp BP Pulse Ox O2 Del Method 03/16/25 15:03 21 182/90 H 91 Room Air 03/16/25 13:30 85 21 171/89 H 92 Room Air 03/16/25 12:50 91 H 19 92 Room Air 03/16/25 12:35 85 20 127/91 92 Room Air 03/16/25 12:35 94 H 20 127/91 96 Room Air 03/16/25 11:53 87 03/16/25 11:36 93 H 21 185/95 H 93 Room Air 03/16/25 11:13 97.5 F L 93 H 16 183/90 H 97 Room Air Laboratory Results cbc and chemsitry reviewed PG Care Time/CCT Total # of Minutes Spent Total Time Spent with Patient: Total time spent is greater than 50% in coordination of care (as documented) at patient's floor/unit and/or counseling patient: Coding Level of Care Code 48016 INT INP/OBS CARE 3/75MIN Diagnoses Diarrhea R19.7 Weakness R53.1 Hypertension I10 Hypertension type: unspecified (3) Hypertension Hypertension type: unspecified Qualified Code(s): I10 - Essential (primary) hypertension"
[2025-03-16] MEDS: LACTATED RINGER'S 1,000 ML IV SCH (16:42)
[2025-03-16] MEDS: POTASSIUM CHLORIDE CRTAB 20 MEQ TABCR PO STA (16:56)
[2025-03-16] MEDS ORDERED: ACETAMINOPHEN 325 MG TAB PO PRN (17:53)
[2025-03-16] MEDS ORDERED: MAGNESIUM HYDROXIDE SUSP 30 ML UDC PO PRN (17:53)
[2025-03-16] MEDS ORDERED: MELATONIN 3 MG TAB PO PRN (17:53)
[2025-03-16] MEDS ORDERED: POLYETHYLENE (MIRALAX) 17 GM PACK PO PRN (17:53)
[2025-03-16] MEDS ORDERED: MECLIZINE HCL 25 MG TAB PO PRN (17:53)
[2025-03-16] MEDS: POTASSIUM CHLORIDE PWD 20 MEQ PACK PO ONE (18:47)
[2025-03-16] MEDS: RIVAROXABAN 20 MG TAB PO SCH (20:14)
[2025-03-16] MEDS: IMIPRAMINE HCL 25 MG TAB PO SCH (20:14)
[2025-03-17 06:25] LABS: Hematocrit (blood only) 37.8 % (37.0-47.0); Hemoglobin 12.4 g/dl (12.0-16.0); Mean Corpuscular Hemoglobin 29.2 pg (25.0-34.0); Mean Corpuscular Volume 88.9 fL (80.0-100.0); Platelet Count 213 K/uL (130-400); RDW Standard Deviation 45.1 fL (36.4-46.3); Red Blood Count 4.25 M/uL (4.20-5.40); White Blood Count 5.48 K/ul (4.8-10.8)
[2025-03-17 07:11] LABS: Anion Gap 7.0 (3-11); Blood Urea Nitrogen 11.0 mg/dl (6-23); Calcium 8.7 mg/dl (8.6-10.3); Carbon Dioxide 27.0 mmol/L (21-32); Chloride 106.0 mmol/L (98-107); Creatinine Clr Calc Pharmacy 97.6 ml/min; Glucose 85.0 mg/dl (70-99(Fasting)); Magnesium 1.9 mg/dl (1.7-2.4); Potassium 3.3 mmol/L (3.5-5.1); Sodium 140.0 mmol/L (136-145)
[2025-03-17] MEDS: POTASSIUM CHLORIDE PWD 20 MEQ PACK PO ONE (08:57)
[2025-03-17] MEDS: CITALOPRAM 40 MG TAB PO SCH (09:05)
[2025-03-17] MEDS: ATORVASTATIN 20 MG TAB PO SCH (09:05)
[2025-03-17] MEDS: ASPIRIN 81 MG ECTAB PO SCH (09:05)
[2025-03-17] MEDS: MULTIVITAMIN TAB PO SCH (09:06)
[2025-03-17 12:10] LABS: Cdiff Toxin B Gene (2yr or >) Negative Cdiff Gene (Neg)
[2025-03-17 12:41] LABS: Adenovirus F 40/41 PCR Not Detected (NotDetected); Campylobacter PCR Not Detected (NotDetected); Enteroaggregative E.coli(EAEC) Not Detected (NotDetected); Shiga-like Toxin E.coli (STEC) Not Detected (NotDetected); Vibrio species PCR Not Detected (NotDetected)
[2025-03-17] MEDS ORDERED: LOPERAMIDE HCL 2 MG CAP PO PRN (13:46)
--- NOTE | 2025-03-17 14:30 | Hospitalist Progress Note ---
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 #Diarrhea | Weakness - x2 weeks with worsening and recent antibiotic course. No leukocytosis or fever on admission cdiff negative, stool studies + For ETEC, no recent travel also reporting chronic diarrhea and fecal incontience x 6 years Immodium prn, metamucil scheduled. PT/OT - pt refused PT 03/17 #HTN | recent CVA Continue amlodipine, carvidelol, ASA and statin #Mental Health - continue celexa and imipramine #Vertigo - prn meclizine Dispo: continued inpatient stay, should be able to be discharge 03/18 DVT proh: home xarelto Admission and Anticipated Discharge Date Admission Date: March 16, 2025 Subjective patient seen earlier this morning - no complaints one episode of diarrhea early this morning revisited this afternoon after her stool studies result - saying she cant go home with the diarrhea or incontience, but upon further questioning this is chronic for her. Does not think she would travel to [facility] or [place] for consult Review of Systems Review of Systems: All systems reviewed & are unremarkable except as noted in Subjective Physical Exam Physical Exam: General: NAD, VS as above HEENT: minimal right sided facial droop from recent stroke Resp: normal respiratory effort, lungs clear to auscultation CV: RRR, no murmur, Abd: normal bowel sounds, non tender, no hepatosplenomegaly Neuro: A&O x3, Results & Data Results & Data Vital Signs (Past 12 Hours) Vital Signs Temp Pulse Resp BP Pulse Ox O2 Del Method 03/17/25 08:29 97.9 F 86 18 162/53 H 92 Room Air Diagnostic Findings bmp and stool studies reviewed PG Care Time/CCT Total # of Minutes Spent Total Time Spent with Patient: Total time spent is greater than 50% in coordination of care (as documented) at patient's floor/unit and/or counseling patient: Coding Level of Care Code 21248 SUB INP/OBS CARE MIN Diagnoses Diarrhea R19.7 Weakness R53.1 Hypertension I10 Hypertension type: unspecified (3) Hypertension Hypertension type: unspecified Qualified Code(s): I10 - Essential (primary) hypertension"
[2025-03-17] MEDS: PSYLLIUM HUSK 4GM PACKET PO SCH (15:40)
--- NOTE | 2025-03-18 06:43 | Electrocardiogram Report ---
Test Reason : Blood Pressure : */* mmHG Vent. Rate : 89 BPM Atrial Rate : 89 BPM P-R Int : 150 ms QRS Dur : 96 ms QT Int : 388 ms P-R-T Axes : 33 -13 66 degrees QTcB Int : 472 ms Sinus rhythm with sinus arrhythmia with occasional Premature ventricular complexes Nonspecific T wave abnormality Abnormal ECG When compared with ECG of 22-Feb-2025 19:38, Premature ventricular complexes are now Present Inverted T waves have replaced nonspecific T wave abnormality in Lateral leads Confirmed by Diony Gale ([id number]) on 03/18/2025 6:42:51 AM Referred By: REFERRED SELF Confirmed By: Diony Gale
[2025-03-18] MEDS: POTASSIUM CHLORIDE CRTAB 20 MEQ TABCR PO STA (09:34)
--- NOTE | 2025-03-18 12:57 | Hospitalist Progress Note ---
Date of Service March 18, 2025 Assessment & Plan (1) Diarrhea: Plan: Due to enterotoxigenic E. coli. Metamucil twice daily on a scheduled basis. Supportive care (2) Weakness: Plan: Generalized. Encouraged participation with OT and PT. (3) Hypertension: Plan: Stable. Continue current medical management (4) Morbid obesity with BMI of 40.0-44.9, adult: Plan: BMI greater than 40. Significant weight loss recommended (5) Depression: Plan: Supportive care. Continue current medical management (6) Hypokalemia: Plan: Mild. Probably due to GI losses from diarrhea. Oral replacement. Serial labs Plan To be determined if she will be able to go home or will need SNF placement at discharge Admission and Anticipated Discharge Date Admission Date: March 16, 2025 Subjective Alert and oriented. Unfortunately she is not well motivated to participate with occupational therapy or physical therapy and has been refusing participation. Potassium replacement continues. She agrees to take Metamucil twice daily to hopefully decrease frequency and volume of diarrhea stools. Review of Systems 2 Review of Systems: Constitutionalno fever or chills. ENTno blurred vision, no double vision, no epistaxis, no sore throat Respiratoryno cough, no wheezing, no shortness of breath Cardiacno palpitations, no chest pain, no syncope Radha nausea, vomiting, melena, hematochezia. Diarrhea stools but no evidence of gross bleeding GUno urinary retention, no urinary incontinence, no dysuria, no hematuria Musculoskeletalno joint pain, no muscle tenderness Skinno bruising, no rashes, no pruritus Neurono isolated weakness, no paresthesia, no weakness Psychdepressed affect Physical Exam 2 Physical Exam: General-alert and oriented x3, no fever, no chills. Morbidly obese HEENT-head atraumatic and normocephalic, pupils equal and reactive to light, extraocular muscles intact Neck-no lymphadenopathy or thyromegaly, trachea midline Chest-clear to auscultation. No rales, wheezing or rhonchi Cardiac-regular rate and rhythm, normal S1 and S2 Abdomen-normal bowel sounds, no hepatosplenomegaly Extremities-no cyanosis, clubbing, or edema Neuro-cranial nerves II through XII intact, motor and sensory function within normal limits, strength symmetrical, no focal deficits Psych-depressed affect Results & Data Results & Data Vital Signs (Past 12 Hours) Vital Signs Temp Pulse Resp BP Pulse Ox O2 Del Method 03/18/25 09:15 Room Air 03/18/25 07:47 36.4 C L 96 H 18 116/64 91 Room Air Laboratory Results 03/17/25 06:02 03/17/25 06:02 PG Care Time/CCT Total # of Minutes Spent Total Time Spent with Patient: Total time spent is greater than 50% in coordination of care (as documented) at patient's floor/unit and/or counseling patient: Coding Level of Care Code 03749 SUB INP/OBS CARE 3/50MIN Diagnoses Diarrhea R19.7 Weakness R53.1 Hypertension I10 Hypertension type: unspecified Morbid obesity with BMI of 40.0-44.9, adult E66.01; Z68.41 Depression F32.A Hypokalemia E87.6 (3) Hypertension Hypertension type: unspecified Qualified Code(s): I10 - Essential (primary) hypertension
[2025-03-18] MEDS: PSYLLIUM HUSK 4GM PACKET PO SCH (21:13)
[2025-03-19 06:41] LABS: Hematocrit (blood only) 39.7 % (37.0-47.0); Hemoglobin 13.2 g/dl (12.0-16.0); Immature Granulocytes # (auto) 0.01 K/uL (0.01-0.20); Immature Granulocytes % (auto) 0.2 %; Mean Corpuscular Hemoglobin 30.0 pg (25.0-34.0); Mean Corpuscular Volume 90.2 fL (80.0-100.0); Platelet Count 208 K/uL (130-400); RDW Standard Deviation 45.2 fL (36.4-46.3); Red Blood Count 4.40 M/uL (4.20-5.40); White Blood Count 6.33 K/ul (4.8-10.8)
[2025-03-19 07:10] LABS: Anion Gap 6.0 (3-11); Blood Urea Nitrogen 12.0 mg/dl (6-23); Calcium 8.9 mg/dl (8.6-10.3); Carbon Dioxide 30.0 mmol/L (21-32); Chloride 106.0 mmol/L (98-107); Creatinine Clr Calc Pharmacy 102.9 ml/min; Glucose 104.0 mg/dl (70-99(Fasting)); Potassium 3.9 mmol/L (3.5-5.1); Sodium 142.0 mmol/L (136-145)
--- NOTE | 2025-03-19 13:10 | Hospitalist Progress Note ---
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 #Diarrhea | Weakness - x2 weeks with worsening and recent antibiotic course. No leukocytosis or fever on admission. Cdiff negative, stool studies + For ETEC, no recent travel - she is non toxic and not septic. Imodium and fiber supplements started 03/17. Fiber increased to BID 03/18. Two soft, formed bowel movements on 03/18, which RN reports she rang appropriately for and was not incontinent. Tori refused PT/OT on 03/18 but worked with them on 03/19 and their recommendation to return home. K has been replaced PO and is now replete. Patient is stable for discharge to home on continued Imodium and fiber also reporting chronic diarrhea and fecal incontience x 6 years - she was offered referral to [facility] but states she would not go because it is too far. If changes her mind, PCP can refer. #HTN | recent CVA - Continue amlodipine, carvidelol, ASA and statin #Mental Health - continue celexa and imipramine #Vertigo - prn meclizine Dispo: discharged 03/19 but patient appealing, awaiting determination of appeal. DVT proh: home xarelto Admission and Anticipated Discharge Date Admission Date: March 16, 2025 Subjective Patient seen sitting up in bed - no acute complaints. No diarrhea today. States she will NOT go to any rehab. Review of Systems Review of Systems: All systems reviewed & are unremarkable except as noted in Subjective Physical Exam Physical Exam: General: NAD, vitals as above, sitting up in bed, appears well. Pulm: breathing unlabored CV: well perfused extremities: moves all extremities Results & Data Results & Data Vital Signs (Past 12 Hours) Vital Signs Temp Pulse Resp BP Pulse Ox O2 Del Method 03/19/25 07:20 97.7 F 86 17 158/62 H 93 Room Air Laboratory Results cbc and chemistry reviewed PG Care Time/CCT Total # of Minutes Spent Total Time Spent with Patient: Total time spent is greater than 50% in coordination of care (as documented) at patient's floor/unit and/or counseling patient: Coding Level of Care Code 47383 SUB INP/OBS CARE 2/35MIN Diagnoses Diarrhea R19.7 Weakness R53.1 Hypertension I10 Hypertension type: unspecified (3) Hypertension Hypertension type: unspecified Qualified Code(s): I10 - Essential (primary) hypertension"
--- NOTE | 2025-03-19 14:01 | Discharge Summary ---
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 #Diarrhea | Weakness - x2 weeks with worsening and recent antibiotic course. No leukocytosis or fever on admission. Cdiff negative, stool studies + For ETEC, no recent travel - she is non toxic and not septic. Imodium and fiber supplements started 03/17. Fiber increased to BID 03/18. Two soft, formed bowel movements on 03/18, which RN reports she rang appropriately for and was not incontinent. Tori refused PT/OT on 03/18 but worked with them on 03/19 and their recommendation to return home. K has been replaced PO and is now replete. Patient is stable for discharge to home on continued Imodium and fiber also reporting chronic diarrhea and fecal incontience x 6 years - she was offered referral to [facility] but states she would not go because it is too far. If changes her mind, PCP can refer. 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 Poor appetite because she was worried about having diarrhea, also reports poor oral intake. Denies fevers or chills. No abdominal. Normally has diarrhea with antibiotics but it has always cleared on it own. Denies lightheadedness or dizziness. No recent travel wishes to be a DNR/DNI ED course: NSS 500mL Discharge Exam General: NAD, vitals as above, sitting up in bed, appears well. Pulm: breathing unlabored CV: well perfused extremities: moves all extremities Discharge Plan Discharge Items Patient Disposition: Home - Self-Care Reason For Visit: DIARRHEA Discharge Diagnosis: Diarrhea Condition on Discharge: Fair Activity: Resume your previous activity Non-emergency contact: Primary Care Provider Call non-emergency contact if: you have any medication questions, your symptoms worsen and your temperature is above 101 Follow-up/Referrals: Yandel Tovar MD [Primary Care Provider] - (Follow up within one week ) Diet: Regular Addtl Attending Provider Instructions: Ms. Contreras, You were hospitalized after having ongoing diarrhea found to be from travelers's diarrhea. This is treated with over the counter medications. You have been doing well with imodium as needed, and fiber supplements twice a day to help bulk up your stools. Recommend continue fiber indefinitely - you can use Benefiber or Metamucil over the counter. We discussed a referral to [facility] for fecal incontinence. You declined during your hospital stay. If you change your mind recommend discussing with your PCP to obtain a referral. No changes to your home medications. Please follow up with your PCP in one week. Pending Studies at Discharge: No Stand-Alone Forms: My [facility] Medications and DC Order Prescriptions: New loperamide 2 mg Capsule 2 mg PO Q2H PRN (Reason: loose stool) Qty: 30 0RF Psyllium Husk [Metamucil] 4 g PO BID 30 Days Qty: 240 0RF Continued citalopram 40 mg Tablet 40 mg PO QAM omeprazole 20 mg Tablet,Delayed Release (Dr/Ec) 20 mg PO DAILYBB imipramine HCl 25 mg tablet 0 mg PO TID Patient Comments: Last filled 02/06/25 x30 day supply. Original Directions: 25mg by mouth TID - 03/16/25 multivitamin Tablet 1 tab PO DAILY Xarelto 20 mg Tablet 20 mg PO HS Qty: 30 0RF carvedilol 25 mg Tablet 25 mg PO BIDM Qty: 60 0RF atorvastatin 20 mg Tablet 20 mg PO QAM Qty: 30 0RF amlodipine 5 mg Tablet 5 mg PO QAM Qty: 30 0RF aspirin 81 mg Tablet,Delayed Release (Dr/Ec) 81 mg PO QAM Qty: 30 0RF meclizine 25 mg Tablet 25 mg PO BID PRN (Reason: dizziness) Qty: 30 0RF Discharge Orders: Discharge Order (Routine); Ordered 03/19/25 Ordered By: Renata Navarrete Admission Data Admit Date/Time: 03/16/25 16:07 Attending Provider: Eunice Huitron Admit Provider: Eunice Huitron Primary Care Provider: Yandel Tovar Other Providers: Eunice Huitron Other Interventions: Discharge Summary Assessment (RN) Last Done: 03/19/25 17:23 Hospital Stay Data Consultations 03/16/25 15:57 ED Decision to Admit Stat Pending Results Patient Have Any Pending Studies at Discharge: No Discharge Instructions Given to Patient (Per Discharging Provider) Ms. Contreras, Andrea were hospitalized after having ongoing diarrhea found to be from travelers's diarrhea. This is treated with over the counter medications. You have been doing well with imodium as needed, and fiber supplements twice a day to help bulk up your stools. Recommend continue fiber indefinitely - you can use Benefiber or Metamucil over the counter. We discussed a referral to [facility] for fecal incontinence. You declined during your hospital stay. If you change your mind recommend discussing with your PCP to obtain a referral. No changes to your home medications. Please follow up with your PCP in one week. Total Time Total Time Spent Total Time Spent (In Minutes): Time spent day of discharge 45 minutes including direct patient care, medication reconciliation, documentation, review of labs and images, and coordination of care. Discussed with CM multiple times Coding Level of Care Code 80064 INP/OBS DISCH >30 MIN Diagnoses Diarrhea R19.7 Weakness R53.1 Hypertension I10 Hypertension type: unspecified"
[2025-03-19 16:25] VITALS: BP 148/72; PULSE 80; RESP 18; TEMP 98.4; O2SAT 96
== END 2025-03-19 19:45 | disposition home or self-care (01) ==
LOC: 3E 11:04 → ED 11:04 → SUATTDRO 16:07 → 3E 17:07